=== PATIENT | male | born 1950 | race Caucasian/White ===

== ENCOUNTER 2024-06-19 08:36 | Outpatient (OUT) | payer OTHER, SELFPAY ==
[2024-06-19] MEDS: ALBUTEROL SULFATE 2.5 MG/3 ML VIAL NEB IH (09:30)
--- NOTE | 2024-06-19 09:31 | RT_ITS ---
The 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 Findings were considered accurate and reproducible. Both pre- and post-bronchodilator values utilized for spirometry. Spirometry (based on pre-bronchodilator values): -FEV1/FVC: Reduced @ 32% -FEV1: Severely reduced @ 38% -FVC: Normal @ 87% -DKC63-67%: Reduced @ 13% -There is a positive bronchodilator response in FEV1. Flow-volume loop: -Severe obstructive pattern Impressions: -Spirometry is consistent with severe obstruction with a positive bronchodilator response which can be seen in asthma or COPD with a bronchodilator response. Consider full PFT with lung volumes and diffusion capacity depending on the clinical suspicion. Clinical correlation required. Electronically Signed On 06-19-2024 16:54:27 EDT by Gregory Jackson
--- NOTE | 2024-06-19 09:56 | XR_ITS ---
The [address] [address] Patient Name: ALEXIS SABILLON MRN: [id number] date: 1950 Sex: M Assigned Patient Location: CARD Current Patient Location: CARD Accession/Order Number: [id number] Exam Date: 06/19/2024 10:05 Report Date: 06/19/2024 19:24 At the request of: FRANCE SINGLETARY Procedure: XR chest 2V EXAM: XR chest 2V HISTORY: Shortness Of Breath COMPARISON: None. TECHNIQUE: Upright PA and lateral chest x-ray FINDINGS: The heart is not enlarged and the vasculature is not distended. Multiple sternal wire sutures are present with coronary artery stents. No acute infiltrate, effusion or pneumothorax is identified. Flattening of the hemidiaphragms indicates COPD. The osseous structures are grossly intact. Hardware projects over the cervical spine. XR/XR chest 2V IMPRESSION: No acute infiltrate or evidence of cardiac decompensation. Some chronic changes are present. Direct comparison with a previous study may be helpful in determining the chronicity of these findings. Electronically authenticated by: DANELLE BOO Date: 06/19/2024 19:24
== END 2024-06-19 08:37 | disposition home or self-care (01) ==
PROVIDERS: PCP Internal Medicine; Visit Provider Chiropractor
DX: R06.02 Shortness of breath (principal)
CPT/HCPCS: 71046; 94060

== ENCOUNTER 2024-07-05 12:34 | Inpatient (IN) | payer OTHER, SELFPAY ==
[2024-07-05] VITALS (9 sets, daily range): BP systolic 102–169; BP diastolic 51–71; PULSE 67–83; TEMP 36.3–36.9; O2SAT 91–97; BMI 23.7; BMI 24.8
--- NOTE | 2024-07-05 13:09 | ED.RECABL1 ---
HPI - Recheck/Abnormal Lab/Rx General Chief Complaint: Recheck/Abnormal Lab/Rx Stated Complaint: ABNORMAL LABS Time Seen by Provider: 07/05/24 12:57 Source: patient Mode of arrival: walk-in Limitations: no limitations History of Present Illness HPI narrative: This patient is here with his for evaluation of abnormal laboratory test. He just had some outpatient labs done at a different institution and his doctor's office called him with abnormal results on his blood glucose. He has been taking metformin for quite a few years because he was told that he was Predyne bad ache but his blood sugars have never been elevated. He currently is under treatment of an oncology doctor for lung cancer. He is getting carboplatin and Keytruda. He is scheduled to have 2 more Keytruda and lesions on July 12 and August 02. He is under the care of the [facility] and then a local oncology doctor Dr. vee. He has noticed that he has been voiding and thirsty for the last several weeks. He has not been on any steroids that he is aware of. Related Data Allergies Allergy/AdvReac Type Severity Reaction Status Date / Time azithromycin AdvReac Intermediate Nausea Verified 07/05/24 13:01 [facility] Social History Little interest or pleasure in doing things: not at all Feeling down, depressed, or hopeless: not at all Exam Narrative Exam Narrative: Awake alert pleasant no distress. Does not want anything for nausea at this time. Always had the today with some fresh pineapple. Does not have any abdominal pain chest pain or difficulty breathing. Vital signs are noted. Skin is warm and dry. He has no scleral icterus or jaundice. He has no respiratory distress. Pulse oximetry is 97% on room air. Cognition mentation and mental status are normal. Constitutional Vital Signs, click to edit/add: Last Vital Signs Temp 97.3 F L 07/05/24 12:41 Pulse 83 07/05/24 12:41 Resp 18 07/05/24 12:41 BP 169/71 H 07/05/24 12:41 Pulse Ox 97 07/05/24 12:41 O2 Del Method Room Air 07/05/24 12:41 Course Vital Signs Vital signs: Vital Signs Temperature 97.3 F L 07/05/24 12:41 Pulse Rate 83 07/05/24 12:41 Respiratory Rate 18 07/05/24 12:41 Blood Pressure 169/71 H 07/05/24 12:41 Pulse Oximetry 97 07/05/24 12:41 Oxygen Delivery Method Room Air 07/05/24 12:41 Temperature 97.3 F L 07/05/24 12:41 Pulse Rate 83 07/05/24 12:41 Respiratory Rate 18 07/05/24 12:41 Blood Pressure 169/71 H 07/05/24 12:41 Pulse Oximetry 97 07/05/24 12:41 Oxygen Delivery Method Room Air 07/05/24 12:41 MDM - Recheck/Abnormal Lab/Rx MDM Narrative Medical decision making narrative: Laboratory testing and a additionally include serum acetone venous blood gases.. Overall this patient's pH is just under 7.3 and that is not consistent with DKA. There is a very mild anion gap and trace acetone again this is more consistent with hyperosmolar than it is DKA. Case was discussed with the attending and we will put the patient on the floor and continue therapy. Lab Data Labs: Lab Results 07/05/24 07/05/24 07/05/24 Range/Units 13:00 14:07 14:33 VBG pH 7.297 L (7.330-7.430) VBG pCO2 35.4 L (40.0-52.0) mmHg Sodium 125 L (136-145) mmol/L Potassium 4.9 (3.5-5.1) mmol/L Chloride 85 L (98-107) mmol/L Carbon Dioxide 20.2 L (21.0-32.0) mmol/L Anion Gap 24.7 BUN 26.0 H (7.0-18.0) mg/dL Creatinine 1.54 H (0.70-1.30) mg/dL Est GFR ( Amer) 54 L (>=60) Est GFR (Non-Af Amer) 44 L (>=60) BUN/Creatinine Ratio 16.9 Glucose 647 H* (74-106) mg/dL Calcium 8.5 (8.5-10.1) mg/dL Acetone, Qual Small A (NEGATIVE) POC Glucose 553 H* (74-106) mg/dL Discharge Plan Discharge Chief Complaint: Recheck/Abnormal Lab/Rx Clinical Impression: Hyperosmolar hyperglycemic state (HHS) Patient Disposition: Admitted as Observation Time of Disposition Decision: 14:46 Print Language: Latvian Referrals: FRANCE PACHECO [Primary Care Provider] - 1 week
[2024-07-05] MEDS: INSULIN REGULAR, HUMAN (100 UNIT/ML) 10 ML MDV 6 UNIT IV (13:20)
[2024-07-05] MEDS: 0.9 % SODIUM CHLORIDE 1,000 ML 1000 ML IV ×2 (13:21→17:53)
[2024-07-05 13:37] LABS: Acetone SMALL (NEGATIVE)
[2024-07-05 13:45] LABS: Anion Gap 24.7; BUN Creatinine Ratio 16.9; Calcium 8.5 mg/dL (8.5-10.1); Carbon Dioxide 20.2 mmol/L (21.0-32.0); Chloride 85 mmol/L (98-107); Estimated GFR (African America 54 (>=60); Estimated GFR (Non-African Ame 44 (>=60); Potassium 4.9 mmol/L (3.5-5.1); Sodium 125 mmol/L (136-145)
[2024-07-05 13:50] LABS: Glucose 647 mg/dL (74-106)
[2024-07-05 14:10] LABS: Glucometer 553 mg/dL (74-106)
[2024-07-05 14:41] LABS: PCO2 VBG 35.4 mmHg (40.0-52.0); pH VBG 7.297 (7.330-7.430)
[2024-07-05 17:03] LABS: Glucometer 461 mg/dL (74-106)
--- NOTE | 2024-07-05 17:26 | P.HP_ITS ---
HPI H&P: HPI History of Present Illness Chief complaint: ABNORMAL LABS/HYPEROSMOLAR/HYPERGLYCEMIC STATE Narrative: Patient was was having routine outpatient labs with increasing thirst lately through his oncology office, found to have a significantly elevated sugar over 600, he was recommended to come to emergency room for evaluation. In the emergency room he does have some mild acidosis, mild ketosis, but not to the level he would expect with diabetic ketoacidosis he is also not an insulin- dependent diabetic. 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 When I saw patient up on the medical surgical floor, resting comfortably, denies any specific complaints other than just being very thirsty and somewhat fatigued. But no chest pain or shortness of breath no UTI symptoms no gastroenteritis symptoms Opioid HPI Opioid Management Most Recent Pain and Opioid Data: Last Pain Assessment 07/05/24 17:11 Last ORT Total Score 0 07/05/24 15:46 Last ORT Risk Category Low Risk 07/05/24 15:46 Review of Systems ROS Status of ROS 10 or more systems reviewed and unremark able except as noted in history and below PFSH PFSH Medical History (Updated 07/05/24 @ 16:31 by Jane Suarez RN) Hypertension ?I10 - Essential (primary) hypertension (ICD-10) Diabetes ?E11.9 - Type 2 diabetes mellitus without complications (ICD-10) COPD (chronic obstructive pulmonary disease) ?J44.9 - Chronic obstructive pulmonary disease, unspecified (ICD-10) Lung cancer ?C34.90 - Malignant neoplasm of unspecified part of unspecified bronchus or lung (ICD-10) History of bladder cancer ?Z85.51 - Personal history of malignant neoplasm of bladder (ICD-10) History of thyroid cancer ?Z85.850 - Personal history of malignant neoplasm of thyroid (ICD-10) Surgical History (Updated 07/05/24 @ 16:31 by Jane Suarez RN) History of vasectomy ?Z98.52 - Vasectomy status (ICD-10) Hx of tonsillectomy ?Z90.89 - Acquired absence of other organs (ICD-10) Hx of cervical spinal arthrodesis ?Z98.1 - Arthrodesis status (ICD-10) Hx of CABG ?Z95.1 - Presence of aortocoronary bypass graft (ICD-10) History of heart artery stent ?Z95.5 - Presence of coronary angioplasty implant and graft (ICD-10) Family History (Updated 07/05/24 @ 15:34 by Jane Suarez RN) Sister Family history of diabetes mellitus Father Family history of diabetes mellitus Family history of stroke Brother Family history of hypertension Mother Family history of stroke Social History (Updated 07/05/24 @ 15:36 by Jane Suarez RN) Within the past year, how often did you have a drink containing alcohol: 4 or more times a week Smoking status: Current every day smoker Non-prescribed substance use: denies use Highest level of school completed/degree received: some college, no degree Little interest or pleasure in doing things: not at all Feeling down, depressed, or hopeless: not at all Meds Home Medications and Allergies Home Medications ?Medication ?Instructions ?Recorded ?Confirmed ?Type albuterol sulfate 2.5 mg/3 mL 2.5 mg inhalation Q4H PRN 07/05/24 07/05/24 Hist ory (0.083 %) solution for nebulization shortness of breath or wheezing ascorbic acid (vitamin C) 500 mg 500 mg PO DAILY 07/05/24 07/05/24 History capsule aspirin 81 mg capsule 81 mg PO DAILY 07/05/24 07/05/24 History atorvastatin 80 mg tablet 80 mg PO .at bedtime 07/05/24 07/05/24 History fluticasone fur. 100 mcg-umeclid 1 inh inhalation DAILY 07/05/24 07/05/24 History 62.5 mcg-vilant 25 mcg inhalat.powder (Trelegy Ellipta) folic acid 1 mg tablet 1 mg PO DAILY 07/05/24 07/05/24 History levothyroxine 150 mcg tablet 137 mcg PO DAILY 07/05/24 07/05/24 History metformin 500 mg tablet 500 mg PO DAILY 07/05/24 07/05/24 History metoprolol tartrate 25 mg tablet 12.5 mg PO Q12H 07/05/24 07/05/24 History omeprazole 20 mg capsule,delayed 20 mg PO DAILY 07/05/24 07/05/24 History release ondansetron 8 mg disintegrating 8 mg PO .as needed 07/05/24 07/05/24 History tablet tamsulosin 0.4 mg capsule 0.4 mg PO .at bedtime 07/05/24 07/05/24 History Allergies Allergy/AdvReac Type Severity Reaction Status Date / Time erythromycin base Allergy Nausea Verified 07/05/24 15:46 Permetrexed Allergy Rash Uncoded 07/05/24 15:46 Exam Constitutional Vital Signs, click to edit/add: Last Vital Signs Temp 98.3 F 07/05/24 15:46 Pulse 80 07/05/24 15:46 Resp 18 07/05/24 15:46 BP 118/63 07/05/24 15:46 Pulse Ox 92 L 07/05/24 15:46 O2 Del Method Room Air 07/05/24 15:46 Documenting provider has reviewed patient's vital signs: yes Common normals: no apparent distress Chest Common normals: inspection of chest normal Respiratory Common normals: normal respiratory effort, no retractions and clear to auscultation bilaterally Cardio Common normals: regular rate and regular rhythm GI Common normals: Normal to inspection, nondistended, normoactive bowel sounds present, soft to palpation and non-tender Extremity Common normals: normal to inspection, full ROM and no clubbing, cyanosis or edema Results Labs Labs: [facility] 07/05/24 13:00 Sodium 125 L Potassium 4.9 Chloride 85 L Carbon Dioxide 20.2 L BUN 26.0 H Creatinine 1.54 H Glucose 647 H* Calcium 8.5 ABG ABG results: 07/05/24 14:33 VBG pH 7.297 L VBG pCO2 35.4 L Assessment and Plan Assessment and Plan (1) Hyperosmolar hyperglycemic state (HHS): (2) Hypertension: (3) Diabetes: (4) COPD (chronic obstructive pulmonary disease): (5) Lung cancer: (6) Hx of CABG: (7) History of heart artery stent: Plan Admission findings: Hyponatremia, metabolic acidosis, severe hyperglycemia, positive ketone secondary to nonketotic hyperosmolar syndrome initial diagnosis Nonketotic hyperosmolar syndrome-at this point we will continue with IV fluid resuscitation, subcu insulin, continue with home medications. Suspecting this started from a dose of Solu-Medrol 2 weeks ago. This need to improve his overall hydration status non insulin-dependent diabetes mellitus-continue with metformin, he may need alternate treatment pending on outcome over the next 24 to 48 hours Acute kidney injury with creatinine 130% above baseline-IV fluids. Serial labs. Hyponatremia-likely secondary to the above-repeat labs in a.m., check urine sodium Metabolic acidosis likely secondary just to the dehydration. In the hyperglycemia. Will see if resolves overnight with fluids and subcu insulin. Check other labs including CBC and liver profile, not checked in ER urinalysis also. Lung cancer active, currently undergoing chemotherapy-Case discussed with oncology, check urine sodium as a possible source for the hyponatremia Coronary artery disease due to hypercholesterolemia, status post two-vessel bypass +12 stents-no chest pain. Denies history of heart failure. Thyroid cancer-treated in the past. Currently on levothyroxine. Will maintain that. COPD-continue with home inhalers Cervical disc disease-currently not active. Admission status: Initial episode of nonketotic hyperosmolar syndrome, medically necessary treatment will span 2 midnights. Inpatient status.
[2024-07-05 17:36] LABS: Basophils Percent Auto 0.7 % (0.2-2.0); Eosinophils Percent Auto 0.2 % (0.9-7.0); Hematocrit 33.7 % (42.0-54.0); Hemoglobin 12.2 g/dL (14.0-18.0); Immature Granulocytes Abs Auto 0.02 10^3/uL (0.00-0.03); Immature Granulocytes Pct Auto 0.4 % (0.0-0.5); Lymphocytes Absolute Auto 0.9 10^3/uL (1.2-3.8); Lymphocytes Percent Auto 19.3 % (20.5-60.0); Mean Corpuscular HGB Conc 36.2 g/dL (29.9-35.2); Mean Corpuscular Hemoglobin 34.3 pg (25.9-34.0); Mean Corpuscular Volume 94.7 fL (80.0-94.0); Mean Platelet Volume 10.1 fL (9.5-13.5); Monocytes Absolute Auto 0.4 10^3/uL (0.3-0.8); Monocytes Percent Auto 9.1 % (1.7-12.0); Neutrophils Absolute Auto 3.2 10^3/uL (1.4-6.5); Neutrophils Percent Auto 70.3 % (43.0-75.0); Platelet Count 235 10^3/uL (150-450); Red Blood Count 3.56 10^6/uL (4.70-6.10); Red Cell Distribution Width 12.4 % (11.0-15.0); White Blood Count 4.5 10^3/uL (4.0-11.0)
[2024-07-05 17:47] LABS: Alanine Aminotransferase 28 U/L (16-63); Albumin Globulin Ratio 1.2; Albumin Level 3.8 g/dL (3.4-5.0); Alkaline Phosphatase 169 U/L (46-116); Aspartate Amino Transferase 15 U/L (15-37); Bilirubin Direct 0.2 mg/dL (0.0-0.2); Bilirubin Total 0.7 mg/dL (0.2-1.0); Globulin 3.1 g/dL; Magnesium 1.2 mg/dL (1.8-2.4); Total Protein 6.9 g/dL (6.4-8.2)
[2024-07-05] MEDS: INSULIN ASPART 300 UNIT/3 ML PEN SUBQ ×2 (17:48→21:30)
[2024-07-05] MEDS: 0.9 % SODIUM CHLORIDE 1,000 ML 125 ML IV (18:59)
[2024-07-05 20:30] LABS: Glucometer 340 mg/dL (74-106)
--- NOTE | 2024-07-05 20:33 | RESP.RT ---
Pt refused HHN. Pt stated he took his Trelegy inhlaler already this morning before he came in and does not want the scheduled breathing treatments. Pt has home Trelegy inhaler here.
[2024-07-05] MEDS: METOPROLOL TARTRATE 25 MG TABLET 12.5 MG PO (21:30)
[2024-07-05] MEDS: ATORVASTATIN CALCIUM 40 MG TABLET 80 MG PO (21:30)
[2024-07-05] MEDS: TAMSULOSIN HCL 0.4 MG CAPSULE PO (21:30)
[2024-07-06] VITALS (9 sets, daily range): BP systolic 114–118; BP diastolic 57–65; PULSE 50–76; TEMP 36.6–36.7; O2SAT 90–95
[2024-07-06] MEDS: 0.9 % SODIUM CHLORIDE 1,000 ML 125 ML IV (02:08)
[2024-07-06 04:20] LABS: Glucometer 60 mg/dL (74-106)
--- NOTE | 2024-07-06 04:23 | PC.NURSE ---
0418 RN to bedside. TIRE MOUNTER informed RN that pt was diaphoretic. Pt remains A&O X4, no acute distress at present time. Assessed FSBS, noted to be 60. Pt given [place] Juice, and peanut butter and juice crackers. Pt tolerating well. Denies any complaints or feelings of hypoglycemia at this time.
[2024-07-06 04:43] LABS: Glucometer 72 mg/dL (74-106)
--- NOTE | 2024-07-06 04:44 | PC.NURSE ---
0444 - RN to bedside. Follow up FSBS -72. Pt given second [place] juice with 1 packet of sugar. Pt remains alert and oriented without s/s of hypoglycemia at present time.
[2024-07-06] MEDS: LEVOTHYROXINE SODIUM 112 MCG TABLET PO (05:37)
[2024-07-06] MEDS: LEVOTHYROXINE SODIUM 25 MCG TABLET PO (05:37)
[2024-07-06] MEDS: OMEPRAZOLE 20 MG CAPSULE.DR PO (05:37)
[2024-07-06 06:28] LABS: Basophils Percent Auto 0.3 % (0.2-2.0); Eosinophils Absolute Auto 0.2 10^3/uL (0.0-0.7); Eosinophils Percent Auto 3.1 % (0.9-7.0); Hematocrit 30.2 % (42.0-54.0); Hemoglobin 10.9 g/dL (14.0-18.0); Immature Granulocytes Abs Auto 0.06 10^3/uL (0.00-0.03); Lymphocytes Absolute Auto 0.6 10^3/uL (1.2-3.8); Lymphocytes Percent Auto 10.8 % (20.5-60.0); Mean Corpuscular HGB Conc 36.1 g/dL (29.9-35.2); Mean Corpuscular Volume 94.1 fL (80.0-94.0); Mean Platelet Volume 9.6 fL (9.5-13.5); Monocytes Absolute Auto 0.4 10^3/uL (0.3-0.8); Monocytes Percent Auto 7.2 % (1.7-12.0); Neutrophils Absolute Auto 4.5 10^3/uL (1.4-6.5); Neutrophils Percent Auto 77.6 % (43.0-75.0); Platelet Count 197 10^3/uL (150-450); Red Blood Count 3.21 10^6/uL (4.70-6.10); Red Cell Distribution Width 12.4 % (11.0-15.0); White Blood Count 5.8 10^3/uL (4.0-11.0)
[2024-07-06 06:51] LABS: Alanine Aminotransferase 21 U/L (16-63); Alkaline Phosphatase 119 U/L (46-116); Anion Gap 16.1; Aspartate Amino Transferase 18 U/L (15-37); Bilirubin Total 0.5 mg/dL (0.2-1.0); Calcium 8.2 mg/dL (8.5-10.1); Carbon Dioxide 22.2 mmol/L (21.0-32.0); Chloride 103 mmol/L (98-107); Estimated GFR (African America >60 (>=60); Estimated GFR (Non-African Ame >60 (>=60); Globulin 2.4 g/dL; Glucose 201 mg/dL (74-106); Potassium 4.3 mmol/L (3.5-5.1); Sodium 137 mmol/L (136-145); Total Protein 5.4 g/dL (6.4-8.2)
[2024-07-06 06:59] LABS: Albumin Globulin Ratio 1.3
[2024-07-06] MEDS: INSULIN ASPART 300 UNIT/3 ML PEN SUBQ (08:24)
[2024-07-06 08:40] LABS: Estimated Average Glucose 217 mg/dL; Glycohemoglobin A1C 9.2 % (4.5-6.2)
[2024-07-06] MEDS: ASCORBIC ACID 500 MG TABLET PO (08:50)
[2024-07-06] MEDS: METOPROLOL TARTRATE 25 MG TABLET 12.5 MG PO (08:50)
[2024-07-06] MEDS: FOLIC ACID 1 MG TABLET PO (08:51)
[2024-07-06] MEDS: FLUTICASONE UMECLIDIN VILANTER IH (08:51)
[2024-07-06] MEDS: METFORMIN HCL 500 MG TABLET PO (08:51)
[2024-07-06] MEDS: ASPIRIN 81 MG TAB.CHEW PO (08:51)
--- NOTE | 2024-07-06 11:47 | PM.DS1 ---
DS: Providers Provider Date of admission: 07/05/24 15:20 Primary care physician: FRANCE PACHECO Admitting clinician: Gael Chavez Attending physician on admission: Gael Chavez Consults: 07/05/24 Consult to Dietitian Routine Reason for consultation: Weight loss from chemo Attending physician on discharge: Shaikh Simón Discharging clinician: Shaikh Simón Anticipated date of discharge: 07/06/24 DS: Diagnosis Discharge Diagnosis (1) Hyperglycemia due to type 2 diabetes mellitus: Assessment and plan: Continue with poorly controlled blood glucose with random blood glucose as high as 600 but no significant acidosis and normal serum osmolarity. Does not meet criteria for DKA or hyperosmolar hyperglycemia. Patient was treated with aggressive IV hydration overnight with subcutaneous insulin as needed for elevated blood glucose. He did not require IV insulin or long-acting insulin. He did in fact become hypoglycemic overnight but his blood glucose improved with oral intake. Qualifiers: Diabetes mellitus senior care insulin use: without senior care use Qualified Code(s): E11.65 - Type 2 diabetes mellitus with hyperglycemia (2) Hypertension: Assessment and plan: Blood pressure is at goal. Continue with home medications. Qualifiers: Hypertension type: primary hypertension Qualified Code(s): I10 - Essential (primary) hypertension (3) Pseudohyponatremia: Assessment and plan: Presented with pseudohyponatremia with serum sodium 125 likely because of hyperglycemia. Serum sodium earlier this morning is more or less normal after hyperglycemia was treated (4) Diabetes: Assessment and plan: Previous diagnosis of type 2 diabetes but was just using metformin as his blood glucose has been stable and well-controlled. He is now receiving IV Solu-Medrol with immunotherapy and that may have resulted in poorly controlled type 2 diabetes. His A1c is 9.3. I will increase his metformin to twice a day and glipizide 5 mg once daily. Patient was instructed to check his blood glucose at least twice a day and maintain blood glucose log and bring his home blood glucose readings to his PCP so that his diabetic regimen can be adjusted Qualifiers: Diabetes mellitus type: type 2 Diabetes mellitus senior care insulin use: without ferry terminal agent use Diabetes mellitus complication status: without complication Qualified Code(s): E11.9 - Type 2 diabetes mellitus without complications (5) TOYA (acute kidney injury): Assessment and plan: Presented with elevated serum creatinine up to 1.5. His baseline creatinine is normal. His creatinine is now back to his normal level. Likely because of dehydration secondary to poorly controlled hyperglycemia (6) COPD (chronic obstructive pulmonary disease): Assessment and plan: Stable. No evidence of bronchospasm. No active wheezing. Continue with home medications Qualifiers: COPD type: unspecified COPD Qualified Code(s): J44.9 - Chronic obstructive pulmonary disease, unspecified (7) Lung cancer: Assessment and plan: Metastatic lung cancer and is currently on chemotherapy and immunotherapy. Continue to follow-up with oncology Qualifiers: Laterality: right Lung location: overlapping sites Qualified Code(s): C34.81 - Malignant neoplasm of overlapping sites of right bronchus and lung (8) Hx of CABG: Assessment and plan: No evidence of active cardiac ischemia. Continue with aspirin, statin. (9) Hypothyroid: Assessment and plan: Continue with levothyroxine. Qualifiers: Hypothyroidism type: postoperative Qualified Code(s): E89.0 - Postprocedural hypothyroidism DS: Summary Hospital Course Hospital Course: 73-year-old male was sent by his physician after his outpatient labs revealed his blood glucose were over 600. He himself has been complaining of polydipsia, polyuria and weight loss. He was previously a type II diabetic and is currently on metformin once daily because previously his blood glucose were adequately controlled. He is now receiving IV Solu-Medrol twice a month along with chemotherapy and that may have resulted in poorly controlled type 2 diabetes with an A1c of 9.3. Upon admission, his blood glucose was above 600 but he had no significant acidosis and his serum osmolarity was less than 300. He does not meet criteria for DKA or hyperosmolar hyperglycemia but was symptomatic with poorly controlled blood glucose and was admitted overnight for close monitoring, IV hydration and treatment of his hyperglycemia with insulin. He did not require IV insulin infusion and overnight developed hypoglycemia. His blood glucose is now adequately controlled and more or less at goal. His renal function indicated above acute kidney injury is now returned to normal. Patient is stable for discharge medically on oral metformin twice a day. I will add glipizide 5 mg once daily for him. He was instructed to check his blood glucose twice a day before meals and maintain a blood glucose log so that his primary care physician can adjust his diabetic regimen according to his home blood glucose readings. Patient was also instructed to return to ED if he has persistent hyperglycemia, nausea or abdominal pain and or confusion. Patient was initially admitted as inpatient as it was anticipated that he will require close inpatient monitoring and treatment of his hyperglycemia and possibly IV insulin but recovered sooner than anticipated and is stable for discharge medically. He will need close follow-up with oncology and PCP as outpatient. Status at Discharge Functional status at discharge: independent ambulation Overall status at discharge: patient is back to baseline Time Spent with Patient Time attestation: Total time spent providing and/or coordinating discharge services: Time spent: greater than 30 minutes Exam Constitutional Vital Signs, click to edit/add: Last Vital Signs Temp 98.1 F 07/06/24 11:14 Pulse 76 07/06/24 11:14 Resp 16 07/06/24 11:14 BP 118/65 07/06/24 11:14 Pulse Ox 94 L 07/06/24 11:14 O2 Del Method Room Air 07/06/24 11:14 Documenting provider has reviewed patient's vital signs: yes Common normals: no apparent distress and oriented x3 General appearance: cooperative Respiratory Common normals: normal respiratory effort and clear to auscultation bilaterally Effort & inspection: able to speak in complete sentences Auscultation: clear to auscultation bilaterally Cardio Common normals: regular rate, S1 normal heart sound and S2 normal heart sound Rate: regular rate Heart sounds: S1 normal and S2 normal GI Common normals: Normal to inspection, nondistended, normoactive bowel sounds present, soft to palpation, non-tender and no hepatosplenomegaly Palpation: soft and no hepatosplenomegaly Extremity Common normals: no clubbing, cyanosis or edema Neuro Common normals: oriented x3, moves all extremities and no focal motor deficits Psych Common normals: mental status grossly normal, denies hallucinations, denies homicidal ideation and denies suicidal ideation DS: Data Data Completed and Pending Labs on day of discharge: Labs from last 24 hours 07/06/24 07/06/24 07/06/24 05:39 04:41 04:19 WBC 5.8 RBC 3.21 L Hgb 10.9 L Hct 30.2 L MCV 94.1 H MCH 34.0 MCHC 36.1 H RDW 12.4 Plt Count 197 MPV 9.6 Neut % (Auto) 77.6 H Lymph % (Auto) 10.8 L [place] % (Auto) 7.2 Eos % (Auto) 3.1 Baso % (Auto) 0.3 Neut # (Auto) 4.5 Lymph # (Auto) 0.6 L [place] # (Auto) 0.4 Eos # (Auto) 0.2 Baso # (Auto) 0.0 Abs Immat Gran (auto) 0.06 H Imm/Tot Granulo (auto) 1.0 H VBG pH VBG pCO2 Sodium 137 Potassium 4.3 Chloride 103 Carbon Dioxide 22.2 Anion Gap 16.1 BUN 16.0 Creatinine 0.89 Est GFR ( Amer) >60 Est GFR (Non-Af Amer) >60 BUN/Creatinine Ratio 18.0 Glucose 201 H Estimat Average Glucose 217 Hemoglobin A1c 9.2 H Lactate Calcium 8.2 L Magnesium Total Bilirubin 0.5 Direct Bilirubin AST 18 ALT 21 Alkaline Phosphatase 119 H Total Protein 5.4 L Albumin 3.0 L Globulin 2.4 Albumin/Globulin Ratio 1.3 Acetone, Qual POC Glucose 72 L 60 L 07/05/24 07/05/24 07/05/24 20:30 17:01 14:33 WBC RBC Hgb Hct MCV MCH MCHC RDW Plt Count MPV Neut % (Auto) Lymph % (Auto) [place] % (Auto) Eos % (Auto) Baso % (Auto) Neut # (Auto) Lymph # (Auto) [place] # (Auto) Eos # (Auto) Baso # (Auto) Abs Immat Gran (auto) Imm/Tot Granulo (auto) VBG pH 7.297 L VBG pCO2 35.4 L Sodium Potassium Chloride Carbon Dioxide Anion Gap BUN Creatinine Est GFR ( Amer) Est GFR (Non-Af Amer) BUN/Creatinine Ratio Glucose Estimat Average Glucose Hemoglobin A1c Lactate Calcium Magnesium Total Bilirubin Direct Bilirubin AST ALT Alkaline Phosphatase Total Protein Albumin Globulin Albumin/Globulin Ratio Acetone, Qual POC Glucose 340 H 461 H 07/05/24 07/05/24 14:07 13:00 WBC 4.5 RBC 3.56 L Hgb 12.2 L Hct 33.7 L MCV 94.7 H MCH 34.3 H MCHC 36.2 H RDW 12.4 Plt Count 235 MPV 10.1 Neut % (Auto) 70.3 Lymph % (Auto) 19.3 L [place] % (Auto) 9.1 Eos % (Auto) 0.2 L Baso % (Auto) 0.7 Neut # (Auto) 3.2 Lymph # (Auto) 0.9 L [place] # (Auto) 0.4 Eos # (Auto) 0.0 Baso # (Auto) 0.0 Abs Immat Gran (auto) 0.02 Imm/Tot Granulo (auto) 0.4 VBG pH VBG pCO2 Sodium 125 L Potassium 4.9 Chloride 85 L Carbon Dioxide 20.2 L Anion Gap 24.7 BUN 26.0 H Creatinine 1.54 H Est GFR ( Amer) 54 L Est GFR (Non-Af Amer) 44 L BUN/Creatinine Ratio 16.9 Glucose 647 H* Estimat Average Glucose Hemoglobin A1c Lactate 2.0 Calcium 8.5 Magnesium 1.2 L Total Bilirubin 0.7 Direct Bilirubin 0.2 AST 15 ALT 28 Alkaline Phosphatase 169 H Total Protein 6.9 Albumin 3.8 Globulin 3.1 Albumin/Globulin Ratio 1.2 Acetone, Qual Small A POC Glucose 553 H* Discharge Plan Discharge Disposition: Home, Self-Care Discharge Medications: New glipizide 5 mg tablet 5 mg PO DAILY Qty: 30 0RF Rx Instructions: use within 30 minutes of meal metformin 500 mg tablet 500 mg PO BID Qty: 60 0RF (DME) Advanced Gluc Meter Test Strip Strip See Rx Instructions .Route Qty: 100 0RF Rx Instructions: check blood glucose twice day (DME) lancets [Lancets, Super Thin] Misc See Rx Instructions .Route Qty: 100 0RF Rx Instructions: check blood glucose twice daily Continued ascorbic acid (vitamin C) 500 mg capsule 500 mg PO DAILY atorvastatin 80 mg tablet 80 mg PO .at bedtime aspirin 81 mg capsule 81 mg PO DAILY folic acid 1 mg tablet 1 mg PO DAILY levothyroxine 150 mcg tablet 137 mcg PO DAILY metoprolol tartrate 25 mg tablet 12.5 mg PO Q12H omeprazole 20 mg capsule,delayed release(DR/EC) 20 mg PO DAILY tamsulosin 0.4 mg capsule 0.4 mg PO .at bedtime Trelegy Ellipta 100-62.5-25 mcg blister with device 1 inh INHALATION DAILY ondansetron 8 mg tablet,disintegrating 8 mg PO .as needed albuterol sulfate 2.5 mg /3 mL (0.083 %) solution for nebulization 2.5 mg inhalation Q4H PRN (Reason: shortness of breath or wheezing) Discontinued metformin 500 mg tablet 500 mg PO DAILY Patient Comments: evening Activity: increase activity as tolerated Diet: advance to your usual diet Print Language: Sudanese Forms: Portal Instructions Follow Up Appointments: F/u with PCP in one week
--- OUTSIDE RECORDS SUMMARY | 2024-07-08 06:18 | XMS_ITS | CCD ---
Author Organization [facility] Care Team Providers Care Pizza Chef Name Role Phone Molina Pacheco Unavailable Unavailable Unavailable Cordelia Agarwal Unavailable Molina Palmer Unavailable Mihaela Palomo Unavailable Clif Dorado Unavailable [phone] DO Molina Pacheco Primary Care Provider MD Cordelia Agarwal Attending Provider DO Rob Villanueva Attending Provider [phone] DO Helder Barrett Attending Provider DO Molina Pacheco Primary Care Provider [phone] Vito NEVES Referring Unavailable Vito NEVES Attending Unavailable Vito NEVES Admitting Unavailable Vito NEVES Attending Unavailable Vito NEVES Attending Unavailable Unavailable Unavailable DR HENOK JIN Attending Unavailable LAZARO Vazquez, DR WHITING Consulting Unavailable DR HENOK IJN Admitting Unavailable DR MOLINA PACHECO Primary Care Unavailable DO Molina Pacheco Primary Care Provider MARY Palomo Attending Provider MD Cordelia Agarwal Attending Provider DO Molina Pacheco Primary Care Provider [phone] DO Rob Villanueva Attending Provider [phone] Cordelia Agarwal MD Unavailable LARISA GAXIOLA Referring Unavailable LARISA GAXIOLA Referring Unavailable LARISA GAXIOLA Attending Unavailable CORDELIA AGARWAL Referring Unavailable Molina Pacheco DO Primary Care Provider Arnold, Dr. Doc Gonzalez Attending Sandra Barrett, Dr. Doc Gonzalez Referring Unava ilalan Pacheco, Dr. Molina Valiente Primary Care Calin Barrett, Dr. Doc Gonzalez Attending Sandra Barrett, Dr. Doc Gonzalez Referring Unava ilalan Pacheco, Dr. Molina Valiente Primary Care Calin Barrett, Dr. Doc Gonzalez Attending Mayrava ilalan Barrett, Dr. Doc Gonzalez Referring Unava ilable Sara, Dr. Molina Valiente Primary Care Calin Sparks, MsGeorge Joanieantonio Anderson Attending Calin Sparks, MsGeorge Anderson Referring Unavai labhaether Pacheco, Dr. Molina Valiente Primary Care MOLINA Galvan Attending Unavailable MOLINA PACHECO Referring Unavailable DO Amrita Louis Primary Care Provider DO Rob Villanueva Attending Provider DO Amrita Louis Primary Care Provider DO Rob Villanueva Attending Provider DO Amrita Louis Attending Provider MD Clif Dorado Attending Provider DO Amrita Louis Referring Provider Lou MILLER, DO Leon Hancock Attending Provider [phone] DO Amrita Louis Referring Provider Lou MILLER, DO Leon Hancock Attending Provider [phone] AMRITA LOUIS Primary Care [facility] SHANEKA Garza Referring Unavailable DO Amrita Louis Primary Care Provider DO Amrita Louis Referring Provider Lou MILLER, DO Leon Hancock Attending Provider [phone] DO Amrita Louis Primary Care Provider DO Amrita Louis Attending Provider Con, DO Amrita Mendez Referring Provider Johnowicz II, DO Leon Hancock Attending Provider Degrocordell, DO Amrita Mendez Primary Care Provider MARY Palomo Attending Provider Douglasrocordell, DO Amrita Mendez Primary Care Provider [phone] Douglasrocordell, DO Amrita Mendez Referring Provider Adamowicz II, DO Leon Hancock Attending Provider [phone] DOC BARRETT Attending Unavailable MOLINA PACHECO Primary Care Unavailable DOC BARRETT Attending Unavailable DOC BARRETT Referring Unavailable DEGROAMRITA Ewing Primary Care Unavailable Degrocordell, DO Amrita Mendez Referring Provider Lou II, DO Leon Hancock Attending Provider DOC BARRETT Referring Unavailable DEGAMRITA RENE Primary Care Unavailable Rob Villanueva Admitting Unavailable CarolinakRob Attending Unavailable DegroAmrita ewing Primary Care Unavailable Molina Pacheco Primary Care Unavailable MurRob summers Admitting Unavailable MurceRob tillman Attending Unavailable EstradaClif allan Admitting Unavaila ble EstradaClif cano Attending Unavaila ble DegroAmrita ewing Primary Care Unavailable DegroAmrita ewing Primary Care Unavailable EstradaClif cano Admitting Unavaila ble EstradaClif cano Attending Unavaila ble DouglasroAmrita ewing Primary Care Unavailable Amrita Louis Referring Unavailable Adamowicz IILeon Admitting Unavaila ble Adamowicz IILeon Attending Unavaila ble Amrita Louis Primary Care Unavailable Mihaela Palomo Admitting Unavailable Mihaela Palomo Attending Unavailable Amrita Louis Admitting Unavailable DegroAmrita ewing Primary Care Unavailable DegroAmrita ewing Attending Unavailable DegroAmrita ewing Admitting Unavailable DegroAmrita ewing Primary Care Unavailable DegroAmrita ewing Attending Unavailable Allergies Allergy Classification Reported Allergen(s) Allergy Type Date of Onset Reaction(s) Facility (20 sources) Codeine; Translations: [Codeine Derivatives] Drug Allergy 01-05-20 12 Other: See Comments, GI Upset, Unknown, Nausea Only [facility] (20 sources) Erythromycin; Translations: [erythromycin] Drug Allergy 07-14-20 22 Unknown, Nausea Only [facility] (19 sources) Codeine Drug Allergy stomach upset [facility] Other (19 sources) Pneumococcal Vac Polyvalent Drug allergy SOB [facility] Other (20 sources) Codeine; Translations: [codeine] Drug Allergy 01-05-20 12 Nausea, Nausea, stomach upset [facility] (20 sources) erythromycin base; Translations: [ERYTHROMYCIN BASE] Allergy to substance 12-10-19 22 Nausea [facility] (20 sources) Pneumococcal vaccine; Translations: [PNEUMOCOCCAL VACCINE] Drug Allergy 05-29-20 23 Shortness of Breath [facility] (3 sources) PEMEtrexed Drug Allergy 05-17-20 24 rash, Anaphylaxis [facility] (2 sources) BUDESONIDE-GLYCO PYR-FORMOTEROL; Translations: [BUDESONIDE-GLYC OPYR-FORMOTEROL] Propensity to adverse reactions to drug (disorder) 05-07-20 24 [facility] 3 Repository Medications Current Medications Medication Drug Class(es) Dates Sig (Normalized) Sig (Original) ascorbic acid 1000 mg extended release oral tablet (20 sources) Vitamin C Start: 05-10-2019 Ascorbic Acid (Vitamin C) (Vitamin C) 1,000 mg Tablet Extended Release Active 500 MG PO Daily May 10, 2019 12:00am Start: 05-10-2019 take 1 tablet by mouth once da ana Ascorbic Acid (Vitamin C) (Vitamin C) 1,000 mg Tablet Extended Release Active 1000 MG PO Daily May 10, 2019 12:00am take 1 tablet by rene every twenty-four hours Vitamin C 500 MG 1 tablet Orally Once a day Active Comment on above: Take 500 mg by mouth . aspirin 81 mg delayed release oral tablet (20 sources) Platelet Aggregation Inhibitor, Nonsteroidal Anti-inflammatory Drug Start: 07-13-2022 Aspirin (Teressa Low Dose Aspirin) 81 mg tablet,delayed release (DR/EC) Active 162 MG PO Every morning July 13, 2022 10:01am Start: 05-14-2019 End: 07-13-2022 Aspirin (Teressa Low Dose Aspi rin) 81 mg tablet,delayed release (DR/EC) Active 81 MG PO Every morning July 13, 2022 10:01am Start: 05-10-2019 End: 05-14-2019 take 4 tablets by mouth once daily Aspirin (Aspirin Low Dose) 81 mg Tablet,Delayed Release (Dr/Ec) Discontinued 4 TAB PO Daily May 10, 2019 12:00am May 14, 2019 10:25am Comment on above: Take 81 mg by mouth. atorvastatin 80 mg oral tablet (20 sources) HMG-CoA Reductase Inhibitor Start: take 1 tablet by mouth once daily at bedtime Atorvastatin Active 1 TAB PO Daily at bedtime January 30, 2024 12:00am FreeTextSi tablet orally Once a day; Note: Source Status: Taking; Provider: Mary Storey ( ) Start: 09-30-2021 take 1 tablet by rene th once daily at bedtime atorvastatin (Lipitor) 80 mg tablet Take 1 tablet (80 mg) by mouth once daily at bedtime. 0 11/09/2021 Active Start: 05-10-2019 End: 01-30-2024 take 80 mg by mouth once daily in the morning Atorvastatin Discontinued 80 MG PO Every morning May 10, 2019 12:00am January 30, 2024 3:06pm Start: 05-10-2019 take 60 mg by mouth once daily in the morning Atorvastatin Active 60 MG PO Every morning May 10, 2019 12:00am Atorvastatin Brian cium 40 MG 1 1/2 tabs orally at nite Active Comment on above: Take 1 tablet by rene th daily at bedtime. 120 actuat budesonide 0.16 mg/actuat / formoterol fumarate 0.0048 mg/actuat / glycopyrrolate 0.009 mg/actuat metered dose inhaler (11 sources) Corticosteroid, beta2-Adrenergic Agonist Start: 01-30-2024 Mwozknfeth-Qigqdgpc-Cx rmoterol (Breztri Aerosphere) 160-9-4.8 mcg/actuation HFA aerosol inhaler Active 2 INH INHALATION Twice daily January 30, 2024 12:00am Vufohujzsfg-Iaqmsmbsh-Fcxyh ter (20 sources) Anticholinergic, Corticosteroid, beta2-Adrenergic Agonist Start: 05-06-2024 Fluticasone-Umeclidin- Vilanter (Trelegy Ellipta) 100-62.5-25 mcg blister with device Active 1 INH INHALATION Daily 3 May 06, 2024 12:00am Start: 07-10-2023 take 1 puff(s) by in halation once daily TRELEGY ELLIPTA 100-62.5-25 mcg inhalation powder Inhale 1 Puff as instructed once daily. 0 07/10/2023 Active Start: 12-08-2021 End: 01-30-2024 Asweaokqowu-Dwfsrexmt-Zpxpnd er (Trelegy Ellipta) 100-62.5-25 mcg Blister With Device Discontinued 1 INH INHALATION Every morning December 08, 2021 1:00am January 30, 2024 3:08pm Start: 12-08-2021 Fluticasone-Um eclidin-Vilanter (Trelegy Ellipta) 100-62.5-25 mcg Blister With Device Active 1 INH INHALATION Every morning December 08, 2021 12:00am Start: 12-08-2021 Fluticasone-Um eclidin-Vilanter (Trelegy Ellipta) 100-62.5-25 mcg Blister With Device Active 1 INH INHALATION Every morning December 08, 2021 1:00am Start: 12-08-2021 Fluticasone-Um eclidin-Vilanter (Trelegy Ellipta) 100-62.5-25 mcg Blister With Device Active 1 INH INHALATION Daily December 08, 2021 1:00am Start: 07-29-2021 take 1 puff(s) by in halation once daily Trelegy Ellipta 100-62.5-25 MCG/ACT 1 puff Inhalation Once a day for 90 days Jun, Active fluticasone-umec lidin-vilanter (TRELEGY-ELLIPTA) 100-62.5-25 mcg blister with device Inhale 1 puff if needed. As needed directed 0 Active Trelegy Ellipta 100-62.5-25 MCG/INH AEPB as directed Quantity: 0 Refills: 0 Ordered: 12-Jul-2022 DO Active Comment on above: Inhale 1 Puff as ins tructed once daily. folic acid 1 mg oral tablet (5 sources) Start: 06-17-20 24 take 1 mg by mouth once daily Folic Acid Active 1 MG PO Daily 60 April 15, 2024 12:00am levothyroxine sodium 0.137 mg oral capsule (20 sources) l-Thyroxine Start: 01-30-20 take 137 ug by mouth once daily in the morning Levothyroxine Active 137 MCG PO Every morning January 30, 2024 12:00am Start: 07-19-2023 take 1 tablet by rene once daily before mealtime levothyroxine (Synthroid, Levoxyl) 150 mcg tablet Take 1 tablet (150 mcg) by mouth once daily in the morning. Take before meals. 0 07/19/2023 Active Start: 07-13-2022 End: 01-30-2024 take 175 ug by mouth once daily in the morning Levothyroxine Discontinued 175 MCG PO Every morning July 13, 2022 12:00am January 30, 2024 3:07pm Start: 01-10-2022 End: 07-13-2022 take 137 ug by mouth once daily Levothyroxine Disconti nued 137 MCG PO Daily January 10, 2022 12:00am July 13, 2022 9:55am Start: 12-08-2021 End: 01-10-2022 take 112 ug by mouth once daily Levothyroxine Disconti nued 112 MCG PO Daily December 08, 2021 1:00am January 10, 2022 8:52am Start: 05-10-2019 End: 12-08-2021 take 125 ug by mouth once daily in the morning Levothyroxine Discontinued 125 MCG PO Every morning May 10, 2019 12:00am December 08, 2021 3:58pm take 1 tablet by rene th once daily Synthroid 150 MCG TAKE 1 TABLET orally Once a day Active take 1 tablet by rene th once daily Synthroid 175 MCG TAKE 1 TABLET orally Once a day Active take 1 tablet by rene once daily Synthroid 112 MCG TAKE 1 TABLET orally Once a day Active Comment on above: Take 1 tablet (150 m cg) by mouth in the morning. Take before meals. metFORMIN hydrochloride 500 mg oral tablet (20 sources) Biguanide Start: 9 take 500 mg by mouth once daily at bedtime Metformin Active 500 MG PO Daily at bedtime May 10, 2019 12:00am Comment on above: TAKE 1 TABLET BY RENE TH EVERY DAY WITH MEAL Multiple Vitamin (19 sources) Multiple Vitamin Orally daily Active Multiple Vitamin Orally daily *please review for potential _update for e-prescription and drug interaction check* Active multivitamin (Daily Multi-Vitamin) tablet (1 source) take 1 tablet by mouth once daily multivitamin (Daily Multi-Vitamin) tablet Take 1 tablet by mouth once daily. 0 Active Multivitamin (Multiple Vitamins) tablet (8 sources) Start: 02-19-20 take 1 tablet by mouth once daily Multivitamin (Multiple Vitamins) tablet Active 1 TAB PO Daily February 19, 2024 12:00am nitroglycerin 0.4 mg sublingual tablet (20 sources) Nitrate Vasodilator Start: 02-02-20 Nitroglycerin Active 0.4 MG SUBLINGUAL every 5 to 15 minutes February 02, 2024 12:00am do not exceed 3 doses per episode Start: 03-07-2023 apply 1 dose transde rmal route once daily, then apply 1 dose transdermal route every twenty-four hours Nitroglycerin 0.2 MG/HR Transdermal Patch 24 Hour APPLY PATCH FOR 12 TO 14 HOURS DAILY , THEN REMOVE Quantity: 90 Refills: 3 Ordered: 19-Apr-2023 Joanie Stapleton Start : 07-Mar-2023 Active new start Start: 08-19-2022 End: 01-30-2024 Nitroglycerin Discontinued 0 .2 MG TRANSDERML As Directed August 19, 2022 12:00am January 30, 2024 3:09pm Start: 08-10-2022 End: 09-06-2023 apply 0.2 mg transdermal route every hour in the morning nitroglycerin (Nitrodur) 0.2 mg/hr patch Place 1 patch on the skin once daily. On am off pm 0 08/10/2022 09/06/2023 Discontinued (Other) Start: 08-10-2022 apply 1 dose transde rmal route once daily, then apply 1 dose transdermal route every twenty-four hours Nitroglycerin 0.2 MG/HR Transdermal Patch 24 Hour APPLY PATCH FOR 12 TO 14 HOURS DAILY, THEN REMOVE Quantity: 30 Refills: 6 Ordered: 10-Aug-2022 Joanie Stapleton Start : 10-Aug-2022 Active Start: 05-10-2019 End: 01-30-2024 Nitroglycerin Discontinued 0 .4 MG SUBLINGUAL every 5 to 15 minutes May 10, 2019 12:00am January 30, 2024 3:09pm Start: 05-20-2010 Nitroglycerin 0.4 MG/HR 1 patch to skin remove after 12 hours Transdermal Once a day patches Apr, Active Start: 05-20-[address] 1 tablet (0.4MG) by Sublingual route at the 1st sign of attack; may repeat every 5 min until relief; if pain persists after 3 tablets in 15 min, prompt medical attention is recommended Sublingual Apr, Active Start: 05-20-2010 nitroglycerin sublingual (NITROQUICK) 0.4 mg SL tablet 0.4 mg. 0 05/20/2010 Active nitroglycerin (N itrostat) 0.[address] 1 tablet (0.4 mg) under the tongue if needed. As needed/directed 0 Active Nitroglycerin 0. 4 MG Sublingual Tablet Sublingual DISSOLVE 1 T UNDER THE TOUNGE Q 5 MIUNUTES FOR CHEST P Quantity: 1 Refills: 3 Ordered: 12-Jul-2022 DO Active Comment on above: 0.4 mg. ondansetron 8 mg disintegrating oral tablet (5 sources) Serotonin-3 Receptor Antagonist Start: 4 take 8 mg by mouth every eight hours Ondansetron Active 8 MG PO Every 8 hours April 15, 2024 12:00am pot bicarb/potassium cit/ca (POTASSIUM BICARBONATE ORAL) (1 source) take 1 tablet by mouth twice daily pot bicarb/potassium cit/ca (POTASSIUM BICARBONATE ORAL) Take 1 tablet by mouth 2 times a day. 99 mg otc 0 Active tamsulosin hydrochloride 0.4 mg oral capsule (20 sources) alpha-Adrenergic Gene Start: 2 take 0.4 mg by mouth once daily at bedtime Tamsulosin Active 0.4 MG PO Daily at bedtime December 08, 2021 1:00am Tamsulosin HCl A ctive Comment on above: Take 1 capsule (0.4 mg) by mouth in the morning. Trelegy Ellipta 100-62.5-25 MCG/INH (8 sources) Start: 1 take 1 puff(s) by inhalation once daily Trelegy Ellipta 100-62.5-25 MCG/INH 1 puff Inhalation Once a day for 90 days Jun, Active valsartan 160 mg oral tablet (2 sources) Angiotensin 2 Receptor Gene Start: take 160 mg by mouth once daily Valsartan Active 160 MG PO Daily May 17, 2024 12:00am Completed/Discontinued Medications Medication Drug Class(es) Dates Sig (Normalized) Sig (Original) [id number] 200 actuat albuterol 0.09 mg/actuat metered dose inhaler (20 sources) beta2-Adrenergic Agonist Start: 09-30-2021 albuterol HFA (PROVENTIL HFA, VENTOLIN HFA) 90 mcg/actuation inhaler INHALE 1 OR 2 PUFFS BY MOUTH QID PRN 0 09/30/2021 Active Start: 05-10-2019 take 1 puff(s) by in halation four times daily Albuterol Sulfate Active 2 PUFF INHALATION Four times daily May 10, 2019 12:00am take 2 puff(s) by in halation every four hours as needed Albuterol Sulfate HFA 108 (90 Base) MCG/ACT 2 puffs as needed Inhalation every 4 hrs for 90 days Active albuterol 90 mcg /actuation inhaler Inhale 2 puffs every 4 hours if needed. Every 4-6 hours 0 Active take 2 puff(s) by in halation every four hours as needed Albuterol Sulfate HFA 108 (90 Base) MCG/ACT 2 puffs as needed Inhalation every 4 hrs for 90 days Active take 1-2 puff(s) by inhalation every four to six hours as needed Albuterol Sulfate HFA 108 (90 Base) MCG/ACT Inhalation Aerosol Solution INHALE 1 TO 2 PUFFS EVERY 4 TO 6 HOURS NEEDED. Quantity: 0 Refills: 0 Ordered: 12-Jul-2022 DO Active Comment on above: INHALE 1 OR 2 PUFFS BY MOUTH QID PRN 120 actuat albuterol 0.1 mg/actuat / ipratropium bromide 0.02 mg/actuat inhalation spray (20 sources) Anticholinergic, beta2-Adrenergic Agonist Start: 9 End: 9 take 20-100 ug by inhalation twice daily Ipratropium-Albuterol (Combivent Respimat) 20-100 mcg/actuation Mist Discontinued 2 PUFF INHALATION Twice daily May 10, 2019 12:00am May 10, 2019 8:17am take 20-100 ug by inhalation twi ce daily Fluticasone Propion-Salmeterol (20 sources) Corticosteroid, beta2-Adrenergic Agonist Start: 05-10-2019 End: 12-08-2021 Fluticasone Propion-Salmeterol (Advair Diskus) 250-50 mcg/dose Blister With Device Discontinued 1 INH INHALATION Q12H May 09, 2019 11:00pm December 08, 2021 2:56pm Start: 05-10-2019 End: 12-08-2021 Fluticasone Propion-Salmeter ol (Advair Diskus) 250-50 mcg/dose Blister With Device Discontinued 1 INH INHALATION Q12H May 10, 2019 12:00am December 08, 2021 3:56pm take 1 puff(s) by in halation twice daily lisinopril 20 mg oral tablet (20 sources) Angiotensin Converting Enzyme Inhibitor Start: 05-10-2019 End: 05-17-2024 take 20 mg by mouth once daily in the morning Lisinopril Discontinued 20 MG PO Every morning May 10, 2019 12:00am May 17, 2024 1:34pm Start: 05-10-2019 take 20 mg by mouth twice ana y Lisinopril Active 20 MG PO Twice daily May 10, 2019 12:00am Comment on above: 20 mg. methylPREDNISolone (14 sources) Corticosteroid Start: 01-14-2015 Depo-Medrol 80 mg Dec, metoprolol tartrate 25 mg oral tablet (20 sources) beta-Adrenergic Gene Start: 05-14-2023 metoprolol tartrate, short acting, (LOPRESSOR) 25 mg tablet Take 12.5 mg by mouth two times a day. 0 05/14/2023 Active Start: 05-10-2019 take 12.5 mg by mout h twice daily Metoprolol Tartrate Active 12.5 MG PO Twice daily May 10, 2019 12:00am Metoprolol Tartr ate 25 MG 1/2 tab Orally 2 x a day for 90 Active Comment on above: Take 12.5 mg by mout h two times a day. Multi Vitamin Daily Oral Tablet (5 sources) take 1 tablet by mouth once daily Multi Vitamin Daily Oral Tablet TAKE 1 TABLET DAILY. Quantity: 0 Refills: 0 Ordered: 10-Aug-2022 DO Active Multi Vitamin Daily TABS (5 sources) Multi Vitamin Da ana TABS TAKE 1 TABLET DAILY. Quantity: 0 Refills: 0 Ordered: 10-Aug-2022 DO Active Multivitamin preparation (20 sources) Start: 05-10-2019 End: 01-30-2024 take 1 tablet by mouth once daily Multivitamin Discontinued 1 TAB PO Daily May 10, 2019 12:00am January 30, 2024 3:09pm Start: 05-10-2019 take 1 tablet by rene th once daily Multivitamin Active 1 TAB PO Daily May 09, 2019 11:00pm Start: 05-10-2019 take 1 tablet by rene th once daily Multivitamin Active 1 TAB PO Daily May 10, 2019 12:00am multivitamin (MU LTIPLE VITAMIN ORAL) Take 1 tablet by mouth. 0 Active Comment on above: Take 1 tablet by rene th. omeprazole 20 mg delayed release oral capsule (20 sources) Proton Pump Inhibitor Start: 09-30-2021 omeprazole (PRILOSEC) 20 mg capsule Take 20 mg by mouth. 0 09/30/2021 Active Start: 05-10-2019 take 20 mg by mouth once daily in the morning Omeprazole Active 20 MG PO Every morning May 10, 2019 12:00am Comment on above: Take 20 mg by mouth. Potassium (20 sources) Start: 05-10-2019 End: 12-10-2021 take 1 tablet by mouth twice daily Potassium Discontinued 1 TAB PO Twice daily May 09, 2019 11:00pm December 10, 2021 2:52pm Start: 05-10-2019 End: 12-10-2021 take 1 tablet by mouth twice daily Potassium Discontinued 1 TAB PO Twice daily May 10, 2019 12:00am December 10, 2021 3:52pm Start: 05-20-2010 take 1 tablet by rene th once daily Potassium 99 MG 1 tablet Orally 2 x a day Active potassium bicarbonate 99 mg oral capsule (14 sources) Potassium Bicarbonate 99 MG CAPS TAKE one 2 times daily Quantity: 0 Refills: 0 Ordered: 12-Jul-2022 DO Active potassium citrate 99 mg oral tablet (19 sources) Start: 07-13-20 End: 01-30-20 take 99 mg by mouth twice daily Potassium Citrate Discontinued 99 MG PO Twice daily July 13, 2022 12:00am January 30, 2024 3:09pm POTASSIUM-99 ORAL (5 sources) POTASSIUM-99 ORA L Take 1 tablet by mouth. 0 Active Comment on above: Take 1 tablet by rene th. sildenafil 100 mg oral tablet (20 sources) Phosphodiesterase 5 Inhibitor Start: 05-10-20 End: 05-10-20 take 1 tablet by mouth once daily Sildenafil (Viagra) 100 mg Tablet Discontinued 100 MG PO Daily May 10, 2019 12:00am May 10, 2019 8:18am ticagrelor 90 mg oral tablet (20 sources) Start: 05-14-20 End: 01-30-20 take 1 tablet by mouth twice daily Ticagrelor (Brilinta) 90 mg tablet Discontinued 90 MG PO Twice daily 180 July 14, 2022 12:00am January 30, 2024 3:09pm Brilinta 90mg Ta kke as directed Active Comment on above: Take 90 mg by mouth two times a day. Problems Active Problems Problem Classification Problem Date Documented Da te Episodic/Chronic Asthma (14 sources) Mild intermittent asthma; Translations: [Mild intermittent asthma with (acute) exacerbation] Chronic Cancer of bladder (15 sources) Malignant tumor of urinary bladder; Translations: [Malignant neoplasm of bladder, part unspecified] Onset: 08-11-2023 08-11-2023 Chronic Cancer of bladder (6 sources) History of malignant neoplasm of bladder; Translations: [Personal history of malignant neoplasm of bladder] Onset: 08-04-2023 08-04-2023 Episodic Cancer of bronchus; lung (6 sources) Adenocarcinoma of lung; Translations: [Malignant neoplasm of unspecified part of unspecified bronchus or lung] Onset: 05-17-2024 04-26-2024 Chronic Cancer of thyroid (20 sources) Malignant tumor of thyroid gland; Translations: [Malignant neoplasm of thyroid gland] Onset: 08-11-2023 12-31-2021 Chronic Cancer of thyroid (6 sources) History of malignant neoplasm of thyroid; Translations: [Personal history of malignant neoplasm of thyroid] Onset: 08-03-2023 08-04-2023 Episodic Chronic obstructive pulmonary disease and bronchiectasis (20 sources) Acute exacerbation of chronic obstructive airways disease; Translations: [Chronic obstructive pulmonary disease with (acute) exacerbation] Onset: 01-12-2012 Resolved: 07-15-2022 Chronic Complications of surgical procedures or medical care (6 sources) History of total thyroidectomy; Translations: [Postprocedural hypothyroidism] Onset: 03-20-2023 08-04-2023 Chronic Coronary atherosclerosis and other heart disease (20 sources) Coronary atherosclerosis; Translations: [Atherosclerotic heart disease of [place] coronary artery without angina pectoris] Onset: 08-26-2022 07-14-2022 Chronic Coronary atherosclerosis and other heart disease (20 sources) Stented coronary artery; Translations: [Presence of coronary angioplasty implant and graft] Onset: 08-11-2023 08-26-2022 Episodic Diabetes mellitus with complications (13 sources) Type 2 diabetes mellitus; Translations: [Type 2 diabetes mellitus with other specified complication] Onset: 03-20-2023 08-04-2023 Chronic Diabetes mellitus without complication (20 sources) Diabetes mellitus; Translations: [Diabetes mellitus without mention of complication, type II or unspecified type, not stated as uncontrolled] Onset: 08-11-2023 09-06-2023 Chronic Disorders of lipid metabolism (20 sources) Mixed hyperlipidemia; Translations: [Mixed hyperlipidemia] Onset: 03-20-2023 07-14-2022 Chronic Essential hypertension (20 sources) Hypertensive disorder; Translations: [Unspecified essential hypertension] Onset: 08-11-2023 07-14-2022 Chronic Genitourinary symptoms and ill-defined conditions (7 sources) Post-micturition incontinence ; Translations: [Post-void dribbling] Chronic Genitourinary symptoms and ill-defined conditions (15 sources) Blood in urine; Translations: [Hematuria, unspecified] Onset: 08-11-2023 08-11-2023 Episodic Hyperplasia of prostate (7 sources) Benign prostatic hyperplasia; Translations: [Benign prostatic hyperplasia with lower urinary tract symptoms] Chronic Occlusion or stenosis of precerebral arteries (20 sources) Bilateral stenosis of carotid arteries; Translations: [Occlusion and stenosis of bilateral carotid arteries] Onset: 09-28-2021 Resolved: 10-25-2021 Chronic Other aftercare (1 source) director long term care (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) use of anticoagulants; Translations: [Anticoagulant long-term use] Onset: 08-04-2023 Episodic Other bone disease and musculoskeletal deformities (1 source) Disorder of bone, unspecified; Translations: [Disorder of bone, unspecified] Onset: 03-27-2024 Episodic Other circulatory disease (18 sources) Disorder of carotid artery; Translations: [Disorder of arteries and arterioles, unspecified] 07-14-2022 Chronic Other lower respiratory disease (19 sources) Granulomatous disorder; Translations: [Pulmonary fibrosis, unspecified] Chronic Other lower respiratory disease (4 sources) Pulmonary fibrosis, unspecified; Translations: [Granulomatous lung disease J84.10] Onset: 07-29-2021 Resolved: 05-19-2022 Chronic Other lower respiratory disease (6 sources) Pulmonary granuloma; Translations: [Pulmonary fibrosis, unspecified] Onset: 03-20-2023 08-04-2023 Chronic Other lower respiratory disease (20 sources) Nodule of lung; Translations: [Solitary pulmonary nodule] 08-15-2023 Episodic Other lower respiratory disease (1 source) Abnormal findings on diagnostic imaging of lung; Translations: [Other nonspecific abnormal finding of lung field] 08-15-2023 Episodic Other lower respiratory disease (1 source) Multiple nodules of lung; Translations: [Other nonspecific abnormal finding of lung field] Onset: 09-06-2023 09-06-2023 Episodic Other nutritional; endocrine; and metabolic disorders (15 sources) Overweight in adulthood with body mass index of 25 or more but less than 30; Translations: [Overweight] Episodic Other nutritional; endocrine; and metabolic disorders (2 sources) Body mass index 25-29 - overweight; Translations: [Overweight] Onset: 09-06-2023 09-06-2023 Episodic Residual codes; unclassified (16 sources) History of cardiac catheterization; Translations: [Other specified postprocedural states] 08-26-2022 Episodic Residual codes; unclassified (1 source) Tobacco user; Translations: [Tobacco use] 08-15-2023 Episodic Secondary malignancies (2 sources) Secondary malignant neoplasm of unspecified site; Translations: [Secondary malignant neoplasm of unspecified site (Multi)] Onset: 05-07-2024 Chronic Spondylosis; intervertebral disc disorders; other back problems (20 sources) Cervical disc disorder; Translations: [Cervical disc disorder, unspecified, unspecified cervical region] Chronic Substance-related disorders (18 sources) Occasional tobacco smoker; Translations: [Tobacco use disorder] Onset: 08-11-2023 09-06-2023 Chronic Thyroid disorders (20 sources) Hypothyroidism; Translations: [Hypothyroidism, unspecified] Onset: 08-11-2023 09-06-2023 Chronic Past or Other Problems Problem Classification Problem Date Documented Da te Episodic/Chronic Conditions associated with dizziness or vertigo (4 sources) Lightheadedness; Translations: [Dizziness and giddiness] Onset: 09-06-2023 09-06-2023 Episodic Other circulatory disease (8 sources) H/O: angina pectoris; Translations: [Personal history of other diseases of circulatory system] Resolved: 05-09-2023 Episodic Other lower respiratory disease (20 sources) Solitary pulmonary nodule; Translations: [Solitary pulmonary nodule] Onset: 07-29-2021 Resolved: 05-19-2022 Episodic Other lower respiratory disease (1 source) Other nonspecific abnormal finding of lung field; Translations: [Other nonspecific abnormal finding of lung field] Onset: 02-05-2024 Episodic Other nutritional; endocrine; and metabolic disorders (2 sources) Overweight; Translations: [Overweight] Onset: 09-06-2023 Episodic Unclassified (1 source) Onset: 09-06-2023 09-06-2023 Results Test Name Value Interpretation Reference Range Facility Adrenocorticotropic Hormone PLon 07-05-[address] 14.4 pg/mL Normal 7.2-63.3 [facility] Comment on above: Result Comment: ACTH reference interval for samples collected between 7 and 10 AM. Performed at: [facility] [id number] [employer] Supervisor: Alexi Holder PhD, Phone: [phone] PERFORMED BY: [place] [id number] PATHOLOGIST MEAT PROCESS WORKER GEOR[place]IA WHITFIELD M.D. Performed By: #### C BC, CMP #### [address] Complete Blood Count Auto Di ffon 07-05-2024 Basophils (Bld) [#/Vol] 0.0 10*3/uL Normal 0.0-0.2 [facility] Comment on above: Result Comment: PERF ORMED BY: [place] [address] PATHOLOGIST MEAT PROCESS WORKER GEOR[place]IA WHITFIELD M.D. Performed By: #### C BC #### [place] [address] [place] Basophils/100 WBC (Bld) 0.4 % Normal . [facility] Comment on above: Performed By: #### C BC #### [address] Eosinophils (Bld) [#/Vol] 0.0 10*3/uL Normal 0.0-0.45 [facility] Comment on above: Performed By: #### C BC #### [address] Eosinophils/100 WBC (Bld) 0.5 % Normal . [facility] Comment on above: Performed By: #### C BC #### [address] Erythrocyte distribution width (RBC) [Ratio] 13.6 % Normal 12.0-14.8 [facility] Comment on above: Performed By: #### C BC #### [address] Hematocrit (Bld) [Volume fraction] 36.7 % Low 38.8-50.0 [facility] Comment on above: Performed By: #### C BC #### [address] Hemoglobin (Bld) [Mass/Vol] 12.8 g/dL Low 13.0-17.0 [facility] Comment on above: Performed By: #### C BC #### [place] [address] [place] Lymphocytes (Bld) [#/Vol] 0.8 10*3/uL Low 1.00-4.8 [facility] Comment on above: Performed By: #### C BC #### [place] [address] [place] Lymphocytes/100 WBC (Bld) 18.5 % Normal . [facility] Comment on above: Performed By: #### C BC #### [address] [address] [place] MCH (RBC) [Entitic mass] 34.6 pg Normal 27.5-35.2 [facility] Comment on above: Performed By: #### C BC #### [address] MCV (RBC) [Entitic vol] 99.1 fL Normal 83.5-101 [facility] Comment on above: Performed By: #### C BC #### [address] Mean Corpuscular HGB Conc 34.9 g/dL Normal 32.5-35.6 [facility] Comment on above: Performed By: #### C BC #### [address] Monocytes (Bld) [#/Vol] 0.4 10*3/uL Normal 0.0-0.8 [facility] Comment on above: Performed By: #### C BC #### [address] Monocytes/100 WBC (Bld) 8.1 % Normal . [facility] Comment on above: Performed By: #### C BC #### [address] Neutrophils (Bld) [#/Vol] 3.2 10*3/uL Normal 1.8-7.7 [facility] Comment on above: Performed By: #### C BC #### [address] Neutrophils/100 WBC (Bld) 72.5 % Normal . [facility] Comment on above: Performed By: #### C BC #### [address] NRBC% 0.1 /100{WBC} Normal 0-0.5 [facility] Comment on above: Performed By: #### C BC #### [address] Platelet mean volume (Bld) [Entitic vol] 7.7 fL Normal 6.6-10.1 [facility] Comment on above: Performed By: #### C BC #### [facility] [address] Platelets (Bld) [#/Vol] 236 10*3/uL Normal 150-450 [facility] Comment on above: Performed By: #### C BC #### [facility] [address] RBC (Bld) [#/Vol] 3.70 10*6/uL Low 3.90-5.60 [facility] Comment on above: Performed By: #### C BC #### [facility] [address] WBC (Bld) [#/Vol] 4.4 10*3/uL Normal 4.1-10.5 [facility] Comment on above: Performed By: #### C BC #### [address] Comprehensive Metabolic Pane ar 07-05-2024 Albumin [Mass/Vol] 4.4 g/dL Normal 3.5-5.7 [facility] Comment on above: Performed By: #### G DEBI #### Point of Care testing , Albumin/Globulin [Mass ratio] 2.0 {ratio} Normal [facility] Comment on above: Performed By: #### G CINDYLS #### Point of Care testing , ALP [Catalytic activity/Vol] 156 U/L High 34-104 [facility] Comment on above: Performed By: #### G CINDYLS #### Point of Care testing , ALT [Catalytic activity/Vol] 16 U/L Normal 7-52 [facility] Comment on above: Performed By: #### G CINDYLS #### Point of Care testing , Anion gap [Moles/Vol] 26.1 mmol/L High 6.0-15.0 [facility] e [facility] Comment on above: Performed By: #### G CINDYLS #### Point of Care testing , AST [Catalytic activity/Vol] 12 U/L Low 13-39 [facility] Comment on above: Performed By: #### G LULS #### Point of Care testing , Bilirubin [Mass/Vol] 0.6 mg/dL Normal 0.3-1.0 [facility] Comment on above: Performed By: #### G LULS #### Point of Care testing , Calcium [Mass/Vol] 8.7 mg/dL Normal 8.6-10.3 [facility] Comment on above: Performed By: #### G LULS #### Point of Care testing , Chloride [Moles/Vol] 88 mmol/L Low 98-107 [facility] Comment on above: Performed By: #### G LULS #### Point of Care testing , CO2 [Moles/Vol] 18.5 mmol/L Low 21.0-31.0 [facility] Comment on above: Performed By: #### G LULS #### Point of Care testing , Creatinine [Mass/Vol] 1.35 mg/dL High 0.70-1.30 [facility] Comment on above: Performed By: #### G LULS #### Point of Care testing , Creatinine Clr Calc Pharmacy 42.66 Normal [facility] Comment on above: Performed By: #### G LULS #### Point of Care testing , GFR/1.73 sq M.predicted MDRD (S/P/Bld) [Vol rate/Area] 54.753 mL/min/{1.73_m2} Normal [facility] Comment on above: Performed By: #### G LULS #### Point of Care testing , Globulin (S) [Mass/Vol] 2.2 g/dL Normal [facility] Comment on above: Performed By: #### G LULS #### Point of Care testing , Glucose [Mass/Vol] 667 mg/dL Off scale high 70-100 Th e [facility] Comment on above: Result Comment: [place] Glucose Reference Range is dependent on time and content of last meal. Glucose of more than 200 mg/dL in a nonstressed, ambulatory subject supports the diagnosis of Diabetes Mellitus. ADA recommended reference range Performed By: #### G LULS #### Point of Care testing , Potassium [Moles/Vol] 5.6 mmol/L High 3.5-5.1 [facility] Comment on above: Performed By: #### G LULS #### Point of Care testing , Protein [Mass/Vol] 6.6 g/dL Normal 6.4-8.9 [facility] Comment on above: Performed By: #### G LULS #### Point of Care testing , Sodium [Moles/Vol] 127 mmol/L Low 136-145 [facility] Comment on above: Performed By: #### G LULS #### Point of Care testing , Urea nitrogen [Mass/Vol] 25 mg/dL Normal 7-25 [facility] Comment on above: Performed By: #### G LULS #### Point of Care testing , Cortisolon 07-05-2024 Cortisol 22.6 ug/dL Normal [facility] Comment on above: Result Comment: Refe rence range: AM 6 - 24 ug/dl PM <10 ug/dl [facility] betting agency counter clerk and method: [employer] DXI, POLYCLONAL ANTIBODY CORTISOL ASSAY. PERFORMED BY: [place] [address] PATHOLOGIST MEAT PROCESS WORKER GEOR[place]IA WHITFIELD M.D. Performed By: #### C BC, [facility] #### [address] Free T4 (Free Thyroxine)on 0 07-05-2024 Free T4 [Mass/Vol] 1.39 ng/dL High 0.61-1.12 [facility] Comment on above: Performed By: #### G LULS #### Point of Care testing , Thyroid Stimulating Hormoneo n 07-05-2024 TSH Qn 0.76 m[IU]/L Normal 0.45-5.33 [facility] Comment on above: Performed By: #### G LULS #### Point of Care testing , Adrenocorticotropic Hormone PLon 06-20-[address] 14.3 pg/mL Normal 7.2-63.3 [facility] Comment on above: Result Comment: ACTH reference interval for samples collected between 7 and 10 AM. Performed at: [address] [id number] [employer] Supervisor: Alexi Holder PhD, Phone: [phone] PERFORMED BY: [place] [address] PATHOLOGIST MEAT PROCESS WORKER GEOR[place]IA WHITFIELD M.D. Performed By: #### G LULS #### Point of Care testing , Alanine aminotransferase [En zymatic activity/volume] in Serum or PlasmaOrdered By: Koko Klein on 06-20-2024 ALT [Catalytic activity/Vol] 16 U/L Normal 7-52 [facility] Comment on above: Performed By: #### C MP, ADEN, TSH3, T4F #### [facility] [address] [place] [address] #### ACTH #### [facility] , Albumin [Mass/volume] in Ser um or Plasma by Bromocresol green (BCG) dye binding methoOrdered By: Koko Klein on 06-20-2024 Albumin BCG dye [Mass/Vol] 4.1 g/dL 3.5-5.7 [facility] Alkaline phosphatase [Enzyma tic activity/volume] in Serum or PlasmaOrdered By: Koko Klein on 06-20-2024 ALP [Catalytic activity/Vol] 105 U/L High 34-104 [facility] Comment on above: Performed By: #### C MP, ADEN, TSH3, T4F #### [facility] [address] [place] [address] [place] #### ACTH #### [facility] , Aspartate aminotransferase [ Enzymatic activity/volume] in Serum or PlasmaOrdered By: Koko Klein on 06-20-2024 AST [Catalytic activity/Vol] 17 U/L Normal 13-39 [facility] Comment on above: Performed By: #### C MP, ADEN, TSH3, T4F #### [facility] [address] [place] [address] [place] #### ACTH #### [facility] , Automated basophil %Ordered By: Koko Klein on 06-20-2024 Basophils/100 WBC (Bld) 0.9 % Normal . [facility] Comment on above: Performed By: #### G LULS #### Point of Care testing , Automated basophil countOrde red By: adan ZullyDecanthony on 06-20-2024 Basophils (Bld) [#/Vol] 0.1 10*3/uL Normal 0.0-0.2 [facility] Comment on above: Result Comment: PERF ORMED BY: [facility] [place] [address] PATHOLOGIST MEAT PROCESS WORKER GEOR[place]IA WHITFIELD M.D. Performed By: #### G LULS #### Point of Care testing , Automated blood monocyte cou ntOrdered By: [facility] -[facility] on 06-20-2024 Monocytes (Bld) [#/Vol] 0.5 10*3/uL Normal 0.0-0.8 [facility] Comment on above: Performed By: #### G LULS #### Point of Care testing , Automated eosinophil %Ordere d By: [facility] on 06-20-2024 Eosinophils/100 WBC (Bld) 2.2 % Normal . [facility] Comment on above: Performed By: #### G LULS #### Point of Care testing , Automated eosinophil countOr dered By: [facility] on 06-20-2024 Eosinophils (Bld) [#/Vol] 0.1 10*3/uL Normal 0.0-0.45 [facility] Comment on above: Performed By: #### G LULS #### Point of Care testing , Automated monocyte %Ordered By: [facility] - on 06-20-2024 Monocytes/100 WBC (Bld) 9.1 % Normal . [facility] Comment on above: Performed By: #### G LULS #### Point of Care testing , Automated neutrophil %Ordere d By: [facility] - on 06-20-2024 Neutrophils/100 WBC (Bld) 65.8 % Normal . [facility] Comment on above: Performed By: #### G LULS #### Point of Care testing , Bilirubin.total [Mass/volume ] in Serum or PlasmaOrdered By: adan Klein on 06-20-2024 Bilirubin [Mass/Vol] 0.3 mg/dL Normal 0.3-1.0 [facility] Comment on above: Performed By: #### C MP, ADEN, TSH3, T4F #### [facility] [address] [place] [address] [place] #### ACTH #### [facility] , Calcium [Mass/volume] in Ser um or PlasmaOrdered By: adan Klein on 06-20-2024 Calcium [Mass/Vol] 8.7 mg/dL Normal 8.6-10.3 [facility] Comment on above: Performed By: #### C MP, ADEN, TSH3, T4F #### [place] [address] [place] #### ACTH #### [facility] , Carbon dioxide, total [Moles /volume] in Serum or PlasmaOrdered By: adan Zheng on 06-20-2024 CO2 [Moles/Vol] 29.9 mmol/L Normal 21.0-31.0 [facility] Comment on above: Performed By: #### C MP, ADEN, TSH3, T4F #### [place] [address] [place] #### ACTH #### [facility] , Chloride [Moles/volume] in S maddie or PlasmaOrdered By: adan Klein on 06-20-2024 Chloride [Moles/Vol] 102 mmol/L Normal 98-107 [facility] Comment on above: Performed By: #### C MP, ADEN, TSH3, T4F #### [facility] [address] [place] [address] [place] #### ACTH #### [facility] , Complete Blood Count Auto Di ffon 06-20-2024 Mean Corpuscular HGB Conc 34.8 g/dL Normal 32.5-35.6 [facility] Comment on above: Performed By: #### G DEBI #### Point of Care testing , NRBC% 0.0 /100{WBC} Normal 0-0.5 [facility] Comment on above: Performed By: #### G LULS #### Point of Care testing , Comprehensive Metabolic Pane ar 06-20-2024 Albumin [Mass/Vol] 4.1 g/dL Normal 3.5-5.7 [facility] Comment on above: Performed By: #### C MP, ADEN, TSH3, T4F #### [place] [address] [place] #### ACTH #### [facility] , Creatinine Clr Calc Pharmacy 61.93 Normal [facility] Comment on above: Performed By: #### C MP, ADEN, TSH3, T4F #### [place] [address] [place] #### ACTH #### [facility] , GFR/1.73 sq M.predicted MDRD (S/P/Bld) [Vol rate/Area] mL/min/{1.73_m2} Normal [facility] Comment on above: Performed By: #### C MP, ADEN, TSH3, T4F #### [place] [address] [place] #### ACTH #### [facility] , Cortisolon 06-20-2024 Cortisol 10.6 ug/dL Normal [facility] Comment on above: Result Comment: Refe rence range: AM 6 - 24 ug/dl PM <10 ug/dl [facility] betting agency counter clerk and method: [employer], POLYCLONAL ANTIBODY CORTISOL ASSAY. PERFORMED BY: [place] [address] PATHOLOGIST MEAT PROCESS WORKER GEORGIA WHITFIELD M.D. Performed By: #### C MP, ADEN, TSH3, T4F #### [place] [address] [place] #### ACTH #### [facility] , Creatinine [Mass/volume] in Serum or PlasmaOrdered By: Koko Klein on 06-20-2024 Creatinine [Mass/Vol] 0.93 mg/dL Normal 0.70-1.30 [facility] Comment on above: Performed By: #### C MP, ADEN, TSH3, T4F #### [facility] [address] [place] [address] [place] #### ACTH #### [facility] , Erythrocyte distribution wid th [Ratio] by Automated countOrdered By: Koko Zheng on 06-20-2024 Erythrocyte distribution width (RBC) [Ratio] 14.0 % Normal 12.0-14.8 [facility] Comment on above: Performed By: #### G DEBI #### Point of Care testing , Erythrocytes [#/volume] in B lood by Automated countOrdered By: Koko Klein on 06-20-2024 RBC (Bld) [#/Vol] 3.85 10*6/uL Low 3.90-5.60 [facility] Comment on above: Performed By: #### G DEBI #### Point of Care testing , Glucose [Mass/volume] in Ser um or PlasmaOrdered By: Koko Klein on 06-20-2024 Glucose [Mass/Vol] 228 mg/dL High 70-100 [facility] Comment on above: ADA recommended refe rence rangeRandom Glucose Reference Range is dependent on time and content of last meal. Glucose of more than 200 mg/dL in a nonstressed, ambulatory subject supports the diagnosis of Diabetes Mellitus. Result Comment: [place] om Glucose Reference Range is dependent on time and content of last meal. Glucose of more than 200 mg/dL in a nonstressed, ambulatory subject supports the diagnosis of Diabetes Mellitus. ADA recommended reference range Performed By: #### C MP, ADEN, TSH3, T4F #### [facility] [address] [place] [address] [place] #### ACTH #### [facility] , Hematocrit [Volume Fraction] of Blood by Automated countOrdered By: adan Zheng on 06-20-2024 Hematocrit (Bld) [Volume fraction] 37.5 % Low 38.8-50.0 [facility] Comment on above: Performed By: #### G LULS #### Point of Care testing , Hemoglobin [Mass/volume] in BloodOrdered By: adan Klein on 06-20-2024 Hemoglobin (Bld) [Mass/Vol] 13.0 g/dL Normal 13.0-17.0 [facility] Comment on above: Performed By: #### G LULS #### Point of Care testing , Leukocytes [#/volume] correc imelda for nucleated erythrocytes in Blood by Automated counOrdered By: adan Klein on 06-20-2024 WBC corrected for nucl RBC Auto (Bld) [#/Vol] 5.8 10*3/uL 4.1-10.5 [facility] Leukocytes [#/volume] in Blo od by Automated countOrdered By: adan Klein on 06-20-2024 WBC (Bld) [#/Vol] 5.8 10*3/uL Normal 4.1-10.5 [facility] Comment on above: Performed By: #### G LULS #### Point of Care testing , Lymphocytes [#/volume] in Bl ood by Automated countOrdered By: adan Klein on 06-20-2024 Lymphocytes (Bld) [#/Vol] 1.3 10*3/uL Normal 1.00-4.8 [facility] Comment on above: Performed By: #### G LULS #### Point of Care testing , Lymphocytes/100 leukocytes i n Blood by Automated countOrdered By: adan Klein on 06-20-2024 Lymphocytes/100 WBC (Bld) 22.0 % Normal . [facility] Comment on above: Performed By: #### G LULS #### Point of Care testing , MCH [Entitic mass] by Automa imelda countOrdered By: adan Klein on 06-20-2024 MCH (RBC) [Entitic mass] 33.9 pg Normal 27.5-35.2 [facility] Comment on above: Performed By: #### G LULS #### Point of Care testing , MCHC Auto (RBC) [Mass/Vol]Or dered By: Koko Klein on 06-20-2024 MCHC (RBC) [Mass/Vol] 34.8 g/dL 32.5-35.6 [facility] MCV [Entitic volume] by Auto mated countOrdered By: Koko Klein on 06-20-2024 MCV (RBC) [Entitic vol] 97.3 fL Normal 83.5-101 [facility] Comment on above: Performed By: #### G LULS #### Point of Care testing , Neutrophils [#/volume] in Bl ood by Automated countOrdered By: Koko Klein on 06-20-2024 Neutrophils (Bld) [#/Vol] 3.8 10*3/uL Normal 1.8-7.7 [facility] Comment on above: Performed By: #### G LULS #### Point of Care testing , No Panel InformationOrdered By: Koko Klein on 06-20-2024 Estimated GFR (CKD-EPI) > 60.0 mL/Min [facility] Creatinine Clearance (Chem 61.93 [facility] Nucleated erythrocytes [Pres ence] in Blood by Automated countOrdered By: Koko Klein on 06-20-2024 Nucleated RBC Auto Ql (Bld) 0.0 /100{WBC} 0-0.5 [facility] Platelet mean volume [Entiti c volume] in Blood by Automated countOrdered By: Koko Klein on 06-20-2024 Platelet mean volume (Bld) [Entitic vol] 6.5 fL Low 6.6-10.1 [facility] Comment on above: Performed By: #### G LULS #### Point of Care testing , Platelets [#/volume] in Bloo d by Automated countOrdered By: Koko Klein on 06-20-2024 Platelets (Bld) [#/Vol] 215 10*3/uL Normal 150-450 [facility] Comment on above: Performed By: #### G LULS #### Point of Care testing , Potassium [Moles/volume] in Serum or PlasmaOrdered By: Koko Klein on 06-20-2024 Potassium [Moles/Vol] 4.1 mmol/L Normal 3.5-5.1 [facility] Comment on above: Performed By: #### C MP, ADEN, TSH3, T4F #### [facility] [address] [place] [address] [place] #### ACTH #### [facility] , Protein [Mass/volume] in Ser um or PlasmaOrdered By: Koko Klein on 06-20-2024 Protein [Mass/Vol] 6.2 g/dL Low 6.4-8.9 [facility] Comment on above: Performed By: #### C MP, ADEN, TSH3, T4F #### [facility] [address] [place] [address] [place] #### ACTH #### [facility] , Random cortisol measurementO rdered By: Koko Klein on 06-20-2024 Cortisol [Mass/Vol] 10.6 ug/dL [facility] Comment on above: [facility] betting agency counter clerk and method:CHUY UNICEL DXI, POLYCLONAL ANTIBODY CORTISOL ASSAY.Reference range: AM 6 - 24 ug/dl PM <10 ug/dl Serum globulin measurement b y calculation (mass/volume)Ordered By: Koko Zheng on 06-20-2024 Globulin (S) [Mass/Vol] 2.1 g/dL Normal [facility] Comment on above: Performed By: #### C MP, ADEN, TSH3, T4F #### [facility] [address] [place] [address] [place] #### ACTH #### [facility] , Serum or plasma albumin/glob ulin mass ratioOrdered By: Koko Klein on 06-20-2024 Albumin/Globulin [Mass ratio] 2.0 {ratio} Normal [facility] Comment on above: Performed By: #### C MP, ADEN, TSH3, T4F #### [facility] [address] [place] [address] [place] #### ACTH #### [facility] , Serum or plasma anion gap de terminationOrdered By: Koko Klein on 06-20-2024 Anion gap [Moles/Vol] 12.2 mmol/L Normal 6.0-15.0 [facility] Comment on above: Performed By: #### C MP, ADEN, TSH3, T4F #### [facility] [address] [place] [address] [place] #### ACTH #### [facility] , Sodium [Moles/volume] in Ser um or PlasmaOrdered By: adan Klein on 06-20-2024 Sodium [Moles/Vol] 140 mmol/L Normal 136-145 [facility] Comment on above: Performed By: #### C MP, ADEN, TSH3, T4F #### [facility] [address] [place] [address] [place] #### ACTH #### [facility] , Thyrotropin [Units/volume] i n Serum or PlasmaOrdered By: adan Klein on 06-20-2024 TSH Qn 0.42 m[IU]/L Low 0.45-5.33 [facility] Comment on above: Performed By: #### C MP, ADEN, TSH3, T4F #### [facility] [address] [place] [address] [place] #### ACTH #### [facility] , Thyroxine (T4) free [Mass/vo lume] in Serum or PlasmaOrdered By: Koko Klein on 06-20-2024 Free T4 [Mass/Vol] 1.08 ng/dL Normal 0.61-1.12 [facility] Comment on above: Performed By: #### C MP, ADEN, TSH3, T4F #### [address] #### ACTH #### [facility] , Urea nitrogen [Mass/volume] in Serum or PlasmaOrdered By: Koko Klein on 06-20-2024 Urea nitrogen [Mass/Vol] 13 mg/dL Normal 7-25 [facility] Comment on above: Performed By: #### C MP, ADEN, TSH3, T4F #### [address] #### ACTH #### [facility] , Cortisolon 05-31-2024 Cortisol 10.5 ug/dL Normal [facility] Comment on above: Result Comment: Refe rence range: AM 6 - 24 ug/dl PM <10 ug/dl [facility] betting agency counter clerk and method: [employer] UNICEL DXI, POLYCLONAL ANTIBODY CORTISOL ASSAY. PERFORMED BY: [place] [id number] PATHOLOGIST MEAT PROCESS WORKER GEORGIA WHITFIELD M.D. Performed By: #### C BC, CMP #### [address] Free T4 (Free Thyroxine)on 0 05-31-2024 Free T4 [Mass/Vol] 1.17 ng/dL High 0.61-1.12 [facility] Comment on above: Performed By: #### C BC, CMP #### [address] Thyroid Stimulating Hormoneo n 05-31-2024 TSH Qn 0.55 m[IU]/L Normal 0.45-5.33 [facility] Comment on above: Performed By: #### C BC, CMP #### [address] Complete Blood Count Auto Di ffon 05-30-2024 Basophils (Bld) [#/Vol] 0.0 10*3/uL Normal 0.0-0.2 [facility] Comment on above: Result Comment: PERF ORMED BY: [place] [id number] PATHOLOGIST MEAT PROCESS WORKER GEORGIA WHITFIELD M.D. Performed By: #### G LULS #### Point of Care testing , Basophils/100 WBC (Bld) 0.5 % Normal . [facility] Comment on above: Performed By: #### G LULS #### Point of Care testing , Eosinophils (Bld) [#/Vol] 0.1 10*3/uL Normal 0.0-0.45 [facility] Comment on above: Performed By: #### G LULS #### Point of Care testing , Eosinophils/100 WBC (Bld) 1.4 % Normal . [facility] Comment on above: Performed By: #### G LULS #### Point of Care testing , Erythrocyte distribution width (RBC) [Ratio] 13.1 % Normal 12.0-14.8 [facility] Comment on above: Performed By: #### G LULS #### Point of Care testing , Hematocrit (Bld) [Volume fraction] 39.6 % Normal 38.8-50.0 [facility] Comment on above: Performed By: #### G LULS #### Point of Care testing , Hemoglobin (Bld) [Mass/Vol] 13.7 g/dL Normal 13.0-17.0 [facility] Comment on above: Performed By: #### G LULS #### Point of Care testing , Lymphocytes (Bld) [#/Vol] 1.6 10*3/uL Normal 1.00-4.8 [facility] Comment on above: Performed By: #### G LULS #### Point of Care testing , Lymphocytes/100 WBC (Bld) 28.5 % Normal . [facility] Comment on above: Performed By: #### G LULS #### Point of Care testing , MCH (RBC) [Entitic mass] 33.7 pg Normal 27.5-35.2 [facility] Comment on above: Performed By: #### G LULS #### Point of Care testing , MCV (RBC) [Entitic vol] 97.2 fL Normal 83.5-101 [facility] Comment on above: Performed By: #### G LULS #### Point of Care testing , Mean Corpuscular HGB Conc 34.7 g/dL Normal 32.5-35.6 [facility] Comment on above: Performed By: #### G LULS #### Point of Care testing , Monocytes (Bld) [#/Vol] 0.5 10*3/uL Normal 0.0-0.8 [facility] Comment on above: Performed By: #### G LULS #### Point of Care testing , Monocytes/100 WBC (Bld) 8.8 % Normal . [facility] Comment on above: Performed By: #### G LULS #### Point of Care testing , Neutrophils (Bld) [#/Vol] 3.5 10*3/uL Normal 1.8-7.7 [facility] Comment on above: Performed By: #### G LULS #### Point of Care testing , Neutrophils/100 WBC (Bld) 60.8 % Normal . [facility] Comment on above: Performed By: #### G LULS #### Point of Care testing , NRBC% 0.1 /100{WBC} Normal 0-0.5 [facility] Comment on above: Performed By: #### G LULS #### Point of Care testing , Platelet mean volume (Bld) [Entitic vol] 6.6 fL Normal 6.6-10.1 [facility] Comment on above: Performed By: #### G LULS #### Point of Care testing , Platelets (Bld) [#/Vol] 394 10*3/uL Normal 150-450 [facility] Comment on above: Performed By: #### G LULS #### Point of Care testing , RBC (Bld) [#/Vol] 4.08 10*6/uL Normal 3.90-5.60 [facility] Comment on above: Performed By: #### G LULS #### Point of Care testing , WBC (Bld) [#/Vol] 5.7 10*3/uL Normal 4.1-10.5 [facility] Comment on above: Performed By: #### G CINDYLS #### Point of Care testing , Comprehensive Metabolic Pane ar 05-30-2024 Albumin [Mass/Vol] 4.1 g/dL Normal 3.5-5.7 [facility] Comment on above: Performed By: #### G CINDYLS #### Point of Care testing , Albumin/Globulin [Mass ratio] 2.2 {ratio} Normal [facility] Comment on above: Performed By: #### G CINDYLS #### Point of Care testing , ALP [Catalytic activity/Vol] 98 U/L Normal 34-104 [facility] Comment on above: Performed By: #### G CINDYLS #### Point of Care testing , ALT [Catalytic activity/Vol] 16 U/L Normal 7-52 [facility] Comment on above: Performed By: #### G CINDYLS #### Point of Care testing , Anion gap [Moles/Vol] 9.8 mmol/L Normal 6.0-15.0 [facility] Comment on above: Performed By: #### G CINDYLS #### Point of Care testing , AST [Catalytic activity/Vol] 17 U/L Normal 13-39 [facility] Comment on above: Performed By: #### G CINDYLS #### Point of Care testing , Bilirubin [Mass/Vol] 0.3 mg/dL Normal 0.3-1.0 [facility] Comment on above: Performed By: #### G CINDYLS #### Point of Care testing , Calcium [Mass/Vol] 9.4 mg/dL Normal 8.6-10.3 [facility] Comment on above: Performed By: #### G CINDYLS #### Point of Care testing , Chloride [Moles/Vol] 103 mmol/L Normal 98-107 [facility] Comment on above: Performed By: #### G CINDYLS #### Point of Care testing , CO2 [Moles/Vol] 29.9 mmol/L Normal 21.0-31.0 [facility] Comment on above: Performed By: #### G CINDYLS #### Point of Care testing , Creatinine [Mass/Vol] 0.86 mg/dL Normal 0.70-1.30 [facility] Comment on above: Performed By: #### G LULS #### Point of Care testing , Creatinine Clr Calc Pharmacy 66.97 Normal [facility] Comment on above: Result Comment: PERF ORMED BY: [facility] [place] [id number] PATHOLOGIST MEAT PROCESS WORKER GEORGIA WHITFIELD M.D. Performed By: #### G LULS #### Point of Care testing , GFR/1.73 sq M.predicted MDRD (S/P/Bld) [Vol rate/Area] mL/min/{1.73_m2} Normal [facility] Comment on above: Performed By: #### G LULS #### Point of Care testing , Globulin (S) [Mass/Vol] 1.9 g/dL Normal [facility] Comment on above: Performed By: #### G LULS #### Point of Care testing , Glucose [Mass/Vol] 138 mg/dL High 70-100 [facility] Comment on above: Result Comment: [facility] Glucose Reference Range is dependent on time and content of last meal. Glucose of more than 200 mg/dL in a nonstressed, ambulatory subject supports the diagnosis of Diabetes Mellitus. ADA recommended reference range Performed By: #### G LULS #### Point of Care testing , Potassium [Moles/Vol] 4.7 mmol/L Normal 3.5-5.1 [facility] Comment on above: Performed By: #### G LULS #### Point of Care testing , Protein [Mass/Vol] 6.0 g/dL Low 6.4-8.9 [facility] Comment on above: Performed By: #### G LULS #### Point of Care testing , Sodium [Moles/Vol] 138 mmol/L Normal 136-145 [facility] Comment on above: Performed By: #### G LULS #### Point of Care testing , Urea nitrogen [Mass/Vol] 15 mg/dL Normal 7-25 [facility] Comment on above: Performed By: #### G LULS #### Point of Care testing , Adrenocorticotropic Hormone PLon 05-16-[address] 10.4 pg/mL Normal 7.2-63.3 [facility] Comment on above: Result Comment: ACTH reference interval for samples collected between 7 and 10 AM. Performed at: [address] [id number] [employer] Supervisor: Alexi Holder PhD, Phone: [phone] PERFORMED BY: [place] [address] PATHOLOGIST MEAT PROCESS WORKER GEORGIA WHITFIELD M.D. Performed By: #### G LULS #### Point of Care testing , No Panel InformationOrdered By: [place] Blake on 05-16-2024 Adrenocorticotropic Hormone 10.4 pg/mL 7.2-63.3 [facility] Comment on above: ACTH reference inter alon for samples collected between 7 and10 AM.Performed at: [address] [id number] Director: Alexi Holder PhD, Phone: [phone] Thyrotropin [Units/volume] i n Serum or PlasmaOrdered By: [place] Blake on 05-10-2024 TSH Qn 1.44 m[IU]/L Normal 0.45-5.33 [facility] Comment on above: Result Comment: PERF ORMED BY: [place] [address] PATHOLOGIST MEAT PROCESS WORKER GEORGIA WHITFIELD M.D. Performed By: #### G LULS #### Point of Care testing , Thyroxine (T4) free [Mass/vo lume] in Serum or PlasmaOrdered By: [place] Blake on 05-10-2024 Free T4 [Mass/Vol] 0.93 ng/dL Normal 0.61-1.12 [facility] Comment on above: Performed By: #### G LULS #### Point of Care testing , TRANSTHORACIC ECHO (TTE) COM PLETEon 05-08-2024 TRANSTHORACIC ECHO (TTE) COMPLETE [address], [address], [place] [address] TRANSTHORACIC ECHOCARDIOGRAM REPORT Patient Name: BARAK SABILLON Reading Physician: [id number] Robb Sanchez MD Study Date: 05/08/2024 Ordering Provider: [id number] DOC BARRETT MRN/PID: [id number] Fellow: Nurse: Date of /Age: 12 1950 / 73 years Hog Scraper: Jess Murray RDCS, RVT Gender: M Additional Staff: Height: 167.64 cm Admit Date: Weight: 77.57 kg Admission Status: BSA / BMI: 1.87 m2 / 27.60 kg/m2 Department Location: [facility] Study Type: TRANSTHORACIC ECHO (TTE) COMPLETE Diagnosis/ICD: Atherosclerotic heart disease of [place] coronary artery without angina pectoris-I25.10; Angina pectoris, unspecified-I20.9; Presence of aortocoronary bypass graft-Z95.1; Essential (primary) hypertension-I10 Indication: COPD, Diabetes, Hyperlipidemia, PTCA-2021, Cigar Smoker, Metastatic Lung Cancer-Stage IV, POC-Chemotherapy Begins 05/10/2024, Overweight, History of Thyroid And Bladder Cancer CPT Codes: Echo Complete w Full [id number] Study Detail: The following Echo studies were performed: 2D, M-Mode, Doppler and color flow. PHYSICIAN INTERPRETATION: Left Ventricle: The left ventricular systolic function is mildly decreased, with a visually estimated ejection fraction of 45%. There are no regional wall motion abnormalities. The left ventricular cavity size is normal. Spectral Doppler shows a normal pattern of left ventricular diastolic filling. Left Atrium: The left atrium is normal in size. Right Ventricle: The right ventricle is normal in size. There is normal right ventricular global systolic function. Right Atrium: The right atrium is normal in size. Aortic Valve: The aortic valve appears structurally normal. The aortic valve dimensionless index is 0.80. There is no evidence of aortic valve regurgitation. The peak instantaneous gradient of the aortic valve is 4.0 mmHg. The mean gradient of the aortic valve is 2.0 mmHg. Mitral Valve: The mitral valve is normal in structure. There is mild to moderate mitral valve regurgitation. Tricuspid Valve: The tricuspid valve is structurally normal. There is mild tricuspid regurgitation. The Doppler estimated RVSP is slightly elevated at 30.7 mmHg. Pulmonic Valve: The pulmonic valve is structurally normal. There is no indication of pulmonic valve regurgitation. Pericardium: There is no pericardial effusion noted. Aorta: The aortic root is normal. CONCLUSIONS: 1. The left ventricular systolic function is mildly decreased, with a visually estimated ejection fraction of 45%. 2. There is normal right ventricular global systolic function. 3. Mild to moderate mitral valve regurgitation. 4. Mild tricuspid regurgitation is visualized. 5. Slightly elevated RVSP. 6. No previous study available for comparison. QUANTITATIVE DATA SUMMARY: 2D MEASUREMENTS: Normal Ranges: Ao Root d: 3.70 cm (2.0-3.7cm) LAs: 3.80 cm (2.7-4.0cm) RVIDd: 3.34 cm (0.9-3.6cm) IVSd: 0.71 cm (0.6-1.1cm) LVPWd: 0.80 cm (0.6-1.1cm) LVIDd: 5.38 cm (3.9-5.9cm) LVIDs: 4.04 cm LV Mass Index: 76.1 g/m2 LV % FS 24.9 % LV SYSTOLIC FUNCTION BY 2D PLANIMETRY (MOD): Normal Ranges: EF-A4C View: 50 % (>=55%) EF-A2C View: 40 % EF-Biplane: 47 % EF-Visual: 45 % LV EF Reported: 45 % LV DIASTOLIC FUNCTION: Normal Ranges: MV Peak E: 0.69 m/s (0.7-1.2 m/s) MV Peak A: 0.55 m/s (0.42-0.7 m/s) E/A Ratio: 1.25 (1.0-2.2) MV e' 0.096 m/s (>8.0) MV lateral e' 0.11 m/s MV medial e' 0.08 m/s E/e' Ratio: 7.11 (<8.0) MITRAL VALVE: Normal Ranges: MV Vmax: 0.80 m/s (<=1.3m/s) MV peak P.6 mmHg (<5mmHg) MV mean P.0 mmHg (<48mmHg) MITRAL INSUFFICIENCY: Normal Ranges: MR Vmax: 319.00 cm/s AORTIC VALVE: Normal Ranges: AoV Vmax: 1.00 m/s (<=1.7m/s) AoV Peak P.0 mmHg (<20mmHg) AoV Mean P.0 mmHg (1.7-11.5mmHg) LVOT Max Antoine: 0.76 m/s (<=1.1m/s) AoV VTI: 21.60 cm (18-25cm) LVOT VTI: 17.30 cm LVOT Diameter: 2.30 cm (1.8-2.4cm) AoV Area, VTI: 3.33 cm2 (2.5-5.5cm2) AoV Area,Vmax: 3.16 cm2 (2.5-4.5cm2) AoV Dimensionless Index: 0.80 TRICUSPID VALVE/RVSP: Normal Ranges: Peak TR Velocity: 2.63 m/s RV Syst Pressure: 30.7 mmHg (< 30mmHg) PULMONIC VALVE: Normal Ranges: PV Max Antoine: 0.5 m/s (0.6-0.9m/s) PV Max P.0 mmHg [id number] Robb Sanchez MD Electronically signed on 05/08/2024 at 4:54:07 PM Final Normal [facility] Alanine aminotransferase [En zymatic activity/volume] in Serum or PlasmaOrdered By: [place] Blake on 05-07-2024 ALT [Catalytic activity/Vol] 11 U/L Normal 7-52 [facility] Comment on above: Performed By: #### C BC, CMP #### [facility] [address] [place] [address] [facility] Albumin [Mass/volume] in Ser um or Plasma by Bromocresol green (BCG) dye binding methoOrdered By: [place] Blake on 05-07-2024 Albumin BCG dye [Mass/Vol] 4.1 g/dL 3.5-5.7 [facility] Alkaline phosphatase [Enzyma tic activity/volume] in Serum or PlasmaOrdered By: [place] Blake on 05-07-2024 ALP [Catalytic activity/Vol] 84 U/L Normal 34-104 [facility] Comment on above: Performed By: #### C BC, CMP #### [facility] [address] Aspartate aminotransferase [ Enzymatic activity/volume] in Serum or PlasmaOrdered By: [place] Blake on 05-07-2024 AST [Catalytic activity/Vol] 14 U/L Normal 13-39 [facility] Comment on above: Performed By: #### C BC, CMP #### [address] Automated basophil %Ordered By: [place] on 05-07-2024 Basophils/100 WBC (Bld) 0.9 % Normal . [facility] Comment on above: Performed By: #### C BC, CMP #### [address] Automated basophil countOrde red By: [place] Blake on 05-07-2024 Basophils (Bld) [#/Vol] 0.1 10*3/uL Normal 0.0-0.2 [facility] Comment on above: Result Comment: PERF ORMED BY: [place] [address] PATHOLOGIST MEAT PROCESS WORKER GEORGIA WHITFIELD M.D. Performed By: #### C BC, CMP #### [address] Automated blood monocyte cou ntOrdered By: [place] Blake on 05-07-2024 Monocytes (Bld) [#/Vol] 0.5 10*3/uL Normal 0.0-0.8 [facility] Comment on above: Performed By: #### C BC, CMP #### [address] Automated eosinophil %Ordere d By: [place] on 05-07-2024 Eosinophils/100 WBC (Bld) 1.5 % Normal . [facility] Comment on above: Performed By: #### C BC, CMP #### [address] Automated eosinophil countOr dered By: [place] on 05-07-2024 Eosinophils (Bld) [#/Vol] 0.1 10*3/uL Normal 0.0-0.45 [facility] Comment on above: Performed By: #### C BC, CMP #### [address] Automated monocyte %Ordered By: [place] on 05-07-2024 Monocytes/100 WBC (Bld) 8.5 % Normal . [facility] Comment on above: Performed By: #### C BC, CMP #### [address] Automated neutrophil %Ordere d By: [place] on 05-07-2024 Neutrophils/100 WBC (Bld) 65.0 % Normal . [facility] Comment on above: Performed By: #### C BC, CMP #### [address] Bilirubin.total [Mass/volume ] in Serum or PlasmaOrdered By: [place] Blake on 05-07-2024 Bilirubin [Mass/Vol] 0.4 mg/dL Normal 0.3-1.0 [facility] Comment on above: Performed By: #### C BC, CMP #### [address] Calcium [Mass/volume] in Ser um or PlasmaOrdered By: [place] on 05-07-2024 Calcium [Mass/Vol] 9.0 mg/dL Normal 8.6-10.3 [facility] Comment on above: Performed By: #### C BC, CMP #### [address] Carbon dioxide, total [Moles /volume] in Serum or PlasmaOrdered By: [place] Blake on 05-07-2024 CO2 [Moles/Vol] 28.2 mmol/L Normal 21.0-31.0 [facility] Comment on above: Performed By: #### C BC, CMP #### [place] [address] [place] Chloride [Moles/volume] in S maddie or PlasmaOrdered By: [place] Blake on 07-09-2024 Chloride [Moles/Vol] 103 mmol/L Normal 98-107 [facility] Comment on above: Performed By: #### C BC, CMP #### [address] Complete Blood Count Auto Di ffon 05-07-2024 Mean Corpuscular HGB Conc 34.3 g/dL Normal 32.5-35.6 [facility] Comment on above: Performed By: #### C BC, CMP #### [address] NRBC% 0.1 /100{WBC} Normal 0-0.5 [facility] Comment on above: Performed By: #### C BC, CMP #### [address] Comprehensive Metabolic Pane ar 05-07-2024 Albumin [Mass/Vol] 4.1 g/dL Normal 3.5-5.7 [facility] Comment on above: Performed By: #### C BC, CMP #### [address] Creatinine Clr Calc Pharmacy 64.72 Normal [facility] Comment on above: Result Comment: PERF ORMED BY: [place] [id number] PATHOLOGIST MEAT PROCESS WORKER GEORGIA WHITFIELD M.D. Performed By: #### C BC, CMP #### [address] GFR/1.73 sq M.predicted MDRD (S/P/Bld) [Vol rate/Area] mL/min/{1.73_m2} Normal [facility] Comment on above: Performed By: #### C BC, CMP #### [address] Creatinine [Mass/volume] in Serum or PlasmaOrdered By: [place] Blake on 05-07-2024 Creatinine [Mass/Vol] 0.89 mg/dL Normal 0.70-1.30 [facility] Comment on above: Performed By: #### C BC, CMP #### [facility] [address] Erythrocyte distribution wid th [Ratio] by Automated countOrdered By: [place] Blake on 05-07-2024 Erythrocyte distribution width (RBC) [Ratio] 13.4 % Normal 12.0-14.8 [facility] Comment on above: Performed By: #### C BC, CMP #### [facility] [address] Erythrocytes [#/volume] in B lood by Automated countOrdered By: [place] Blake on 05-07-2024 RBC (Bld) [#/Vol] 4.31 10*6/uL Normal 3.90-5.60 [facility] Comment on above: Performed By: #### C BC, CMP #### [address] Glucose [Mass/volume] in Ser um or PlasmaOrdered By: [place] Blake on 05-07-2024 Glucose [Mass/Vol] 121 mg/dL High 70-100 [facility] Comment on above: ADA recommended refe rence rangeRandom Glucose Reference Range is dependent on time and content of last meal. Glucose of more than 200 mg/dL in a nonstressed, ambulatory subject supports the diagnosis of Diabetes Mellitus. Result Comment: [place] [facility] Glucose Reference Range is dependent on time and content of last meal. Glucose of more than 200 mg/dL in a nonstressed, ambulatory subject supports the diagnosis of Diabetes Mellitus. ADA recommended reference range Performed By: #### C BC, CMP #### [address] Hematocrit [Volume Fraction] of Blood by Automated countOrdered By: [place] Blake on 05-07-2024 Hematocrit (Bld) [Volume fraction] 41.9 % Normal 38.8-50.0 [facility] Comment on above: Performed By: #### C BC, CMP #### [address] Hemoglobin [Mass/volume] in BloodOrdered By: [place] Blake on 05-07-2024 Hemoglobin (Bld) [Mass/Vol] 14.3 g/dL Normal 13.0-17.0 [facility] Comment on above: Performed By: #### C BC, CMP #### [address] Leukocytes [#/volume] correc imelda for nucleated erythrocytes in Blood by Automated counOrdered By: [place] Blake on 05-07-2024 WBC corrected for nucl RBC Auto (Bld) [#/Vol] 6.1 10*3/uL 4.1-10.5 [facility] Leukocytes [#/volume] in Blo od by Automated countOrdered By: [place] Blake on 05-07-2024 WBC (Bld) [#/Vol] 6.1 10*3/uL Normal 4.1-10.5 [facility] Comment on above: Performed By: #### C BC, CMP #### [address] Lymphocytes [#/volume] in Bl ood by Automated countOrdered By: Leon Blake on 05-07-2024 Lymphocytes (Bld) [#/Vol] 1.5 10*3/uL Normal 1.00-4.8 [facility] Comment on above: Performed By: #### C BC, CMP #### [address] Lymphocytes/100 leukocytes i n Blood by Automated countOrdered By: Leon Blake on 05-07-2024 Lymphocytes/100 WBC (Bld) 24.1 % Normal . [facility] Comment on above: Performed By: #### C BC, CMP #### [place] [address] [place] MCH [Entitic mass] by Automa imelda countOrdered By: Leon Blake on 05-07-2024 MCH (RBC) [Entitic mass] 33.3 pg Normal 27.5-35.2 [facility] Comment on above: Performed By: #### C BC, CMP #### [address] MCHC Auto (RBC) [Mass/Vol]Or dered By: Leon Blake on 05-07-2024 MCHC (RBC) [Mass/Vol] 34.3 g/dL 32.5-35.6 [facility] MCV [Entitic volume] by Auto mated countOrdered By: Leon Blake on 05-07-2024 MCV (RBC) [Entitic vol] 97.1 fL Normal 83.5-101 [facility] Comment on above: Performed By: #### C BC, CMP #### [facility] [address] Neutrophils [#/volume] in Bl ood by Automated countOrdered By: Leon Blake on 05-07-2024 Neutrophils (Bld) [#/Vol] 4.0 10*3/uL Normal 1.8-7.7 [facility] Comment on above: Performed By: #### C BC, CMP #### [address] No Panel InformationOrdered By: Leon Blake on 05-07-2024 Estimated GFR (CKD-EPI) > 60.0 mL/Min [facility] Creatinine Clearance (Chem 64.72 [facility] Nucleated erythrocytes [Pres ence] in Blood by Automated countOrdered By: Leon Blake on 05-07-2024 Nucleated RBC Auto Ql (Bld) 0.1 /100{WBC} 0-0.5 [facility] Platelet mean volume [Entiti c volume] in Blood by Automated countOrdered By: Leon Blake on 05-07-2024 Platelet mean volume (Bld) [Entitic vol] 7.6 fL Normal 6.6-10.1 [facility] Comment on above: Performed By: #### C BC, CMP #### [facility] [address] [place] [address] Platelets [#/volume] in Bloo d by Automated countOrdered By: Leon Blake on 05-07-2024 Platelets (Bld) [#/Vol] 244 10*3/uL Normal 150-450 [facility] Comment on above: Performed By: #### C BC, CMP #### [address] Potassium [Moles/volume] in Serum or PlasmaOrdered By: Leon Blake on 05-07-2024 Potassium [Moles/Vol] 4.9 mmol/L Normal 3.5-5.1 [facility] Comment on above: Performed By: #### C BC, CMP #### [address] Protein [Mass/volume] in Ser um or PlasmaOrdered By: Leon Blake on 05-07-2024 Protein [Mass/Vol] 6.1 g/dL Low 6.4-8.9 [facility] Comment on above: Performed By: #### C BC, CMP #### [address] Serum globulin measurement b y calculation (mass/volume)Ordered By: Leon Blake on 05-07-2024 Globulin (S) [Mass/Vol] 2.0 g/dL [facility] Comment on above: Performed By: #### C BC, CMP #### [address] Serum or plasma albumin/glob ulin mass ratioOrdered By: Leon Blake on 05-07-2024 Albumin/Globulin [Mass ratio] 2.1 {ratio} [facility] Comment on above: Performed By: #### C BC, CMP #### [address] Serum or plasma anion gap de terminationOrdered By: Leon Blake on 05-07-2024 Anion gap [Moles/Vol] 12.7 mmol/L Normal 6.0-15.0 [facility] Comment on above: Performed By: #### C BC, CMP #### [address] Sodium [Moles/volume] in Ser um or PlasmaOrdered By: Leon Blake on 05-07-2024 Sodium [Moles/Vol] 139 mmol/L Normal 136-145 [facility] Comment on above: Performed By: #### C BC, CMP #### [facility] [address] Urea nitrogen [Mass/volume] in Serum or PlasmaOrdered By: Leon Blake on 05-07-2024 Urea nitrogen [Mass/Vol] 19 mg/dL Normal 7-25 [facility] Comment on above: Performed By: #### C BC, CMP #### [facility] [address] [place] [id number] [place] US carotid doppler BIon 07-0 US carotid doppler BI [facility] [address] [place] [address] Ultrasound Report Signed Patient: Barak Sabillon MR#: [id number] 112 : 1950 Acct:[id number] Age/Sex: 73 / M ADM Date: 04/30/24 Loc: [facility] Room: Type: [facility] Attending Dr: Mihaela Palomo DIAMOND SAW OPERATOR-C Ordering Provider: Mihaela Palomo APRN Date of Service: 04/30/24 US/US carotid doppler BI: I65.23 Copies to: Mihaela Palomo APRN CAROTID DUPLEX INDICATION: Follow-up known carotid occlusive disease PROCEDURE: Color-flow duplex scanning is used to interrogate the extracranial carotid arterial system, as well as both vertebral arteries. Both carotid bifurcations show mild to moderate heterogeneous plaque formation. The proximal right internal carotid artery shows a highest peak systolic velocity of 152 cm/s with an end-diastolic velocity of 21.7 cm/s . The mid internal carotid artery measures 123 cm/s peak systolic and 23.1 cm/s end diastolic. The distal segment measures 85.5 cm/s peak systolic with an end diastolic velocity of 30 cm/s . The velocities of the right common carotid artery are 106 cm/s peak systolic and 21.1 cm/s end-diastolic proximally and 89.4 cm/s peak systolic and 17.2 cm/s end diastolic distally. The peak systolic velocity ratio of the internal to the common carotid artery is 1.43. The right external carotid artery measures 182 cm/s peak systolic. The right vertebral artery is patent at 47.4 cm/s with antegrade flow. The proximal left internal carotid artery shows a highest peak systolic velocity of 134 cm/s with an end-diastolic velocity of 19.6 cm/s . The mid internal carotid artery measures 155 cm/s peak systolic and 30.3 cm/s end diastolic. The distal segment measures 114 cm/s peak systolic with an end diastolic velocity of 29.5 cm/s . The velocities of the left common carotid artery are 106 cm/s peak systolic and 27.3 cm/s end-diastolic proximally and 107 cm/s peak systolic and 28.7 cm/s end diastolic distally. The peak systolic velocity ratio of the internal to the common carotid artery is 1.45 . The left external carotid artery measures 151 cm/s peak systolic. The left vertebral artery is patent at 50.5 cm/s with antegrade flow. US/US carotid doppler BI IMPRESSION: MILD TO MODERATE PLAQUE FORMATION IS NOTED BILATERAL EXTRACRANIAL CAROTID ARTERIES. 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 No change from prior study Impression dictated by: Molina Palmer M.D.04/30/2024 10:49 AM Dictation Location: [place] [address] Tech: Jenny Leoce Transcribed By: JEANNIE 04/30/24 1049 Dictated By: Molina Palmer MD 04/30/24 104 Signed By: 04/30/24 1049 Normal [facility] CT BIOPSY SUPERFICIAL BONE P ERCUTANEOUSon 03-27-2024 CT BIOPSY SUPERFICIAL BONE PERCUTANEOUS IMPRESSION: 1.Successful core biopsy of anterior sacral lytic mass. HISTORY: BARAK SABILLON is a Male of 73 years age. DIAGNOSIS: M89.9 Bone lesion ICD10 COMPARISON: None available. CT Dose-Length Product (estimate related to radiation exposure from this exam): 325.38 mGy*cm. PROCEDURE: Following the discussion of the procedure, alternatives, risks versus benefits, informed consent was obtained from the patient. Specifically, risks of after-biopsy pain at the site, rare possibility of excessive hemorrhage, infection, injury to the adjacent organs were discussed and the patient verbalized understanding. Pre-procedure evaluation confirmed that the patient was an appropriate candidate for conscious sedation. Adequate sedation was maintained during the entire procedure. Vital signs, pulse oximetry, and response to verbal commands were monitored and recorded by the nurse throughout the procedure and the recovery period. Medical information was entered in the medical record including the medications and dosages used. The patient returned to baseline neurologic and physiologic status prior to leaving the department. No immediate sedation related complications were noted. Medication for conscious sedation was administered via IV route. 45 minutes of conscious sedation was provided. Following universal protocol, patient and site verification was performed with a timeout prior to the procedure. The patient was placed on the CT table in prone position and the posterior lower back area was prepped and draped in usual sterile fashion. Using the usual sterile conditions, lidocaine and CT guidance, the anterior portion of S1 lytic lesion was accessed using an 11-guage coaxial biopsy needle system. After confirmation of appropriate localization of the needle, a single core of bone obtained and sent for pathological analysis. The coaxial needle system was removed and hemostasis was achieved by direct digital compression. The patient tolerated the procedure well. No immediate complications identified. The patient left the CT suite in supine position to the recovery room in stable condition. Total local anesthetic used: lidocaine, approximately 10 mL. Estimated blood loss: Negligible. The patient was observed in the recovery room for two hours after the procedure and discharged in stable condition. Interpreted by: Jhony Snyder MD Signed by: Jhony Snyder MD 03/27/24 Final result Normal [facility] CT CHEST WO CONTRASTon 03-27 CT CHEST WO CONTRAST IMPRESSION: 1.Again seen is a soft tissue mass in the right hilum with surrounding calcification, this was PET positive on prior outside PET scan dating January 29, 2024. This appears to be grossly unchanged in size. 2.A second mass in the right hilum as well inferior aspect is again seen which was also PET positive, measuring 1.8 cm in transverse dimension, this grossly unchanged from prior PET scan as well. 3.A calcified nodule is again seen in the posterior right lung base, unchanged from prior PET scan. 4.An enlarged lymph node is seen in the infracarinal space, this was seen on prior PET scan and PET avid, consistent with metastatic disease. COMPARISON: Outside PET scan dating January 29, 2024 DIAGNOSIS: PET avid lung masses and mediastinal lymph nodes with sacral-positive mass COMMENTS: None TECHNIQUE: Spiral scanning of the chest was performed without contrast as per the referring physician. CT Dose-Length Product (estimate related to radiation exposure from this exam): 9 9.46 mGy*cm. FINDINGS: There is diffuse emphysema changes in the bilateral lungs. Again seen is a right calcified hilar mass which was previously PET positive, grossly unchanged in size, and consistent with carcinoma. A right hilar lower mass is also again seen, this was also PET positive and measures 1.8 cm in transverse dimension, and unchanged from prior. A posterior right lung base small calcified nodule measuring 7 mm, unchanged from prior. There is no signs of pleural or pericardial fluid. The aorta is normal in caliber without signs of aneurysmal dilatation. Enlarged lymph node is seen in the infracarinal space, this was previously PET positive, and concerning for metastatic disease. A 7 mm right inferior pericardial fat pad lymph node is seen The visualized portions of the upper abdomen are unremarkable. 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 THE TUMOR CELLS ARE NEGATIVE FOR PAX8. THE PATIENT'S CLINICAL HISTORY OF THYROID CARCINOMA AND PULMONARY NODULE IS NOTED. THE STAINING PATTERN IS MORE SUGGESTIVE OF A LUNG PRIMARY HOWEVER CLINICAL CORRELATION IS NECESSARY. ALL STAINS ARE PERFORMED IN ASSOCIATION WITH APPROPRIATE CONTROLS. PAX8 TECHNICAL COMPONENT PERFORMED AT [employer] ([employer]) AND INTERPRETATION PERFORMED AT [employer], [place]. A MESSAGE WAS LEFT WITH VALENCIA FOR DR. BLAKE 04/04/2024. JACMO/JACMO CLINICAL INFORMATION: Pulmonary nodule right, bone lesion. SPECIMEN: Left Sacral Bone Lesion GROSS DESCRIPTION: Received in one container labeled with the patient's name and designated sacral bone lesion . The specimen is received in formalin fixative. The specimen consists of one bone core, 0.4 cm in length and 0.1 cm in diameter. The specimen is submitted in toto following decalcification in Immunocal in one cassette. JEFFREYMO/BEHSU CPT: 78925 X1 25630 X1 57885 X2 68825 X1 J MADISON GALVAN M.D. 04/04/2024 Electronically signed out by Page 1 of 1 Abnormal [facility] Comment on above: Performed By: #### S UR #### [facility] [address] [place] [address] Capillary blood glucose vignesh urement by glucometer (mass/volume)Ordered By: Clif Dorado on 02-05-2024 Glucose [Mass/Vol] 157 mg/dL Normal [facility] Comment on above: Random Glucose Refer ence Range is dependent on time and content of last meal. Glucose of more than 200 mg/dL in a nonstressed, ambulatory subject supports the diagnosis of Diabetes Mellitus. Result Comment: [place] om Glucose Reference Range is dependent on time and content of last meal. Glucose of more than 200 mg/dL in a nonstressed, ambulatory subject supports the diagnosis of Diabetes Mellitus. Performed By: #### G LULS #### Point of Care testing , Glucose Poct Glucometerson 0 02-05-2024 Commemt1 Normal [facility] Comment on above: Result Comment: Glu2 : WILL NOTIFY DR/RN Performed By: #### G LULS #### Point of Care testing , Commemt2 Cleaned Meter Normal [facility] Comment on above: Result Comment: PERF ORMED BY: [facility] [address] [place] [address] PATHOLOGIST MEAT PROCESS WORKER GEORGIA WHITFIELD M.D. Performed By: #### G LULS #### Point of Care testing , Ar 02-05-2024 L Specimen: [id number] Re ceived: 02/05/241245 Status: JAMES Req Num: [id number] Spec Type: Cytology Subm Dr: Clif Dorado MD Tissues: A FNA SLIDES PATH (STATION 7) B FNA SLIDES PATH (11RI) Procedures: HE/4, -/2, DIFF QWIK/15, PAPSTN/2 Age/ Patient Sex Location Account Attending Physician JanebubbaBarak Andrea 73/M [place] [id number] Clif Dorado MD SPEC NUM: [id number] RECD: 02/05/24 STATUS: JAMES BARRETT NUM: [id number] OLE: 02/05/[address] [facility] [address]: Clif Dorado MD ENTERED: 02/05/[address] [facility] [address]: SPEC TYPE: Cytology DEPT: CNG ENTERED BY: [id number] RECV BY: [id number] ORDERED: HE/4, -/2, DIFF QWIK/15, PAPSTN/2 ORDERED: HE/4, -/2, DIFF QWIK/15, PAPSTN/2 Pathological Diagnosis A, Station #7 mediastinal lymph node, FNA by EBUS: -Positive for malignant cells, compatible with metastatic carcinoma B, 11 RI mediastinal lymph node, FNA by EBUS: -Positive for malignant cells, compatible with metastatic carcinoma Clinical Information Lung Nodule Gross Description A, Received in Cytolyt labeled with the patient's name, date of and station # 7 per requisition is 32 ml colorless clear fixed fluid. 1 Thin Prep slides are prepared. 1 cell blocks are prepared. 11 smears stained diff are additionally made. (FL/ca) B, Received in Cytolyt labeled with the patient's name, date of and 11 R I per requisition is 23 ml red hazy fixed fluid. 1 Thin Prep slides are prepared. 1 cell blocks are prepared. 4 smears stained diff are additionally made. ([place]/nh) -------- Specimen: [id number] Received: 02/05/24 Status: JAMES Barrett Num: [id number] Spec Type: Cytology Subm Dr: Clif Dorado MD Tissues: A FNA SLIDES PATH (STATION 7) B FNA SLIDES PATH (11RI) Procedures: , /2, DIFF QWIK/15, PAPSTN/2 -------- Patient: Barak Sabillon [id number] (Continued) -------- Specimen: [id number] Received: 02/05/24 (Continued) Signed (signature on file) Ronak Lee MD 02/06/24 1501 -------- Specimen: [id number] Received: 02/05/24 Status: JAMES Barrett Num: [id number] Spec Type: Cytology Subm Dr: Clif Dorado MD Tissues: A FNA SLIDES PATH (STATION 7) B FNA SLIDES PATH (11RI) Procedures: , /2, DIFF QWIK/15, PAPSTN/2 -------- Patient: aBrak Sabillon [id number] (Continued) -------- Specimen: [id number] Received: 02/05/24-1246 (Continued) Immediate Evaluation A, Positive for atypical cells, reported by Dr. Lee on 02/04 Microscopic Description A, hypercellular smears with multiple small groups of crowded epithelioid cells are noted in at least 4 smears, showing occasional prominent nucleoli, and scattered large, pleomorphic, and occasionally multinucleated tumor cells, suggesting occasionally embedded tumor giant cell. The ThinPrep smear showing only fibrin debris and not contributory. The cell block section also showing minimal scant material with only rare respiratory epithelial cells and therefore also noncontributory B, hypercellular smears showing changes similar to Part A specimen in at least 2 smears. The ThinPrep smear and cell block section also showing only some fibrin debris and are noncontributory CPT Codes 10779 x 2 58692 x 2 -------- -------- Specimen: [id number] Received: 02/05/24-1245 Status: JAMES Barrett Num: [id number] Spec Type: Cytology Subm Dr: Clif Dorado MD Tissues: A FNA SLIDES PATH (STATION 7) B FNA SLIDES PATH (11RI) Procedures: HE/4, -/2, DIFF QWIK/15, PAPSTN/2 -------- Patient: RidgeBarak Andrea [id number] (Continued) -------- Signed (signature on file) Ronak Lee MD 02/06/24 1501 Normal [facility] No Panel InformationOrdered By: Clif Dorado on 02-05-2024 Bedside Glucose #2 Comment Cleaned meter [facility] Bedside Glucose Comment See comment [facility] Comment on above: Glu2: WILL NOTIFY /RN Automated basophil %Ordered By: Clif Dorado on 02-02-2024 Basophils/100 WBC (Bld) 0.9 % Normal . [facility] Comment on above: Performed By: #### G LULS #### Point of Care testing , Automated basophil countOrde red By: Clif Dorado on 02-02-2024 Basophils (Bld) [#/Vol] 0.0 10*3/uL Normal 0.0-0.2 [facility] Comment on above: Result Comment: PERF ORMED BY: [facility] [address] PATHOLOGIST MEAT PROCESS WORKER GEORGIA WHITFIELD M.D. Performed By: #### G LULS #### Point of Care testing , Automated blood monocyte cou ntOrdered By: Clif Dorado on 02-02-2024 Monocytes (Bld) [#/Vol] 0.4 10*3/uL Normal 0.0-0.8 [facility] Comment on above: Performed By: #### G LULS #### Point of Care testing , Automated eosinophil %Ordere d By: Clif Dorado on 02-02-2024 Eosinophils/100 WBC (Bld) 1.3 % Normal . [facility] Comment on above: Performed By: #### G LULS #### Point of Care testing , Automated eosinophil countOr dered By: Clif Dorado on 02-02-2024 Eosinophils (Bld) [#/Vol] 0.1 10*3/uL Normal 0.0-0.45 [facility] Comment on above: Performed By: #### G LULS #### Point of Care testing , Automated monocyte %Ordered By: Clif Dorado on 02-02-2024 Monocytes/100 WBC (Bld) 7.6 % Normal . [facility] Comment on above: Performed By: #### G LULS #### Point of Care testing , Automated neutrophil %Ordere d By: Clif Dorado on 02-02-2024 Neutrophils/100 WBC (Bld) 65.5 % Normal . [facility] Comment on above: Performed By: #### G LULS #### Point of Care testing , Basic Metabolic Panelon GFR/1.73 sq M.predicted MDRD (S/P/Bld) [Vol rate/Area] mL/min/{1.73_m2} Normal [facility] Comment on above: Performed By: #### G LULS #### Point of Care testing , Calcium [Mass/volume] in Ser um or PlasmaOrdered By: Clif Dorado on 02-02-2024 Calcium [Mass/Vol] 9.2 mg/dL Normal 8.6-10.3 [facility] Comment on above: Result Comment: PERF ORMED BY: [place] [address] PATHOLOGIST MEAT PROCESS WORKER GEORGIA WHITFIELD M.D. Performed By: #### G LULS #### Point of Care testing , Carbon dioxide, total [Moles /volume] in Serum or PlasmaOrdered By: Clif Dorado on 02-02-2024 CO2 [Moles/Vol] 29.5 mmol/L Normal 21.0-31.0 [facility] Comment on above: Performed By: #### G LULS #### Point of Care testing , Chloride [Moles/volume] in S maddie or PlasmaOrdered By: Clif Dorado on 02-02-2024 Chloride [Moles/Vol] 106 mmol/L Normal 98-107 [facility] Comment on above: Performed By: #### G LULS #### Point of Care testing , Complete Blood Count Auto Di ffon 02-02-2024 Mean Corpuscular HGB Conc 33.8 g/dL Normal 32.5-35.6 [facility] Comment on above: Performed By: #### G LULS #### Point of Care testing , NRBC% 0.1 /100{WBC} Normal 0-0.5 [facility] Comment on above: Performed By: #### G LULS #### Point of Care testing , Creatinine [Mass/volume] in Serum or PlasmaOrdered By: Clif Dorado on 02-02-2024 Creatinine [Mass/Vol] 0.90 mg/dL Normal 0.70-1.30 [facility] Comment on above: Performed By: #### G LULS #### Point of Care testing , ECG 12 lead ECGon 02-02-2024 ECG 12 lead ECG [facility] Main [place] [address] [place] [id number] Electrocardiograph Report Signed Patient: Barak Sabillon MR#: [id number] 112 : 1950 Acct:[id number] Age/Sex: 73 / M ADM Date: 02/02/24 Loc: Room: Type: [facility] Attending Dr: Clif Dorado MD Ordering Provider: Clif Dorado MD Date of Service: 02/02/2403/22/907 ECG/ECG 12 lead ECG: pst Copies to: Test Reason : Blood Pressure : / mmHG Vent. Rate : 064 BPM Atrial Rate : 064 BPM P-R Int : 154 ms QRS Dur : 130 ms QT Int : 412 ms P-R-T Axes : -06 035 056 degrees QTc Int : 425 ms Normal sinus rhythm Right bundle branch block Abnormal ECG When compared with ECG of 26-AUG-2022 15:21, Right bundle branch block is now present Confirmed by [facility] [place] ([id number]) on 02/02/2024 11:39:15 AM Referred By: ESTRADA Electronically Signed By:FORD ANDERSON MD FAC Transcribed By: [facility] Signed By Ford Anderson MD, FACC 02/02/24 1139 Normal [facility] Erythrocyte distribution wid th [Ratio] by Automated countOrdered By: Clif Dorado on 02-02-2024 Erythrocyte distribution width (RBC) [Ratio] 13.5 % Normal 12.0-14.8 [facility] Comment on above: Performed By: #### G DEBI #### Point of Care testing , Erythrocytes [#/volume] in B lood by Automated countOrdered By: Clif Dorado on 02-02-2024 RBC (Bld) [#/Vol] 4.45 10*6/uL Normal 3.90-5.60 [facility] Comment on above: Performed By: #### G DEBI #### Point of Care testing , Glucose [Mass/volume] in Ser um or PlasmaOrdered By: Clif Dorado on 02-02-2024 Glucose [Mass/Vol] 110 mg/dL High 70-100 [facility] Comment on above: ADA recommended refe rence rangeRandom Glucose Reference Range is dependent on time and content of last meal. Glucose of more than 200 mg/dL in a nonstressed, ambulatory subject supports the diagnosis of Diabetes Mellitus. Result Comment: [place] om Glucose Reference Range is dependent on time and content of last meal. Glucose of more than 200 mg/dL in a nonstressed, ambulatory subject supports the diagnosis of Diabetes Mellitus. ADA recommended reference range Performed By: #### G LULS #### Point of Care testing , Hematocrit [Volume Fraction] of Blood by Automated countOrdered By: Clif Dorado on 02-02-2024 Hematocrit (Bld) [Volume fraction] 42.4 % Normal 38.8-50.0 [facility] Comment on above: Performed By: #### G LULS #### Point of Care testing , Hemoglobin [Mass/volume] in BloodOrdered By: Clif Dorado on 02-02-2024 Hemoglobin (Bld) [Mass/Vol] 14.4 g/dL Normal 13.0-17.0 [facility] Comment on above: Performed By: #### G LULS #### Point of Care testing , Leukocytes [#/volume] correc imelda for nucleated erythrocytes in Blood by Automated counOrdered By: Clif Dorado on 02-02-2024 WBC corrected for nucl RBC Auto (Bld) [#/Vol] 5.5 10*3/uL 4.1-10.5 [facility] Leukocytes [#/volume] in Blo od by Automated countOrdered By: Clif Dorado on 02-02-2024 WBC (Bld) [#/Vol] 5.5 10*3/uL Normal 4.1-10.5 [facility] Comment on above: Performed By: #### G CINDYLS #### Point of Care testing , Lymphocytes [#/volume] in Bl ood by Automated countOrdered By: Clif Dorado on 02-02-2024 Lymphocytes (Bld) [#/Vol] 1.4 10*3/uL Normal 1.00-4.8 [facility] Comment on above: Performed By: #### G LULS #### Point of Care testing , Lymphocytes/100 leukocytes i n Blood by Automated countOrdered By: Clif Dorado on 02-02-2024 Lymphocytes/100 WBC (Bld) 24.7 % Normal . [facility] Comment on above: Performed By: #### G LULS #### Point of Care testing , MCH [Entitic mass] by Automa imelda countOrdered By: Clif Dorado on 02-02-2024 MCH (RBC) [Entitic mass] 32.3 pg Normal 27.5-35.2 [facility] Comment on above: Performed By: #### G LULS #### Point of Care testing , MCHC Auto (RBC) [Mass/Vol]Or dered By: Clif Dorado on 02-02-2024 MCHC (RBC) [Mass/Vol] 33.8 g/dL 32.5-35.6 [facility] MCV [Entitic volume] by Auto mated countOrdered By: Clif Doardo on 02-02-2024 MCV (RBC) [Entitic vol] 95.4 fL Normal 83.5-101 [facility] Comment on above: Performed By: #### G LULS #### Point of Care testing , Neutrophils [#/volume] in Bl ood by Automated countOrdered By: Clif Dorado on 02-02-2024 Neutrophils (Bld) [#/Vol] 3.6 10*3/uL Normal 1.8-7.7 [facility] Comment on above: Performed By: #### G LULS #### Point of Care testing , No Panel InformationOrdered By: Clif Dorado on 02-02-2024 Estimated GFR (CKD-EPI) > 60.0 mL/Min [facility] Creatinine Clearance (Chem N/A [facility] Nucleated erythrocytes [Pres ence] in Blood by Automated countOrdered By: Clif Dorado on 02-02-2024 Nucleated RBC Auto Ql (Bld) 0.1 /100{WBC} 0-0.5 [facility] Platelet mean volume [Entiti c volume] in Blood by Automated countOrdered By: Clif Dorado on 02-02-2024 Platelet mean volume (Bld) [Entitic vol] 6.9 fL Normal 6.6-10.1 [facility] Comment on above: Performed By: #### G LULS #### Point of Care testing , Platelets [#/volume] in Bloo d by Automated countOrdered By: Clif Dorado on 02-02-2024 Platelets (Bld) [#/Vol] 251 10*3/uL Normal 150-450 [facility] Comment on above: Performed By: #### G LULS #### Point of Care testing , Potassium [Moles/volume] in Serum or PlasmaOrdered By: Clif Dorado on 02-02-2024 Potassium [Moles/Vol] 4.6 mmol/L Normal 3.5-5.1 [facility] Comment on above: Performed By: #### G LULS #### Point of Care testing , Serum or plasma anion gap de terminationOrdered By: Clif Dorado on 02-02-2024 Anion gap [Moles/Vol] 10.1 mmol/L Normal 6.0-15.0 [facility] Comment on above: Performed By: #### G LULS #### Point of Care testing , Sodium [Moles/volume] in Ser um or PlasmaOrdered By: Clif Dorado on 02-02-2024 Sodium [Moles/Vol] 141 mmol/L Normal 136-145 [facility] Comment on above: Performed By: #### G LULS #### Point of Care testing , Urea nitrogen [Mass/volume] in Serum or PlasmaOrdered By: Clif Dorado on 02-02-2024 Urea nitrogen [Mass/Vol] 13 mg/dL Normal 7-25 [facility] Comment on above: Performed By: #### G LULS #### Point of Care testing , Capillary blood glucose vignesh urement by glucometer (mass/volume)Ordered By: Amrita Louis on 01-29-2024 Glucose [Mass/Vol] 143 mg/dL Normal [facility] Comment on above: Random Glucose Refer ence Range is dependent on time and content of last meal. Glucose of more than 200 mg/dL in a nonstressed, ambulatory subject supports the diagnosis of Diabetes Mellitus. Result Comment: [facility] Glucose Reference Range is dependent on time and content of last meal. Glucose of more than 200 mg/dL in a nonstressed, ambulatory subject supports the diagnosis of Diabetes Mellitus. PERFORMED BY: [place] [id number] PATHOLOGIST MEAT PROCESS WORKER GEORGIA WHITFIELD M.D. Performed By: #### G LULS #### Point of Care testing , PET tumor init tx strat sb-m ton 01-29-2024 PET tumor init tx strat sb-mt [facility] Main [place] [address] [place], [place] [id number] Nuclear Medicine Report Signed Patient: Barak Sabillon MR#: [id number] 112 : 1950 Acct:[id number] Age/Sex: 73 / M ADM Date: 01/29/24 Loc: Room: Type: [facility] Attending Dr: Amrita Louis DO Copies to: DO Jf Gupta Jr, DO Ordering Provider: Amrita Louis DO Date of Service: 01/29/24 PET/PET tumor init tx strat sb-mt: LUNG NODULE INCREASNG IN SIZE PET/CT FUSION IMAGING CLINICAL INFORMATION: Right lung nodule. History of thyroid cancer and bladder cancer. COMPARISON : Prior PET/CT 04/02/2021. CT chest 01/16/2024. TECHNIQUE: Noncontrasted CT scan from the base of the skull to the upper thigh followed by PET imaging. Multiplanar PET/CT fusion images. Blood Glucose : 143 mg/dL The F-18 FDG 12.45mCi. FINDINGS: Neck: No abnormal activity. Chest:Subcarinal right hilar FDG avid lymph nodes, SUV max 13.4. The patient's known 15 mm right lower lobe lung nodule is FDG avid, SUV max of 6.2. Abdomen/pelvis: No abnormal activity. Soft tissue/bones: Abnormal activity is seen involving the lumbar spine and sacrum corresponding to bony lesion suspicious for bony metastatic disease. SUV max of 11.1. CT findings: No pneumothorax. No pericardial or pleural effusions. Evidence old granulomatous disease. No free air or free fluid. Colonic diverticulosis. Cholelithiasis. PET/PET tumor init tx strat sb-mt IMPRESSION: The patient's known 15 mm right lower lobe lung nodule is FDG avid suspicious for malignancy. Tissue sampling is suggested. FDG avid subcarinal and right hilar lymph nodes suspicious for local metastatic disease. Bony metastatic disease involving the lumbar spine and sacrum. Findings have progressed since the prior PET/CT study from 2020. Impression dictated by: Jf Fowler Jr., D.OGeorge01/29/2024 12:42 PM Dictation Location: [place] [address] Transcribed By: [facility] 01/29/24 1242 Dictated By: Jf Fowler Jr, DO 01/29/24 1227 Signed By: 01/29/24 1242 Normal [facility] CT chest wo conon 01-16-2024 CT chest wo con [facility] Main [place] [address] [place] [address] CT Scan Report Signed Patient: Barak Sabillon MR#: [id number] 112 : 1950 Acct:[id number] Age/Sex: 73 / M ADM Date: 01/16/24 Loc: [facility] Room: Type: [facility] Attending Dr: Amrita Louis DO Copies to: Amrita Louis DO Ordering Provider: Amrita Louis DO Date of Service: 01/16/24 CT/CT chest wo con: HX OF LUNG NODULES CT Chest without contrast TECHNIQUE: Axial imaging with 2-D reconstruction. The CT exam was performed using one or more the following dose reduction techniques: Automated exposure control, adjustment of the MA and/or Kv according to patient size, or use of the iterative reconstruction technique. History: Recheck lung nodules. Current smoker. COMPARISON: 06/27/2023 THYROID: Unremarkable TRACHEA AND BRONCHI: Patent ESOPHAGUS: Unremarkable. HEART: Within normal limits PERICARDIAL EFFUSION: None CORONARY ARTERY CALCIFICATION: Present MEDIASTINUM: No adenopathy. No pneumoperitoneum. No mediastinal hematoma. PULMONARY HUSSAIN: No hilar mass or adenopathy is seen. THORACIC AORTA Unremarkable LUNG NODULE There is a redemonstration of the right lower lobe lung nodule in the perihilar region. This measures up to 15 mm. Prior measurement 11 mm. LUNGS: Emphysematous changes. No new consolidation. Stable remote granulomatous changes. PLEURAL EFFUSION: None PNEUMOTHORAX: No pneumothorax seen. CHEST WALL: No abnormality AXILLA:Unremarkable BONY STRUCTURES degenerative change UPPER ABDOMEN: Images of the upper abdomen are noncontributory. CT/CT chest wo con IMPRESSION: Interval enlargement of right lower lobe lung nodule now measuring 15 mm. Prior measurement 11 mm. Tissue sampling and/or PET/CT imaging recommended. Impression dictated by: Molina García M.D.01/16/2024 1:45 PM Dictation Location: [place] [address] Transcribed By: [facility] 01/16/24 1345 Dictated By: Molina García DO 01/16/24 1248 Signed By: 01/16/24 1345 Normal [facility] [place] Thyroxine (T4)on T4 [Mass/Vol] 9.5 ug/dL Normal 4.5-12.0 [facility] Comment on above: Result Comment: Perf ormed at: [facility] - [facility] [address] [id number] Shirt Ironer Supervisor: Alexi Holder PhD, Phone: [phone] PERFORMED BY: [place] [address] PATHOLOGIST MEAT PROCESS WORKER GEORGIA WHITFIELD M.D. Performed By: #### G LULS #### Point of Care testing , No Panel InformationOrdered By: Rob Villanueva on 12-21-2023 Free Thyroxine (T4) Direct 9.5 ug/dL 4.5-12.0 [facility] Comment on above: Performed at: [facility] [address] [id number] Director: Alexi Holder PhD, Phone: [phone] Serum or plasma thyroglobuli n antibody assay (units/volume)Ordered By: Rob Villanueva on 12-21-2023 Thyroglobulin Ab Qn [IU]/mL 0.0-0.9 [facility] Comment on above: Thyroglobulin Antibo dy measured by [employer] HoldingsMethodologyIt should be noted that the presence of thyroglobulinantibodies may not be pathogenic nor diagnostic, especiallyat very low levels. The assay betting agency counter clerk has found thatfour percent of individuals without evidence of thyroiddisease or autoimmunity will have positive TgAb levels upto 4 IU/mL. Thyroglobulin [Mass/volume] in Serum or PlasmaOrdered By: Rob Villanueva on 12-21-2023 Thyroglobulin [Mass/Vol] 0.1 ng/mL 1.4-29.2 [facility] Comment on above: According to the [facility] Academy of Clinical Biochemistry,the reference interval for Thyroglobulin (TG) should berelated to euthyroid patients and not for patients whounderwent thyroidectomy. TG reference intervals for thesepatients depend on the residual mass of the thyroid tissueleft after surgery. Establishing a post-operative baselineis recommended. The assay limit of quantitation is 0.1ng/mLThyroglobulin measured by [employer] ImmunometricAssayPerformed at: [facility] [address] [id number] Director: Alexi Holder PhD, Phone: [phone] Thyroglobulin, Quant + Tg Ab on 12-21-2023 Antithyroglobulin Ab <1.0 Normal 0.0-0.9 [facility] Comment on above: Result Comment: Thyr oglobulin Antibody measured by [employer] Methodology It should be noted that the presence of thyroglobulin antibodies may not be pathogenic nor diagnostic, especially at very low levels. The assay betting agency counter clerk has found that four percent of individuals without evidence of thyroid disease or autoimmunity will have positive TgAb levels up to 4 IU/mL. Performed By: #### G LULS #### Point of Care testing , Thyroglobulin by MATTEO 0.1 ng/mL Low 1.4-29.2 [facility] Comment on above: Result Comment: Acco rding to the National Academy of Clinical Biochemistry, the reference interval for Thyroglobulin (TG) should be related to euthyroid patients and not for patients who underwent thyroidectomy. TG reference intervals for these patients depend on the residual mass of the thyroid tissue left after surgery. Establishing a post-operative baseline is recommended. The assay limit of quantitation is 0.1 ng/mL Thyroglobulin measured by [employer] Immunometric Assay Performed at: [facility] - [facility] [id number] Shirt Ironer Supervisor: Alexi Holder PhD, Phone: [phone] PERFORMED BY: [place] [address] PATHOLOGIST MEAT PROCESS WORKER GEORGIA WHITFIELD M.D. Performed By: #### G DEBI #### Point of Care testing , Thyrotropin [Units/volume] i n Serum or PlasmaOrdered By: Rob Villanueva on 12-21-2023 TSH Qn 0.06 m[IU]/L Low 0.45-5.33 [facility] Comment on above: Order Comment: NON F ASTING Result Comment: PERF ORMED BY: [place] [address] PATHOLOGIST MEAT PROCESS WORKER GEORGIA WHITFIELD M.D. Performed By: #### C JUAN, CMP #### [address] Triiodothyronine (T3) Totalo n 12-21-2023 Triiodothyronine (T3) Total 0.77 ng/mL Low 0.87-1.78 [facility] Comment on above: Order Comment: NON F ASTING Performed By: #### C JUAN, CMP #### [address] Triiodothyronine (T3) [Mass/ volume] in Serum or PlasmaOrdered By: Rob Villanueva on 12-21-2023 T3 [Mass/Vol] 0.77 ng/mL 0.87-1.78 [facility] CNPLiliya 08-25-2023 CNPN Telephone (PMNA11) BARAK SABILLON ([id number]) 1950 M Date Time Provider Department 08/25/23 LARSIA GAXIOLA PMNA11 During your visit today, we recorded the following information about you: Larisa Gaxiola APRN.CNP 08/25/2023 2:48 PM Signed I called patient to follow up and see why he cancelled the bronchoscopy. He stated that he wants to receive his care elsewhere. He states he was waiting to receive PFT orders in the mail but has not yet. He states this caused him to question what type of care he was going to receive. I advised him that I can fax the PFT order to any local facility. I advised him we can schedule out for a few weeks in the future it would not be an issue. He has had this nodule for years at this point and it has been slowly growing. If we need to wait a few more weeks for PFTs to be completed that would be fine. Patient states he just would like to follow up else where. I advised him that if he changes his mind, we are here to help and can reschedule the procedure/testing for him. We want to make sure he has the follow up he needs on this nodule. The patient was appreciative. I am going to fax a letter to the referring children librarian with this information. I will also fax records and results from testing I ordered. For now we will discharge patient from lung nodule program. Larisa Gaxiola APRN.CNP Allergies As of Date: 08/25/2023 Noted Allergy Reaction CODEINE 01/05/2012 14 - Other: See Comments 8 - GI Upset 16 - Unknown Comments: Other Reaction(s): Rash PNEUMOCOCCAL VACCINE 05/29/2023 12 - Shortness of Breath ERYTHROMYCIN BASE 07/14/2022 16 - Unknown Date Reviewed: 08/04/2023 Reviewed by: Larisa Gaxiola APRN.CNP - Fully Assessed Reason for Visit: Patient Update [1234] Cmt: Cancelled bronchoscopy Primary Visit Diagnosis:Lung nodule [R91.1] Prescriptions as of 08/25/2023 - albuterol HFA (PROVENTIL HFA, VENTOLIN HFA) 90 mcg/actuation inhaler INHALE 1 OR 2 PUFFS BY MOUTH QID PRN - atorvastatin (LIPITOR) 80 mg tablet Take 1 tablet by mouth daily at bedtime. - lisinopril (ZESTRIL) 20 mg tablet 20 mg. - TRELEGY ELLIPTA 100-62.5-25 mcg inhalation powder Inhale 1 Puff as instructed once daily. - levothyroxine (SYNTHROID) 150 mcg tablet Take 1 tablet (150 mcg) by mouth in the morning. Take before meals. - metoprolol tartrate, short acting, (LOPRESSOR) 25 mg tablet Take 12.5 mg by mouth two times a day. - metFORMIN (GLUCOPHAGE) 500 mg tablet TAKE 1 TABLET BY MOUTH EVERY DAY WITH MEAL - aspirin, enteric coated (ASPIRIN, ENTERIC COATED) 81 mg EC tablet Take 81 mg by mouth. - omeprazole (PRILOSEC) 20 mg capsule Take 20 mg by mouth. - tamsulosin (FLOMAX) 0.4 mg Take 1 capsule (0.4 mg) by mouth in the morning. - nitroglycerin sublingual (NITROQUICK) 0.4 mg SL tablet 0.4 mg. - BRILINTA 90 mg tablet Take 90 mg by mouth two times a day. - POTASSIUM-99 ORAL Take 1 tablet by mouth. - ascorbic acid, vitamin C, (VITAMIN C) 500 mg tablet Take 500 mg by mouth. - multivitamin (MULTIPLE VITAMIN ORAL) Take 1 tablet by mouth. 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] 03/20/2023 Letter Text Encounter Status:Closed by LARISA GAXIOLA on 08/25/23 [facility] Deandre 08-15-2023 JARRET Telephone (ORPULMLAB H23) BARAK SABILLON ([id number]) 1950 M Date Time Provider Department 08/15/23 FRANC IGLESIAS [id number] During your visit today, we recorded the following information about you: Allergies As of Date: 08/15/2023 Noted Allergy Reaction CODEINE 01/05/2012 14 - Other: See Comments 8 - GI Upset 16 - Unknown Comments: Other Reaction(s): Rash PNEUMOCOCCAL VACCINE 05/29/2023 12 - Shortness of Breath ERYTHROMYCIN BASE 07/14/2022 16 - Unknown Date Reviewed: 08/04/2023 Reviewed by: Larisa Gaxiola APRN.TOOL REPAIR TECHNICIAN - Fully Assessed Reason for Visit: Appointment [186] Credit And Collections Analyst - Other [3602] Prescriptions as of 08/15/2023 - albuterol HFA (PROVENTIL HFA, VENTOLIN HFA) 90 mcg/actuation inhaler INHALE 1 OR 2 PUFFS BY MOUTH QID PRN - atorvastatin (LIPITOR) 80 mg tablet Take 1 tablet by mouth daily at bedtime. - lisinopril (ZESTRIL) 20 mg tablet 20 mg. - TRELEGY ELLIPTA 100-62.5-25 mcg inhalation powder Inhale 1 Puff as instructed once daily. - levothyroxine (SYNTHROID) 150 mcg tablet Take 1 tablet (150 mcg) by mouth in the morning. Take before meals. - metoprolol tartrate, short acting, (LOPRESSOR) 25 mg tablet Take 12.5 mg by mouth two times a day. - metFORMIN (GLUCOPHAGE) 500 mg tablet TAKE 1 TABLET BY MOUTH EVERY DAY WITH MEAL - aspirin, enteric coated (ASPIRIN, ENTERIC COATED) 81 mg EC tablet Take 81 mg by mouth. - omeprazole (PRILOSEC) 20 mg capsule Take 20 mg by mouth. - tamsulosin (FLOMAX) 0.4 mg Take 1 capsule (0.4 mg) by mouth in the morning. - nitroglycerin sublingual (NITROQUICK) 0.4 mg SL tablet 0.4 mg. - BRILINTA 90 mg tablet Take 90 mg by mouth two times a day. - POTASSIUM-99 ORAL Take 1 tablet by mouth. - ascorbic acid, vitamin C, (VITAMIN C) 500 mg tablet Take 500 mg by mouth. - multivitamin (MULTIPLE VITAMIN ORAL) Take 1 tablet by mouth. 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 Barrett's office asking for cardiac clearance for navigational bronchoscopy; patient taking Brillinta 90mg bid. LVM. 08/14/23: Nurse from Dr. Barrett's office cb; returned her call this morning. LVM. 08/14/23: Paola calhoun from Dr. Barrett's office; he has cleared Mr. Sabillon for surgery and he can discontinue Brillinta from here on out, as he has completed 1-year anti-coagulation therapy. She will fax a confirmation. Info shared with Larisa Riddle RN Respiratory [facility] Doc Barrett DO (Attending) [address] [facility], [address] [place] [address] Interventional Cardiology Allergies As of Date: 08/11/2023 Noted Allergy Reaction CODEINE 01/05/2012 14 - Other: See Comments 8 - GI Upset 16 - Unknown Comments: Other Reaction(s): Rash PNEUMOCOCCAL VACCINE 05/29/2023 12 - Shortness of Breath ERYTHROMYCIN BASE 07/14/2022 16 - Unknown Date Reviewed: 08/04/2023 Reviewed by: Larisa Gaxiola APRN.TOOL REPAIR TECHNICIAN - Fully Assessed Reason for Visit: CARDIAC CLEARANCE INFO [Other] Prescriptions as of 08/14/2023 - albuterol HFA (PROVENTIL HFA, VENTOLIN HFA) 90 mcg/actuation inhaler INHALE 1 OR 2 PUFFS BY MOUTH QID PRN - ascorbic acid, vitamin C, (VITAMIN C) 500 mg tablet Take 500 mg by mouth. - aspirin, enteric coated (ASPIRIN, ENTERIC COATED) 81 mg EC tablet Take 81 mg by mouth. - atorvastatin (LIPITOR) 80 mg tablet Take 1 tablet by mouth daily at bedtime. - BRILINTA 90 mg tablet Take 90 mg by mouth two times a day. - levothyroxine (SYNTHROID) 150 mcg tablet Take 1 tablet (150 mcg) by mouth in the morning. Take before meals. - lisinopril (ZESTRIL) 20 mg tablet 20 mg. - metFORMIN (GLUCOPHAGE) 500 mg tablet TAKE 1 TABLET BY MOUTH EVERY DAY WITH MEAL - metoprolol tartrate, short acting, (LOPRESSOR) 25 mg tablet Take 12.5 mg by mouth two times a day. - multivitamin (MULTIPLE VITAMIN ORAL) Take 1 tablet by mouth. - nitroglycerin sublingual (NITROQUICK) 0.4 mg SL tablet 0.4 mg. - omeprazole (PRILOSEC) 20 mg capsule Take 20 mg by mouth. - POTASSIUM-99 ORAL Take 1 tablet by mouth. - tamsulosin (FLOMAX) 0.4 mg Take 1 capsule (0.4 mg) by mouth in the morning. - TRELEGY ELLIPTA 100-62.5-25 mcg inhalation powder Inhale 1 Puff as instructed once daily. 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 CLIA [id number] [address] [place] [address] [place] Basophils/100 WBC (Bld) 0.5 % Normal [facility] Comment on above: Order Comment: Albertoi joaquín Type: BLOOD SPECIMEN Ordering Facility: [facility] Address: [address] [place] [address] Performed By: #### 5 7021-8 #### [facility] CLIA [id number] [address] [place] [address] [place] Differential cell count method Nom (Bld) Auto Normal [facility] Comment on above: Order Comment: Speci men Type: BLOOD SPECIMEN Ordering Facility: [facility] Address: [address] [place] [address] Performed By: #### 5 7021-8 #### [facility] CLIA [id number] [address] [place] [address] [place] Eosinophils (Bld) [#/Vol] 0.08 10*3/uL Normal <0.46 [facility] Comment on above: Order Comment: Speci men Type: BLOOD SPECIMEN Ordering Facility: [facility] Address: [address] [place] [address] Performed By: #### 5 7021-8 #### [facility] CLIA [id number] [address] [place] [address] [place] Eosinophils/100 WBC (Bld) 1.0 % Normal [facility] Comment on above: Order Comment: Speci men Type: BLOOD SPECIMEN Ordering Facility: [facility] Address: [address] [place] [address] Performed By: #### 5 7021-8 #### [facility] CLIA [id number] [address] [place] [address] [place] Erythrocyte distribution width (RBC) [Ratio] 12.3 % Normal 11.5-15.0 [facility] Comment on above: Order Comment: Speci men Type: BLOOD SPECIMEN Ordering Facility: [facility] Address: [address] [place] [address] Performed By: #### 5 7021-8 #### [facility] CLIA [id number] [address] [place] [address] [place] Hematocrit (Bld) [Volume fraction] 42.5 % Normal 39.0-51.0 [facility] Comment on above: Order Comment: Speci men Type: BLOOD SPECIMEN Ordering Facility: [facility] Address: [address] [place] [address] Performed By: #### 5 7021-8 #### [facility] CLIA [id number] [address] [place] [address] [place] Hemoglobin (Bld) [Mass/Vol] 14.7 g/dL Normal 13.0-17.0 [facility] Comment on above: Order Comment: Speci men Type: BLOOD SPECIMEN Ordering Facility: [facility] Address: [address] [place] [address] Performed By: #### 5 7021-8 #### [facility] CLIA [id number] [address] [place] [address] [place] Immature granulocytes (Bld) [#/Vol] 0.03 10*3/uL Normal <0.10 [facility] Comment on above: Order Comment: Speci men Type: BLOOD SPECIMEN Ordering Facility: [facility] Address: [address] [place] [address] Performed By: #### 5 7021-8 #### [facility] CLIA [id number] [address] [place] [address] [place] Immature granulocytes/100 WBC (Bld) 0.4 % Normal [facility] Comment on above: Order Comment: Speci men Type: BLOOD SPECIMEN Ordering Facility: [facility] Address: [address] [place] [address] Performed By: #### 5 7021-8 #### [facility] CLIA [id number] [address] [place] [address] [place] Lymphocytes (Bld) [#/Vol] 1.32 10*3/uL Normal 1.00-4.00 [facility] Comment on above: Order Comment: Speci men Type: BLOOD SPECIMEN Ordering Facility: [facility] Address: [address] [place] [address] Performed By: #### 5 7021-8 #### [facility] CLIA [id number] [address] [place] [address] [place] Lymphocytes/100 WBC (Bld) 16.3 % Normal [facility] Comment on above: Order Comment: Speci men Type: BLOOD SPECIMEN Ordering Facility: [facility] Address: [address] [place] [address] Performed By: #### 5 7021-8 #### [facility] CLIA [id number] [address] [place] [address] [place] MCH (RBC) [Entitic mass] 33.2 pg Normal 26.0-34.0 [facility] Comment on above: Order Comment: Speci men Type: BLOOD SPECIMEN Ordering Facility: [facility] Address: [address] [place] [address] Performed By: #### 5 7021-8 #### [facility] CLIA [id number] [address] [place] [address] [place] MCHC (RBC) [Mass/Vol] 34.6 g/dL Normal 30.5-36.0 [facility] Comment on above: Order Comment: Speci men Type: BLOOD SPECIMEN Ordering Facility: [facility] Address: [address] [place] [address] Performed By: #### 5 7021-8 #### [facility] CLIA [id number] [address] [place] [address] [place] MCV (RBC) [Entitic vol] 95.9 fL Normal 80.0-100.0 [facility] Comment on above: Order Comment: Speci men Type: BLOOD SPECIMEN Ordering Facility: [facility] Address: [address] [place] [address] Performed By: #### 5 7021-8 #### [facility] CLIA [id number] [address] [place] [address] [place] Monocytes (Bld) [#/Vol] 0.52 10*3/uL Normal <0.87 [facility] Comment on above: Order Comment: Speci men Type: BLOOD SPECIMEN Ordering Facility: [facility] Address: [address] [place] [address] Performed By: #### 5 7021-8 #### [facility] CLIA [id number] [address] [place] [address] [place] Monocytes/100 WBC (Bld) 6.4 % Normal [facility] Comment on above: Order Comment: Speci men Type: BLOOD SPECIMEN Ordering Facility: [facility] Address: [address] [place] [address] Performed By: #### 5 7021-8 #### [facility] CLIA [id number] [address] [place] [address] [place] Neutrophils (Bld) [#/Vol] 6.09 10*3/uL Normal 1.45-7.50 [facility] Comment on above: Order Comment: Speci men Type: BLOOD SPECIMEN Ordering Facility: [facility] Address: [address] [place] [address] Performed By: #### 5 7021-8 #### [facility] CLIA [id number] [address] [place] [address] [place] Neutrophils/100 WBC (Bld) 75.4 % Normal [facility] Comment on above: Order Comment: Speci men Type: BLOOD SPECIMEN Ordering Facility: [facility] Address: [address] [place] [address] Performed By: #### 5 7021-8 #### [facility] CLIA [id number] [address] [place] [address] [place] Nucleated RBC (Bld) [#/Vol] 10*3/uL Normal <0.01 [facility] Comment on above: Order Comment: Speci men Type: BLOOD SPECIMEN Ordering Facility: [facility] Address: [address] [place] [address] Performed By: #### 5 7021-8 #### [facility] CLIA [id number] [address] [place] [address] [place] Nucleated RBC/100 WBC (Bld) [Ratio] 0.0 /100 WBC Normal [facility] Comment on above: Order Comment: Speci men Type: BLOOD SPECIMEN Ordering Facility: [facility] Address: [address] [place] [address] Performed By: #### 5 7021-8 #### [facility] CLIA [id number] [address] [place] [address] [place] Platelet mean volume (Bld) [Entitic vol] 9.2 fL Normal 9.0-12.7 [facility] Comment on above: Order Comment: Speci men Type: BLOOD SPECIMEN Ordering Facility: [facility] Address: [address] [place] [address] Performed By: #### 5 7021-8 #### [facility] CLIA [id number] [address] [place] [address] [place] Platelets (Bld) [#/Vol] 270 10*3/uL Normal 150-400 [facility] Comment on above: Order Comment: Speci men Type: BLOOD SPECIMEN Ordering Facility: [facility] Address: [address] [place] [address] Performed By: #### 5 7021-8 #### [facility] CLIA [id number] [address] [place] [address] [place] RBC (Bld) [#/Vol] 4.43 10*6/uL Normal 4.20-6.00 [facility] Comment on above: Order Comment: Speci men Type: BLOOD SPECIMEN Ordering Facility: [facility] Address: [address] [place] [address] Performed By: #### 5 7021-8 #### [facility] CLIA [id number] [address] [place] [address] [place] WBC (Bld) [#/Vol] 8.08 10*3/uL Normal 3.70-11.00 [facility] Comment on above: Order Comment: Speci men Type: BLOOD SPECIMEN Ordering Facility: [facility] Address: [address] [place] [address] Performed By: #### 5 7021-8 #### [facility] CLIA [id number] [address] [place] [address] [place] CNOVon 08-04-2023 CNOV Office Visit (PMNA11 ) BARAK SABILLON ([id number]) 1950 M Date Time Provider Department 08/04/23 10:00 AM LARISA GAXIOLA PMNA11 During your visit today, we recorded the following information about you: Temperature Pulse Respiration Blood pressure 99.7 degrees 73/minute 16/minute 139/67 Weight 75.6 kg Larisa Gaxiola, PATIENT PORTAL REPRESENTATIVE.TOOL REPAIR TECHNICIAN 08/14/2023 10:[address] [facility] INCIDENTAL LUNG NODULE PROGRAM Impression / Recommendations 1. Lung nodule - ICD9: 793.11, ICD10: R91.1 (primary diagnosis) - Patient has right lower lobe 12 mm spiculated solid nodule that has grown in size. We discussed although it has been stable in size and had low FDG avidity, the nodule appearance is concerning for malignancy. - I will plan to review his case at our upcoming Tumor Board Meeting to see if navigational bronchoscopy will be feasible. It looks like there is an airway leading to the nodule. - He will likely need cardiac clearance for bronchoscopy. I will reach out to Dr. Doc Barrett's office. - Patient should also update PFTs to determine if he would be surgical candidate if nodule is malignant lung primary. - CBC + DIFF - COMP METABOLIC PANEL - ECG COMPLETE - SPIROMETRY - BASELINE AND POST DILATOR - LUNG DIFFUSION CAPACITY (DLCO) - SIX MINUTE WALK - LCS/LN TUMOR BOARD 2. Anticoagulant long-term use - ICD9: V58.61, ICD10: Z79.01 - Lab work to be completed today given likely will undergo bronchoscopy - ACTIVATED PTT - PROTHROMBIN TIME/PT 3. Primary cancer of thyroid with metastasis to other site (HCC) - ICD9: 193, ICD10: C73 4. Malignant neoplasm of urinary bladder, unspecified site (HCC) - ICD9: 188.9, ICD10: C67.9 5. Tobacco use current - ICD9: 305.1, ICD10: Z72.0 - Cessation encouraged. - Physiologic and physical aspects of tobacco addiction as well as strategies for quitting were discussed. - Counseling was given focusing on the harmful effects of this addiction especially given the patient's medical condition(s) which will be worsened because of the chemicals in tobacco. Barak Jacobo expresses understanding and is in agreement with plan. Larisa Gaxiola APRN.MANUEL Incidental Lung Nodule Follow Up Concern for New Cancer Diagnosis: Yes Recommendation: Bronchoscopy Follow up Date: 08/25/2023 Lung Nodule Follow-Up Scheduled: No Enrolled in Lung Nodule program: Yes Lung Nodule Program Location: [place] Thank you for allowing me to participate in the care of Barak Jacobo. Please feel free to contact me with any questions or concerns. -------- Consulting Physician Cordelia Agarwal MD [address] [place] [address] Reason for the Consult Barak Jacobo presents today for consultation / opinion regarding lung nodule(s). My impression and final recommendations will be communicated back to the requesting physician by way of shared medical record or letter via US mail. History of Present Illness Barak Jacobo is a 72 year old male current cigar smoker (former cigarette smoker, 64 pyh, quit 1997) with a past medical history significant for metastatic papillary thyroid cancer, bladder cancer, COPD, HTN, HLD, CAD s/p PCI who is being seen as a new consultation for evaluation of a lung nodule(s). The patient was incidentally found to have a right lower lobe 8 mm spiculated nodule in February 2021. He had a follow up PET/CT scan which showed the nodule to have low FDG avidity. A six month follow up scan was completed 11/03/21 which showed increase in size of the nodule to 12 mm. At that time, patient's thyroid cancer had metastasized and he was undergoing surgery. CT chest was repeated on 05/11/22 which showed the nodule to be stable in size. A 1 year follow up scan was recommended. Most recent CT chest on 06/27/23 shows the nodule has remained stable in size. However, patient has been experiencing weight loss of about 30 lbs over the last year. He has a poor appetite. His local children librarian referred him for opinion on navigational bronchoscopy. Hx of bladder cancer 2018 s/p radiation - states urologist retired; in need of new urologist Hx of metastatic papillary thyroid cancer. Thyroid cancer first diagnosed around 2004 s/p thyroidectomy and radiation Took three lymph nodes out of the neck in November 2021-- 11/01 nodes was positive for metastatic thyroid cancer Follows locally with [facility] - Dr. Rob Sparks. He is s/p right neck dissection and thyroidectomy CT soft tissue neck w IV contrast 11/29/21 Nonspecific rounded cystic mass with septations located anterior to the right common carotid artery and right jugular vein, immediately proximal to the carotid bifurcation, and corresponding with the mass on the carotid ultrasound from 03/18/2021. Differential (more content not included)... Normal [facility] Comprehensive metabolic 2000 panelon 08-04-2023 Albumin [Mass/Vol] 4.4 g/dL Normal 3.9-4.9 [facility] Comment on above: Order Comment: Speci men Type: BLOOD SPECIMEN Ordering Facility: [facility] Address: [address] [place] [address] Performed By: #### 2 4323-8 #### [facility] CLIA [id number] [address] [place] [address] [place] ALP [Catalytic activity/Vol] 94 U/L Normal 38-113 [facility] Comment on above: Order Comment: Speci men Type: BLOOD SPECIMEN Ordering Facility: [facility] Address: [address] [place] [address] Performed By: #### 2 4323-8 #### [facility] CLIA [id number] [address] [place] [address] [place] ALT [Catalytic activity/Vol] 12 U/L Normal 10-54 [facility] Comment on above: Order Comment: Speci men Type: BLOOD SPECIMEN Ordering Facility: [facility] Address: [address] [place] [address] Performed By: #### 2 4323-8 #### [facility] CLIA [id number] [address] [place] [address] [place] Anion gap [Moles/Vol] 11 mmol/L Normal 9-18 [facility] Comment on above: Order Comment: Speci men Type: BLOOD SPECIMEN Ordering Facility: [facility] Address: [address] [place] [address] Performed By: #### 2 4323-8 #### [facility] CLIA [id number] [address] [place] [address] [place] AST [Catalytic activity/Vol] 17 U/L Normal 14-40 [facility] Comment on above: Order Comment: Speci men Type: BLOOD SPECIMEN Ordering Facility: [facility] Address: [address] [place] [address] Performed By: #### 2 4323-8 #### [facility] CLIA [id number] [address] [place] [address] [place] Bilirubin [Mass/Vol] 0.3 mg/dL Normal 0.2-1.3 [facility] Comment on above: Order Comment: Speci men Type: BLOOD SPECIMEN Ordering Facility: [facility] Address: [address] [place] [address] Performed By: #### 2 4323-8 #### [facility] CLIA [id number] [address] [place] [address] [place] Calcium [Mass/Vol] 9.4 mg/dL Normal 8.5-10.2 [facility] Comment on above: Order Comment: Speci men Type: BLOOD SPECIMEN Ordering Facility: [facility] Address: [address] [place] [address] Performed By: #### 2 4323-8 #### [facility] CLIA [id number] [address] [place] [id number] [place] Chloride [Moles/Vol] 104 mmol/L Normal 97-105 [facility] Comment on above: Order Comment: Speci men Type: BLOOD SPECIMEN Ordering Facility: [facility] Address: [address] [place] [address] Performed By: #### 2 4323-8 #### [facility] CLIA [id number] [address] [place] [address] [place] CO2 [Moles/Vol] 25 mmol/L Normal 22-30 [facility] Comment on above: Order Comment: Speci men Type: BLOOD SPECIMEN Ordering Facility: [facility] Address: [address] [place] [address] Performed By: #### 2 4323-8 #### [facility] CLIA [id number] [address] [place] [address] [place] Creatinine [Mass/Vol] 0.97 mg/dL Normal 0.73-1.22 [facility] Comment on above: Order Comment: Speci men Type: BLOOD SPECIMEN Ordering Facility: [facility] Address: [address] [place] [address] Performed By: #### 2 4323-8 #### [facility] CLIA [id number] [address] [place] [address] [place] Creatinine and Glomerular filtration rate.predicted panel (S/P/Bld) 82 mL/min/1.73m??? Normal >=60 [facility] Comment on above: Order Comment: Speci men Type: BLOOD SPECIMEN Ordering Facility: [facility] Address: [address] [place] [address] Result Comment: Prachi mated Glomerular Filtration Rate (eGFR) is calculated using the 2020 CKD-EPI creatinine equation. This equation utilizes serum creatinine, sex, and age as parameters. The creatinine assay has traceable calibration to isotope dilution-mass spectrometry. Refer to KDIGO guidelines for clinical interpretation. In patients with unstable renal function, e.g. those with acute kidney injury, the eGFR may not accurately reflect actual GFR. Performed By: #### 2 4323-8 #### [facility] CLIA [id number] [address] [place] [address] [place] Glucose [Mass/Vol] 134 mg/dL High 74-99 [facility] Comment on above: Order Comment: Tamara yanes Type: BLOOD SPECIMEN Ordering Facility: [facility] Address: [address] [place] [address] Result Comment: The [place] Diabetes Association (ADA) provides guidance for cutoff values for fasting glucose and random glucose. The ADA defines fasting as no caloric intake for at least 8 hours. Fasting plasma glucose results between 100 to 125 mg/dL indicate increased risk for diabetes (prediabetes). Fasting plasma glucose results greater than or equal to 126 mg/dL meet the criteria for diagnosis of diabetes. In the absence of unequivocal hyperglycemia, results should be confirmed by repeat testing. In a patient with classic symptoms of hyperglycemia or hyperglycemic crisis, random plasma glucose results greater than or equal to 200 mg/dL meet the criteria for diagnosis of diabetes. Reference: Standards of Medical Care in Diabetes 2016, [place] [employer] Association. Diabetes Care. 2016.39(Suppl 1). Performed By: #### 2 4323-8 #### [facility] CLIA [id number] [address] [place] [address] [place] Potassium [Moles/Vol] 4.6 mmol/L Normal 3.7-5.1 [facility] Comment on above: Order Comment: Tamara yanes Type: BLOOD SPECIMEN Ordering Facility: [facility] Address: [address] [place], [place] [address] Performed By: #### 2 4323-8 #### [facility] CLIA [id number] [facility] [place] [address] [place] Protein [Mass/Vol] 6.5 g/dL Normal 6.3-8.0 [facility] Comment on above: Order Comment: Tamara yanes Type: BLOOD SPECIMEN Ordering Facility: [facility] Address: [address] [place] [address] Performed By: #### 2 4323-8 #### [facility] CLIA [id number] [address] [place] [address] [place] Sodium [Moles/Vol] 140 mmol/L Normal 136-144 [facility] Comment on above: Order Comment: Speci men Type: BLOOD SPECIMEN Ordering Facility: [facility] Address: [address] [place] [address] Performed By: #### 2 4323-8 #### [facility] CLIA [id number] [address] [place] [address] [place] Urea nitrogen [Mass/Vol] 17 mg/dL Normal 9-24 [facility] Comment on above: Order Comment: Speci men Type: BLOOD SPECIMEN Ordering Facility: [facility] Address: [address] [place] [address] Performed By: #### 2 4323-8 #### [facility] CLIA [id number] [address] [place] ECG COMPLETEon 08-04-2023 ECG COMPLETE Ventricular Rate : 7 0 BPM Atrial Rate : 70 BPM P-R Interval : 150 ms QRS Duration : 130 ms Q-T Interval : 404 ms QTC Calculation(Bazett) : 436 ms Calculated P Laneview : 16 degrees Calculated R Laneview : -9 degrees Calculated T Laneview : 42 degrees NORMAL SINUS RHYTHM COMPLETE RIGHT BUNDLE BRANCH BLOCK ABNORMAL ECG Confirmed by YARED ALEJANDRO MD ([id number]) on 08/09/2023 9:45:32 AM NAME : BARAK SABILLON PID : [id number] : 1950 Gender : Male Race : ORD : [id number] Procedure Date : Aug 04 2023 12:11:16 Edit Date : Aug 09 2023 09:45:33 Diagnosis: NORMAL SINUS RHYTHM COMPLETE RIGHT BUNDLE BRANCH BLOCK ABNORMAL ECG Confirmed by YARED ALEJANDRO MD ([id number]) on 08/09/2023 9:45:32 AM Test Reason : Location : 119 : A17 A17 Overread By : YARED ALEJANDRO MD Edited By : YARED ALEJANDRO MD Referred By : LARISA GAXIOLA Acquired by : JUNE BETANCOURT [facility] PT panel Coag (PPP)on 2022 INR Coag (PPP) [Relative time] 1.0 {INR} Normal 0.9-1.3 [facility] Comment on above: Order Comment: Tamara yanes Type: BLOOD SPECIMEN Ordering Facility: [facility] Address: [address] [place] [address] Result Comment: Tierra min K Antagonist (VKA) Therapeutic Range: INR 2 to 3 (Target INR of 2.5) Note: For patients treated with VKA drugs, such as warfarin, the [place] [employer] 2012 Guideline recommends a therapeutic INR range of 2 to 3 (target INR of 2.5). This recommendation includes high-risk patients with antiphospholipid syndrome with previous arterial or venous thromboembolism, current-generation mechanical or bioprosthetic aortic heart valve replacement. Note: Patients with mechanical aortic valve replacement and additional risk factors for thromboembolic events (atrial fibrillation, previous thromboembolism, LV dysfunction, hypercoagulable conditions) or an older generation mechanical AVR (i.e., ball in-Cage) or any mechanical MVR should have a INR therapeutic range of 2.5 to 3.5 (target INR of 3). Ale CARTER, et al. Chest 2012, 141:7S-47S Manav RA, et al. JAC 2017, 70: 252-289 Performed By: #### 1 4979-9, 65596-3 #### [facility] IA [id number] [address] [place] [address] [place] PT Coag (PPP) [Time] 10.1 s Normal 9.7-13.0 [facility] Comment on above: Order Comment: Tamara yanes Type: BLOOD SPECIMEN Ordering Facility: [facility] Address: [address] [place], [place] [address] Performed By: #### 1 4979-9, 22398-9 #### [facility] CLIA [id number] [address] [place] [address] [place] aPTT PPPon 08-04-2023 aPTT Coag (PPP) [Time] 26.7 s Normal 23.0-32.4 [facility] Comment on above: Order Comment: Speci men Type: BLOOD SPECIMEN Ordering Facility: [facility] Address: [address] [place] [address] Performed By: #### 1 4979-9, 42846-3 #### [facility] CLIA [id number] [address] [facility] [id number] [place] [address] [facility] CNPLiliya 08-03-2023 CNPN Telephone (PULMMN) BARAK SABILLON ([id number]) 1950 M Date Time Provider Department 08/03/23 LARISA GAXIOLA During your visit today, we recorded the following information about you: Deborah, 08/03/2023 4:08 PM Signed Received fax from [facility] with referral information and records, uploaded to chart Allergies As of Date: 08/03/2023 (Not on File) Date Reviewed: Never Reviewed Reason for Visit: Outside Lab Results [003] Prescriptions as of 08/23/2023 - albuterol HFA (PROVENTIL HFA, VENTOLIN HFA) 90 mcg/actuation inhaler INHALE 1 OR 2 PUFFS BY MOUTH QID PRN - atorvastatin (LIPITOR) 80 mg tablet Take 1 tablet by mouth daily at bedtime. - lisinopril (ZESTRIL) 20 mg tablet 20 mg. - TRELEGY ELLIPTA 100-62.5-25 mcg inhalation powder Inhale 1 Puff as instructed once daily. - levothyroxine (SYNTHROID) 150 mcg tablet Take 1 tablet (150 mcg) by mouth in the morning. Take before meals. - metoprolol tartrate, short acting, (LOPRESSOR) 25 mg tablet Take 12.5 mg by mouth two times a day. - metFORMIN (GLUCOPHAGE) 500 mg tablet TAKE 1 TABLET BY MOUTH EVERY DAY WITH MEAL - aspirin, enteric coated (ASPIRIN, ENTERIC COATED) 81 mg EC tablet Take 81 mg by mouth. - omeprazole (PRILOSEC) 20 mg capsule Take 20 mg by mouth. - tamsulosin (FLOMAX) 0.4 mg Take 1 capsule (0.4 mg) by mouth in the morning. - nitroglycerin sublingual (NITROQUICK) 0.4 mg SL tablet 0.4 mg. - BRILINTA 90 mg tablet Take 90 mg by mouth two times a day. - POTASSIUM-99 ORAL Take 1 tablet by mouth. - ascorbic acid, vitamin C, (VITAMIN C) 500 mg tablet Take 500 mg by mouth. - multivitamin (MULTIPLE VITAMIN ORAL) Take 1 tablet by mouth. Problem List As Of Date: 08/03/2023 (None) Encounter Status:Closed by DEBORAH MARCH on 08/23/23 Normal [facility] Thyrotropin [Units/volume] i n Serum or PlasmaOrdered By: Rob Villanueva on 08-03-2023 TSH Qn 0.01 m[IU]/L Low 0.45-5.33 [facility] Comment on above: Result Comment: PERF ORMED BY: [place] [address] PATHOLOGIST MEAT PROCESS WORKER GEORGIA WHITFIELD M.D. 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 Though it is not easy, more than half of all adult smokers have quit. We encourage you to write down all the reasons you should quit smoking and set a quit date for yourself. Ask us how we can help. You may also call [phone]; Status:Complete - Retrospective Authorization; Done: [id number] Tobacco Use Screening; Status:Complete; Done: [id number] Patient Instructions Please bring all medicines, vitamins, and herbal supplements with you when you come to the office. Prescriptions will not be filled unless you are compliant with your follow up appointments or have a follow up appointment scheduled as per instruction of your physician. Refills should be requested at the time of your visit. Follow up in [ 4] months Chief Complaint BARAK SABILLON is being seen for a 2 week follow-up of. 72-year-old gentleman returns for early follow-up and is doing much better, tolerating low-dose Nitropatch to and reduce lisinopril with no further episodes of hypotension, near syncope and greatly reduced anginal complaints. He is back to normal activities he has rare angina. He has known ASHD with remote CABG, recent interventions in June and July 2022 are reviewed including PCI of the PLV branch for in-stent restenosis and subsequent PCI of the ramus branch in July for in-stent restenosis with preserved left ventricular function. He has a known patent RODRIGUEZ to the LAD and occluded vein graft to the circumflex He remains hemodynamically stable on lisinopril 20 mg daily as opposed to twice daily. Notably, he is lost over 50 pounds in the past 7 years since his halfway. 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 Aspirin 81 81 MG Oral Tablet Delayed ReleaseTAKE 1 TABLET BY MOUTH DAILY Atorvastatin Calcium 80 MG Oral Tablettake 1 tablet by mouth at bedtime Brilinta 90 MG Oral TabletTAKE 1 TABLET TWICE DAILY. Levothyroxine Sodium 175 MCG Oral TabletTAKE 1 TABLET DAILY DIRECTED. Lisinopril 20 MG Oral TabletTAKE 1 TABLET DAILY. metFORMIN HCl - 500 MG Oral TabletTAKE 1 TABLET DAILY WITH FOOD. Metoprolol Tartrate 25 MG Oral Tablettake 1/2 tablet by mouth twice daily Multi Vitamin Daily TABSTAKE 1 TABLET DAILY. Nitroglycerin 0.2 MG/HR Transdermal Patch 24 HourAPPLY PATCH FOR 12 TO 14 HOURS DAILY , THEN REMOVE Omeprazole 20 MG Oral Capsule Delayed ReleaseTAKE 1 CAPSULE BY MOUTH EVERY DAY Potassium Bicarbonate 99 MG CAPSTAKE one 2 times daily Tamsulosin HCl - 0.4 MG Oral CapsuleTake 1 capsule by mouth daily Trelegy Ellipta 100-62.5-25 MCG/INH AEPBas directed Vitamin C 500 MG Oral TabletTAKE 1 TABLET DAILY. Patient did not bring medication list or bottles. Updated verbally with patient Allergies Medication Codeine Derivatives Nausea; Updated By: Lori Blank; 05/20/2022 12:20:24 PM erythromycin Nausea; Updated By: Lori Blank; 05/20/2022 12:20:24 PM Social History Problems Alcohol use (V49.89) (Z78.9) 1/2 bottle wine daily Caffeine use (V49.89) (Z78.9) 2 - 3 cups coffee daily Current some day smoker (305.1) (F17.200) No illicit drug use Review of Systems Constitutional: not feeling tired. Cardiovascular: no intermittent leg claudication and as noted in HPI. Respiratory: no cough and no shortness of breath. Gastrointestinal: no change in bowel habits and no blood in stools. Integumentary: no skin rashes. Neurological: no seizures and no frequent falls. All other systems have been reviewed and are negative for complaint. Vitals Vital Signs Recorded: (more content not included)... Normal vpod.tv Tobacco Screening.on 023 Tobacco use status [facility] a) Yes [facility]ida 250 DO Work Phone: Tobacco Screening. Yes [facility] 250 DO Work Phone: Office Visit (Cardiology)on 04-19-2023 Follow-up visit Diagnoses/Problems Assessed Angina, class III (413.9) (I20.9) 3-vessel CAD (414.00) (I25.10) Hypertension (401.9) (I10) Hyperlipidemia (272.4) (E78.5) Diabetes mellitus (250.00) (E11.9) Overweight with body mass index (BMI) of 26 to 26.9 in adult (278.02,V85.22) (E66.3,Z68.26) Current some day smoker (305.1) (F17.200) Cigars Orders 3-vessel CAD, Angina, class III Renew: Nitroglycerin 0.2 MG/HR Transdermal Patch 24 Hour; APPLY PATCH FOR 12 TO 14 HOURS DAILY , THEN REMOVE Hypertension Changed: From Lisinopril 20 MG Oral Tablet TAKE 1 TABLET BY MOUTH TWICE DAILY To Lisinopril 20 MG Oral Tablet TAKE 1 TABLET DAILY Overweight with body mass index (BMI) of 26 to 26.9 in adult Healthy Weight Tips; Status:Complete; Done: [id number] SocHx: Current some day smoker You need to stop smoking. Though it is not easy, more than half of all adult smokers have quit. We encourage you to write down all the reasons you should quit smoking and set a quit date for yourself. Ask us how we can help. You may also call 0-383-IAXHNOW for free resources and assistance.; Status:Complete; Done: [id number] Tobacco Use Screening; Status:Complete; Done: [id number] Patient Instructions Please bring all medicines, vitamins, and herbal supplements with you when you come to the office. Prescriptions will not be filled unless you are compliant with your follow up appointments or have a follow up appointment scheduled as per instruction of your physician. Refills should be requested at the time of your visit. PLAN: Through informed decision making process incorporating patients unique circumstances, the following treatment plan will be initiated: 1. Prescription drug management of cardiovascular medication for efficacy, adherence to treatment, side effect assessment and polypharmacy. Current treatment clinically warranted and to continue with following modifications: - Reduce lisinopril 20mg at bedtime - Resume nitropatch 0.2mg daily 2. Return for follow-up; in the interim, contact the office if new symptoms arise. Dr. Barrett 2 weeks Chief Complaint Routine f/u: 'I could not tolerate the nitropatch' BARAK SABILLON is being seen for a 6 week follow-up of chest pain. Patient presents to the office ambulatory with steady gait, is accompanied by his . Last evaluated in clinic by Dr. Barrett February 2023. At that time due to stable angina system Nitropatch was added to medical regimen. Patient was initially compliant with addition of treatment and verbalizes resolution of angina symptoms, unfortunately had symptomatic hypotension and has stopped Nitropatch. Off of Nitropatch he continues to report his usual angina symptoms that occur with lifting or carrying items, occasionally going up and down the stairs. He states his symptoms are no worse and are the same . Denies any rest symptoms. He is not utilizing nitroglycerin. At this time, we will reduce lisinopril to 20 mg at bedtime rather than twice daily to allow blood pressure to reinitiate treatment with Nitropatch. He will follow back up in 2 weeks for reassessment. Aug 26, 2022 Ramus PCI/Jeronimo d/t ISR Jun 2022 RCA AND PLV PCI/Jeronimo Remains with stable functional class IIb angina symptoms off long acting nitrates. History of Present Illness The patient states he has been generally stable since the last visit. Comorbid Illnesses: diabetes mellitus, hypertension and hyperlipidemia. Symptoms: denies chest pain at rest, stable exertional chest pain, denies dyspnea, stable fatigue, denies exercise intolerance, denies palpitations, denies edema, denies orthopnea, denies dizziness and denies orthostatic dizziness. Associated symptoms: no syncope. Disease Monitoring: recent nitroglycerin use has been unchanged. Medications: the patient complains of medication side effects. Surgical History Problems History of Arterial stent placement History of Bladder surgery History of Cardiac catheterization with stent placement x2 History of Colonoscopy History of Coronary artery bypass graft History of Finger amputation of middle finger with neurectomy History of Lumpectomy History of Neck surgery History of Percutaneous transluminal coronary angioplasty History of Spine fracture repair History of Thyroidectomy total Current Meds Medication NameInstruction Albuterol Sulfate HFA 108 (90 Base) MCG/ACT Inhalation Aerosol SolutionINHALE 1 TO 2 PUFFS EVERY 4 TO 6 HOURS NEEDED. Aspirin 81 81 MG Oral Tablet Delayed ReleaseTAKE 1 TABLET BY MOUTH DAILY Atorvastatin Calcium 80 MG Oral Tablettake 1 tablet by mouth at bedtime Brilinta 90 MG Oral TabletTAKE 1 TABLET TWICE DAILY. Levothyroxine Sodium 175 MCG Oral TabletTAKE 1 TABLET DAILY DIRECTED. Lisinopril 20 MG Oral TabletTAKE 1 TABLET BY MOUTH TWICE DAILY metFORMIN HCl - 500 MG Oral TabletTAKE 1 TABLET DAILY WITH FOOD. Metoprolol Tartrate 25 MG Oral Tablettake 1/2 tablet by mouth twice daily Multi Vitamin Daily TAB (more content not included)... Normal vpod.tv Tobacco Screening.on 023 Fall risk assessment a) No falls within the last year [facility] 250 DO Work Phone: Tobacco use status [facility] a) Yes [facility] 250 DO Work Phone: Tobacco Screening. Yes [facility] 250 DO Work Phone: Office Visit (Cardiology)on 03-07-2023 Follow-up visit Diagnoses/Problems Assessed COPD (chronic obstructive pulmonary disease) (496) (J44.9) Angina, class III (413.9) (I20.9) Bladder cancer (188.9) (C67.9) Thyroid cancer (193) (C73) Diabetes mellitus (250.00) (E11.9) History of PTCA (V45.82) (Z98.61) Hyperlipidemia (272.4) (E78.5) Hypertension (401.9) (I10) 3-vessel CAD (414.00) (I25.10) Overweight with body mass index (BMI) of 26 to 26.9 in adult (278.02,V85.22) (E66.3,Z68.26) Current some day smoker (305.1) (F17.200) Orders 3-vessel CAD Changed: From Aspirin EC 81 MG TBEC TAKE 1 TABLET DAILY DIRECTED To Aspirin 81 81 MG Oral Tablet Delayed Release TAKE 1 TABLET BY MOUTH DAILY 3-vessel CAD, Angina, class III Start: Nitroglycerin 0.2 MG/HR Transdermal Patch 24 Hour; APPLY PATCH FOR 12 TO 14 HOURS DAILY , THEN REMOVE Hyperlipidemia Renew: Atorvastatin Calcium 80 MG Oral Tablet; take 1 tablet by mouth at bedtime Overweight with body mass index (BMI) of 26 to 26.9 in adult Healthy Weight Tips; Status:Complete - Retrospective Authorization; Done: 07Mar2023 Some eating tips that can help you lose weight.; Status:Complete - Retrospective Authorization; Done: 07Mar2023 SocHx: Current some day smoker You need to quit smoking.; Status:Complete - Retrospective Authorization; Done: 07Mar2023 Tobacco Use Screening; Status:Complete; Done: 07Mar2023 You need to stop smoking. Though it is not easy, more than half of all adult smokers have quit. We encourage you to write down all the reasons you should quit smoking and set a quit date for yourself. Ask us how we can help. You may also call [phone]-ZSDFNOW for free resources and assistance.; Status:Complete - Retrospective Authorization; Done: 07Mar2023 Patient Instructions Please bring all medicines, vitamins, and herbal supplements with you when you come to the office. Prescriptions will not be filled unless you are compliant with your follow up appointments or have a follow up appointment scheduled as per instruction of your physician. Refills should be requested at the time of your visit. Fall Prevention education given Follow up in 6 weeks with Joanie Gonzalez NP Follow up in 4 months Chief Complaint BARAK SABILLON is being seen for a 6 month follow-up of. 72-year-old gentleman returns for follow-up with daily angina, class III. He has not taken any nitroglycerin. At one point he was changing out his propane tank under the grill and had severe discomfort that lasted for 20 minutes that resolved with rest. He has a history of CABG, multivessel PCI's most recent of which were in July and August involving the PLV branch of the RCA and the ramus branch both for in-stent restenosis. Details of which are reviewed. He has underlying hypertension, hyperlipidemia, continued cigar use. We have counseled him for 3 minutes today on smoking cessation. He was on a nitroglycerin patch but this has been discontinued given the fact he is been completely revascularized. He remains compliant with DAPT and high-dose statin as with his other medications. We have counseled him on appropriate nitroglycerin use, we did discuss the potential to go back to the [employer] for relook at his anatomy. We will initiate Nitropatch 0.2 mg daily see if this makes any impact, follow-up with nurse practitioner next 4 to 6 weeks and myself in 4 months if in fact he has persistent daily angina he will require heart repeat catheterization, and possible PCI Current Meds Medication NameInstruction Albuterol Sulfate HFA 108 (90 Base) MCG/ACT Inhalation Aerosol SolutionINHALE 1 TO 2 PUFFS EVERY 4 TO 6 HOURS NEEDED. Aspirin EC 81 MG TBECTAKE 1 TABLET DAILY DIRECTED. Atorvastatin Calcium 80 MG Oral Tablettake 1 tablet by mouth at bedtime Brilinta 90 MG Oral TabletTAKE 1 TABLET TWICE DAILY. Levothyroxine Sodium 175 MCG Oral TabletTAKE 1 TABLET DAILY DIRECTED. Lisinopril 20 MG Oral TabletTAKE 1 TABLET BY MOUTH TWICE DAILY metFORMIN HCl - 500 MG Oral TabletTAKE 1 TABLET DAILY WITH FOOD. Metoprolol Tartrate 25 MG Oral Tablettake 1/2 tablet by mouth twice daily Multi Vitamin Daily TABSTAKE 1 TABLET DAILY. Nitroglycerin 0.4 MG Sublingual Tablet SublingualDISSOLVE 1 T UNDER THE TOUNGE Q 5 MIUNUTES FOR CHEST P Omeprazole 20 MG Oral Capsule Delayed ReleaseTAKE 1 CAPSULE BY MOUTH EVERY DAY Potassium Bicarbonate 99 MG CAPSTAKE one 2 times daily Tamsulosin HCl - 0.4 MG Oral CapsuleTake 1 capsule by mouth daily Trelegy Ellipta 100-62.5-25 MCG/INH AEPBas directed Vitamin C 500 MG Oral TabletTAKE 1 TABLET DAILY. Allergies Medication Codeine Derivatives Nausea; Updated By: Lori Blank; 05/20/2022 12:20:24 PM erythromycin Nausea; Updated By: Lori Blank; 05/20/2022 12:20:24 PM Social History Problems Alcohol use (V49.89) (Z78.9) 1/2 bottle wine daily Caffeine use (V49.89) (Z78.9) 2 - 3 cups coffee daily Current some day smoker (305.1) (F17.200) No illicit drug use Review of Systems Constitutional: not feeling (more content not included)... Normal vpod.tv Tobacco Screening.on 023 [facility] Work Phone: Fall risk assessment b) One or more fall s in the last year [facility] 250 DO Work Phone: Tobacco use status [facility] a) Yes [facility] zaida 250 DO Work Phone: Tobacco Screening. Yes [facility] zaida 250 DO Work Phone: Provider Letteron 10-27-2022 Provider Letter (Inserted Image. Mayra ble to display) October 27, 2022 BARAK SABILLON [address] [place] [phone] BARAK SABILLON 1950 Regular and Certified Mail Dear Mr. Sabillon, This letter is to inform you the Dr. Vito Neves (the providers of [facility], [facility]) will no longer be responsible for your routine medical care due to repeated non compliance. Emergency care only will be provided for the thirty (30) days following this letter. During this time period we suggest that you find another physician for your medical needs. A listing of area physicians can be found on [facility]'s website at [email or web address] or you may contact your health plan. We will be glad to forward your records to your new physician as long as we receive a signed release of records form. Sincerely, Vito Neves M.D. [facility] [address] [place] [address] Normal [facility] Reminderson 10-27-2022 Reminders - From: Leila Barber MA To: EU - Dk Neves; Sent: 12/21/2021 10:07:49 EST Show up: 07/25/2022 07:00:00 EDT Subject: Recall Due Date/Time: 08/24/2022 07:00:00 EDT Reminder Message Pt needs scheduled for 9m Cysto/FISH around Oct for Bladder Cancer LM on ans mach asking Pt to call the office to get scheduled. cornelius LM on ans mach @ home # and also LM on VM of cell # asking Pt to call to get scheduled. Letter mailed to Pt asking him to contact the office. No response from Pt to the letter I mailed. Sending RWR a message regarding next steps. Per RWR, discharge from practice. Discharge letter mailed regular and certified mail. Normal [facility] Provider Letteron 10-05-2022 Provider Letter (Inserted Image. Mayra ble to display) October 05, 2022 BARAK SABILLON [address] [place] [phone] RIDGEGURMEETBARAK L 1950 Dear Mr. Sabillon, We have been trying to reach you with no success. It is important that you return our call regarding your history of bladder cancer (and the need for a cysto) upon receiving this letter. Also, at the time of your call, please provide us with your current information. Thank you for your prompt attention to this matter. Sincerely, Vito Neves M.D. [facility] [phone] [facility] Office Visit (Cardiology)on 09-27-2022 Follow-up visit Diagnoses/Problems Assessed 3-vessel CAD (414.00) (I25.10) Diabetes mellitus (250.00) (E11.9) Hyperlipidemia (272.4) (E78.5) Hypertension (401.9) (I10) Stenosis of right carotid artery (433.10) (I65.21) Current some day smoker (305.1) (F17.200) Overweight with body mass index (BMI) of 26 to 26.9 in adult (278.02,V85.22) (E66.3,Z68.26) Orders 3-vessel CAD Renew: Aspirin EC 81 MG Oral Tablet Delayed Release; TAKE 1 TABLET DAILY DIRECTED Overweight with body mass index (BMI) of 26 to 26.9 in adult Healthy Weight Tips; Status:Complete - Retrospective Authorization; Done: 27Sep2022 Some eating tips that can help you lose weight.; Status:Complete - Retrospective Authorization; Done: 27Sep2022 SocHx: Current some day smoker You need to stop smoking. Though it is not easy, more than half of all adult smokers have quit. We encourage you to write down all the reasons you should quit smoking and set a quit date for yourself. Ask us how we can help. You may also call [phone]; Status:Complete - Retrospective Authorization; Done: 27Sep2022 Tobacco Use Screening; Status:Complete; Done: 27Sep2022 Patient Instructions Please bring all medicines, vitamins, and herbal supplements with you when you come to the office. Prescriptions will not be filled unless you are compliant with your follow up appointments or have a follow up appointment scheduled as per instruction of your physician. Refills should be requested at the time of your visit. Follow up in [6 ] months Chief Complaint cath results. Patient is a 71-year-old gentleman returns following recent revascularizations involving the PLV branch and the ramus branch. 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 He has a history of remote CABG, the above-mentioned PCI's, thyroid cancer, COPD, hyperlipidemia, essential hypertension. Recent lipid panel is reviewed LDL is 77, potassium 4.6, creatinine 0.85. He is stable without any angina, recurrent hospitalizations, heart failure, right radial access site is intact with no hematoma and excellent pulse. 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 Aspirin EC 81 MG Oral Tablet Delayed ReleaseTAKE 1 TABLET DAILY DIRECTED. Atorvastatin Calcium 80 MG Oral Tablettake 1 tablet by mouth at bedtime Brilinta 90 MG Oral TabletTAKE 1 TABLET TWICE DAILY. Levothyroxine Sodium 175 MCG Oral TabletTAKE 1 TABLET DAILY DIRECTED. Lisinopril 20 MG Oral TabletTAKE 1 TABLET BY MOUTH TWICE DAILY metFORMIN HCl - 500 MG Oral TabletTAKE 1 TABLET DAILY WITH FOOD. Metoprolol Tartrate 25 MG Oral Tablettake 1/2 tablet by mouth twice daily Multi Vitamin Daily Oral TabletTAKE 1 TABLET DAILY. Nitroglycerin 0.4 MG Sublingual Tablet SublingualDISSOLVE 1 T UNDER THE TOUNGE Q 5 MIUNUTES FOR CHEST P Omeprazole 20 MG Oral Capsule Delayed ReleaseTAKE 1 CAPSULE BY MOUTH EVERY DAY Potassium Bicarbonate 99 MG CAPSTAKE one 2 times daily Tamsulosin HCl - 0.4 MG Oral CapsuleTake 1 capsule by mouth daily Trelegy Ellipta 100-62.5-25 MCG/INH AEPBas directed Vitamin C 500 MG Oral TabletTAKE 1 TABLET DAILY. Allergies Medication Codeine Derivatives Nausea; Updated By: Lori Blank; 05/20/2022 12:20:24 PM erythromycin Nausea; Updated By: Lori Blank; 05/20/2022 12:20:24 PM Social History Problems Alcohol use (V49.89) (Z78.9) 1/2 bottle wine daily Caffeine use (V49.89) (Z78.9) 2 - 3 cups coffee daily Current some day smoker (305.1) (F17.200) No illicit drug use Review of Systems Constitutional: not feeling tired. Cardiovascular: no intermittent leg claudication and as noted in HPI. Respiratory: no cough and no shortness of breath. Gastrointestinal: no change in bowel habits and no blood in stools. Integumentary: no skin rashes. Neurological: no seizures and no frequent falls. All other systems have been reviewed and are negative for complaint. Vitals Vital Signs Recorded: 27Sep2022 11:41AM Heart Rate72 [id number], RUE, Sitting [id number], RUE, Sitting Height5 ft 8 in W (more content not included)... Normal vpod.tv Tobacco Screening.on 022 Fall risk assessment a) No falls within the last year [facility] 250 DO Work Phone: Tobacco use status [facility] a) Yes [facility] [employer] 250 DO Work Phone: Tobacco Screening. Yes [facility] [employer] 250 DO Work Phone: COVID-19 SOFIAOrdered By: Helder Barrett on 08-24-2022 SARS-CoV+SARS-CoV-2 (COVID-19) Ag IA.rapid Ql (Resp) Negative Negative [facility] Comment on above: This is a duplicate Anjelica SARS Antigen (JUSTIN) result to be used for statistical tracking purpose only. Laboratory - Microbiology an d Antimicrobial susceptibilityon 08-24-2022 SARS-CoV-2 (COVID-19) RNA SHAHANA+probe Ql (Unsp spec) [facility] 250 DO Work Phone: No Panel Informationon 08-24 Negative Normal Negative [facility] 250 DO Work Phone: Comment on above: This is a duplicate Anjelica SARS Antigen (JUSTIN) result to be used for statistical tracking purpose only.PERFORMED BY:[place] [id number] [address], [place] [id number] MEDICAL DIRECTORGEORGIA WHITFIELD M.D. No Panel InformationOrdered By: Helder Barrett on 08-24-2022 SARS Antigen (LFIA) [facility] Activated partial thrombopla stin time (aPTT) in platelet poor plasma by coagulation aOrdered By: Helder Barrett on 08-19-2022 aPTT Coag (PPP) [Time] 31.6 s 25.1-36.5 [facility] Basophils Auto (Bld) [#/Vol] Ordered By: Helder Barrett on 08-19-2022 Basophils (Bld) [#/Vol] 0.0 10*3/uL 0.0-0.2 [facility] Basophils/100 WBC Auto (Bld) Ordered By: Helder Barrett on 08-19-2022 Basophils/100 WBC (Bld) 0.6 % . [facility] COVID-19 SOFIAOrdered By: Helder Barrett on 08-19-2022 SARS-CoV+SARS-CoV-2 (COVID-19) Ag IA.rapid Ql (Resp) Negative Negative [facility] Comment on above: This is a duplicate Anjelica SARS Antigen (JUSTIN) result to be used for statistical tracking purpose only. Cholesterol [Mass/volume] in Serum or PlasmaOrdered By: Helder Barrett on 08-19-2022 Cholesterol [Mass/Vol] 144 mg/dL 140-200 [facility] Comment on above: Chol less than 200 m g/dl low riskChol 201-239 mg/dl borderline riskChol 240 mg/dl and greater high risk Cholesterol in LDL Calc [Mas s/Vol]Ordered By: Helder Barrett on 08-19-2022 Cholesterol in LDL [Mass/Vol] 77 mg/dL 0-100 [facility] Comment on above: LDL ATP III CLASSIFI CATIONLDL less than 100 mg/dL OptimalLDL 100-129 mg/dL Near or above optimalLDL 130-159 mg/dL Borderline highLDL 160-189 mg/dL HighLDL greater than 189 mg/dL Very high Cholesterol in VLDL Calc [Ma ss/Vol]Ordered By: Helder Barrett on 08-19-2022 Cholesterol in VLDL [Mass/Vol] 16 mg/dL [facility] Creatinine and Glomerular fi ltration rate.predicted panel (S/P/Bld)Ordered By: Helder Barrett on 08-19-2022 Creatinine [Mass/Vol] 0.85 mg/dL 0.64-1.27 [facility] Eosinophils Auto (Bld) [#/Vo l]Ordered By: Helder Barrett on 08-19-2022 Eosinophils (Bld) [#/Vol] 0.1 10*3/uL 0.0-0.45 [facility] Eosinophils/100 WBC Auto (Bl d)Ordered By: Helder Barrett on 08-19-2022 Eosinophils/100 WBC (Bld) 1.1 % . [facility] Erythrocyte distribution wid th Auto (RBC) [Ratio]Ordered By: Helder Barrett on 08-19-2022 Erythrocyte distribution width (RBC) [Ratio] 13.1 % 12.0-14.8 [facility] Estimated glomerular filtrat ion rate (GFR) non- AmericanOrdered By: Helder Barrett on 08-19-2022 GFR/1.73 sq M.predicted among non-blacks MDRD (S/P/Bld) [Vol rate/Area] > 60 mL/Min [facility] Hematocrit Auto (Bld) [Volum e fraction]Ordered By: Helder Barrett on 08-19-2022 Hematocrit (Bld) [Volume fraction] 41.8 % 38.8-50.0 [facility] Hemoglobin [Mass/volume] in BloodOrdered By: Helder Barrett on 08-19-2022 Hemoglobin (Bld) [Mass/Vol] 14.3 g/dL 13.0-17.0 [facility] Laboratory - Chemistry and C hemistry - challengeon 08-19-2022 Cholesterol [Mass/Vol] 144\S\144 Normal 140-200 [facility] 250 DO Work Phone: Comment on above: Chol less than 200 m g/dl low risk Chol 201-239 mg/dl borderline risk Chol 240 mg/dl and greater high risk Cholesterol in LDL [Mass/Vol] 77\S\77 Normal 0-100 [facility] 250 DO Work Phone: Comment on above: LDL ATP III CLASSIFI CATION LDL less than 100 mg/dL Optimal LDL 100-129 mg/dL Near or above optimal LDL 130-159 mg/dL Borderline high LDL 160-189 mg/dL High LDL greater than 189 mg/dL Very high Laboratory - CoagulationOrde red By: Helder Barrett on 08-19-2022 PT Coag (PPP) [Time] 10.8 s 9.0-12.9 [facility] - Hematology and Cell countsOrdered By: Helder Barrett on 08-19-2022 Nucleated RBC/100 WBC (Bld) [Ratio] 0.0 % 0-0.5 [facility] - Microbiology an d Antimicrobial susceptibilityon 08-19-2022 SARS-CoV-2 (COVID-19) RNA SHAHANA+probe Ql (Unsp spec) [place] [id number] DO Work Phone: Leukocytes [#/volume] in Blo od by Automated countOrdered By: Helder Barrett on 08-19-2022 WBC (Bld) [#/Vol] 6.5 10*3/uL 4.5-11.0 [facility] Lymphocytes Auto (Bld) [#/Vo l]Ordered By: Helder Barrett on 08-19-2022 Lymphocytes (Bld) [#/Vol] 1.2 10*3/uL 1.00-4.8 [facility] Lymphocytes/100 WBC Auto (Bl d)Ordered By: Helder Barrett on 08-19-2022 Lymphocytes/100 WBC (Bld) 18.8 % . [facility] MCH Auto (RBC) [Entitic mass ]Ordered By: Helder Barrett on 10-21-2022 MCH (RBC) [Entitic mass] 32.6 pg 27.5-35.2 [facility] MCHC Auto (RBC) [Mass/Vol]Or dered By: Helder Barrett on 08-19-2022 MCHC (RBC) [Mass/Vol] 34.3 g/dL 32.5-35.6 [facility] MCV Auto (RBC) [Entitic vol] Ordered By: Helder Barrett on 08-19-2022 MCV (RBC) [Entitic vol] 94.9 fL 83.5-101 [facility] Monocytes Auto (Bld) [#/Vol] Ordered By: Helder Barrett on 08-19-2022 Monocytes (Bld) [#/Vol] 0.5 10*3/uL 0.0-0.8 [facility] Monocytes/100 WBC Auto (Bld) Ordered By: Helder Barrett on 08-19-2022 Monocytes/100 WBC (Bld) 7.7 % . [facility] Neutrophils Auto (Bld) [#/Vo l]Ordered By: Helder Barrett on 08-19-2022 Neutrophils (Bld) [#/Vol] 4.7 10*3/uL 1.8-7.7 [facility] Neutrophils/100 WBC Auto (Bl d)Ordered By: Helder Barrett on 08-19-2022 Neutrophils/100 WBC (Bld) 71.8 % . [facility] No Panel InformationOrdered By: Helder Barrett on 08-19-2022 Estimated GFR () > 60 mL/Min [facility] Comment on above: GFR estimated refere nce range: According to KDOQI guidelines, <60 ml/min/1.73m2 is sufficient to diagnose a patient with chronic kidney disease. Pharmacy Creatinine Clearance (Chem N/A [facility] SARS Antigen (LFIA) [facility] No Panel Informationon 08-19 31.6\S\31.6 Normal 25.1-36.5 -[facility]u [place] 250 DO Work Phone: Comment on above: PERFORMED BY:[facility] [place], [place] [id number] MEDICAL DIRECTORGEORGIA WHITFIELD M.D. 1.0\S\1.0 Normal -[facility]Sandu [facility] 250 DO Work Phone: Comment on above: INR Therapeutic Rang e A) Pre- and Peroperative OAT started two weeks before surgery. NOT HIP SURGERY: 1.5 - 2.5 HIP SURGERY: 2 - 3 B) Primary and secondary prevention of venous THROMBOSIS: 2 - 3 C) Active venous thrombosis, pulmonary embolism and prevention of recurrent venous thrombosis: 2 - 3 D) Prevention of arterial thromboembolism including patients with mechanical heart valves: 3 - 4.5 10.8\S\10.8 Normal 9.0-12.9 [facility]Sandu [place] 250 DO Work Phone: [phone] 71.8\S\71.8 Normal . [facility] 250 DO Work Phone: [phone] 7.3\S\7.3 Normal 6.6-10.1 [facility] 250 DO Work Phone: [phone] 246\S\246 Normal 150-450 [facility] 250 DO Work Phone: [phone] 13.1\S\13.1 Normal 12.0-14.8 [facility] DO Work Phone: [phone] 34.3\S\34.3 Normal 32.5-35.6 [facility] DO Work Phone: [phone] 32.6\S\32.6 Normal 27.5-35.2 [facility] 250 DO Work Phone: [phone] 4.7\S\4.7 Normal 1.8-7.7 [facility] 250 DO Work Phone: [phone] 0.0\S\0.0 Normal 0.0-0.2 [facility] 250 DO Work Phone: [phone] Comment on above: PERFORMED BY:[place] [address] [place] [place] [id number] MEDICAL DIRECTORGEORGIA WHITFIELD M.D. 0.6\S\0.6 Normal . [facility] 250 DO Work Phone: [phone] 1.1\S\1.1 Normal . [facility] 250 DO Work Phone: [phone] 7.7\S\7.7 Normal . [facility] 250 DO Work Phone: [phone] 18.8\S\18.8 Normal . [facility] 250 DO Work Phone: [phone] 0.1\S\0.1 Normal 0.0-0.45 [facility] 250 DO Work Phone: [phone] 0.5\S\0.5 Normal 0.0-0.8 [facility] 250 DO Work Phone: [phone] 1.2\S\1.2 Normal 1.00-4.8 [facility] 250 DO Work Phone: [phone] 94.9\S\94.9 Normal 83.5-101 [facility] 250 DO Work Phone: [phone] 41.8\S\41.8 Normal 38.8-50.0 [facility] 250 DO Work Phone: [phone] 14.3\S\14.3 Normal 13.0-17.0 [facility] 250 DO Work Phone: [phone] 4.40\S\4.40 Normal 3.90-5.60 [facility] 250 DO Work Phone: [phone] 6.5\S\6.5 Normal 4.1-10.5 [facility] 250 DO Work Phone: [phone] 13.8\S\13.8 Normal 6.0-15.0 [facility] 250 DO Work Phone: 24.8\S\24.8 Normal 22.0-30.0 [facility] HeartNatalie cerda 250 DO Work Phone: 103\S\103 Normal 95-114 [facility] Heart[facility]atalie cerda 250 DO Work Phone: 4.6\S\4.6 Normal 3.5-5.1 [facility] HeartNatalie cerda 250 DO Work Phone: 137\S\137 Normal 136-146 [facility] HeartNatalie cerda 250 DO Work Phone: 12\S\12 Normal 9-23 [facility] Pastor cerda 250 DO Work Phone: > 60 Normal [facility] Pastor cerda 250 DO Work Phone: Comment on above: GFR estimated refere nce range: According to KDOQI guidelines, <60 ml/min/1.73m2 is sufficient to diagnose a patient with chronic kidney disease. 0.85\S\0.85 Normal 0.64-1.27 [facility] Pastor cerda 250 DO Work Phone: 16\S\16 Normal [facility] Pastor cerda 250 DO Work Phone: 2.8\S\2.8 Normal <5.0 [facility] Pastor cerda 250 DO Work Phone: Comment on above: PERFORMED BY:[place] [address] [address] [place], [place] [phone] MEDICAL DIRECTORGEORGIA WHITFIELD M.D. 81\S\81 Normal 35-149 [facility] Pastor cerda 250 DO Work Phone: Comment on above: TRIG ATP III CLASSIF ICATION TRIG less than 150 mg/dL Normal TRIG 150-199 mg/dL Borderline high TRIG 200-500 mg/dL High TRIG greater than 500 mg/dL Very high Standard traceable to the Center for Disease Conrtrol and Prevention (CDC) test method. 51\S\51 Normal 29-71 -[facility]u [facility] 250 DO Work Phone: Comment on above: HDL CHOL ATP-III CLA SSIFICATION Cardiovascular Risk HDL > or equal to 60 mg/dL LOW HDL < 40 mg/dL HIGH Negative Normal Negative [facility]-Sandu zaida 250 DO Work Phone: Comment on above: This is a duplicate Anjelica SARS Antigen (JUSTIN) result to be used for statistical tracking purpose only.PERFORMED BY:[facility] [place], [place] [id number] MEDICAL DIRECTORGEORGIA WHITFIELD M.D. Platelet mean volume Auto (B ld) [Entitic vol]Ordered By: Helder Barrett on 08-19-2022 Platelet mean volume (Bld) [Entitic vol] 7.3 fL 6.6-10.1 [facility] Platelet poor plasma interna tional normalized ratio (INR) by coagulation assay (relatOrdered By: Helder Barrett on 08-19-2022 INR Coag (PPP) [Relative time] 1.0 {INR} [facility] Comment on above: INR Therapeutic Rang e A) Pre- and Peroperative OAT started two weeks before surgery. NOT HIP SURGERY: 1.5 - 2.5 HIP SURGERY: 2 - 3B) Primary and secondary prevention of venous THROMBOSIS: 2 - 3C) Active venous thrombosis, pulmonary embolismand prevention of recurrent venous thrombosis: 2 - 3D) Prevention of arterial thromboembolismincluding patients with mechanical heart valves: 3 - 4.5 Platelets Auto (Bld) [#/Vol] Ordered By: Helder Barrett on 08-19-2022 Platelets (Bld) [#/Vol] 246 10*3/uL 150-450 [facility] RBC Auto (Bld) [#/Vol]Ordere d By: Helder Barrett on 08-19-2022 RBC (Bld) [#/Vol] 4.40 10*6/uL 3.90-5.60 [facility] Serum or plasma anion gap de terminationOrdered By: Helder Barrett on 08-19-2022 Anion gap [Moles/Vol] 13.8 mmol/L 6.0-15.0 [facility] Serum or plasma chloride john surement (moles/volume)Ordered By: Helder Barrett on 08-19-2022 Chloride [Moles/Vol] 103 mmol/L 95-114 [facility] Serum or plasma high density lipoprotein (HDL) cholesterol measurementOrdered By: Helder Barrett on 08-19-2022 Cholesterol in HDL [Mass/Vol] 51 mg/dL 29-71 [facility] Comment on above: HDL CHOL ATP-III CLA SSIFICATION Cardiovascular RiskHDL > or equal to 60 mg/dL LOWHDL < 40 mg/dL HIGH Serum or plasma potassium me asurement (moles/volume)Ordered By: Helder Barrett on 08-19-2022 Potassium [Moles/Vol] 4.6 mmol/L 3.5-5.1 [facility] Serum or plasma sodium measu rement (moles/volume)Ordered By: Helder Barrett on 08-19-2022 Sodium [Moles/Vol] 137 mmol/L 136-146 [facility] Serum or plasma total carbon dioxide measurement (moles/volume)Ordered By: Helder Barrett on 08-19-2022 CO2 [Moles/Vol] 24.8 mmol/L 22.0-30.0 [facility] Serum or plasma total choles terol/high density lipoprotein (HDL) cholesterol mass ratOrdered By: Helder Barrett on 08-19-2022 Cholesterol.total/Cho lesterol in HDL [Mass ratio] 2.8 {ratio} <5.0 [facility] Serum or plasma urea nitroge n measurement (mass/volume)Ordered By: Helder Barrett on 08-19-2022 Urea nitrogen [Mass/Vol] 12 mg/dL 9-23 [facility] Triglyceride [Mass/volume] i n Serum or PlasmaOrdered By: Helder Barrett on 08-19-2022 Triglyceride [Mass/Vol] 81 mg/dL 35-149 [facility] Comment on above: TRIG ATP III CLASSIF ICATIONTRIG less than 150 mg/dL NormalTRIG 150-199 mg/dL Borderline highTRIG 200-500 mg/dL High TRIG greater than 500 mg/dL Very highStandard traceable to the Center for Disease Conrtrol and Prevention (CDC) test method. Office Visit (Cardiology)on 08-18-2022 Follow-up visit Diagnoses/Problems Assessed 3-vessel CAD (414.00) (I25.10) History of coronary artery bypass graft (V45.81) (Z95.1) History of PTCA (V45.82) (Z98.61) Angina, class III (413.9) (I20.9) Hypertension (401.9) (I10) Overweight with body mass index (BMI) of 26 to 26.9 in adult (278.02,V85.22) (E66.3,Z68.26) Orders 3-vessel CAD, Angina, class III, History of coronary artery bypass graft, History of PTCA Cardiac Catheterization Lab Procedures; Status:Active - Retrospective Authorization; Requested for:18Aug2022; Overweight with body mass index (BMI) of 26 to 26.9 in adult Healthy Weight Tips; Status:Complete - Retrospective Authorization; Done: 18Aug2022 Patient Instructions Please bring all medicines, vitamins, and herbal supplements with you when you come to the office. Prescriptions will not be filled unless you are compliant with your follow up appointments or have a follow up appointment scheduled as per instruction of your physician. Refills should be requested at the time of your visit. Heart cath procedure discussed in detail. Medications/ allergies reviewed. Order faxed to [facility] [place] [place]. Pt instructed to hold metformin prior to cath Follow up after testing completed Chief Complaint BARAK SABILLON is being seen for a 1 week follow-up of. 71-year-old gentleman who returns at a early time point following recent repeat revascularization of the PLV branch with a 3 mm drug-eluting stent and overall excellent angiographic result and clinical improvement in his symptoms initially. He traveled to [place] thereafterwards and was ambulating without difficulties back to his normal lifestyle and activity level however after coming home, and he had recurrence of dyspnea and angina. He still has class 3+ angina and dyspnea at this juncture which is concerning. He has a history of CABG, prior PCI's most recent intervention as described above now with concerns of either stent related problem or progressive disease elsewhere. I will review his most recent cath film. He still has angina above and beyond the Nitropatch that was recently started by nurse practitioner Risk benefits alternatives and informed decision-making process performed with the patient this morning in regards to continued observational and medical therapies versus reassessment with invasive angiography. He would like to proceed with invasive management at this time. 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 Aspirin EC 81 MG Oral Tablet Delayed ReleaseTAKE 1 TABLET DAILY DIRECTED. Atorvastatin Calcium 80 MG Oral Tablettake 1 tablet by mouth at bedtime Brilinta 90 MG Oral TabletTAKE 1 TABLET TWICE DAILY. Levothyroxine Sodium 175 MCG Oral TabletTAKE 1 TABLET DAILY DIRECTED. Lisinopril 20 MG Oral TabletTAKE 1 TABLET BY MOUTH TWICE DAILY metFORMIN HCl - 500 MG Oral TabletTAKE 1 TABLET DAILY WITH FOOD. Metoprolol Tartrate 25 MG Oral Tablettake 1/2 tablet by mouth twice daily Multi Vitamin Daily Oral TabletTAKE 1 TABLET DAILY. Nitroglycerin 0.2 MG/HR Transdermal Patch 24 HourAPPLY PATCH FOR 12 TO 14 HOURS DAILY, THEN REMOVE Nitroglycerin 0.4 MG Sublingual Tablet SublingualDISSOLVE 1 T UNDER THE TOUNGE Q 5 MIUNUTES FOR CHEST P Omeprazole 20 MG Oral Capsule Delayed ReleaseTAKE 1 CAPSULE BY MOUTH EVERY DAY Potassium Bicarbonate 99 MG CAPSTAKE one 2 times daily Tamsulosin HCl - 0.4 MG Oral CapsuleTake 1 capsule by mouth daily Trelegy Ellipta 100-62.5-25 MCG/INH AEPBas directed Vitamin C 500 MG Oral TabletTAKE 1 TABLET DAILY. Patient did not bring medication list or bottles. Updated verbally with patient Allergies Medication Codeine Derivatives Nausea; Updated By: Lori Blank; 05/20/2022 12:20:24 PM erythromycin Nausea; Updated By: Lori Blank; 05/20/2022 12:20:24 PM Social History Problems Alcohol use (V49.89) (Z78.9) Caffeine use (V49.89) (Z78.9) Current some day smoker (305.1) (F17.200) No illicit drug use Review of Systems Cardiovascular: chest pain and palpitations. Respiratory: shortness of breath. Neurological: dizziness. Vitals Vital Signs Recorded: [id number] 09:02AMRecorded: 18Aug2022 08:47AM [id number], LUE, Dhjnroj414, LUE, Sitting Xycvozorj77, LUE, Barzzqo79, LUE, Sitting Heart Rate70, L Radial Height5 ft 8 in Ktzmxn267 lb BMI Dykongdjtl02.91 kg/m2 BSA Calculated1.94 Tobacco Usea) Yes Patient encouraged to stop using tobacco productsYes Signatures Electronically signed by : Doc Barrett, (more content not included)... Normal [email or web address] Tobacco Screening.on 022 Tobacco use status [facility] a) Yes [facility] [address] 250 DO Work Phone: Tobacco Screening. Yes -[facility] 250 DO Work Phone: Office Visit (Cardiology)on 08-10-2022 Follow-up visit Diagnoses/Problems Assessed Angina pectoris (413.9) (I20.9) 3-vessel CAD (414.00) (I25.10) Hypertension (401.9) (I10) Hyperlipidemia (272.4) (E78.5) Diabetes mellitus (250.00) (E11.9) Current some day smoker (305.1) (F17.200) Cigar 5 per day 'real small' Orders 3-vessel CAD, Angina pectoris Start: Nitroglycerin 0.2 MG/HR Transdermal Patch 24 Hour; APPLY PATCH FOR 12 TO 14 HOURS DAILY, THEN REMOVE SocHx: Current some day smoker Tobacco Use Screening; Status:Complete; Done: 10Aug2022 Patient Instructions Please bring all medicines, vitamins, and herbal supplements with you when you come to the office. Prescriptions will not be filled unless you are compliant with your follow up appointments or have a follow up appointment scheduled as per instruction of your physician. Refills should be requested at the time of your visit. PLAN: Through informed decision making process incorporating patients unique circumstances, the following treatment plan will be initiated: 1. Prescription drug management of cardiovascular medication for efficacy, adherence to treatment, side effect assessment and polypharmacy. Current treatment clinically warranted and to continue with following modifications: - Begin nitropatch on in the morning remove in the afternoon 2. Try to use inhaler to see if any benefit with shortness of breath 3. Return to office in one week to see Dr. Barrett 4. Please use NTG sl as needed and seek emergent medical attention for concerning signs or symptoms Chief Complaint Started having chest pain again BARAK SABILLON is being seen for cardiovascular procedure. Patient is ambulatory with steady gait. Last evaluated in clinic Dr. Barrett June 2022. At that time he presented with class III anginal symptoms. July 14, 2022 uneventful elective cardiac cath with subsequent PCI due to ISR mid PLV. He was initiated on Brilinta at that time (as tolerated in the past without dyspnea). Right groin cath site is healed without adverse sequela. He reports that immediately following intervention he traveled to [place]. He was able to walk up and down stairs, [place] and walked 5 miles without concerns. The prior complaints of chest heaviness and dyspnea on exertion for the most part abated. He reports after being home for 1 week he has noted a reoccurrence of dyspnea on exertion, palpitations and chest pain. He resorts the symptoms are my angina but not as bad . Symptoms include: 1. Progressive worsening dyspnea on exertion, is comfortable at rest. He was able to tolerate Brilinta in the past. He does have COPD and have encouraged him to try his rescue inhaler. 2. Chest heaviness across the anterior chest wall that is worsened with exertion, resolves with rest. He reports a little angina walking in from the parking lot rating at a 2.5. He is not using nitroglycerin due to headache. He then reports that this discomfort never goes away -is maintained on PPI, no worsening with palpation or movement. It is not pleuritic in nature. EKG in office today without acute ischemic changes. Recent cath report reviewed and does not reveal any additional areas of concern. July 14, 2022 cardiac cath: mPLV PCI/[place] 3x18mm d/t ISR RODRIGUEZ-LAD patent SVG-OM occluded mRamus patent stent RCA patent stent It is difficult to discern if this is recurrence of anginal symptoms versus possible element of COPD. I will initiate long-acting nitrates, encouraged him to utilize rescue inhaler. Unlikely PE as symptoms nonpleuritic, lungs diminished with perhaps faint wheeze. Schedule follow-up with Dr. Barrett in 1 week to evaluate. He has been instructed to utilize nitroglycerin, limit physical activity and seek emergent medical attention for concerning signs and symptoms. History of Present Illness The patient states he has been generally stable since the last visit. Comorbid Illnesses: diabetes mellitus, hypertension and hyperlipidemia. Symptoms: improved chest pain at rest, improved exertional chest pain, stable dyspnea, stable fatigue, stable exercise intolerance, denies palpitations, denies edema, denies orthopnea, denies dizziness and stable orthostatic dizziness. Associated symptoms: no syncope. His symptoms limit his activities. Disease Monitoring: The patient has had a stable weight. Medications: the patient is adherent with his medication regimen. He denies medication side effects. 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 Normal [email or web address] Tobacco Screening.on 022 Fall risk assessment a) No falls within the last year [facility] 250 DO Work Phone: Tobacco use status CP a) Yes [facility] 250 DO Work Phone: Tobacco Screening. Yes [facility] 89 DO Work Phone: Activated partial thrombopla stin time (aPTT) in platelet poor plasma by coagulation aOrdered By: Helder Barrett on 07-13-2022 aPTT Coag (PPP) [Time] 31.6 s 25.1-36.5 [facility] Basophils Auto (Bld) [#/Vol] Ordered By: Helder Barrett on 07-13-2022 Basophils (Bld) [#/Vol] 0.0 10*3/uL 0.0-0.2 [facility] Basophils/100 WBC Auto (Bld) Ordered By: Helder Barrett on 07-13-2022 Basophils/100 WBC (Bld) 0.6 % . [facility] Blood hemoglobin measurement (mass/volume)Ordered By: Helder Barrett on 07-13-2022 Hemoglobin (Bld) [Mass/Vol] 14.7 g/dL 13.0-17.0 [facility] Blood leukocytes automated c ount (number/volume)Ordered By: Helder Barrett on 07-13-2022 WBC (Bld) [#/Vol] 6.2 10*3/uL 4.5-11.0 [facility] COVID-19 SOFIAOrdered By: Helder Barrett on 07-13-2022 SARS-CoV+SARS-CoV-2 (COVID-19) Ag IA.rapid Ql (Resp) Negative Negative [facility] Comment on above: This is a duplicate Anjelica SARS Antigen (JUSTIN) result to be used for statistical tracking purpose only. Cholesterol [Mass/volume] in Serum or PlasmaOrdered By: Helder Barrett on 07-13-2022 Cholesterol [Mass/Vol] 137 mg/dL 140-200 [facility] Comment on above: Chol less than 200 m g/dl low risk Chol 201-239 mg/dl borderline risk Chol 240 mg/dl and greater high risk Chol less than 200 m g/dl low riskChol 201-239 mg/dl borderline riskChol 240 mg/dl and greater high risk Cholesterol in LDL Calc [Mas s/Vol]Ordered By: Helder Barrett on 07-13-2022 Cholesterol in LDL [Mass/Vol] 75 mg/dL 0-100 [facility] Comment on above: LDL ATP III CLASSIFI CATION LDL less than 100 mg/dL Optimal LDL 100-129 mg/dL Near or above optimal LDL 130-159 mg/dL Borderline high LDL 160-189 mg/dL High LDL greater than 189 mg/dL Very high LDL ATP III CLASSIFI CATIONLDL less than 100 mg/dL OptimalLDL 100-129 mg/dL Near or above optimalLDL 130-159 mg/dL Borderline highLDL 160-189 mg/dL HighLDL greater than 189 mg/dL Very high Cholesterol in VLDL Calc [Ma ss/Vol]Ordered By: Helder Barrett on 07-13-2022 Cholesterol in VLDL [Mass/Vol] 16 mg/dL [facility] Creatinine and Glomerular fi ltration rate.predicted panel (S/P/Bld)Ordered By: Helder Barrett on 07-13-2022 Creatinine [Mass/Vol] 0.85 mg/dL 0.64-1.27 [facility] Eosinophils Auto (Bld) [#/Vo l]Ordered By: Helder Barrett on 07-13-2022 Eosinophils (Bld) [#/Vol] 0.1 10*3/uL 0.0-0.45 [facility] Eosinophils/100 WBC Auto (Bl d)Ordered By: Helder Barrett on 07-13-2022 Eosinophils/100 WBC (Bld) 1.2 % . [facility] Erythrocyte distribution wid th Auto (RBC) [Ratio]Ordered By: Helder Barrett on 07-13-2022 Erythrocyte distribution width (RBC) [Ratio] 13.0 % 12.0-14.8 [facility] Estimated glomerular filtrat ion rate (GFR) non- AmericanOrdered By: Helder Barrett on 07-13-2022 GFR/1.73 sq M.predicted among non-blacks MDRD (S/P/Bld) [Vol rate/Area] > 60 mL/Min [facility] Hematocrit Auto (Bld) [Volum e fraction]Ordered By: Helder Barrett on 07-13-2022 Hematocrit (Bld) [Volume fraction] 43.2 % 38.8-50.0 [facility] Laboratory - Chemistry and C hemistry - challengeon 07-13-2022 Cholesterol [Mass/Vol] 137\S\137 below low threshold 140-200 [facility] zaida 250 DO Work Phone: Comment on above: Chol less than 200 m g/dl low risk Chol 201-239 mg/dl borderline risk Chol 240 mg/dl and greater high risk Cholesterol in LDL [Mass/Vol] 75\S\75 Normal 0-100 [facility] zaida 250 DO Work Phone: Comment on above: LDL ATP III CLASSIFI CATION LDL less than 100 mg/dL Optimal LDL 100-129 mg/dL Near or above optimal LDL 130-159 mg/dL Borderline high LDL 160-189 mg/dL High LDL greater than 189 mg/dL Very high Laboratory - CoagulationOrde red By: Helder Barrett on 07-13-2022 PT Coag (PPP) [Time] 11.4 s 9.0-12.9 [facility] - Hematology and Cell countsOrdered By: Helder Barrett on 07-13-2022 Nucleated RBC/100 WBC (Bld) [Ratio] 0.0 % 0-0.5 [facility] - Microbiology an d Antimicrobial susceptibilityon 07-13-2022 SARS-CoV-2 (COVID-19) RNA SHAHANA+probe Ql (Unsp spec) -[facility] zaida 250 DO Work Phone: Lymphocytes Auto (Bld) [#/Vo l]Ordered By: Helder Barrett on 07-13-2022 Lymphocytes (Bld) [#/Vol] 1.5 10*3/uL 1.00-4.8 [facility] Lymphocytes/100 WBC Auto (Bl d)Ordered By: Helder Barrett on 07-13-2022 Lymphocytes/100 WBC (Bld) 24.6 % . [facility] MCH Auto (RBC) [Entitic mass ]Ordered By: Helder Barrett on 07-13-2022 MCH (RBC) [Entitic mass] 32.6 pg 27.5-35.2 [facility] MCHC Auto (RBC) [Mass/Vol]Or dered By: Helder Barrett on 07-13-2022 MCHC (RBC) [Mass/Vol] 34.1 g/dL 32.5-35.6 [facility] MCV Auto (RBC) [Entitic vol] Ordered By: Helder Barrett on 07-13-2022 MCV (RBC) [Entitic vol] 95.8 fL 83.5-101 [facility] Monocytes Auto (Bld) [#/Vol] Ordered By: Helder Barrett on 07-13-2022 Monocytes (Bld) [#/Vol] 0.6 10*3/uL 0.0-0.8 [facility] Monocytes/100 WBC Auto (Bld) Ordered By: Helder Barrett on 07-13-2022 Monocytes/100 WBC (Bld) 9.3 % . [facility] Neutrophils Auto (Bld) [#/Vo l]Ordered By: Helder Barrett on 07-13-2022 Neutrophils (Bld) [#/Vol] 4.0 10*3/uL 1.8-7.7 [facility] Neutrophils/100 WBC Auto (Bl d)Ordered By: Helder Barrett on 07-13-2022 Neutrophils/100 WBC (Bld) 64.3 % . [facility] No Panel Informationon 07-13 Negative Normal Negative -[facility] 250 DO Work Phone: Comment on above: This is a duplicate Anjelica SARS Antigen (JUSTIN) result to be used for statistical tracking purpose only.PERFORMED BY:[facility] [place], [place] [id number] MEDICAL DIRECTORATRIUM HEALTH [facility] M.Jaylon 0.0\S\0.0 Normal 0-0.5 -[facility] zaida 250 DO Work Phone: Comment on above: PERFORMED BY:[facility] [place], [place] [id number] MEDICAL DIRECTORATRIUM [facility] Ivanna.Jaylon 0.1\S\0.1 Normal 0.0-0.45 -[facility] 250 DO Work Phone: [phone] 0.6\S\0.6 Normal . -[facility] 250 DO Work Phone: [phone] 1.5\S\1.5 Normal 1.00-4.8 -[facility] 250 DO Work Phone: [phone] 4.0\S\4.0 Normal 1.8-7.7 -[facility] 250 DO Work Phone: [phone] 1.2\S\1.2 Normal . [facility] zaida 250 DO Work Phone: [phone] 9.3\S\9.3 Normal . [facility] 250 DO Work Phone: [phone] 24.6\S\24.6 Normal . [facility] 250 DO Work Phone: [phone] 64.3\S\64.3 Normal . [facility] 250 DO Work Phone: [phone] 7.6\S\7.6 Normal 6.6-10.1 [facility] 250 DO Work Phone: 231\S\231 Normal 150-450 [facility] zaida 250 DO Work Phone: 13.0\S\13.0 Normal 12.0-14.8 [facility] 250 DO Work Phone: [phone] 34.1\S\34.1 Normal 32.5-35.6 [facility] 250 DO Work Phone: [phone] 32.6\S\32.6 Normal 27.5-35.2 [facility] 250 DO Work Phone: [phone] 95.8\S\95.8 Normal 83.5-101 [facility] 250 DO Work Phone: [phone] 43.2\S\43.2 Normal 38.8-50.0 [facility] 250 DO Work Phone: [phone] 14.7\S\14.7 Normal 13.0-17.0 [facility] 250 DO Work Phone: 4.51\S\4.51 Normal 3.90-5.60 [facility] 250 DO Work Phone: [phone] 6.2\S\6.2 Normal 4.1-10.5 [facility] 250 DO Work Phone: [phone] 31.6\S\31.6 Normal 25.1-36.5 [facility] 250 DO Work Phone: [phone] Comment on above: PERFORMED BY:[place] [address] [place], [place] [id number] MEDICAL DIRECTORGEORGIA WHITFIELD M.D. 1.0\S\1.0 Normal [facility] 250 DO Work Phone: Comment on above: INR Therapeutic Rang e A) Pre- and Peroperative OAT started two weeks before surgery. NOT HIP SURGERY: 1.5 - 2.5 HIP SURGERY: 2 - 3 B) Primary and secondary prevention of venous THROMBOSIS: 2 - 3 C) Active venous thrombosis, pulmonary embolism and prevention of recurrent venous thrombosis: 2 - 3 D) Prevention of arterial thromboembolism including patients with mechanical heart valves: 3 - 4.5 11.4\S\11.4 Normal 9.0-12.9 -[facility] 250 DO Work Phone: 14.4\S\14.4 Normal 6.0-15.0 -[facility] 250 DO Work Phone: 27.8\S\27.8 Normal 22.0-30.0 [facility] za[facility] 250 DO Work Phone: [phone] 102\S\102 Normal 95-114 -[facility] 250 DO Work Phone: 5.2\S\5.2 above high threshold 3.5-5.1 -[facility] 250 DO Work Phone: 139\S\139 Normal 136-146 -[facility] 250 DO Work Phone: 10\S\10 Normal 9-23 -[facility] za[facility] 250 DO Work Phone: > 60 Normal [facility] zaida 250 DO Work Phone: Comment on above: GFR estimated refere nce range: According to KDOQI guidelines, <60 ml/min/1.73m2 is sufficient to diagnose a patient with chronic kidney disease. 0.85\S\0.85 Normal 0.64-1.27 -[facility] za[facility] 250 DO Work Phone: 3.0\S\3.0 Normal <5.0 -[facility] 250 DO Work Phone: Comment on above: PERFORMED BY:[facility] [place], [place] [id number] MEDICAL DIRECTORGEORGIA WHITFIELD M.D. 16\S\16 Normal [facility] [employer] 250 DO Work Phone: 80\S\80 Normal 35-149 [facility] zaida 250 DO Work Phone: Comment on above: TRIG ATP III CLASSIF ICATION TRIG less than 150 mg/dL Normal TRIG 150-199 mg/dL Borderline high TRIG 200-500 mg/dL High TRIG greater than 500 mg/dL Very high Standard traceable to the Center for Disease Conrtrol and Prevention (CDC) test method. 46\S\46 Normal 29-71 [facility] [employer] 250 DO Work Phone: Comment on above: HDL CHOL ATP-III CLA SSIFICATION Cardiovascular Risk HDL > or equal to 60 mg/dL LOW HDL < 40 mg/dL HIGH No Panel InformationOrdered By: Helder Barrett on 07-13-2022 Estimated GFR () > 60 mL/Min [facility] Comment on above: GFR estimated refere nce range: According to KDOQI guidelines, <60 ml/min/1.73m2 is sufficient to diagnose a patient with chronic kidney disease. Pharmacy Creatinine Clearance (Chem N/A [facility] SARS Antigen (LFIA) [facility] Platelet mean volume Auto (B ld) [Entitic vol]Ordered By: Helder Barrett on 07-13-2022 Platelet mean volume (Bld) [Entitic vol] 7.6 fL 6.6-10.1 [facility] Platelet poor plasma interna tional normalized ratio (INR) by coagulation assay (relatOrdered By: Helder Barrett on 07-13-2022 INR Coag (PPP) [Relative time] 1.0 {INR} [facility] Comment on above: INR Therapeutic Rang e A) Pre- and Peroperative OAT started two weeks before surgery. NOT HIP SURGERY: 1.5 - 2.5 HIP SURGERY: 2 - 3 B) Primary and secondary prevention of venous THROMBOSIS: 2 - 3 C) Active venous thrombosis, pulmonary embolism and prevention of recurrent venous thrombosis: 2 - 3 D) Prevention of arterial thromboembolism including patients with mechanical heart valves: 3 - 4.5 INR Therapeutic Rang e A) Pre- and Peroperative OAT started two weeks before surgery. NOT HIP SURGERY: 1.5 - 2.5 HIP SURGERY: 2 - 3B) Primary and secondary prevention of venous THROMBOSIS: 2 - 3C) Active venous thrombosis, pulmonary embolismand prevention of recurrent venous thrombosis: 2 - 3D) Prevention of arterial thromboembolismincluding patients with mechanical heart valves: 3 - 4.5 Platelets Auto (Bld) [#/Vol] Ordered By: Helder Barrett on 07-13-2022 Platelets (Bld) [#/Vol] 231 10*3/uL 150-450 [facility] RBC Auto (Bld) [#/Vol]Ordere d By: Helder Barrett on 07-13-2022 RBC (Bld) [#/Vol] 4.51 10*6/uL 3.90-5.60 [facility] Serum or plasma anion gap de terminationOrdered By: Helder Barrett on 07-13-2022 Anion gap [Moles/Vol] 14.4 mmol/L 6.0-15.0 [facility] Serum or plasma chloride john surement (moles/volume)Ordered By: Helder Barrett on 07-13-2022 Chloride [Moles/Vol] 102 mmol/L 95-114 [facility] Serum or plasma high density lipoprotein (HDL) cholesterol measurementOrdered By: Helder Barrett on 07-13-2022 Cholesterol in HDL [Mass/Vol] 46 mg/dL 29-71 [facility] Comment on above: HDL CHOL ATP-III CLA SSIFICATION Cardiovascular Risk HDL > or equal to 60 mg/dL LOW HDL < 40 mg/dL HIGH HDL CHOL ATP-III CLA SSIFICATION Cardiovascular RiskHDL > or equal to 60 mg/dL LOWHDL < 40 mg/dL HIGH Serum or plasma potassium me asurement (moles/volume)Ordered By: Helder Barrett on 07-13-2022 Potassium [Moles/Vol] 5.2 mmol/L 3.5-5.1 [facility] Serum or plasma sodium measu rement (moles/volume)Ordered By: Helder Barrett on 07-13-2022 Sodium [Moles/Vol] 139 mmol/L 136-146 [facility] Serum or plasma total carbon dioxide measurement (moles/volume)Ordered By: Helder Barrett on 07-13-2022 CO2 [Moles/Vol] 27.8 mmol/L 22.0-30.0 [facility] Serum or plasma total choles terol/high density lipoprotein (HDL) cholesterol mass ratOrdered By: Helder Barrett on 07-13-2022 Cholesterol.total/Cho lesterol in HDL [Mass ratio] 3.0 {ratio} <5.0 [facility] Serum or plasma urea nitroge n measurement (mass/volume)Ordered By: Helder Barrett on 07-13-2022 Urea nitrogen [Mass/Vol] 10 mg/dL 9-23 [facility] Triglyceride [Mass/volume] i n Serum or PlasmaOrdered By: Helder Barrett on 07-13-2022 Triglyceride [Mass/Vol] 80 mg/dL 35-149 [facility] Comment on above: TRIG ATP III CLASSIF ICATION TRIG less than 150 mg/dL Normal TRIG 150-199 mg/dL Borderline high TRIG 200-500 mg/dL High TRIG greater than 500 mg/dL Very high Standard traceable to the Center for Disease Conrtrol and Prevention (CDC) test method. TRIG ATP III CLASSIF ICATIONTRIG less than 150 mg/dL NormalTRIG 150-199 mg/dL Borderline highTRIG 200-500 mg/dL High TRIG greater than 500 mg/dL Very highStandard traceable to the Center for Disease Conrtrol and Prevention (CDC) test method. Falls Screening (Age 18+)on 07-12-2022 Adult depression screening assessment [facility] [employer] zaida 250 DO Work Phone: Fall risk assessment a) No falls within the last year [facility] [employer] 250 DO Work Phone: Tobacco use status CPHS a) Yes [facility] [employer] zaida 250 DO Work Phone: Falls Screening (Age 18+) Yes [facility] [employer] zaida 250 DO Work Phone: Office Visit (Cardiology)on 07-12-2022 Follow-up visit Diagnoses/Problems Assessed 3-vessel CAD (414.00) (I25.10) History of PTCA (V45.82) (Z98.61) History of coronary artery bypass graft (V45.81) (Z95.1) Diabetes mellitus (250.00) (E11.9) Thyroid cancer (193) (C73) Bladder cancer (188.9) (C67.9) Angina pectoris (413.9) (I20.9) Hyperlipidemia (272.4) (E78.5) Hypertension (401.9) (I10) Overweight with body mass index (BMI) of 27 to 27.9 in adult (278.02,V85.23) (E66.3,Z68.27) Current some day smoker (305.1) (F17.200) Orders 3-vessel CAD, Angina pectoris Cardiac Catheterization Lab Procedures; Status:Active - Retrospective Authorization; Requested for:[id number]; Overweight with body mass index (BMI) of 27 to 27.9 in adult Healthy Weight Tips; Status:Complete - Retrospective Authorization; Done: [id number] SocHx: Current some day smoker You need to stop smoking. Though it is not easy, more than half of all adult smokers have quit. We encourage you to write down all the reasons you should quit smoking and set a quit date for yourself. Ask us how we can help. You may also call 3-651-INYFNOW for free resources and assistance.; Status:Complete - Retrospective Authorization; Done: [id number] Tobacco Use Screening; Status:Complete; Done: [id number] Patient Instructions Please bring all medicines, vitamins, and herbal supplements with you when you come to the office. Prescriptions will not be filled unless you are compliant with your follow up appointments or have a follow up appointment scheduled as per instruction of your physician. Refills should be requested at the time of your visit. Heart cath procedure discussed in detail. Medications/ allergies reviewed. Pt instructed to hold metformin am of cath. Order faxed to [facility] [place] [place]. Follow up after testing completed Chief Complaint BARAK SABILLON is being seen for an annual follow-up of. 71-year-old gentleman returns for follow-up with exertional angina. He describes new onset chest discomfort with dizziness, diaphoresis and shortness of breath, grading his angina score of approximately 3-4 with any type of exertion and is relieved with rest after approximately 15 minutes. He does not take nitroglycerin for this as he does not believe it severe enough to warrant nitroglycerin. He has underlying ASHD, remote CABG, remote acute coronary syndrome with PCI of the mid/distal RCA and PLV branch with 3 drug-eluting stents in April 2019. He also has a new diagnosis of recurrent thyroid cancer with a right anterior carotid thyroid nodule that was resected. And his levothyroxine has been increased, this may portend increased angina as a possibility He also has underlying diabetes, hyperlipidemia, hypertension. Patient also has a history of bladder cancer that is stable with no recurrence We have reviewed his anatomy, his class 3+ symptomatology clinically. Risk benefits alternatives and informed decision-making process performed with the patient today and have offered him either stress perfusion imaging or proceed to left heart catheterization with possible revascularization given the above. Patient chooses to proceed with heart cath this Monday. Current Meds Medication NameInstruction Albuterol Sulfate HFA 108 (90 Base) MCG/ACT Inhalation Aerosol SolutionINHALE 1 TO 2 PUFFS EVERY 4 TO 6 HOURS NEEDED. Aspirin EC 81 MG Oral Tablet Delayed ReleaseTAKE 1 TABLET DAILY DIRECTED. Atorvastatin Calcium 80 MG Oral Tablettake 1 tablet by mouth at bedtime Levothyroxine Sodium 175 MCG Oral TabletTAKE 1 TABLET DAILY DIRECTED. Lisinopril 20 MG Oral TabletTAKE 1 TABLET BY MOUTH TWICE DAILY metFORMIN HCl - 500 MG Oral TabletTAKE 1 TABLET DAILY WITH FOOD. Metoprolol Tartrate 25 MG Oral Tablettake 1/2 tablet by mouth twice daily Nitroglycerin 0.4 MG Sublingual Tablet SublingualDISSOLVE 1 T UNDER THE TOUNGE Q 5 MIUNUTES FOR CHEST P Omeprazole 20 MG Oral Capsule Delayed ReleaseTAKE 1 CAPSULE BY MOUTH EVERY DAY Potassium Bicarbonate 99 MG CAPSTAKE one 2 times daily Tamsulosin HCl - 0.4 MG Oral CapsuleTake 1 capsule by mouth daily Trelegy Ellipta 100-62.5-25 MCG/INH Inhalation Aerosol Powder Breath Activatedas directed Allergies Medication Codeine Derivatives Nausea; Updated By: Lori Blank; 05/20/2022 12:20:24 PM erythromycin Nausea; Updated By: Lori Blank; 05/20/2022 12:20:24 PM Social History Problems Alcohol use (V49.89) (Z72.89) Caffeine use (V49.89) (Z78.9) Current some day smoker (305.1) (F17.200) No illicit drug use Review of Systems Constitutional: not feeling tired. Cardiovascular: chest pain, but no intermittent leg claudication and as noted in HPI. Respiratory: shortness of breath, but no cough. Gastrointestinal: no change in bowel habits and no blood in stools. Integumentary: no skin rashes. Neurological: no seizures and no frequent falls. All other systems have been reviewed and are negative for complaint. Vitals Vital Signs Recorded: [id number] 10:01AM Heart Rate70, L Radial Systoli (more content not included)... Normal [facility] Serum or plasma thyroglobuli n antibody assay (units/volume)Ordered By: Rob Villanueva on 06-29-2022 Thyroglobulin Ab Qn [IU]/mL 0.0-0.9 [facility] Comment on above: Thyroglobulin Antibo dy measured by [employer] Methodology Thyroglobulin Antibo dy measured by [employer] Thyroglobulin [Mass/volume] in Serum or PlasmaOrdered By: Rob Villanueva on 06-29-2022 Thyroglobulin [Mass/Vol] 0.1 ng/mL 1.4-29.2 [facility] Comment on above: According to the [facility] Academy of Clinical Biochemistry, the reference interval for Thyroglobulin (TG) should be related to euthyroid patients and not for patients who underwent thyroidectomy. TG reference intervals for these patients depend on the residual mass of the thyroid tissue left after surgery. Establishing a post-operative baseline is recommended. The assay limit of quantitation is 0.1 ng/mL Thyroglobulin measured by [employer] Assay Performed at: [facility] [id number] [employer] Supervisor: Alexi Holder PhD, Phone: [phone] According to the [facility] Academy of Clinical Biochemistry,the reference interval for Thyroglobulin (TG) should berelated to euthyroid patients and not for patients whounderwent thyroidectomy. TG reference intervals for thesepatients depend on the residual mass of the thyroid tissueleft after surgery. Establishing a post-operative baselineis recommended. The assay limit of quantitation is 0.1ng/mLThyroglobulin measured by [employer] ImmunometricAssayPerformed at: [facility] RahwayFqaoaw[address] [place], [place] [id number] Director: Alexi Holder PhD, Phone: [phone] Serum or plasma thyroglobuli n antibody assay (units/volume)Ordered By: Rob Villanueva on 06-23-2022 Thyroglobulin Ab Qn [IU]/mL 0.0-0.9 [facility] Comment on above: Thyroglobulin Antibo dy measured by [employer] Methodology Performed at: [facility] [address] [place], [place] [id number] [employer] Supervisor: Alexi Holder PhD, Phone: [phone] Thyroglobulin Antibo dy measured by Ch[employer] GigwalkMethodologyPerformed at: [facility] [employer] [id number] Director: Alexi Holder PhD, Phone: [phone] Serum or plasma thyroperoxid ase antibody assay (units/volume)Ordered By: Rob Villanueva on 06-23-2022 TPO Ab Qn 9 [IU]/mL 0-34 [facility] US Carotid, Bilateralon 06-0 US Carotid, Bilateral CLINICAL HISTORY: Stenosis. COMPARISON: 03/18/21. TECHNIQUE: Longitudinal, transverse and color flow doppler ultrasound imaging of the carotid and vertebral arteries of the neck were obtained. FINDINGS: The ultrasound scans of the carotid and vertebral arteries demonstrate the following: RIGHT CAROTID: There is mild echoic plaques involving the right carotid arteries and at the right carotid bifurcation. On doppler images, the peak systolic velocity measurements in centimeters per second are as follows: CCA 89 cm/sec; carotid bulb 95 cm/sec; proximal ICA 125 cm/sec; mid ICA 160 cm/sec; distal ICA 120 cm/sec; right ECA 131 cm/sec; The peak systolic ICA/CCA ratio is 1.4. This correlates to a predicted stenosis of less than 50%. LEFT CAROTID: There is moderate echoic plaques involving the left carotid arteries and at the left carotid bifurcation. On doppler images, the peak systolic velocity measurements in centimeters per second are as follows: CCA 111 cm/sec; carotid bulb 92 cm/sec; proximal ICA 115 cm/sec; mid ICA 115 cm/sec; distal ICA origin 31 cm/sec; left ECA 167 cm/sec; The peak systolic ICA/CCA ratio is 1.2. This correlates to a predicted stenosis of less than 50%. VERTEBRAL ARTERIES: There is antegrade blood flow in the vertebral arteries bilaterally. Peak systolic velocity of right vertebral artery measures 50 cm/sec. Peak systolic velocity of left vertebral artery measures 48 cm/sec. IMPRESSION: RIGHT CAROTID: STENOSIS OF LESS THAN 50% IS PREDICTED IN THE RIGHT ICA. LEFT CAROTID: STENOSIS OF LESS THAN 50% IS PREDICTED IN THE LEFT ICA. THERE IS [employer] BLOOD FLOW IN BOTH VERTEBRAL ARTERIES. Validated velocity measurements with angiographic measurements, and velocity criteria are extrapolated from diameter data as defined by the Society of Radiologist in Ultrasound Consensus Conference Radiology 2003; 229; 330-346. The degree of stenosis recorded on this exam uses the same method of stratification used in NASCET trials. This complies ACR practice guidelines and the Society of Radiology in Ultrasound Consensus statement and provides adequate information for clinical decision making. Society of Radiologists in Ultrasound (SRU) Consensus statement was used to estimate internal carotid artery stenosis. Report reported and signed by MARI ALCANTARA on 03/30/2022 1208 Normal [facility] Basic Metabolic Panelon 05-3 Anion gap [Moles/Vol] 18 mmol/L Normal 12-20 [facility] Comment on above: Result Comment: Effe ctive 11/04/2019 reference range changed. Performed By: #### T 4, TSH #### [facility] [address], [place] [id number] Calcium [Mass/Vol] 9.6 mg/dL Normal 8.6-10.2 [facility] Comment on above: Performed By: #### T 4, TSH #### [facility] [address], [place] [id number] Chloride [Moles/Vol] 104 mmol/L Normal 98-107 [facility] Comment on above: Performed By: #### T 4, TSH #### [facility] [address], [place] [id number] CO2 [Moles/Vol] 24 mmol/L Normal 20-31 [facility] Comment on above: Performed By: #### T 4, TSH #### [facility] [address], [place] [id number] Creatinine [Mass/Vol] 0.9 mg/dL Normal 0.7-1.4 [facility] Specialist Comment on above: Performed By: #### T 4, TSH #### [facility] [address], [place] [id number] eGFRAA 97 mL/min/1.73m2 Normal >60 [facility] Comment on above: Performed By: #### T 4, TSH #### [facility] [address], [place] [id number] eGFRNAA 80 mL/min/1.73m2 Normal >60 [facility] Comment on above: Performed By: #### T 4, TSH #### [facility] [address], [place] [id number] Glucose [Mass/Vol] 135 mg/dL High 65-99 [facility] Comment on above: Result Comment: For FASTING Glucose --- ADA reference ranges: Normal 65-99 mg/dl Prediabetes 100-125 Diabetes >/= 126 Performed By: #### T 4, TSH #### [facility] [address], [place] [id number] Potassium [Moles/Vol] 4.9 mmol/L Normal 3.5-5.5 [facility] Specialist Comment on above: Performed By: #### T 4, TSH #### [facility] [address], [place] [id number] Sodium [Moles/Vol] 140 mmol/L Normal 135-146 [facility] Comment on above: Performed By: #### T 4, TSH #### [facility] [address], [place] [id number] Urea nitrogen [Mass/Vol] 18 mg/dL Normal 7-25 [facility] Comment on above: Performed By: #### T 4, TSH #### [facility] [address], [place] [id number] Hemoglobin A1Con 03-29-2022 EAG 145.59 Normal [facility] Special[facility] Comment on above: Performed By: #### T 4, TSH #### [facility] [address], [place] [id number] HbA1c (Bld) [Mass fraction] 6.7 % High 4.0-6.0 [facility] Comment on above: Performed By: #### T 4, TSH #### [facility] [address], [place] [id number] Lipid Panelon 03-29-2022 Cholesterol [Mass/Vol] 149 mg/dL Normal 125-200 [facility] Comment on above: Result Comment: Low risk < 200mg/dL Borderline risk 201-239 mg/dl High risk > or equal to 240 Performed By: #### T 4, TSH #### [facility] [address], [place] [id number] Cholesterol in HDL [Mass/Vol] 44 mg/dL Normal >40 [facility] Comment on above: Result Comment: High Cardiovascular Risk HDL <40 mg/dL Low Cardiovascular Risk HDL > or equal to 60 mg/dl Performed By: #### T 4, TSH #### [facility] [address], [place] [id number] Cholesterol in LDL [Mass/Vol] 81 mg/dL Normal [facility] Comment on above: Result Comment: LDL ATP III CLASSIFICATION LDL less than 100 mg/dl Optimal LDL 100-129 mg/dl Near or above optimal LDL 130-159 Borderline high LDL 160-189 High LDL greater than 189 mg/dl Very High Performed By: #### T 4, TSH #### [facility] [address], [place] [id number] Cholesterol in VLDL [Mass/Vol] 24 mg/dL Normal [facility] Comment on above: Performed By: #### T 4, TSH #### [facility] [address], [place] [id number] Cholesterol.total/Cho lesterol in HDL [Mass ratio] 3 {ratio} Normal [facility] Comment on above: Performed By: #### T 4, TSH #### [facility] [address], [place] [id number] Triglyceride [Mass/Vol] 122 mg/dL Normal 30-150 [facility] Comment on above: Result Comment: TRIG ATPIII CLASSIFICATIONS TRIG less than 150 mg/dl Normal TRIG 150-199 mg/dl Borderline High TRIG 200-500 mg/dl High TRIG greather than 500 mg/dl Very High Performed By: #### T 4, TSH #### [facility] [address], [place] [id number] Microalbumin (with Creat)on 03-29-2022 mALB 1.9 mg/dL Normal [facility] Comment on above: Result Comment: mALB reference range not established. Performed By: #### m ALBC #### [facility] [address], [place] [id number] mALB/Creat Ratio 8.0 MCG/MG Normal [facility] Comment on above: Result Comment: The ADA (Diabetes Care 26:S94-S98, 2003) defines abnormalities in Albumin excretion as follows: Category Result (MCG/MG Creatinine) Normal <30 Microalbuminuria 30-299 Clinical Albuminuria > or = 300 Performed By: #### m ALBC #### [facility] [address], [place] [id number] UCREA 237 mg/dL Normal 39-259 [facility] Comment on above: Performed By: #### m ALBC #### [facility] [address], [place] [id number] TSHon 03-29-2022 TSH 0.032 uIU/mL Low 0.400-4.50 0 [facility] Comment on above: Performed By: #### T 4, TSH #### [facility] [address], [place] [id number] Q - T3 TOTALon 02-21-2022 T3, TOTAL 93 ng/dL Normal 76-181 [facility] Comment on above: Order Comment: [facility] performed at: [employer], [employer] [facility], [address] [place] [address], [address] [place] [address], [phone], [employer] Dist[employer]: Mor Newell MD [facility] Collection Date/Time: [id number] [facility] Results Received Date/Time: [id number] [facility] Reported Date/Time: [id number] Performed By: #### 3 80A, 859X #### [facility] [address] [place] [address] Q - THYROGLOBULIN PANELon THYROGLOBULIN 0.1 ng/mL Low [facility] Comment on above: Order Comment: [facility] performed at: [employer] [facility], [address] [facility], [address] [place] [address], [phone], [employer] Dist[employer]: Mor Newell MD [facility] Collection Date/Time: [facility] Results Received Date/Time: [facility] Reported Date/Time: Result Comment: Refe rence Range: Intact Thyroid 2.8-40.9 Athyrotic <0.1 Note: Abnormal flagging is based on the reference interval for patients with intact thyroid. This test was performed using the Chuy [place] chemiluminescent method. Values obtained from different assay methods cannot be used interchangeably. Thyroglobulin levels, regardless of value, should not be interpreted as absolute evidence of the presence or absence of disease. For additional information, please refer to http://education.MideoMe/faq/KCF744 (This link is being provided for informational/ educational purposes only.) Performed By: #### 3 80A, 859X #### [facility] [address] [place] [address] THYROGLOBULIN ANTIBODIES <1 Normal < or = 1 [facility] Comment on above: Order Comment: [facility] performed at: [employer] [facility], [address] [facility], [address] [place] [address], [phone], [employer]: Mor Newell MD [facility] Date/Time: [facility] Results Received Date/Time: [facility] Reported Date/Time: Performed By: #### 3 80A, 859X #### [facility] [address] [place] [address] TSHon 02-21-2022 TSH 0.547 uIU/mL Normal 0.400-4.50 0 [facility] Comment on above: Performed By: #### T 4, TSH #### [facility] [address] [place] [id number] Total T4on 02-21-2022 T4 [Mass/Vol] 8.2 ug/dL Normal 4.5-11.7 [facility] Comment on above: Performed By: #### T 4, TSH #### [facility] [address] [facility] [place] [id number] Main OR Preoperative Recordo n 01-21-2022 Main OR Preoperative Record Holding Area Document Type FTURO Summary Primary Physician: Vito NEVES MD Finalized Date/Time: 01/21/22 11:47:40 Pt. Name: BARAK SABILLON /Sex: 1950 Male Med Rec #: [id number] Physician: Vito NEVES MD Financial #: [id number] Pt. Type: O Room/Bed: / Admit/Disch: 11/17/21 09:07:40 - 11/17/21 23:59:59 Institution: [facility] Holding FTURO Pre-Care Text: Verifies consent for planned procedure, identifies individual values and wishes concerning care, includes family members in perioperative teaching Secures patient's records' belongings, and valuables, maintains patient's dignity and privacy, and maintains patient confidentiality Entry 1 In Holding 11/17/21 09:16:00 Outcomes Met? Yes Last Modified By: Clayton Villagran LPN 11/17/21 09:16:24 Post-Care Text: The patient participates in decisions affecting his or her perioperative plan of care The patient's right to privacy is maintained Surgery Checklist FTURO Entry 1 Patient Birthday, ID Band Procedure History and Physical, Identification: Check, Patient Verification: Surgical Consent, With Participation Patient NPO after Midnight: n/a Personal Items: Glasses Complaints of Pain: No Skin Integrity Unable to Visualize Vitals - EU Blood Pressure 169/81 Pulse 76 bpm Respirations 16 br/min SPO2 Additional GARLAND RN Reviewed Yes Specimens Collected Last Modified By: Sunitha VILLARREAL, Josey DRAKE 11/17/21 09:56:15 General Comments: Temp 36.1 [facility]21 Finalized By: Hannah VILLARREAL, Marely DRAKE Document Signatures Signed By: Clayton Villagran LPN 11/17/21 09:19 Clayton Villagran LPN 11/17/21 09:18 NOELLE Young RN, Ruthann 01/21/22 11:47 Normal [facility] Q - T3 TOTALon 01-03-2022 T3, TOTAL 92 ng/dL Normal 76-181 [facility] Comment on above: Order Comment: [facility] performed at: [employer], [employer] [facility], [address] [facility], [address] [place] [address], [address] [place] [address], [employer] Dist[employer]: Mor Newell MD [facility] Collection Date/Time: [facility] Results Received Date/Time: [facility] Reported Date/Time: Performed By: #### 8 59X #### [facility] [address] [place] [address] Q - THYROGLOBULIN PANELon THYROGLOBULIN 0.3 ng/mL Low [facility] Comment on above: Order Comment: [facility] performed at: [employer], [employer] [facility], [address] [facility], [address] [place] [address], [address] [place] [address], [employer] Dist[employer]: Mor Newell MDQuest Collection Date/Time: [id number] Results Received Date/Time: [id number] Reported Date/Time: Result Comment: Refe rence Range: Intact Thyroid 2.8-40.9 Athyrotic <0.1 Note: Abnormal flagging is based on the reference interval for patients with intact thyroid. This test was performed using the Chuy Epifanio chemiluminescent method. Values obtained from different assay methods cannot be used interchangeably. Thyroglobulin levels, regardless of value, should not be interpreted as absolute evidence of the presence or absence of disease. For additional information, please refer to http://education.[employer]/faq/TZF050 (This link is being provided for informational/ educational purposes only.) Performed By: #### T 4, TSH #### [facility] [address] [place], [place] [id number] THYROGLOBULIN ANTIBODIES <1 Normal < or = 1 [facility] Comment on above: Order Comment: [facility] performed at: [employer], [employer] [facility], [address] , [address] [place], [phone], [employer]: Mor Merati MDQuest Collection Date/Time: [id number] Results Received Date/Time: [id number] Reported Date/Time: Performed By: #### T 4, TSH #### [facility] [address], [place] [id number] TSHon 01-03-2022 TSH 1.260 uIU/mL Normal 0.400-4.50 0 [facility] Comment on above: Performed By: #### T 4, TSH #### [facility] [address], [place] [id number] Total T4on 01-03-2022 T4 [Mass/Vol] 7.0 ug/dL Normal 4.5-11.7 [facility] Comment on above: Performed By: #### T 4, TSH #### [facility] [address], [place] [id number] Ambulatory Visit Summaryon 0 12-21-2021 Ambulatory Visit Summary BARAK SABILLON :1950 Visit Date:12/21/2021 Ambulatory Visit Instructions Your Diagnosis Bladder cancer BPH with urinary obstruction Anticoagulated Other obstructive and reflux uropathy Smoker Tests Performed Urnls Dip Stick Auto w/o Microscopy POC 52414 Your Care Team Attending Physician - PURA ARCHIBALD, Vito Estrella Primary Care Physician - MOLINA PACHECO DO This Is Your Medications List tamsulosin (Flomax 0.4 mg Cap) Contact prescribing physician if questions or concerns albuterol ascorbic acid (Vitamin C 500 mg oral tablet, chewable) aspirin (aspirin 81 mg oral tablet) atorvastatin (atorvastatin 40 mg Tab) fluticasone-salmeterol (Advair 250 mcg-50 mcg Powder) levothyroxine (Synthroid 137 mcg (0.137 mg) Tab) lisinopril (lisinopril 20 mg Tab) metformin (metformin 500 mg Tab) metoprolol (Metoprolol tartrate 25 mg Tab) nitroglycerin (Nitro 0.4 mg Tab) omeprazole (omeprazole 20 mg Cap-DR) potassium chloride (potassium chloride 99 mg oral tablet) [Image Removed: STOP]Stop taking these medications ciprofloxacin (Cipro 500 mg Tab) Procedures Performed Cystoscopy (11/17/2021), Cystoscopy (08/19/2020), TURBT - Transurethral resection of bladder tumor (08/19/2020), Colonoscopy, History of thyroidectomy, Open heart surgery, Placement of stent in cardiac conduit, Tonsillectomy. Discharge Vitals Heart Rate (Peripheral) 69 Respiratory Rate 16 Blood Pressure 150/84 Height 173.0 cm Height 173.0 cm Weight 85.9 kg Weight 85.9 kg BMI 28.7 What to do next You Need to Schedule the Following Appointments Follow Up with PURA ARCHIBALD, ZACKERY Davison When: Why: will call around July to schedule Cysto/FISH Where: [facility] [place] [address]- Medications What How Much When Instructions Unchanged tamsulosin (Flomax 0.4 mg Cap) 1 Capsules By Mouth At bedtime Unchanged albuterol 2 Puffs Inhalation Every 8 hours as needed for Shortness of breath or wheezing Contact prescribing physician if questions or concerns Unchanged ascorbic acid (Vitamin C 500 mg oral tablet, chewable) 2 Tablets Chewed 2 times a day Contact prescribing physician if questions or concerns Unchanged aspirin (aspirin 81 mg oral tablet) 1 Tablets By Mouth Every day Contact prescribing physician if questions or concerns Unchanged atorvastatin (atorvastatin 40 mg Tab) 1.5 Tablets By Mouth Every day Contact prescribing physician if questions or concerns Unchanged fluticasone-salmeterol (Advair 250 mcg-50 mcg Powder) 1 Inhalation Inhalation 2 times a day as needed for Shortness of breath or wheezing Contact prescribing physician if questions or concerns Unchanged levothyroxine (Synthroid 137 mcg (0.137 mg) Tab) 1 Tablets By Mouth Every day Contact prescribing physician if questions or concerns Unchanged lisinopril (lisinopril 20 mg Tab) 1 Tablets By Mouth 2 times a day Contact prescribing physician if questions or concerns Unchanged metformin (metformin 500 mg Tab) 1 Tablets By Mouth Every day Contact prescribing physician if questions or concerns Unchanged metoprolol (Metoprolol tartrate 25 mg Tab) 0.5 Tablets By Mouth 2 times a day Contact prescribing physician if questions or concerns Unchanged nitroglycerin (Nitro 0.4 mg Tab) 1 Tablets Sublingual Every 5 minutes as needed for Chest pain Contact prescribing physician if questions or concerns Unchanged omeprazole (omeprazole 20 mg Cap-DR) 1 Capsules By Mouth Every day Contact prescribing physician if questions or concerns Unchanged potassium chloride (potassium chloride 99 mg oral tablet) 1 Tablets By Mouth Every day Contact prescribing physician if questions or concerns What How Much When Comments Stop Taking ciprofloxacin (Cipro 500 mg Tab) 1 Tablets By Mouth As Directed Take 1 pill the day before procedure, then 1 pill after the procedure. Test Results Urnls Dip Stick Auto w/o Microscopy POC 39631 (12/21/2021) Bilirubin Urine Dipstick - Negative Blood Urine Dipstick - Negative Glucose Urine Dipstick - Negative Ketones Urine Dipstick - Negative Leukocytes Urine Dipstick - Negative Nitrite Urine Dipstick - Negative Protein Urine Dipstick - Negative Specific Tully Urine Dipstick - 1.020 Urine Appearance Urine Dipstick - Clear Urine Color Urine Dipstick - Yellow Urobilinogen Urine Dipstick - Normal 0.2-1 EU/dl pH Urine Dipstick - 6 Allergies codeine (Nausea) Problems Ongoing - Any problem that you are currently receiving treatment for. 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 Gross hematuria Kidney disease Thyroid cancer Education Materials Bladder Cancer Bladder cancer is an abnormal growth of (more content not included)... Normal [facility] Patient Educationon 12-21-19 Patient Education Oncology Bladder Cancer Bladder cancer is an abnormal growth of tissue in the bladder. The bladder is the balloon-like sac in the pelvis. It collects and stores urine that comes from the kidneys through the ureters. The bladder wall is made of layers. If cancer spreads into these layers and through the wall of the bladder, it becomes more difficult to treat. What are the causes? The cause of this condition is not known. What increases the risk? The following factors may make you more likely to develop this condition: ? Smoking. ? Workplace risks (occupational exposures), such as rubber, leather, textile, dyes, chemicals, and paint. ? Being white. ? Your age. Most people with bladder cancer are over the age of 55. ? Being male. ? Having chronic bladder inflammation. ? Having a personal history of bladder cancer. ? Having a family history of bladder cancer (heredity). ? Having had chemotherapy or radiation therapy to the pelvis. ? Having been exposed to arsenic. What are the signs or symptoms? Initial symptoms of this condition include: ? Blood in the urine. ? Painful urination. ? Frequent bladder or urine infections. ? Increase in urgency and frequency of urination. Advanced symptoms of this condition include: ? Not being able to urinate. ? Low back pain on one side. ? Loss of appetite. ? Weight loss. ? Fatigue. ? Swelling in the feet. ? Bone pain. How is this diagnosed? This condition is diagnosed based on your medical history, a physical exam, urine tests, lab tests, imaging tests, and your symptoms. You may also have other tests or procedures done, such as: ? A narrow tube being inserted into your bladder through your urethra (cystoscopy) in order to view the lining of your bladder for tumors. ? A biopsy to sample the tumor to see if cancer is present. If cancer is present, it will then be staged to determine its severity and extent. Staging is an assessment of: ? The size of the tumor. ? Whether the cancer has spread. ? Where the cancer has spread. It is important to know how deeply into the bladder wall cancer has grown and whether cancer has spread to any other parts of your body. Staging may require blood tests or imaging tests, such as a CT scan, MRI, bone scan, or chest X-ray. How is this treated? Based on the stage of cancer, one treatment or a combination of treatments may be recommended. The most common forms of treatment are: ? Surgery to remove the cancer. Procedures that may be done include transurethral resection and cystectomy. ? Radiation therapy. This is high-energy X-rays or other particles. This is often used in combination with chemotherapy. ? Chemotherapy. During this treatment, medicines are used to kill cancer cells. ? Immunotherapy. This uses medicines to help your own immune system destroy cancer cells. Follow these instructions at home: ? Take [id number] and prescription medicines only as told by your health care provider. ? Maintain a healthy diet. Some of your treatments might affect your appetite. ? Consider joining a support group. This may help you learn to cope with the stress of having bladder cancer. ? Tell your cancer care team if you develop side effects. They may be able to recommend ways to relieve them. ? Keep all follow-up visits as told by your health care provider. This is important. Where to find more information ? [place] Cancer Society: www.cancer.org ? National Cancer [place] (NCI): www.cancer.gov Contact a health care provider if: ? You have symptoms of a urinary tract infection. These include: ? Fever. ? Chills. ? Weakness. ? Muscle aches. ? Abdominal pain. ? Frequent and intense urge to urinate. ? Burning feeling in the bladder or urethra during urination. Get help right away if: ? There is blood in your urine. ? You cannot urinate. ? You have severe pain or other symptoms that do not go away. Summary ? Bladder cancer is an abnormal growth of tissue in the bladder. ? This condition is diagnosed based on your medical history, a physical exam, urine tests, lab tests, imaging tests, and your symptoms. ? Based on the stage of cancer, surgery, chemotherapy, or a combination of treatments may be recommended. ? Consider joining a support group. This may help you learn to cope with the stress of having bladder cancer. This information is not intended to replace advice given to you by your health care provider. Make sure you discuss any questions you have with your health care provider. Document Released: 10/18/2004 Document Revised: 09/28/2018 Document Reviewed: 09/19/2017 [employer] Patient Education ? 2019 [employer] [facility] Urology Office/Clinic Noteon 12-21-2021 Urology Office/Clinic Note Chief Complaint 1 month follow up HPI Staff 1 month follow up to starting flomax Previous Dx: bph with luts S/P cysto 11/17/21 bladder cancer S/P TURBT 08/19/2020 patient has noticed a big improvement with Flomax states he is very happy Dysuria: no Incomplete bladder emptying: no Hematuria: no Frequency: no Urgency: no Nocturia:2x Stream: good stream has improved since Flomax Leaking: no Post void dripping: no Wearing pads/ Depends: no Urge incontinence: no Stress incontinence: no Incontinence without Sensory Awareness: no Abdominal pain: no Flank pain: no Sexual complaints: no History of Present Illness Tests Reviewed: Reviewed UA. I have reviewed the previous health record information and history for this patient from Dr. Neves I have reviewed and verified the staff HPI to be accurate for this encounter. There have been no associated fever, chills, flank pain, or blood in the urine. Denies any urinary infections since last encounter. Review of Systems ROS - Provider Constitutional: denies weight loss, denies hot flashes. Eyes: denies eye problems. Gastrointestinal: denies nausea, denies vomiting. Cardiovascular: denies chest pain or angina. Integumentary: no dryness Musculoskeletal: denies musculoskeletal symptoms. ENMT: denies otolaryngeal symptoms. Respiratory: no shortness of breath. Heme/Lymph: denies easy bleeding tendency, denies easy bruising tendency. Psychiatric: no confusion, no anxiety. Genitourinary: SEE HPI Physical Exam Vitals & Measurements HR: 69(Peripheral) RR: 16 BP: 150/84 HT: 173.0 cm HT: 173.0 cm WT: 85.9 kg WT: 85.9 kg BMI: 28.7 General Appearance: alert, no distress, well nourished, well developed male. Genitourinary: normal scrotum, normal testes, normal urethra, normal epididymis, normal vas deferens/spermatic cord. Assessment/Plan 1. Bladder cancer (C67.9: Malignant neoplasm of bladder, unspecified) S/P TURBT 08/19/20. 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 S/p Cysto 11/17/21. Will repeat Cysto/FISH for bladder tumor check in mid Jul. 2. BPH with urinary obstruction (N40.1: Benign prostatic hyperplasia with lower urinary tract symptoms) Continue Tamsulosin 0.4mg QD therapy. Has improved urinary symptoms. Anticoagulated (Z79.01: director long term care (current) use of anticoagulants) ASA therapy Other obstructive and reflux uropathy (N13.8: Other obstructive and reflux uropathy) Smoker (F17.200: Nicotine dependence, unspecified, uncomplicated) Daily cigar smoker. This patient had a bladder tumor couple years ago low-grade we have been surveilling every 3 months now organ to go 6 months urine is clear he had no problems. When I last scoped him he had the BPH and significant IPSS score so I decided start him on Flomax well the Flomax is doing very well he is voiding well he has no issues. Going to keep on the Flomax and is nothing to be done next July that we do the surveillance cystoscopy fish. He status post thyroid cancer getting radiation treatment it is actually recurrence from 20 years ago we will follow that with interest Follow-up With When Contact Information PURA ARCHIBALD, Vito Estrella, [address] [place] [address]- Additional Instructions: will call around July to schedule Cysto/FISH Patient Education Bladder Cancer I, Leila Barber, personally scribed for Dr. Neves on 12/21/2021 10:09:50. Documentation recorded by the scribe, Leila Barber, accurately reflects the services(s) I performed and decisions made by me. Authenticated by Dr. Neves on 12/21/2021 10:15:09.10:09:50. Problem List/Past Medical History Ongoing Anticoagulated Bladder cancer BMI 28.0-28.9,adult BPH with urinary obstruction COPD type A Deafness Heart disease High blood pressure High cholesterol Smoker Type 2 diabetes mellitus Historical Gross hematuria Kidney disease Thyroid cancer Procedure/Surgical History Cystoscopy (11/17/2021), Cystoscopy (08/19/2020), TURBT - Transurethral resection of bladder tumor (08/19/2020), Colonoscopy, History of thyroidectomy, Open heart surgery, Placement of stent in cardiac conduit, Tonsillectomy. Medications Advair 250 mcg-50 mcg Powder, 1 inh, Inhalation, BID, PRN albuterol, 2 puff(s), Inhalation, q8hr, PRN aspirin 81 mg oral tablet, 81 mg= 1 tab(s), Oral, Daily atorvastatin 40 mg Tab, 60 mg= 1.5 tab(s), Oral, Daily Cipro 500 mg Tab, 500 mg= 1 tab(s), Oral, As Directed, Not taking Flomax 0.4 mg Cap, 0.4 mg= 1 cap(s), Oral, Bedtime, 2 refills lisinopril 20 mg Tab, 20 mg= 1 tab(s), Oral, BID metformin 500 mg Tab, 500 mg= 1 tab(s), Oral, Daily Metoprolol tartrate 25 mg Tab, 12.5 mg= 0.5 tab(s), Oral, BID Nitro 0.4 mg Tab, 1 tab(s), SubLingual, q5min, PRN omeprazole 20 mg Cap-DR, 20 mg= 1 cap(s), Oral, Daily potassium chloride 99 mg oral tablet, 99 mg= 1 tab(s), (more content not included)... Normal [facility] Comment on above: Result Comment: Elec tronically Signed By: Vito NEVES MD\.br\Date and Time Signed: 12/21/21 10:15 EST\.br\Electronically Co-Signed By: Leila Barber MA\.br\Date and Time Co-Signed: 12/21/21 10:10 EST [facility] Fish and Urine Cyt o ([facility])on 12-08-2021 UVFISH & UC Diagnosis Info Invalid Interpretation Code [facility] Comment on above: Result Comment: A:Ur ine,Urine:Voided Diagnosis Summary - Diagnosis Summary - The [facility] FISH study detected normal copy numbers for chromosomes 3, 7, 17, and 9p21. No evidence of aneuploidy for chromosomes 3, 7, or 17 or deletion of the 9p21 locus was found in cells present in this specimen. These findings should be correlated with cytology and cystoscopy results.* Microscopic Notes - Microscopic Notes - Abnormal cells 9p21 deletions: Abnormal cells aneploid events: Total cells analyzed: Hematuria: Gross Description Site ID:A color Jim fixative Alcohol Received 70 mls of clear jim fluid with the patient's name and, Urine on the vial. Electronically signed by : on: 11/24/2021 17:26:46 Performed By: #### 1 [id number] ####[facility] [id number] [place] [address] CT Soft Tissue Neck w/ Contr ast*on 12-01-2021 CT Soft Tissue Neck w/ Contrast* HISTORY: Right-sided neck mass. Concern for metastatic cyst. History of thyroidectomy in 2006 for papillary thyroid cancer. History of bladder cancer. History of agent orange exposure. History of cervical spine fusion. COMPARISON: No prior CT of the neck. Carotid ultrasound 03/18/2021. TECHNIQUE: Series of contiguous helical scans from the skull base to the aortic arch following bolus injection of contrast. CONTRAST: iopamidol (ISOVUE-300) intravenous of [address] scans at this facility use dose modulation, iterative reconstruction, and/or weight based dosing when appropriate to reduce radiation dose to as low as reasonably achievable. RESULT: Neck: Nasal cavity and oral cavity are unremarkable within limitations of artifact from dental amalgam. Pharyngeal mucosal space is normal in appearance. Vallecula and epiglottis are within normal limits and the pre-epiglottic fat is maintained. Parotid and submandibular glands are normal in appearance. Total thyroidectomy. Carotid arteries appear grossly patent with moderate calcifications at the bifurcations. Referred to the carotid ultrasound from . Jugular veins appear patent. Corresponding to the lesion on the prior carotid ultrasound from 03/18/2021, there is a rounded cystic appearing mass with septations, measuring approximately 1.9 x 1.4 x 2.9 cm, with the mass located anterior to the right common carotid artery and right jugular vein, immediately proximal to the carotid bifurcation. There are some adjacent surgical clips medial to the mass and superficial to the mass. Cervical Lymph Nodes: See above regarding the mass adjacent to the carotid bifurcation. Changes from prior lymph node dissection. Otherwise lymph nodes appear normal caliber. Brain: Visualized intracranial contents are normal in appearance. Orbits are grossly normal. Mild nasal sinus disease, especially with mucosal thickening involving the left maxillary sinus. Mastoid air cells grossly clear. Lung Apices: Imaged lung apices with emphysematous changes, otherwise unremarkable. Infraglottic airway is patent. Bones: No acute osseous findings. Postsurgical and degenerative changes within the cervical spine. IMPRESSION: Nonspecific rounded cystic mass with septations located anterior to the right common carotid artery and right jugular vein, immediately proximal to the carotid bifurcation, and corresponding with the mass on the carotid ultrasound from 03/18/2021. Differential includes metastatic lymphadenopathy (especially given history of thyroid cancer), neurogenic tumors, chronic seroma (secondary to prior lymph node dissection), etc. Report reported and signed by Salvador Jacobs on 12/02/2021 1253 Normal [facility] Q - T3 TOTALon 11-30-2021 T3, TOTAL 87 ng/dL Normal 76-181 [facility] Comment on above: Order Comment: [facility] Testing performed at: QPT, [facility], [address] [place] [address], [address] [facility], [place], [address], [employer] Distributor: Mor Newell MD [facility] Collection Date/Time: [facility] Results Received Date/Time: [facility] Reported Date/Time: Performed By: #### 8 59X, 380A #### [facility] [address] [place] [address] Q - THYROGLOBULIN PANELon THYROGLOBULIN 17.3 ng/mL Normal [facility] Comment on above: Order Comment: [facility] Testing performed at: [employer] [facility], [employer] [facility], [address] [facility], [address] [place] [address], [address] [place] [address], [employer] Distributor: Mor Newell MD [facility] Collection Date/Time: [facility] Results Received Date/Time: [facility] Reported Date/Time: Result Comment: Refe rence Range: Intact Thyroid 2.8-40.9 Athyrotic <0.1 Note: Abnormal flagging is based on the reference interval for patients with intact thyroid. This test was performed using the Chuy Gigwalk chemiluminescent method. Values obtained from different assay methods cannot be used interchangeably. Thyroglobulin levels, regardless of value, should not be interpreted as absolute evidence of the presence or absence of disease. For additional information, please refer to http://education.MideoMe/faq/SUE589 (This link is being provided for informational/ educational purposes only.) Performed By: #### 8 59X, 380A #### [facility] [address] [place] [address] THYROGLOBULIN ANTIBODIES <1 Normal < or = 1 [facility] Comment on above: Order Comment: [facility] Testing performed at: [facility], [facility], [address] [facility], [address] [place] [address], [address] [place] [address], [employer] Distributor: Mor Newell MD [facility] Collection Date/Time: [facility] Results Received Date/Time: [facility] Reported Date/Time: Performed By: #### 8 59X, 380A #### [facility] [address] [place] [address] TSHon 11-30-2021 TSH 3.630 uIU/mL Normal 0.400-4.50 0 [facility] Comment on above: Performed By: #### T 4, TSH #### [facility] [address] [place], [place] [id number] Total T4on 11-30-2021 T4 [Mass/Vol] 6.8 ug/dL Normal 4.5-11.7 [facility] Comment on above: Performed By: #### T 4, TSH #### [facility] [address] [place], [place] [id number] Ambulatory Visit Summaryon 0 11-23-2021 Ambulatory Visit Summary BARAK SABILLON :1950 Visit Date:11/23/2021 Ambulatory Visit Instructions Your Diagnosis BPH with urinary obstruction Bladder cancer Your Care Team Attending Physician - Vito NEVES MD Primary Care Physician - MOLINA PACHECO DO This Is Your Medications List tamsulosin (Flomax 0.4 mg Cap) Contact prescribing physician if questions or concerns albuterol ascorbic acid (Vitamin C 500 mg oral tablet, chewable) aspirin (aspirin 81 mg oral tablet) atorvastatin (atorvastatin 40 mg Tab) ciprofloxacin (Cipro 500 mg Tab) fluticasone-salmeterol (Advair 250 mcg-50 mcg Powder) levothyroxine (Synthroid 112 mcg Tab) lisinopril (lisinopril 20 mg Tab) metformin (metformin 500 mg Tab) metoprolol (Metoprolol tartrate 25 mg Tab) nitroglycerin (Nitro 0.4 mg Tab) omeprazole (omeprazole 20 mg Cap-DR) potassium chloride (potassium chloride 99 mg oral tablet) Procedures Performed Cystoscopy (11/17/2021), Cystoscopy (08/19/2020), TURBT - Transurethral resection of bladder tumor (08/19/2020), Colonoscopy, History of thyroidectomy, Open heart surgery, Placement of stent in cardiac conduit, Tonsillectomy. Discharge Vitals Heart Rate (Peripheral) 72 Respiratory Rate 16 Blood Pressure 165/92 Height 173.0 cm Height 173 cm Weight 85.9 kg Weight 85.9 kg BMI 28.7 What to do next Scheduled Follow-Up Appointments Monday 9:30 AM EST With: Vito NEVES MD Where: [facility] Coding Summary.on 11-23-2021 Coding Summary. [id number] Gh0bWw+P GhlYWQ+KF6ZTNZxJ62bdJMmmY5DX 7lBVV2WQJTYKCYCIE4KOL0mrWE2H NffX8PjlnLo ObdfqDKcMB97AKc5BPT0jVusKEdi tI4voQJoF8j8RyCyKZ27uC21UPfw USNyPyX7CuAiybffzTVu V3zdRxOavFPqBmf+PHRhYmxlIHdp SQKiGYrfVCVuGsMqcMsdWH8gYc7i ZGVyLWNvbGxhcHNlOiBj u7hkNHJsJCczJC4xdSuvO5BjvAB0 HODwk2g6Kq45zOG+LWSiFWG2xUsr TEjmn835IsSmj4upMJB8 bQBzLHruWMK8P36cw2G8RJVrVAGy KQX9jGZ4cA5npWyiafmvZ1ZruAIu GuW7JRO7yIJmmK4noKis icvpdH8dRbw+V73QRD2HPRBWKF4O Iel6S6HaDjdgwIW+DM95NBAdDC40 iRKmxNMpk9bbxVl2LrKe IUAjLIF6zGjmSChbi3UvNMNjE04z iXWcf8N4AOJzxYvisLWqYaNsjVZ2 zB7uDLexumpad3puqdux Haxis9etji55wL32L60qATokHBOw LFK1LHCxZEBgzOgwdl0ziS7yMs6+ LSnlq6maz5ofnQa1FsVt DOPppjIloNoiEZD8p7VgHu60O7Qt bGhny7CoNej6ki99mFPvm6N8sOC7 RYryKGZlgN9bKOooMvK1 OWRlHmOuaI48yGLsLHjgYv2waAzs tPjoMJ7vZCRkyjtvWGBuhX9pIPQe aKNckHiyKL0wGUKjgmab z741QiZlEYD9OCArgJPmY0HmgE0f AjHrEXUoZFVoT2QawLPfUXlmQ765 CFreCjP0QVKljqZsZ7Du AIZkkIpuVtT9b5V2Lb6Mh6Whunrp ZQG9IYdaMSYjYlC0EkStEzC7B0Up Fln1EQMddHleML5rM6Mv OJJdlkitzcuuaRY9FAJjENCrcN36 zQXuZEomMb2le3L7e429QRSrKBTw rH17Kg5luOioTHDggZYE tZ5rswjxv4vigjwfZyJhQGUmCTp3 ZPb2UGLmdEvqTsKwJSD6VeW1IBB6 aNStgS2gpWzkhzwxhA3a Oyc+R04khL9dWVI2RUK3koltULOo ikVdNT16IN23H7YlPfmfjSPcuFW+ UGJiuzGiyQvnPT9aIhKj v3ckh1EyRDmnK9EnCSDwNGyuWfo6 ZXFuKJX5hGN6qX5oDGPrLCvlb2I4 qCV6N4RevlBzfd3ml8qr KOYgRQeaC62kcNNmt8R3QCVxmNH5 TLCtgYyaUkZsyN11Ljx+PGNvbGdy s9FrQxhvk6kbu0ejrCa5 XmSmDJRbauOeaPgsTQE3b2GtSq65 N97eNIiuFWNjOFEqKEMqIUExuXsd bk7ybR5oLp0+PGNvbCB3 xKK8aU2rIXFnKsT8SCzaK959PjUv nGKcSxgqz5lsz5infTd0CoYcHEMu dmZxrBaeIJJ6w8JySa16 Y63yMBgpCNVmXBLzFDAyLPUiyUzt fx1rdM7yZl8+YP5zz5cheu57mT64 dHI+GXOzBQY3xFjwORpb YYKzkM5eZPpwAyJ7GPMvEnRfqE83 iTObNXjgCy1kkXzraGldFI7kXYQp ikbxp564KsBxg4rfWCDr uXOmBPmwTQR6M39kp6Q4PKGyBVId UFA9eVD4hP6ycEdxlftwoWBkuIta tlQjdVouIKtxRRyuP387 IHRvcDsnPlBhdGllbnQgTmFtZTo8 Z0CxEqe2JPEyuDqmBS6fxCFeOQiv Fd2qwTrohMduSW5fSDPv plbip168ZwYqs8zzVVIqtPZiKSie PMN9M84le7A0EMEgRNXmLJV4cWX9 wT9qkHnxyfmmjFKmiYrz ipTmaBmbHIahGEcdL925JHHaqGtn PuFgllWqHUUwlJV4KR59HD39mMHx q6T1dYL2J9EmYVJyqukz bpgkjOI2RLRjBXFnuE08Gr0jyFzg Uh5jKPEyZEO4SDMzmYJrV4QffQ3h VmHjIMMtXQSfE5CozVXn YZhbY498OVqiYuA6GWMvwrByY4So PPWzaNnuIeK6z8L5Fk3EA1Q7ZT53 HX08iRGyk3L9jVM1X3Nu EYTdnbyqlrzqmYK5MHMdUSThtU94 Vb9cwHttQf9fHQHdFUO1CFXycREy M3KceU6bOmOgFWGiJDEx S0BxdEFdOZxjP183QCupQnU7SMBe pzKkO1XpFKQerHfaSnJ0w9R7Rg3E OSg0MU82CN01hONri3K6 zZW7R8NhMXQjlehzjhuqxNT7SPWp FKZabT45Ks6rpKpxYe0iRQTkEBR3 QMMgiEObW3QlaR1vCdLq MZCgVOQeA5VwoUDeBLukD392MKkx PkP7PRLritZfS6VmQBOhiMeaFaG9 h9N3Js1MCXCxUT92INX1 bLH6DD53FJ87M2GpFgxwvHTmkPV+ PHRhYmxlIHdpZHRoPScxMDAlJyBz rHraGR4wLg3nSQPgZVFf jIxxkTOyWaEyf0akWBJcNNufQE6f lCcsL1BjhHJ6ROKrc5y6Im92F60e E8XrgWR+LWRrzUN4jBA9 vM6wAeGfDhZ7KHhaE618RjMlsMWl Aqhzl7spn4wjpSn3XuJ5YWTstpBn uLfiDDA0g1DtWy69V73u TQwgZKQrWGRrATLkZNUmyXnbol1u yI2kBs4+KJIpcTO7eVH1xK7rPqVl HmI0ZQatD468JwRouMEq Igpbz5qrs9pdqVm1RmAnKJGnjjXy aYxeNKO6v7OfBq77W8TqyTade2Yo Lnu0uz49oZIvq2J5bUI8 G5ZhVIGoyprrnIAjmSqzEW5iTCYx fyprNMOxuR9pWANgY6f4ZiYvAjA8 GJvnV5CqryL0CIBvcYIh CGtrINZ0Q29kw5G8RMSyQVViCME5 oQN6aJ4toFlxpunmlLIvrKurvyVf cShlBOupYSgoR163PAUn eHpbTFThyS0dFAXkwVPuqUnaIW2j OYEukbjlLzEJGKLUTSdjQ4NZCAXX RIw1V3SrXej9RIVgxMaj CX5gdQWoNFxeBu0fqPwhdKqgLX7s ZKIbdtkjJMEerU8nEHDhoSQzsTep YV7jTTZogfqrp158TmNy FUN9SNTjoJAsH3NnpR7lFtZuJQLs GCBoE7SxcGJxAEiwW069TLyjObX3 HBIzvyUdM6GxKPWlfSud BhL7b6J3Ue2mEq4mUd0oUUM4JY43 YF53oYGqs0L0tGY8E3UuIWEbuiwl rjqefUX7VBUfIADexE50 iORfPRkqDs2xw8C1t443WIUgTPCv dS47Lx4jbBoqHONmoQRHgV9qmidp t2reueolAcUhOBExWNf5 ACq5UGDmvWxtZyDxKIR5CzC1MQB3 mTOjbM1exFeshyayaT6xGiq+NzMg QBPoztL7O5QvVpd2VPQc xUxuVY6ujTQpISmlBe7zgTlifRss DM8cZTWlzjcqHCHfrT9lLMVoaXVa kGlnCW8mKNTobiiqe133 ZpZePPD6RLGmgQQdA7TbdT9zXiKu YQLuCCVsP3HrbCDiZVymG083THtl VqE3YZAiloHoW0EhKHOb zIlnMiO7e7M1Km6QVNtlAY31JF83 sUKna7E4iMY3P2WwHMOvmmscymeb pEJ2QCNoCXGpyV71iKAa QEjeRy5vr0Z9d093PDNhDGFlrB26 Eg7xoGsdAAUweJUZrQ7qilowi9ke xmqaTpMtBJIpTDi9FLi9 TJGeaRuySoOkHYS6GfG7YRD6xWKy eD1jhFredlchzY4rHyk+Y2J3uHK9 aWVudDwvdGQ+RN22qs28 F9AiFssdOge4ODAvESY8gSF3lN7v DKAyZXagu4R2zMD6R4MfyxHtbu8p f8pmHOXjTYkdT74dcQYk x3A4HGMqyPY2ABRznFofMaLoyZ22 Oyc+DWEocCkkv2FnUszft7vgk6tc qMz0JxTwMPBchhSywNdg DRW9m3OjLl70J96fKDddAGOtQFIf GCLuOOWdwSnybc5akP9lAp2+PGNv lKS6zJA1vI4hQlWdVyX2 LRyrE156FaBsmVEzYkbql5cym5dt cCt2VlZhWDPzybHcjSfbKLD0g1Cr Ar96P6HudIekv1ZxLxu4 li26sMAjh4W2aZQ2K9OrLINemelj jAZyxBxnJV9fVWUxojecCEKkqN8z WBFnK9i4MjDvSnC4OXdp W0CtsqR9UHIgdANiFHLvmHBHkB8e yeghf4lpojvlPsSlYSXeQDb5EVu3 EBYngImiCaKtNNO2ToD9 NPP0nJZztH6ebOphnsipdH1kRxd+ VOy6d5qurUPfLP3cpQA7IS74ET63 vSAgn8Y0nUB7U6WhGBVt yeomjlaytKU4PFZhLOBpdI20De2d sEyqUb5xMHXaUHE5FJTyyKHnA6Yp wH9iSrOtBDFeXXBuJ0Us mHPrOWkdW778OJwgOiD5DGWeinKm X0JvCVJybYntRaI5f1V0Wf9XUC82 LV53OF04iTYjf4B9nHZ1 A7UhQWXrctwpeaneeKG9UJBgPNPp iV96Kh7sjAmhPh7oPFAxXNC8EGNj qZXwQ1IooM8dKlAhKIRw SSPiP1EntGPhLOdvS599RQrbRjL2 WITkulKgL7PzCDBblOlpNwN1a1E1 Zk6AMo67BO65WU91hTSb w0B7iVB9H4VoFCPuzitowinwnVP3 ALYxEYCrfH13Oi2syKrsZp1tKPTo ETM8TIDffHOoF8UhdG2k WvWkBIEoHXQvZ8AilCWlVBdcP076 LWxgTnS7OSOqtzKaF2UjZPFwaWin HkJ3w3R5Et4HQNipzcg9 T4VbTpqvnYN+OR75QXGlKH53zGLn qVQjq3alcCu8OmQgHFZnSHJ1jUbg UWkrh9CrRPCfM46nlWJf c2U6 (more content not included)... Normal [facility] Patient Educationon 11-23-19 Patient Education Urology Benign Prostatic Hyperplasia Benign prostatic hyperplasia (BPH) is an enlarged prostate gland that is caused by the normal aging process and not by cancer. The prostate is a walnut-sized gland that is involved in the production of semen. It is located in front of the rectum and below the bladder. The bladder stores urine and the urethra is the tube that carries the urine out of the body. The prostate may get bigger as a man gets older. An enlarged prostate can press on the urethra. This can make it harder to pass urine. The build-up of urine in the bladder can cause infection. Back pressure and infection may progress to bladder damage and kidney (renal) failure. What are the causes? This condition is part of a normal aging process. However, not all men develop problems from this condition. If the prostate enlarges away from the urethra, urine flow will not be blocked. If it enlarges toward the urethra and compresses it, there will be problems passing urine. What increases the risk? This condition is more likely to develop in men over the age of 50 years. What are the signs or symptoms? Symptoms of this condition include: ? Getting up often during the night to urinate. ? Needing to urinate frequently during the day. ? Difficulty starting urine flow. ? Decrease in size and strength of your urine stream. ? Leaking (dribbling) after urinating. ? Inability to pass urine. This needs immediate treatment. ? Inability to completely empty your bladder. ? Pain when you pass urine. This is more common if there is also an infection. ? Urinary tract infection (UTI). How is this diagnosed? This condition is diagnosed based on your medical history, a physical exam, and your symptoms. Tests will also be done, such as: ? A post-void bladder scan. This measures any amount of urine that may remain in your bladder after you finish urinating. ? A digital rectal exam. In a rectal exam, your health care provider checks your prostate by putting a lubricated, gloved finger into your rectum to feel the back of your prostate gland. This exam detects the size of your gland and any abnormal lumps or growths. ? An exam of your urine (urinalysis). ? A prostate specific antigen (PSA) screening. This is a blood test used to screen for prostate cancer. ? An ultrasound. This test uses sound waves to electronically produce a picture of your prostate gland. Your health care provider may refer you to a specialist in kidney and prostate diseases (urologist). How is this treated? Once symptoms begin, your health care provider will monitor your condition (active surveillance or watchful waiting). Treatment for this condition will depend on the severity of your condition. Treatment may include: ? Observation and yearly exams. This may be the only treatment needed if your condition and symptoms are mild. ? Medicines to relieve your symptoms, including: ? Medicines to shrink the prostate. ? Medicines to relax the muscle of the prostate. ? Surgery in severe cases. Surgery may include: ? Prostatectomy. In this procedure, the prostate tissue is removed completely through an open incision or with a laparoscope or robotics. ? Transurethral resection of the prostate (TURP). In this procedure, a tool is inserted through the opening at the tip of the penis (urethra). It is used to cut away tissue of the inner core of the prostate. The pieces are removed through the same opening of the penis. This removes the blockage. ? Transurethral incision (TUIP). In this procedure, small cuts are made in the prostate. This lessens the prostate's pressure on the urethra. ? Transurethral microwave thermotherapy (TUMT). This procedure uses microwaves to create heat. The heat destroys and removes a small amount of prostate tissue. ? Transurethral needle ablation (TUNA). This procedure uses radio frequencies to destroy and remove a small amount of prostate tissue. ? Interstitial laser coagulation (ILC). This procedure uses a laser to destroy and remove a small amount of prostate tissue. ? Transurethral electrovaporization (TUVP). This procedure uses electrodes to destroy and remove a small amount of prostate tissue. ? Prostatic urethral lift. This procedure inserts an implant to push the lobes of the prostate away from the urethra. Follow these instructions at home: ? Take xppf-eve-mvnaocx and prescription medicines only as told by your health care provider. ? Monitor your symptoms for any changes. Contact your health care provider with any changes. ? Avoid drinking large amounts of liquid before going to bed or out in public. ? Avoid or reduce how much caffeine or alcohol you drink. ? Give yourself time when you urinate. ? Keep all follow-up visits as told by your health care provider. This is important. Contact a health care provider if: ? You have unexplained back pain. ? Your symptoms do not get better with treatment. ? You d (more content not included)... Normal [facility] Urology Office/Clinic Noteon 11-23-2021 Urology Office/Clinic Note Chief Complaint follow up to cysto HPI Staff 1 week follow up to cysto 11/17/21 Dysuria: no Incomplete bladder emptying: no Hematuria: no Frequency: no Urgency: no Nocturia: 2x Stream: weak stream Leaking: no Post void dripping: mild dribbling Wearing pads/ Depends: no Urge incontinence: no Stress incontinence: no Incontinence without Sensory Awareness: no Abdominal pain:no Flank pain: no Sexual complaints: no History of Present Illness Reviewed op report. There have been no associated fever, chills, flank pain or blood in the urine. Pt. denies any pain/burning with urination at this time. Review of Systems ROS - Provider Constitutional: denies weight loss, denies hot flashes. Eyes: denies eye problems. Gastrointestinal: denies nausea, denies vomiting. Cardiovascular: denies chest pain or angina. Integumentary: no dryness Musculoskeletal: denies musculoskeletal symptoms. ENMT: denies otolaryngeal symptoms. Respiratory: no shortness of breath. Heme/Lymph: denies easy bleeding tendency, denies easy bruising tendency. Psychiatric: no confusion, no anxiety. Genitourinary: See HPI. Physical Exam Vitals & Measurements HR: 72(Peripheral) RR: 16 BP: 165/92 HT: 173.0 cm HT: 173 cm WT: 85.9 kg WT: 85.9 kg BMI: 28.7 General Appearance: alert, no distress, well nourished, well developed male. Genitourinary: normal scrotum, normal testes, normal urethra, normal epididymis, normal vas deferens/spermatic cord. Flank Pain: none. Bladder: nonpalpable. Assessment/Plan 1. BPH with urinary obstruction (N40.1: Benign prostatic hyperplasia with lower urinary tract symptoms) Sxs of frequency and weak stream. Cysto shows obstructed prostate, moderate trabeculation. Will start Flomax 0.4mg qhs. Discussed the medication side effects, and the patient will monitor closely for these, as well as for symptom improvement. If severe side effects occur, the medication should be stopped and the office notified. [facility]. 2. Bladder cancer (C67.9: Malignant neoplasm of bladder, unspecified) S/P TURBT 08/19/20. 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 S/p Cysto 11/17/21. I have reviewed the previous health record information and history for this pt. from Dr. Neves. Following up with this patient after his scope. Complained of incomplete bladder emptying and nocturia just feeling full most of the time. His PVR that I measured personally was 150. Then he came here today we discussed options he wishes to try the Flomax I told him the very minimal side effects of little lightheadedness potentially only but he is healthy and I said take an hour before bedtime and come back in a month and we will see if the feeling of incomplete bladder emptying is better stream is better than nocturia is less. The patient continues to make his wine apparently and I think he is quite healthy we will see how things go with the Flomax Follow-up With When Contact Information PURA ARCHIBALD, Vito Estrella, URL [address] [place] [address]- [phone] Additional Instructions: 1mos. f/u Patient Education Benign Prostatic Hyperplasia ISoila , personally scribed for Dr. Neves on 11/23/2021 14:14:58. . Documentation recorded by the scribe, Soila Qureshi, accurately reflects the services(s) I performed and decisions made by me. Authenticated by Dr. Neves on [Current Date and Time]. Problem List/Past Medical History Ongoing Anticoagulated Bladder cancer BMI 28.0-28.9,adult BPH with urinary obstruction COPD type A Current smoker on some days Deafness Gross hematuria Heart disease High blood pressure High cholesterol Smoker Type 2 diabetes mellitus Historical Kidney disease Thyroid cancer Procedure/Surgical History Cystoscopy (11/17/2021), Cystoscopy (08/19/2020), TURBT - Transurethral resection of bladder tumor (08/19/2020), Colonoscopy, History of thyroidectomy, Open heart surgery, Placement of stent in cardiac conduit, Tonsillectomy. Medications Advair 250 mcg-50 mcg Powder, 1 inh, Inhalation, BID, PRN albuterol, 2 puff(s), Inhalation, q8hr, PRN aspirin 81 mg oral tablet, 81 mg= 1 tab(s), Oral, Daily atorvastatin 40 mg Tab, 60 mg= 1.5 tab(s), Oral, Daily Cipro 500 mg Tab, 500 mg= 1 tab(s), Oral, As Directed lisinopril 20 mg Tab, 20 mg= 1 tab(s), Oral, BID metformin 500 mg Tab, 500 mg= 1 tab(s), Oral, Daily Metoprolol tartrate 25 mg Tab, 12.5 mg= 0.5 tab(s), Oral, BID Nitro 0.4 mg Tab, 1 tab(s), SubLingual, q5min, PRN omeprazole 20 mg Cap-DR, 20 mg= 1 cap(s), Oral, Daily potassium chloride 99 mg oral tablet, 99 mg= 1 tab(s), Oral, Daily Synthroid 112 mcg Tab, 112 mcg= 1 tab(s), Oral, Daily Vitamin C 500 mg oral tablet, chewable, 1000 mg= 2 tab(s), Chewed, BID Allergies codeine (Nausea) Social History Alcohol Current, Wine, Daily, 08/13/2020 Substance Abuse - Denies Baldwin (more content not included)... [facility] Comment on above: Result Comment: Elec tronically Signed By: Vito NEVES MD\.br\Date and Time Signed: 11/23/21 14:23 EST\.br\Electronically Co-Signed By: Soila Qureshi MA\.br\Date and Time Co-Signed: 11/23/21 14:15 EST Consent for Procedure/Surger yon 11-22-2021 Consent for Procedure/Surgery [id number]:127 [facility] IntraOperative Documentson 0 11-22-2021 IntraOperative Documents [id number]:127 Normal [facility] Consent for Treatmenton 10-30 Consent for Treatment [id number]#[id number]:127 Normal [facility] Inpatient Patient Summaryon 11-17-2021 Inpatient Patient Summary [place] [id number] Clinical Summary Person Information Name: BARAK SABILLON Age: 71 Years : 1950 Sex: Male PCP: MOLINA PACHECO DO Marital Status: Race: White Ethnicity: Non- or Language: South Sudanese Visit Id: Visit Reason: BLADDER CANCER Speciality: Acuity: Enc Type: Outpatient Med Service: Surgery Arrival: 11/17/2021 09:07:40 Discharge: Dispo Type: Address: [address] [place] [id number] Provider Notes: Diagnosis: Problems Active BMI 28.0-28.9,adult Gross hematuria Current smoker on some days BPH with urinary obstruction Bladder cancer Anticoagulated Smoker High cholesterol High blood pressure Heart disease Type 2 diabetes mellitus Deafness COPD type A Smoking Status: Functional Status: Sensory Deficits: History of Falls: Mobility Assistance Prior to Admission: ADLs: Current Level of Assistance for Self-Care/Mobility: Cognitive Status: Allergies codeine (Nausea) Laboratory or Other Results This Visit (last charted value for your 11/17/2021 visit) No Laboratory or Other Results This Visit Measurements: Height: 173 cm Weight: Blood Pressure: Not Valued / Not Valued BMI: Procedures No Procedures Documented Immunizations No Immunizations Documented This Visit Final Med List: albuterol 2 Puffs Inhalation every 8 hours as needed Shortness of breath or wheezing. ascorbic acid (Vitamin C 500 mg oral tablet, chewable) 2 Tablets Chewed 2 times a day. aspirin (aspirin 81 mg oral tablet) 1 Tablets By Mouth every day. atorvastatin (atorvastatin 40 mg Tab) 1.5 Tablets By Mouth every day. ciprofloxacin (Cipro 500 mg Tab) 1 Tablets By Mouth As Directed. Take 1 pill the day before procedure, then 1 pill after the procedure.. Refills: 0. fluticasone-salmeterol (Advair 250 mcg-50 mcg Powder) 1 Inhalation Inhalation 2 times a day as needed Shortness of breath or wheezing. levothyroxine (Synthroid 112 mcg Tab) 1 Tablets By Mouth every day. lisinopril (lisinopril 20 mg Tab) 1 Tablets By Mouth 2 times a day. metformin (metformin 500 mg Tab) 1 Tablets By Mouth every day. metoprolol (Metoprolol tartrate 25 mg Tab) 0.5 Tablets By Mouth 2 times a day. nitroglycerin (Nitro 0.4 mg Tab) 1 Tablets Sublingual every 5 minutes as needed Chest pain. omeprazole (omeprazole 20 mg Cap-DR) 1 Capsules By Mouth every day. potassium chloride (potassium chloride 99 mg oral tablet) 1 Tablets By Mouth every day. Care Team Members: Attending Physician: Vito NEVES MD Consulting Physician: Referring Physician: Vito NEVES MD Follow up: With: Address: When: Vito NEVES [address] [place] [address] [employer] () Within 5 to 7 days Type Location Start Finish State URO Office Visit [facility] 11/23/2021 2:00 PM 11/23/2021 2:15 PM Confirmed Patient Education Information: [facility] Main OR Intraoperative Recor don 11-17-2021 Main OR Intraoperative Record IntraOp Document Type FTURO Summary Primary Physician: Vito NEVES MD Finalized Date/Time: 11/17/21 10:06:58 Pt. Name: BARAK SABILLON/Sex: 1950 Male Med Rec #: [id number] Physician: Vito NEVES MD Financial #: [id number] Pt. Type: O Room/Bed: / Admit/Disch: 11/17/21 09:07:40 - Institution: Case Times FTURO Entry 1 Patient Times In Room 11/17/21 09:51:00 Out Room 11/17/21 10:07:00 Procedure Times Start 11/17/21 10:03:00 Stop 11/17/21 10:06:00 Anesthesia Times Last Modified By: Sunitha RN, CNOR, Josey Pedro 11/17/21 10:06:53 Case Attendance FTURO Entry 1 Entry 2 Entry 3 Case Attendee PURA ARCHIBALD, Vito Helton RN, CNOR, Josey Pedro [place] CST, Kelsi Venegas Role Performed Surgeon - Primary Industrial Education Instructor - Primary Scrub - Primary Time In 11/17/21 10:01:00 11/17/21 09:51:00 11/17/21 09:51:00 Time Out 11/17/21 10:07:00 11/17/21 10:07:00 11/17/21 10:07:00 Procedure CYSTOSCOPY LOCAL(.) CYSTOSCOPY LOCAL(.) CYSTOSCOPY LOCAL(.) Comments Last Modified By: Sunitha RN, BAHMANOR, Josey Helton RN, BAHMANOR, Josey Helton RN, BAHMANOR, Josey Pedro 11/17/21 10:06:54 11/17/21 10:06:54 11/17/21 10:06:54 Surgical Procedures FTURO Entry 1 Procedure Description Procedure CYSTOSCOPY LOCAL Modifiers . Surgeon Description CYSTO WITH FISH AND CYTOLOGY Primary Procedure Yes Primary Surgeon Vito NEVES MD Start 11/17/21 10:03:00 Stop 11/17/21 10:06:00 Anesthesia Type Local Surgical Service Urology Wound Class 2 - Clean-Contaminated Last Modified By: BAHMAN Helton RNOR, Josey Pedro 11/17/21 10:06:05 General Case Data FTURO Pre-Care Text: Classifies surgical wound, implements aseptic technique, initiates traffic control Entry 1 Case Information OR URO 1 FT Case Level None Wound Class 2 - Clean-Contaminated Specialty Urology Preop Diagnosis BLADDER CANCER Postop Same As Preop No Postop Diagnosis BLADDER CANCER- no Outcomes Met? Yes recurrance Last Modified By: NOELLE Helton RN, Lou Ann 11/17/21 10:05:57 Post-Care Text: The patient is free from signs and symptoms of infection EU IntraOp - FTURO Pre-Care Text: Implements protective measures prior to operative or invasive procedure, confirms identity before the operative or invasive procedure, verifies operative procedure, surgical site, and laterality Entry 1 EU Perioperative Protocols Procedure(s) CYSTOSCOPY LOCAL(.) Patient Identity ID Band Check, Patient Verified (select at Participation least 2): Consents / H and P HandP, Surgery/Procedure Operative Site N/A Verified Consent Marking Verified Surgical Site Yes Laterality Verified n/a Verified Procedure Verified Yes Correct Patient Yes Position Verified Availability Equipment, Medication Time Out Vito NEVES MD, Verified (If Participants NOELLE Helton RN, Lou Applicable) Benjy Pedro CST, Gwen E Time Out Complete 11/17/21 10:03:00 Allergies Reviewed? Yes Allergies Reviewed Self/Patient With Body Position Supine Prep Area penis Prep Agents Betadine Solution Skin. Condition Warm, Unable to Description cltohing on Visualize Additional None Specimens Collected Vitals - EU Blood Pressure 169/81 Pulse 76 bpm Respirations 16 br/min SPO2 EBL 0 IandO - EU Total Intake 0 Total Output 0 Outcomes Met? Yes Last Modified By: NOELLE Helton RN, Lou Ann 11/17/21 10:03:14 Post-Care Text: The patient is free from signs and symptoms of injury caused by extraneous objects Sign Out FTURO Entry 1 Before Patient Leaves OR Nurse verbally Yes Nurse verbally n/a confirms with the confirms with the team the name of team that the procedure(s) instrument, sponge, recorded and needle counts are correct (or N/A) Nurse verbally n/a Nurse verbally Yes confirms with the confirms with the team how the team whether there specimen is labeled are any equipment (including patient problems to be name), if applicable addressed Sign Out Complete 11/17/21 10:06:00 Last Modified By: NOELLE Helton RN, Lou Ann 11/17/21 10:06:20 Case Comments Finalized By: NOELLE Helton RN, Lou Ann Document Signatures Signed By: NOELLE Helton RN, Lou Ann 11/17/21 10:06 Normal [facility] Operative Reporton Operative Report Patient: GURMEET SABILLON Age: 71 years Sex: Male : 1950 Associated Diagnoses: None Author: Vito NEVES MD Procedure Operative Information Details: Date/ Time: 11/17/2021 10:14:00. Pre-Op Dx: BPH w/ LUTS - N40.1, Frequency - R35.0, Urgency - R39.15, Nocturia - R35.1. Post-Op Dx: Same. Anesthesia Type: Local. Procedure: Local Cystoscopy. Complications: None. Risks/Benefits/Informed Consent: Surgical risks, benefits, details of the procedure have been explained to the patient, Full informed consent has been obtained. Intraoperative Information Prepped: Patient is brought back to the endoscopy suite, Patient is placed in supine position, Patient prepped in the usual fashion with Betadine solution, 2% Xylocaine Jelly is placed per Urethra, After waiting several minutes the Cystoscope is introduced. The Urethra is: Normal. The Prostatic Urethra is: Obstructed, This patient had significant urinary outflow obstructive symptoms IPSS score of 24 patient placed in the supine position Betadine solution for prep lidocaine gel per urethra. Scope showed normal urethra and an obstructing prostate not a long prostatic fossa but right and left lobes and are intruding. In the bladder orifices x2 normal position clear flux of both and some trabeculations there is actually a small diverticuli of the posterior wall few cellules scattered no tumor no calculi mucosa normal. Patient would be a candidate potentially for Flomax or a UroLift actually I will see the patient in the office and discuss the options. The Bladder is: Trabeculated Moderate (2). The ureteral orifices: Show efflux of clear urine. Devices Implanted: None. Removal: Cystoscope is removed, The patient tolerated it well. Postoperative Information Discharge: Patient is discharged home with antibiotic coverage, Follow up arranged. Normal [facility] Comment on above: Result Comment: Elec tronically Signed By: Vito NEVES MD\.br\Date and Time Signed: 11/17/21 10:16 EST Outpatient Surgery Discharge Instructionon 11-17-2021 Outpatient Surgery Discharge Instruction [address] [address] Patient Discharge Instructions PERSON INFORMATION Name: BARAK SABILLON Date of : 1950 Current Date: 11/17/2021 10:13:40 PHYSICIANS Admitting Physician: Vito NEVES MD Comment: Discharge Diagnosis: BARAK SABILLON has been given the following list of follow-up instructions, prescriptions, and patient education materials: IF UNABLE TO CONTACT YOUR PHYSICIAN AND YOU FEEL IT IS AN EMERGENCY, GO TO THE NEAREST EMERGENCY ROOM OR CALL 911 Follow up: With: Address: When: Vito NEVES [address] [place] [address], [place] [address] Business (1) Within 5 to 7 days Type Location Start [facility] URO Office Visit [facility] 11/23/2021 2:00 PM 11/23/2021 2:15 PM Confirmed Comment: PATIENT EDUCATION INFORMATION Instructions: RIDGE Lambert WALTER L, have received the attached patient education materials/instructions and have verbalized understanding: May we do a follow up call? Yes No I was present when discharge instructions were given Patient Signature Date Clinican/Nurse Signature Date You may receive a survey from Joanne Ferguson asking you to rate your care experience. Your feedback is important and will help us understand what we do well and how we can improve the quality of care we provide to you, your loved ones and our community. It?s an honor to serve you. Thank you for choosing [facility] Normal [facility] Patient Educationon 11-17-19 Patient Education Normal [facility]ro[facility] Fish and Urine Cyt o ([facility])on 11-17-2021 [facility] Method of Extraction Voided Normal [facility] Comment on above: Performed By: #### 1 [id number] ####[facility] [address] [place] [address] [facility] Number of Jars 1 Invalid Interpretation Code [facility] Comment on above: Performed By: #### 1 [id number] ####[facility] [address] [place] [address] [facility] Specimen Urine Normal [facility] Comment on above: Performed By: #### 1 [id number] ####[facility] [address] [place] [address] [facility] Type of Service Global Normal Fish er [facility] Comment on above: Performed By: #### 1 [id number] ####[facility] [address] [place] [address] [facility] CARDIAC STRESS/REST INJE CTIONon 05-01-2019 [facility] CARDIAC STRESS/REST INJECTION Patient Name: BARAK SABILLON STUDY: MYOCARDIAL PERFUSION STRESS TEST WITH EXERCISE Performing facility: [facility], [address] [place] [address], [address], [place] [id number] [facility] Provider: José Barrett DO, [facility] PCP: Dr. BURCH INDICATION: 3 VESSEL CAD; ANGINA; HX/PTCA; EXERTIONAL SOB. HISTORY: Gender: M; Age: 68 y/o ; Height: 172.72 cm; Weight: 88.7751772 kg. HIGH CHOLESTEROL; CAD; DIABETES; S/P AK; FAMILY HX/CAD; HTN; CHEST PAIN; SOB; COPD. Quit smoking, 2 CIGARS PER DAY. PTCA on 2009-CX,DIAG,RCA;. CABG on 2008. COMPARISON: Previous nuclear testing completed [id number] AT [facility]. ACCESSION NUMBER(S): [id number]; [id number]; [id number] ORDERING CLINICIAN: DOC BARRETT TECHNIQUE: ONE DAY protocol. Stress injection: Date:05/01/19, 30.0 mCi of Myoview IV at peak exercise. Rest injection: Date: 05/01/19, 10.7 mCi of Myoview IV at rest. Imaging was performed by tomographic technique. STRESS TEST DATA: Resting heart rate was 57 BPM. Resting blood pressure was 132/80 mmHg. The patient exercised using a Rosalio exercise protocol. 4:47 minutes exercised. 85 % of MPHR achieved for age. 6.7 METS achieved. Maximum heart rate was 128 BPM. Maximum blood pressure was 180/62 mmHg. DTS -5. TEST TERMINATED DUE TO: ST changes, fatigue, chest pain, dyspne. FINDINGS: STRESS TEST RESULTS: Resting electrocardiogram revealed sinus bradycardia. There were significant ischemic ECG changes. Patient developed [address] depression inferolateral with maximal stress. There were PVCs in ventricular bigeminy. The patient did have chest pains/symptoms during the procedure. There was a normal recovery phase. IMAGING RESULTS: Image quality was good. Rest and stress tomographic images were reviewed and revealed abnormal perfusion. There was evidence of ischemia by perfusion images with small-medium area of mild-moderate inferior wall ischemia. There was small fixed perfusion defect of the basal inferior wall. There was not left ventricular dilatation with stress. Overall left ventricular systolic function appeared to be normal. There were no regional wall motion abnormalities. LVEF was 60%. TID is 0.89 and is normal. There was evidence of diaphragmatic attenuation artifact. IMPRESSION: Abnormal Lexiscan Myoview cardiac perfusion stress test. Mild-moderate inferior wall myocardial ischemia by perfusion imaging. Small basal inferior wall fixed perfusion defect. Normal left ventricular systolic function. Left ventricular ejection fraction 60 %. Patient developed inferolateral ST depression, symptoms of chest pain, and ventricular ectopy at peak exercise. Herrera treadmill score -5 Noninvasive risk stratification-intermediate risk. Electronically signed by: DO Don LOPEZ [facility] Vital Signs Date Time Vital Sign Value Performing Clinician Jaycee barger 06-21-2024 09:59-0400 Body weight 73.9 kg DO Amrita Louis Work Phone: [facility] 06-21-2024 08:56-0400 Body height 167.64 cm DO Amrita Louis Work Phone: [facility] 06-21-2024 08:56-0400 Body mass index (BMI) [Ratio] 26.3 kg/m2 DO Amrita Louis Work Phone: [facility] 06-21-2024 08:56-0400 Body temperature 97.9 [degF] DO Amrita Hancock Work Phone: [facility] 06-21-2024 08:56-0400 Diastolic blood pressure 79 mm[Hg] DO Amrita Degroh Work Phone: [facility] 06-21-2024 08:56-0400 Heart rate 70 /min DO Amrita Degroh Work Phone: [facility] 06-21-2024 08:56-0400 Respiratory rate 16 /min DO Amrita Degroh Work Phone: [facility] 06-21-2024 08:56-0400 SaO2% (BldA) [Mass fraction] 99 % DO Amrita Douglasroh Work Phone: [facility] 06-21-2024 08:56-0400 Systolic blood pressure 132 mm[Hg] DO Amrita Degroh Work Phone: [facility] 05-31-2024 11:31-0400 Body temperature 98.2 [degF] DO Amrita Douglasrocordell Work Phone: [facility] 05-31-2024 11:31-0400 Diastolic blood pressure 78 mm[Hg] DO Amrita Douglasrocordell Work Phone: [facility] 05-31-2024 11:31-0400 Heart rate 63 /min DO Amrita Douglasrocordell Work Phone: [facility] 05-31-2024 11:31-0400 Respiratory rate 18 /min DO Amrita Colerocordell Work Phone: [facility] 05-31-2024 11:31-0400 SaO2% (BldA) [Mass fraction] 96 % DO Amrita Degroh Work Phone: [facility] 05-31-2024 11:31-0400 Systolic blood pressure 139 mm[Hg] DO Amrita Degroh Work Phone: [facility] 05-17-2024 13:34-0400 Body temperature 98.5 [degF] DO Amrita Degroh Work Phone: [facility] 05-17-2024 13:34-0400 Body weight 76.2 kg DO Amrita Degroh Work Phone: [facility] 05-17-2024 13:34-0400 Diastolic blood pressure 73 mm[Hg] DO Amrita Degroh Work Phone: [facility] 05-17-2024 13:34-0400 Heart rate 74 /min DO Amrita Degroh Work Phone: [facility] 05-17-2024 13:34-0400 Respiratory rate 18 /min DO Amrita Degroh Work Phone: [facility] 05-17-2024 13:34-0400 SaO2% (BldA) [Mass fraction] 95 % DO Amrita Degroh Work Phone: [facility] 05-17-2024 13:34-0400 Systolic blood pressure 127 mm[Hg] DO Amrita Degroh Work Phone: [facility] 05-10-2024 14:25-0400 Diastolic blood pressure 72 mm[Hg] DO Amrita Degroh Work Phone: [facility] 05-10-2024 14:25-0400 Heart rate 67 /min DO Amrita Degroh Work Phone: [facility] 05-10-2024 14:25-0400 Respiratory rate 18 /min DO Amrita Degroh Work Phone: [facility] 05-10-2024 14:25-0400 SaO2% (BldA) [Mass fraction] 94 % DO Amrita Degroh Work Phone: [facility] 05-10-2024 14:25-0400 Systolic blood pressure 134 mm[Hg] DO Amrita Degroh Work Phone: [facility] 05-10-2024 11:35-0400 Body temperature 98.4 [degF] DO Amrita Degroh Work Phone: [facility] 04-30-2024 10:40-0400 Body height 167.64 cm DO Amrita Douglasrocordell Work Phone: [facility] 04-30-2024 10:40-0400 Body mass index (BMI) [Ratio] 27 kg/m2 DO Amrita Degroh Work Phone: [facility] 04-30-2024 10:40-0400 Body temperature 97.6 [degF] DO Amrita Degroh Work Phone: [facility] 04-30-2024 10:40-0400 Body weight 76 kg DO Amrita Degroh Work Phone: [facility] 04-30-2024 10:40-0400 Diastolic blood pressure 62 mm[Hg] DO Amrita Douglasroh Work Phone: [facility] 04-30-2024 10:40-0400 Heart rate 61 /min DO Amrita Douglasroh Work Phone: [facility] 04-30-2024 10:40-0400 Respiratory rate 16 /min DO Amrita Douglasrocordell Work Phone: [facility] 04-30-2024 10:40-0400 SaO2% (BldA) [Mass fraction] 98 % DO Amrita Douglasroh Work Phone: [facility] 04-30-2024 10:40-0400 Systolic blood pressure 110 mm[Hg] DO Amrita Degroh Work Phone: [facility] 04-15-2024 13:00-0400 Body height 167.64 cm DO Amrita Degroh Work Phone: [facility] 04-15-2024 13:00-0400 Body mass index (BMI) [Ratio] 27.1 kg/m2 DO Amrita Degroh Work Phone: [facility] 04-15-2024 13:00-0400 Body temperature 98.6 [degF] DO Amrita Degroh Work Phone: [facility] 04-15-2024 13:00-0400 Body weight 76.2 kg DO Amrita Degroh Work Phone: [facility] 04-15-2024 13:00-0400 Diastolic blood pressure 81 mm[Hg] DO Amrita Degroh Work Phone: [facility] 04-15-2024 13:00-0400 Heart rate 64 /min DO Amrita Degroh Work Phone: [facility] 04-15-2024 13:00-0400 Respiratory rate 16 /min DO Amrita Degroh Work Phone: [facility] 04-15-2024 13:00-0400 SaO2% (BldA) [Mass fraction] 98 % DO Amrita Degroh Work Phone: [facility] 04-15-2024 13:00-0400 Systolic blood pressure 165 mm[Hg] DO Amrita Degroh Work Phone: [facility] 03-04-2024 13:43-0400 Body temperature 97.9 [degF] DO Amrita Degroh Work Phone: [facility] 03-04-2024 13:43-0400 Body weight 77.11 kg DO Amrita Degroh Work Phone: [facility] 03-04-2024 13:43-0400 Diastolic blood pressure 79 mm[Hg] DO Amrita Degroh Work Phone: [facility] 03-04-2024 13:43-0400 Heart rate 72 /min DO Amrita Degroh Work Phone: [facility] 03-04-2024 13:43-0400 Respiratory rate 16 /min DO Amrita Degroh Work Phone: [facility] 03-04-2024 13:43-0400 SaO2% (BldA) [Mass fraction] 94 % DO Amrita Degroh Work Phone: [facility] 03-04-2024 13:43-0400 Systolic blood pressure 162 mm[Hg] DO Amrita Degroh Work Phone: [facility] 02-19-2024 14:36-0400 Body height 167.64 cm DO Amrita Degroh Work Phone: [facility] 02-19-2024 14:36-0400 Body mass index (BMI) [Ratio] 27.4 kg/m2 DO Amrita Colerocordell Work Phone: [facility] 02-19-2024 14:36-0400 Body temperature 98 [degF] DO Amrita Colerocordell Work Phone: [facility] 02-19-2024 14:36-0400 Body weight 77.11 kg DO Amrita Colerocordell Work Phone: [facility] 02-19-2024 14:36-0400 Diastolic blood pressure 67 mm[Hg] DO Amrita Colerocordell Work Phone: [facility] 02-19-2024 14:36-0400 Heart rate 64 /min DO Amrita Colerocordell Work Phone: [facility] 02-19-2024 14:36-0400 Respiratory rate 18 /min DO Amrita Colerocordell Work Phone: [facility] 02-19-2024 14:36-0400 SaO2% (BldA) [Mass fraction] 96 % DO Amrita Colerocordell Work Phone: [facility] 02-19-2024 14:36-0400 Systolic blood pressure 140 mm[Hg] DO Amrita Degroh Work Phone: [facility] 02-05-2024 13:00-0400 Diastolic blood pressure 67 mm[Hg] DO Amrita Degroh Work Phone: [facility] 02-05-2024 13:00-0400 Heart rate 70 /min DO Amrita Degroh Work Phone: [facility] 02-05-2024 13:00-0400 Respiratory rate 16 /min DO Amrita Louis Work Phone: [facility] 02-05-2024 13:00-0400 SaO2% (BldA) [Mass fraction] 93 % DO Amrita Louis Work Phone: [facility] 02-05-2024 13:00-0400 Systolic blood pressure 132 mm[Hg] DO Amrita Louis Work Phone: [facility] 02-05-2024 12:20-0400 Body temperature 98 [degF] DO Amrita Louis Work Phone: [facility] 02-05-2024 11:50-0400 Inhaled oxygen flow rate 6 L/min DO Amrita Louis Work Phone: [facility] 02-05-2024 09:44-0400 Body height 167.64 cm DO Amrita Louis Work Phone: [facility] 02-05-2024 09:44-0400 Body mass index (BMI) [Ratio] 27.2 kg/m2 DO Amrita Louis Work Phone: [facility] 02-05-2024 09:44-0400 Body weight 76.6 kg DO Amrita Louis Work Phone: [facility] 01-30-2024 15:16-0400 Body height 170.18 cm DO Amrita Louis Work Phone: [facility] 01-30-2024 15:16-0400 Body mass index (BMI) [Ratio] 26.2 kg/m2 DO Amrita Louis Work Phone: [facility] 01-30-2024 15:16-0400 Body temperature 98.4 [degF] DO Amrita Louis Work Phone: [facility] 01-30-2024 15:16-0400 Body weight 75.86 kg DO Amrita Louis Work Phone: [facility] 01-30-2024 15:16-0400 Diastolic blood pressure 81 mm[Hg] DO Amrita Louis Work Phone: [facility] 01-30-2024 15:16-0400 Heart rate 67 /min DO Amrita Louis Work Phone: [facility] 01-30-2024 15:16-0400 Respiratory rate 20 /min DO Amrita Louis Work Phone: [facility] 01-30-2024 15:16-0400 SaO2% (BldA) [Mass fraction] 95 % DO Amrita Louis Work Phone: [facility] 01-30-2024 15:16-0400 Systolic blood pressure 160 mm[Hg] DO Amrita Louis Work Phone: [facility] 10-04-2023 09:15-0500 Body height 170.18 cm Cordelia Lundleola Other [facility] 10-04-2023 09:15-0500 Body mass index (BMI) [Ratio] 26.31 kg/m2 Jorgeluis Agarwal Other [employer] [facility] [employer] Other 10-04-2023 09:15-0500 Body temperature 97.4 [degF] Cordelia Agarwal Other [employer] Other 10-04-2023 09:15-0500 Body weight 76.2 kg Cordelia Agarwal Other [facility] 10-04-2023 09:15-0500 Diastolic blood pressure 76 mm[Hg] Cordelia Lundban Other [facility] 10-04-2023 09:15-0500 Respiratory rate 20 /min Cordelia Agarwal Other [employer] Other 10-04-2023 09:15-0500 SaO2% (BldA) [Mass fraction] 94 % Cordelia Agarwal Other [employer] Other 10-04-2023 09:15-0500 Systolic blood pressure 154 mm[Hg] Cordelia Agarwal Other [facility] 09-06-2023 11:41-0500 Body height 167.6 cm Doc Barrett DO Work Phone: [facility] 09-06-2023 11:41-0500 Body mass index (BMI) [Ratio] 27.44 kg/m2 Doc Barrett DO Work Phone: [facility] 09-06-2023 11:41-0500 Body weight 77.11 kg Doc Barrett [employer] Work Phone: [facility] 09-06-2023 11:41-0500 Diastolic blood pressure 60 mm[Hg] Doc Barrett DO Work Phone: [facility] 09-06-2023 11:41-0500 Heart rate 60 /min Doc Barrett [employer] Work Phone: [facility] 09-06-2023 11:41-0500 Systolic blood pressure 140 mm[Hg] Doc Barrett DO Work Phone: [facility] 07-11-2023 09:15-0400 Body height 170.18 cm Cordelia Agarwal Other [employer] Other 07-11-2023 09:15-0400 Body mass index (BMI) [Ratio] 26.47 kg/m2 Cordelia Agarwal Other [employer] Other 07-11-2023 09:15-0400 Body temperature 98.4 [degF] Cordelia Agarwal Other [employer] Other 07-11-2023 09:15-0400 Body weight 76.66 kg Cordelia Agarwal Other [employer] Other 07-11-2023 09:15-0400 Diastolic blood pressure 76 mm[Hg] Cordelia Agarwal Other [employer] Other 07-11-2023 09:15-0400 Respiratory rate 20 /min Cordelia Agarwal Other [employer] Other 07-11-2023 09:15-0400 SaO2% (BldA) [Mass fraction] 96 % Cordelia Agarwal Other [employer] Other 07-11-2023 09:15-0400 Systolic blood pressure 132 mm[Hg] Cordelia Agarwal Other [employer] Other 05-09-2023 11:55-0400 Body height 172.72 cm Molina Pacheco Work Phone: [facility] [employer] 250 DO Work Phone: 05-09-2023 11:55-0400 Body mass index (BMI) [Ratio] 26.46 kg/m2 Molina Pacheco Work Phone: [facility] [employer] 250 DO Work Phone: 05-09-2023 11:55-0400 Body surface area Derived from formula 1.93 m2 Molina Pacheco Work Phone: [facility] [employer] 250 DO Work Phone: 05-09-2023 11:55-0400 Body weight 78.93 kg Molina Pacheco Work Phone: [facility] [employer] 250 DO Work Phone: 07-11-2023 11:55-0400 Diastolic blood pressure 70 mm[Hg] Molina Pacheco Work Phone: [facility] [employer] 250 DO Work Phone: 05-09-2023 11:55-0400 Heart rate 74 /min Molina Pacheco Work Phone: [facility] [employer] 250 DO Work Phone: 05-09-2023 11:55-0400 Systolic blood pressure 138 mm[Hg] Molina Pacheco Work Phone: [facility] [employer] 250 DO Work Phone: 04-25-2023 11:00-0400 Body height 170.18 cm Mihaela Palomo Other [employer] Other 04-25-2023 11:00-0400 Body mass index (BMI) [Ratio] 28.19 kg/m2 Mihaela Palomo Other [employer] Other 04-25-2023 11:00-0400 Body temperature 97.9 [degF] Mihaela Palomo Other [employer] Other 04-25-2023 11:00-0400 Body weight 81.65 kg Mihaela Palomo Other [employer] Other 04-25-2023 11:00-0400 Diastolic blood pressure 72 mm[Hg] Mihaela Palomo Other [employer] Other 04-25-2023 11:00-0400 SaO2% (BldA) [Mass fraction] 97 % Mihaela Palomo Other [employer] Other 04-25-2023 11:00-0400 Systolic blood pressure 144 mm[Hg] Mihaela Palomo Other [facility] [employer] Other 04-19-2023 10:26-0400 Body height 172.72 cm Molina Pacheco Work Phone: [facility] 250 DO Work Phone: 04-19-2023 10:26-0400 Body mass index (BMI) [Ratio] 26.3 kg/m2 Molina Pacheco Work Phone: [facility] 250 DO Work Phone: 04-19-2023 10:26-0400 Body surface area Derived from formula 1.92 m2 Molina Pacheco Work Phone: [facility] 250 DO Work Phone: 04-19-2023 10:26-0400 Body weight 78.47 kg Molina Pacheco Work Phone: [facility] 250 DO Work Phone: 04-19-2023 10:26-0400 Diastolic blood pressure 74 mm[Hg] Molina Pacheco Work Phone: [facility] 250 DO Work Phone: 04-19-2023 10:26-0400 Heart rate 72 /min Molina Pacheco Work Phone: [facility] 250 DO Work Phone: 04-19-2023 10:26-0400 Systolic blood pressure 130 mm[Hg] Molina Pacheco Work Phone: [facility] 250 DO Work Phone: 03-07-2023 11:34-0400 Diastolic blood pressure 72 mm[Hg] Molina Pacheco Work Phone: [facility] 250 DO Work Phone: 03-07-2023 11:34-0400 Systolic blood pressure 160 mm[Hg] Molina Pacheco Work Phone: [facility] 250 DO Work Phone: 03-07-2023 10:49-0400 Diastolic blood pressure 102 mm[Hg] Molina Pacheco Work Phone: [facility] 250 DO Work Phone: 03-07-2023 10:49-0400 Diastolic blood pressure 98 mm[Hg] Molina Pacheco Work Phone: [facility] 250 DO Work Phone: 03-07-2023 10:49-0400 Systolic blood pressure 178 mm[Hg] Molina Pacheco Work Phone: [facility] 250 DO Work Phone: 03-07-2023 10:46-0400 Body height 172.72 cm Molina Pacheco Work Phone: [facility] 250 DO Work Phone: 03-07-2023 10:46-0400 Body mass index (BMI) [Ratio] 26.15 kg/m2 Molina Pacheco Work Phone: [facility] 250 DO Work Phone: 03-07-2023 10:46-0400 Body surface area Derived from formula 1.92 m2 Molina Pacheco Work Phone: [facility] 250 DO Work Phone: 03-07-2023 10:46-0400 Body weight 78.02 kg Molina Pacheco Work Phone: [facility] 250 DO Work Phone: 03-07-2023 10:46-0400 Diastolic blood pressure 102 mm[Hg] Molina Pacheco Work Phone: [facility] 250 DO Work Phone: 03-07-2023 10:46-0400 Heart rate 78 /min Molina Pacheco Work Phone: [facility] 250 DO Work Phone: 03-07-2023 10:46-0400 Systolic blood pressure 178 mm[Hg] Molina Pacheco Work Phone: [facility] 250 DO Work Phone: 09-27-2022 11:41-0500 Body height 172.72 cm Molina Pacheco Work Phone: [facility] 250 DO Work Phone: 09-27-2022 11:41-0500 Body mass index (BMI) [Ratio] 26.61 kg/m2 Molina Ledbetterman Work Phone: [facility] 250 DO Work Phone: 09-27-2022 11:41-0500 Body surface area Derived from formula 1.93 m2 Molina Pacheco Work Phone: [facility] 250 DO Work Phone: 09-27-2022 11:41-0500 Body weight 79.38 kg Molina Pacheco Work Phone: [facility] 250 DO Work Phone: 09-27-2022 11:41-0500 Diastolic blood pressure 84 mm[Hg] Molina Pacheco Work Phone: [facility] 250 DO Work Phone: 09-27-2022 11:41-0500 Heart rate 72 /min Molina Pacheco Work Phone: [facility] 250 DO Work Phone: 09-27-2022 11:41-0500 Systolic blood pressure 138 mm[Hg] Molina Pacheco Work Phone: [facility] 250 DO Work Phone: 08-18-2022 09:02-0400 Diastolic blood pressure 76 mm[Hg] Molina Pacheco Work Phone: [facility] 250 DO Work Phone: 08-18-2022 09:02-0400 Systolic blood pressure 136 mm[Hg] Molina Pacheco Work Phone: [facility] 250 DO Work Phone: 08-18-2022 08:47-0400 Body height 172.72 cm Molina Pacheco Work Phone: [facility] 250 DO Work Phone: 08-18-2022 08:47-0400 Body mass index (BMI) [Ratio] 26.91 kg/m2 Molina Pacheco Work Phone: [facility] 250 DO Work Phone: 08-18-2022 08:47-0400 Body surface area Derived from formula 1.94 m2 Molina Pacheco Work Phone: [facility] 250 DO Work Phone: 08-18-2022 08:47-0400 Body weight 80.29 kg Molina Pacheco Work Phone: [facility] 250 DO Work Phone: 08-18-2022 08:47-0400 Diastolic blood pressure 88 mm[Hg] Molina Pacheco Work Phone: [facility] 250 DO Work Phone: 08-18-2022 08:47-0400 Heart rate 70 /min Molina Ledbetterman Work Phone: [facility] 250 DO Work Phone: 08-18-2022 08:47-0400 Systolic blood pressure 140 mm[Hg] Molina Ledbetterman Work Phone: [facility] 250 DO Work Phone: 08-10-2022 14:11-0400 Body height 172.72 cm Molina Ledbetterman Work Phone: [facility] 250 DO Work Phone: 08-10-2022 14:11-0400 Body mass index (BMI) [Ratio] 26.91 kg/m2 Molina Ledbetterman Work Phone: [facility] 250 DO Work Phone: 08-10-2022 14:11-0400 Body surface area Derived from formula 1.94 m2 Molina Ledbetterman Work Phone: [facility] 250 DO Work Phone: 08-10-2022 14:11-0400 Body weight 80.29 kg Molina Ledbetterman Work Phone: [facility] 250 DO Work Phone: 08-10-2022 14:11-0400 Diastolic blood pressure 74 mm[Hg] Molina Ledbetterman Work Phone: [facility] 250 DO Work Phone: 08-10-2022 14:11-0400 Heart rate 72 /min Molina Ledbetterman Work Phone: [facility] 250 DO Work Phone: 08-10-2022 14:11-0400 Systolic blood pressure 136 mm[Hg] Molina Ledbetterman Work Phone: [facility] 250 DO Work Phone: 07-14-2022 19:36-0400 Body temperature 98.2 [degF] DO Molina Pacheco Work Phone: [facility] 07-14-2022 19:36-0400 Diastolic blood pressure 76 mm[Hg] DO Molina Pacheco Work Phone: [facility] 07-14-2022 19:36-0400 Heart rate 63 /min DO Molina Pacheco Work Phone: [facility] 07-14-2022 19:36-0400 Respiratory rate 16 /min DO Molina Pacheco Work Phone: [facility] 07-14-2022 19:36-0400 SaO2% (BldA) [Mass fraction] 95 % DO Molina Pacheco Work Phone: [facility] 07-14-2022 19:36-0400 Systolic blood pressure 154 mm[Hg] DO Molina Pacheco Work Phone: [facility] 07-14-2022 11:20-0400 Body height 172.72 cm DO Molina Pacheco Work Phone: [facility] 07-14-2022 11:20-0400 Body weight 79.1 kg DO Molina Pacheco Work Phone: [facility] 07-12-2022 10:01-0400 Body height 172.72 cm Molina Pacheco Work Phone: [facility] 250 DO Work Phone: 07-12-2022 10:01-0400 Body mass index (BMI) [Ratio] 27.07 kg/m2 Molina Pacheco Work Phone: [facility] 250 DO Work Phone: 07-12-2022 10:01-0400 Body surface area Derived from formula 1.95 m2 Molina Pacheco Work Phone: [facility] [employer] 250 DO Work Phone: 07-12-2022 10:01-0400 Body weight 80.74 kg Molina Pacheco Work Phone: [facility] 250 DO Work Phone: 07-12-2022 10:01-0400 Diastolic blood pressure 82 mm[Hg] Molina Pacheco Work Phone: [facility] [employer] 250 DO Work Phone: 07-12-2022 10:01-0400 Heart rate 70 /min Molina Pacheco Work Phone: [facility] [employer] 250 DO Work Phone: 07-12-2022 10:01-0400 Systolic blood pressure 144 mm[Hg] Molina Pacheco Work Phone: [facility] [employer] 250 DO Work Phone: 05-19-2022 11:15-0400 Body height 170.18 cm Clif Dorado Other [facility] [employer] Other 05-19-2022 11:15-0400 Body mass index (BMI) [Ratio] 28.19 kg/m2 Clif Dorado Other [employer] Other 05-19-2022 11:15-0400 Body temperature 98 [degF] Clif Dorado Other [employer] Other 05-19-2022 11:15-0400 Body weight 81.65 kg Clif Dorado Other [employer] Other 05-19-2022 11:15-0400 Diastolic blood pressure 80 mm[Hg] Clif Dorado Other [employer] Other 05-19-2022 11:15-0400 Respiratory rate 20 /min Herberthaparna Funo Other [employer] Other 05-19-2022 11:15-0400 SaO2% (BldA) [Mass fraction] 96 % Herberthaparna Dorado Other [employer] Other 05-19-2022 11:15-0400 Systolic blood pressure 160 mm[Hg] Herberthaparna Funo Other [employer] Other 11-18-2021 12:30-0500 Body height 170.18 cm Cordelia Lundleola Other [employer] Other 11-18-2021 12:30-0500 Body mass index (BMI) [Ratio] 29.75 kg/m2 Cordelia Agarwal Other [employer] Other 11-18-2021 12:30-0500 Body temperature 96.8 [degF] Crodelia Agarwal Other [employer] Other 11-18-2021 12:30-0500 Body weight 86.18 kg Cordelia Lundban Other [employer] Other 11-18-2021 12:30-0500 Diastolic blood pressure 84 mm[Hg] Cordelia Lundban Other [employer] Other 11-18-2021 12:30-0500 Respiratory rate 20 /min Cordelia Lundban Other [employer] Other 11-18-2021 12:30-0500 SaO2% (BldA) [Mass fraction] 97 % Cordelia Agarwal Other [employer] Other 11-18-2021 12:30-0500 Systolic blood pressure 150 mm[Hg] Cordelia Agarwal Other [employer] Other 10-25-2021 13:00-0500 Body height 170.18 cm Mihaela Palomo Other [employer] Other 10-25-2021 13:00-0500 Body mass index (BMI) [Ratio] 29.44 kg/m2 Mihaela Palomo Other [employer] Other 10-25-2021 13:00-0500 Body temperature 98.3 [degF] Mihaela Palomo Other [employer] Other 10-25-2021 13:00-0500 Body weight 85.28 kg Mihaela Stacia Other [employer] Other 10-25-2021 13:00-0500 Diastolic blood pressure 84 mm[Hg] Mihaela Palomo Other [employer] Other 10-25-2021 13:00-0500 SaO2% (BldA) [Mass fraction] 93 % Mihaela Palomo Other [employer] Other 10-25-2021 13:00-0500 Systolic blood pressure 146 mm[Hg] Mihaela Palomo Other [employer] Other 09-28-2021 12:30-0500 Body height 170.18 cm Molina Palmer Other [employer] Other 09-28-2021 12:30-0500 Body mass index (BMI) [Ratio] 29.13 kg/m2 Molina Nealrer Other [employer] Other 09-28-2021 12:30-0500 Body temperature 97.5 [degF] Molina Guerinehrer Other [employer] Other 09-28-2021 12:30-0500 Body weight 84.37 kg Molina Nealrer Other [employer] Other 09-28-2021 12:30-0500 Diastolic blood pressure 80 mm[Hg] Molina Nealrer Other [employer] Other 09-28-2021 12:30-0500 SaO2% (BldA) [Mass fraction] 96 % Molina Nealrer Other [employer] Other 09-28-2021 12:30-0500 Systolic blood pressure 150 mm[Hg] Molina Buehrer Other [employer] Other 07-29-2021 12:15-0400 Body height 170.18 cm Cordelia Agarwal Other [employer] Other 07-29-2021 12:15-0400 Body mass index (BMI) [Ratio] 29.29 kg/m2 Cordelia Agarwal Other [employer] Other 07-29-2021 12:15-0400 Body temperature 98 [degF] Cordelia Agarwal Other [employer] Other 07-29-2021 12:15-0400 Body weight 84.82 kg Cordelia Agarwal Other [employer] Other 07-29-2021 12:15-0400 Diastolic blood pressure 82 mm[Hg] Cordelia Agarwal Other [employer] Other 07-29-2021 12:15-0400 Respiratory rate 20 /min Cordelia Agarwal Other [employer] Other 07-29-2021 12:15-0400 SaO2% (BldA) [Mass fraction] 96 % Cordelia Agarwal Other [employer] Other 07-29-2021 12:15-0400 Systolic blood pressure 140 mm[Hg] Cordelia Agarwal Other [employer] Other Encounters Encounter Date Encounter Type Care Provider Facility Start: 06-21-2024 Registered Recurring DO [facility]rit[facility] Work [facility]: Start: 06-21-2024 End: 06-21-2024 ambulatory DO Amrita Mendez Con Work Phone: [facility] Work Phone: Start: 06-21-2024 End: 06-21-2024 Patient encounter procedure DO Amrita Hancockcordell Work Phone: [facility] Work Phone: Start: 05-17-2024 End: 05-17-2024 ambulatory DO Amrita Hancockcordell Work Phone: [facility] Work Phone: Start: 05-17-2024 End: 05-17-2024 Patient encounter procedure DO Amrita Louis Work Phone: [facility] Work Phone: Start: 05-17-2024 Registered Recurring DO Amrita Louis Work Phone: [facility] Work Phone: Start: 05-17-2024 ambulatory Amrita Louis Facility :[facility] Start: 05-08-2024 End: 05-08-2024 ambulatory [facility] Start: 05-07-2024 End: 05-07-2024 ambulatory [facility] Start: 04-30-2024 End: 04-30-2024 ambulatory DO Amrita Louis Work Phone: [facility] Work Phone: Start: 04-30-2024 End: 04-30-2024 Patient encounter procedure DO Amrita Louis Work Phone: [facility] Work Phone: Start: 04-16-2024 End: 04-16-2024 ambulatory DO Amrita Louis Work Phone: [facility] Work Phone: Start: 04-16-2024 End: 04-16-2024 Patient encounter procedure DO Amrita Louis Work Phone: [facility] Work Phone: Start: 04-15-2024 Registered Recurring DO Amrita Louis [facility] Work Phone: Start: 04-15-2024 End: 04-15-2024 ambulatory DO Amrita Louis Work Phone: [facility] Work Phone: Start: 04-15-2024 End: 04-15-2024 Patient encounter procedure DO Amrita Louis Work Phone: [facility] Work Phone: Start: 04-15-2024 Registered Recurring DO Amrita Louis [facility] Work Phone: Start: 03-27-2024 End: 03-29-2024 ambulatory AMRITA LOUIS [facility] Start: 03-04-2024 End: 03-04-2024 ambulatory DO Amrita Louis Work Phone: [facility] Work Phone: Start: 03-04-2024 End: 03-04-2024 Patient encounter procedure DO [facility] Work [facility]: Start: 03-04-2024 Registered Recurring DO Amrita Louis Work Phone: [facility] Work Phone: Start: 02-19-2024 Registered Recurring DO Amrita Louis [facility] Work Phone: Start: 02-19-2024 End: 02-19-2024 ambulatory DO Amrita Louis Work Phone: [facility] Work Phone: Start: 02-19-2024 End: 02-19-2024 Patient encounter procedure DO Amrita Louis [facility] Work Phone: Start: 02-05-2024 Non-patient / Non-visit DO Spencer mason Con Work Phone: [facility] Work Phone: Start: 02-05-2024 End: 02-05-2024 Admission to same day surgery center DO Amrita Louis [facility] [place] Start: 02-05-2024 End: 02-05-2024 ambulatory DO Amrita Louis Work Phone: [facility] Work Phone: Start: 02-02-2024 End: 02-02-2024 Patient encounter procedure DO Amrita Louis Work Phone: [facility] Work Phone: Start: 02-02-2024 End: 02-02-2024 ambulatory DO Amrita Louis Work Phone: [facility] Work Phone: Start: 02-02-2024 Encounter for preprocedural laboratory examination Clif Dorado [facility] Start: 01-30-2024 End: 01-30-2024 ambulatory DO Amrita Louis Work Phone: [facility] Work Phone: Start: 01-30-2024 End: 01-30-2024 Patient encounter procedure DO Amrita Louis Work Phone: [facility] Work Phone: Start: 01-29-2024 End: 01-29-2024 Patient encounter procedure DO Amrita Louis Work Phone: [facility]Pet Scan Work Phone: Start: 01-29-2024 End: 01-29-2024 ambulatory DO Amrita Louis Work Phone: [facility] Work Phone: Start: 01-16-2024 End: 01-16-2024 Patient encounter procedure DO Amrita Louis Work Phone: [facility] [address] Work Phone: Start: 01-16-2024 End: 01-16-2024 ambulatory DO Amrita Andrea Colerocordell Work Phone: [facility] Work Phone: Start: 12-21-2023 End: 12-21-2023 ambulatory DO Amrita Louis Work Phone: [facility] Work Phone: Start: 12-21-2023 End: 12-21-2023 Patient encounter procedure DO Amrita Louis Work Phone: [facility]-Lab [place] Work Phone: Start: 10-09-2023 End: 10-09-2023 ambulatory MOLINA Dee PACHECO Not Available Start: 10-04-2023 End: 10-04-2023 ambulatory Kamluis Chaban Other [employer] Other Start: 10-04-2023 Office outpatient vi sit 15 minutes Kamal Chaban [facility] Start: 10-04-2023 End: 10-04-2023 Patient encounter procedure DO Amrita Louis Work Phone: [facility] Work Phone: Start: 09-06-2023 End: 09-06-2023 Office outpatient visit 15 minutes Doc Barrett DO Work Phone: [facility] Comment on above: 3-vessel CAD; History of coronary artery bypass graft; History of PTCA; Mixed hyperlipidemia; Essential hypertension; Stenosis of right carotid artery; Type 2 diabetes mellitus without complication, without long-term current use of insulin ([facility]); Acquired hypothyroidism; Chronic obstructive pulmonary disease, unspecified COPD type ([facility]); Current smoker on some days; Overweight (BMI 25.0-29.9); Angina, class II (CMS/HCC); Lightheadedness Start: 09-06-2023 End: 09-06-2023 ambulatory DOC BARRETT [facility] Start: 08-28-2023 End: 08-28-2023 ambulatory Kamal Chaban Other [employer] Other Start: 08-28-2023 Telephone encounter Kamluis Chaban [facility] Start: 08-25-2023 ambulatory Larisa MAGAÑA RN.TOOL REPAIR TECHNICIAN Work Phone: Pulmonary Medicine Comment on above: Nodule Start: 08-25-2023 Telephone encounter Larisa Sandoval i PATIENT PORTAL REPRESENTATIVE.TOOL REPAIR TECHNICIAN Work Phone: [facility] Comment on above: Patient Update ([facility] elled bronchoscopy ) Start: 08-15-2023 ambulatory Larisa MAGAÑA RN.TOOL REPAIR TECHNICIAN Work Phone: Pulmonary Medicine Comment on above: Bronchoscopy Schedul ing- CLEARED- Robot Candidate (Initial Bronch Request ) Start: 08-15-2023 Telephone encounter Franc Ewing Admitting Comment on above: Appointment; Care Co ordinator - Other Start: 08-11-2023 Telephone encounter Parvin Riddle RN Pulmonary Medicine Comment on above: CARDIAC CLEARANCE IN FO Start: 08-04-2023 End: 08-05-2023 ambulatory LARISA SANDOVALPetra Facility:[facility] Start: 08-03-2023 Telephone encounter Larisa Sandoval i, APRN.TOOL REPAIR TECHNICIAN Work Phone: Pulmonary Medicine Comment on above: Outside Lab Results Start: 08-03-2023 End: 08-03-2023 Patient encounter procedure DO Molina Pacheco Work Phone: [facility] [place] Work Phone: Start: 08-03-2023 End: 08-03-2023 ambulatory DO Molina Pacheco Work Phone: [facility] Work Phone: Start: 07-17-2023 End: 07-17-2023 ambulatory Cordelia Agarwal Other [employer] Other Start: 07-17-2023 Encounter by Symplified rey Agarwal [facility] Start: 07-16-2023 End: 07-16-2023 ambulatory Cordelia Agarwal Other [employer] Other Start: 07-16-2023 Encounter by Symplified rey Agarwal [facility] Start: 07-14-2023 End: 07-14-2023 ambulatory Cordelia Agarwal Other [facility] Other Start: 07-14-2023 Encounter by jesi le Cordelia Agarwal [facility] Start: 07-11-2023 End: 07-11-2023 ambulatory Cordelia Agarwal Other [employer] Other Start: 07-11-2023 Office outpatient vi sit 25 minutes Cordelia Agarwal [facility] Start: 06-27-2023 End: 06-27-2023 ambulatory DO Molina Sara Work Phone: [facility] Work Phone: Start: 06-27-2023 End: 06-27-2023 Patient encounter procedure DO Molina Pacheco Work Phone: [facility] [address] Work Phone: Start: 05-09-2023 Office outpatient vi sit 15 minutes Molina A Sraa Work Phone: [facility] 250 DO Work Phone: Start: 05-09-[address] Doc Barrett Facility: Start: 04-25-2023 End: 04-25-2023 ambulatory Mihaela Palomo Other [facility] Other Start: 04-25-2023 End: 04-25-2023 Patient encounter procedure Mihaela Palomo [facility] Start: 04-19-2023 Office outpatient vi sit 25 minutes Molina A Sara Work Phone: [facility] 250 DO Work Phone: Start: 04-19-2023 ambulatory Ms. Joanie Sparks Facility: Start: 03-15-2023 End: 03-15-[address] HENOK WILLIS . Facility: Start: 03-07-2023 Office outpatient vi sit 40 minutes Molina A Sara Work Phone: [facility] 250 DO Work Phone: Start: 03-07-[address] Doc Barrett Facility: Start: 11-01-2022 End: 11-01-2022 ambulatory Cordelia Agarwal Other [facility] Other Start: 11-01-2022 Encounter by jesi Agarwal [facility] Start: 09-27-2022 Office outpatient vi sit 25 minutes Molina Pacheco Work Phone: [facility] 250 DO Work Phone: Start: 09-27-[address] Doc Barrett Facility: Start: 08-29-2022 Chart Update Molina meehan Work Phone: [facility] 250 DO Work Phone: Start: 08-24-2022 End: 08-24-2022 ambulatory DO Molina Pacheco Work Phone: [facility] Work Phone: Start: 08-24-2022 End: 08-24-2022 Patient encounter procedure DO Molina Pacheco Work Phone: [facility] Mvw-Kbh-Bvnrziis Testing Start: 08-19-2022 End: 08-19-2022 ambulatory DO Molina Pacheco Work Phone: [facility] Work Phone: Start: 08-19-2022 End: 08-19-2022 Patient encounter procedure DO Molina Pacheco Work Phone: [facility] Ofe-Ryf-Surgclas Testing Start: 08-18-2022 Office outpatient vi sit 40 minutes Molina Pacheco Work Phone: [facility] 250 DO Work Phone: Start: 08-17-2022 End: 08-17-2022 ambulatory Cordelia Agarwal Other [employer] Other Start: 08-17-2022 Encounter by [employer] Cordelia Agarwal [facility] Start: 08-10-2022 Office outpatient vi sit 25 minutes Molina Pacheco Work Phone: [facility] 250 DO Work Phone: Start: 08-01-2022 Rx Renewal Molina meehan Work Phone: [facility] DO Work Phone: Start: 07-15-2022 End: 07-15-2022 ambulatory Cordelia Agarwal Other [employer] Other Start: 07-15-2022 Encounter by [employer] Cordelia Agarwal [facility] Doc [facility], Status: Pen, Time: 1:00 PM Molina Pacheco Work Phone: [facility] 250 DO Work Phone: Start: 07-14-2022 End: 07-14-2022 Admission to same day surgery center DO Molina Pacheco Work Phone: [facility]-[employer] Start: 07-13-2022 Chart Update Molina meehan Work Phone: [facility] 250 DO Work Phone: Start: 07-13-2022 End: 07-13-2022 Patient encounter procedure DO Molina Pcaheco Work Phone: [facility]-Pre-Surgical Testing Start: 07-12-2022 Office outpatient vi sit 40 minutes Molina Pacheco Work Phone: [facility] DO Work Phone: Start: 06-29-2022 End: 06-29-2022 Patient encounter procedure DO Molina Ledbetterman Work Phone: [facility] [place] Start: 06-23-2022 End: 06-23-2022 Patient encounter procedure DO Molina Pacheco Work Phone: [facility] Start: 05-19-2022 End: 05-19-2022 ambulatory Christaparna Funo Other [employer] Other Start: 05-19-2022 Office outpatient vi sit 25 minutes Christopher Estrada [facility] Start: 05-11-2022 End: 05-11-2022 Patient encounter procedure DO Molinafrancisco j Pacheco Work Phone: [facility]-CT Scan [place] Start: 02-06-2022 End: 02-06-2022 ambulatory Kamal Chaban Other [employer] Other Start: 02-06-2022 Encounter by [employer] r link Kamal Chaban [facility] Start: 01-18-2022 End: 01-18-2022 ambulatory Kamal Chaban Other [employer] Other Start: 01-18-2022 Encounter by [employer] r link Kamal Chaban [facility] Start: 12-21-2021 End: 12-22-2021 ambulatory Vito W RICE Facility:[facility] Start: 11-23-2021 End: 11-24-2021 ambulatory Vito W RICE Facility:[facility] Start: 11-18-2021 End: 11-18-2021 ambulatory Kamal Chaban Other [employer] Other Start: 11-18-2021 Office outpatient vi sit 25 minutes Kamal Chaban [facility] Start: 11-17-2021 ambulatory Vito RICE Facility:[facility] Start: 11-17-2021 End: 11-18-2021 ambulatory Vito W RICE Facility:[facility] Start: 10-25-2021 End: 10-25-2021 ambulatory Mihaela Palomo Other [facility] Other Start: 10-25-2021 Office outpatient vi sit 25 minutes Mihaela Palomo [facility] Vascular Surgery Start: 09-28-2021 End: 09-28-2021 ambulatory Molina Palmer Other [facility] Other Start: 09-28-2021 Office outpatient ne w 45 minutes Molina Palmer [facility] Vascular Surgery Start: 08-16-2021 Rx Renewal Molina Dee Lynsey an Work Phone: [facility] 250 DO Work Phone: Start: 08-04-2021 Encounter by jesi Agarwal [facility] Pulmonary Disease Start: 07-29-2021 Office outpatient vi sit 25 minutes Cordelia Ashelyleola [facility] Pulmonary Disease Procedures Date Procedure Procedure Detail Performing Clinician Start: 07-05-2024 Carcinoembryonic ant igen cea Rob Villanueva Comment on above: Result Comment: Seri al tumor marker results determined by assays using different manufacturers or methods may not be comparable. [facility] Laboratory betting agency counter clerk and method: CHUY UNICEL DXI, 2 SITE IMMUNOENZYMATIC ?SANDWICH? ASSAY. PERFORMED BY: [place] [id number] [place] [address] PATHOLOGIST MEAT PROCESS WORKER GEORGIA WHITFIELD M.D. Performed By: #### G LULS #### Point of Care testing , Start: 04-30-2024 Doppler ultrasonogra phy of bilateral carotid arteries DO Amrita Louis Work Phone: Start: 02-05-2024 Endoscopic ultrasono graphy of bronchus DO Amrita Louis Work Phone: Start: 01-29-2024 Positron emission tomography with computed tomography DO Amrita Louis Work Phone: Start: 01-16-2024 CT of chest without contrast DO Amrita Louis Work Phone: Start: 08-11-2023 History of coronary artery bypass grafting History of coronary artery bypass graft Doc Barrett DO Work Phone: Start: 08-11-2023 History of percutane ous transluminal coronary angioplasty History of PTCA Doc Barrett DO Work Phone: Start: 06-27-2023 CT of chest without contrast DO Molina Pacheco Work Phone: Start: 04-25-2023 Doppler ultrasonogra phy of bilateral carotid arteries DO Molina Ledbetterman Work Phone: Start: 07-14-[address] acement 0 DO Molina Pacheco Work Phone: Start: 07-14-2022 CL LHC & COR Angio w/grafts DO Molina Ledbetterman Work Phone: Start: 07-14-2022 CL Stent 1st Vessel RCA FAYE DO Molina Pacheco Work Phone: Start: 05-11-2022 CT of chest without contrast DO Molina Ledbetterman Work Phone: Amputation and disarticulation of finger Molina Pacheco Work Phone: Comment on above: of middle finger wit h neurectomy; Cardiac catheterization Jorge L francisco j Pacheco Work Phone: Comment on above: x2; Colonoscopy Molina guzman Work Phone: Coronary artery bypa ss graft Molina Pacheco Work Phone: History of coronary artery bypass grafting History of coronary artery bypass graft Molina Pacheco Work Phone: History of coronary artery bypass grafting History of coronary artery bypass graft Doc Barrett DO Work Phone: History of percutane ous transluminal coronary angioplasty History of PTCA Molina Pacheco Work Phone: History of percutane ous transluminal coronary angioplasty History of PTCA Doc Barrett DO Work Phone: Insertion of arterial stent Molina Pacheco Work Phone: Lumpectomy of breast Molina Pacheco Work Phone: Operation on bladder Molina Pacheco Work Phone: Operation on fracture Arslan Pacheco Work Phone: Percutaneous translu ebony coronary angioplasty Molina Pacheco Work Phone: Procedure on neck Molina Pacheco Work Phone: SARS Antigen (LFIA) DO Fletcher Pacheco Work Phone: SARS Antigen (LFIA) DO Fletcher Pacheco Work Phone: SARS Antigen (LFIA) DO Fletcher Pacheco Work Phone: Total thyroidectomy Molina Pacheco Work Phone: Plan of Treatment Date Care Activity Detail Author Start: 06-21-2024 [facility] Start: 06-20-2024 Adrenocorticotropic hormone measurement [facility] Start: 05-31-2024 [facility] Start: 05-31-2024 [facility] Start: 05-07-2024 End: 05-07-2024 Patient encounter procedure 05/07/2024 10:50 AM EDT Office Visit [facility] [address] [facility] [address] [place] [id number] Doc Barrett, DO [address] [facility] [address] [place] [address] [facility] Start: 04-26-2024 [facility] Start: 02-19-2024 Patient referral [facility] Work Phone: Start: 02-05-2024 [facility] Start: 02-05-2024 [facility] Start: 12-21-2023 Thyroxine measurement [facility] Start: 09-06-2023 FUV, Provider: Doc Barrett, Status: Pen, Time: 11:20 AM [facility], Provider: Doc Barrett, Status: Pen, Time: 11:20 AM [facility] 250 DO Work Phone: Start: 07-12-2023 FUV, Provider: Doc Barrett, Status: Pen, Time: 10:00 AM [facility]UV, Provider: Doc Barrett, Status: Pen, Time: 10:00 AM -[facility] DO Work Phone: Start: 06-30-2023 Covid-19 Vaccine () Covid-19 Vaccine () [facility] Start: 05-09-2023 FUV, Provider: Doc Barrett, Status: Pen, Time: 11:30 AM FUV, Provider: Doc Barrett, Status: Pen, Time: 11:30 AM -[facility] 250 DO Work Phone: Start: 04-19-2023 FUV, Provider: Joanie Johns, Status: Pen, Time: 10:30 AM FUV, Provider: Joanie Johns, Status: Pen, Time: 10:30 AM -[facility] DO Work Phone: Start: 03-07-2023 FUV, Provider: Doc Barrett, Status: Pen, Time: 10:30 AM FUV, Provider: Doc Barrett, Status: Pen, Time: 10:30 AM -[facility] 250 DO Work Phone: Start: 10-30-2022 Advance Directive Discussion Advance Directive Discussion [facility] Start: 10-30-2022 Depression Assessment Depression Assessment [facility] Start: 09-27-2022 FUV, Provider: Doc Barrett, Status: Pen, Time: 11:30 AM FUV, Provider: Doc Barrett, Status: Pen, Time: 11:30 AM -[facility] 250 DO Work Phone: Start: 08-26-2022 SURGNONUH, Provider: Doc Barrett, Status: Pen, Time: 3:00 PM SURGNON, Provider: Doc Barrett, Status: Pen, Time: 3:00 PM -[place] [facility] DO Work Phone: Start: 08-22-2022 SURGNONUH, Provider: Doc Barrett, Status: Pen, Time: 1:00 PM SURGNONUH, Provider: Doc Barrett, Status: Pen, Time: 1:00 PM -[facility] 250 DO Work Phone: Start: 08-18-2022 FUV, Provider: Doc Barrett, Status: Pen, Time: 8:50 AM FUV, Provider: Doc Barrett, Status: Pen, Time: 8:50 AM MP-[facility] 250 DO Work Phone: Start: 08-10-2022 FUV, Provider: Joanie Johns, Status: Pen, Time: 2:30 PM FUV, Provider: Joanie Johns, Status: Pen, Time: 2:30 PM -[facility] 250 DO Work Phone: Start: 07-14-2022 [facility] Start: 07-12-2022 FUV, Provider: Doc Barrett, Status: Pen, Time: 10:00 AM FUV, Provider: Doc Barrett, Status: Pen, Time: 10:00 AM -[facility] 250 DO Work Phone: Start: 06-29-2022 End: 06-29-2022 Patient encounter procedure Departed Clinical [facility] [place] Start: 10-07-2021 COVID-19 Vaccine (4 - Pfizer series) COVID-19 Vaccine (4 - Pfizer series) [facility] Start: 03-08-2019 Pneumococcal Vaccine: 65+ (2 - PCV) Pneumococcal Vaccine: 65+ (2 - PCV) [facility] Start: 2013 Abdominal aortic aneurysm screening Abdominal Aortic Aneurysm (AAA) Screening [facility] Start: 04-15-2013 Shingrix Vaccine (2 of 3) Shingrix Vaccine (2 of 3) [facility] Start: 04-15-2013 Zoster Vaccines (2 of 3) Zoster Vaccines (2 of 3) [facility] Start: 2008 Hepatitis B Vaccine (1 of 3 - Risk 3-dose series) Hepatitis B Vaccine (1 of 3 - Risk 3-dose series) [facility] Start: 2008 RSV Vaccine (1 - 1-dose 60+ series) RSV Vaccine (1 - 1-dose 60+ series) [facility] Start: 1998 Influenza vaccination Lung Cancer Screening [facility] Start: 1993 Cologuard (FIT-DNA) Cologuard (FIT-DNA) [facility] Start: 1993 Colonoscopy Colonoscopy [facility] Start: 1993 Colorectal Cancer Screening Colorectal Cancer Screening [facility] Start: [address] Colonography [facility] Start: 1993 Fecal Occult Blood Fecal Occult Blood [facility] Start: 1993 Sigmoidoscopy Sigmoidoscopy [facility] Start: 1978 Zoledronic acid therapy Alpha-1 Antitrypsin Deficiency Screening [facility] Start: 1970 DTaP/Tdap/Td Vaccines (1 - Tdap) DTaP/Tdap/Td Vaccines (1 - Tdap) [facility] Start: 1967 Urine microalbumin profile DTaP,Tdap,Td Vaccine (1 - Tdap) [facility] Start: 1967 Urine screening for protein Diabetes: Urine Protein Screening [facility] Start: 1966 Annual PCP Team Chronic Disease Visit Annual PCP Team Chronic Disease Visit [facility] Start: 1966 Hepatitis B surface antibody level LDL Cholesterol [facility] Start: 1966 Hepatitis C Screening Hepatitis C Screening [facility] Start: 1966 Hepatitis C screening Hepatitis C Screening [facility] Start: 1958 3 comp foot exam completed Diabetic Foot Exam [facility] Start: 1958 Diabetic foot examination Diabetes: Foot Exam [facility] Start: 1958 Glaucoma screening Diabetes: Retinopathy Screening [facility] Start: 1958 Hepatitis B screening Urine Albumin:Creatinine Ratio [facility] Start: 1958 Hepatitis C antibody, confirmatory test Dilated Retinal Exam [facility] Start: 1954 Pneumococcal Vaccine: 65+ (1 - PCV) Pneumococcal Vaccine: 65+ (1 - PCV) [facility] Start: 1954 Pneumococcal Vaccine: 65+ Years (1 - PCV) Pneumococcal Vaccine: 65+ Years (1 - PCV) [facility] Start: 1953 Hemoglobin A1c/Hemoglobin.total in Blood HbA1C [facility] Start: 1948 Abdominal Aortic Aneurysm Screening Abdominal Aortic Aneurysm Screening [facility] Start: 1948 Hemoglobin A1c measurement Diabetes: Hemoglobin A1C [facility] Start: 1948 Lipid panel Lipid Panel [facility] Start: 1948 Screening for malignant neoplasm of colon [facility] Start: 1948 Thyroglobulin Test Thyroglobulin Test [facility] Start: 1948 Thyroid stimulating hormone measurement TSH Level [facility] Start: 1948 Yearly Adult Physical Yearly Adult Physical [facility] Adrenocorticotropic hormone measurement [facility] Adrenocorticotropic hormone measurement [facility] Comprehensive metabo lic 1999 panel - Serum or Plasma [facility] Comprehensive metabo lic 1999 panel - Serum or Plasma [facility] Ct thorax w/o contra st material CT CHEST WO IVCON Radiology Routine Lung nodule Tobacco use current Abnormal finding on lung imaging Ordered: 08/15/2023 [facility] Work Phone: Comment on above: Ordered: 08/15/2023 Patient Education [facility] Work Phone: Patient referral [facility] Work Phone: Thyroglobulin Ab [Units/volume] in Serum or Plasma [facility] Immunizations Immunization Date Immunization Notes Care Provider Fa florencio 07-29-2023 influenza (HD-IIV4) vaccine, age 65+ yr, high dose, quadrivalent, PF (FLUZONE HIGH-DOSE) Parvin Riddle RN [facility] 09-19-2022 Fluad Quadrivalent 0.5 ML Intramuscular Prefilled Syringe Molina Pacheco Work Phone: [facility] 08-30-2022 influenza nasal, unspecified formulation Parvin Riddle RN [facility] 08-12-2021 COVID-19 Vaccine Pfizer - Documentation Purposes Only Clif Funo Other [facility] 07-07-2021 Fluzone High-Dose Quadrivalent 0.7 ML Intramuscular Suspension Prefilled Syringe Molina Pacheco Work Phone: [facility] 06-30-2021 influenza nasal, unspecified formulation Parvin Riddle RN [facility] 01-21-2021 COVID-19 Vaccine Pfizer - Documentation Purposes Only Kamluis Chaban Other [facility] 12-24-2020 COVID-19 Vaccine Pfizer - Documentation Purposes Only Kamal Chaban Other [facility] 08-07-2020 Fluad Quadrivalent 0.5 ML Intramuscular Prefilled Syringe Molina Pacheco Work Phone: [facility] 07-30-2020 influenza virus vaccine, unspecified formulation Molina Pacheco Work Phone: [facility] [email or web address] DO Work Phone: 07-30-2020 influenza, seasonal, injectable Molina Pacheco Work Phone: [facility] 08-22-2019 AS03 adjuvant Parvin Riddle RN [facility] 08-22-2019 Seasonal trivalent influenza vaccine, adjuvanted, preservative free Molina Pacheco Work Phone: [facility] 08-12-2019 AS03 adjuvant Parvin Riddle RN [facility] 08-12-2019 Seasonal trivalent influenza vaccine, adjuvanted, preservative free Molina A Sara Work Phone: [facility] 07-30-2019 influenza virus vaccine, unspecified formulation Molina Pacheco Work Phone: [facility] 07-30-2018 influenza virus vaccine, unspecified formulation Molina A Sara Work Phone: [facility] 250 DO Work Phone: 07-16-2018 influenza, high dose seasonal, preservative-free Kamal Chaban Other [facility] 07-16-2018 influenza virus vaccine, unspecified formulation DO Amrita Louis Work Phone: [facility] 03-08-2018 pneumococcal polysaccharide vaccine, 23 valent Patient Objection Kamal Chaban Other [employer] Other 09-07-2017 influenza virus vaccine, unspecified formulation DO Amrita Louis Work Phone: [facility] 09-07-2017 influenza, injectable, quadrivalent, preservative free Molina Pacheco Work Phone: [facility] 09-07-2017 influenza, high dose seasonal, preservative-free Kamal Chaban Other [facility] [employer] Other 06-30-2017 influenza virus vaccine, unspecified formulation Molina Pacheco Work Phone: [facility] [employer] 250 DO Work Phone: 09-06-2016 influenza virus vaccine, unspecified formulation DO Amrita Louis Work Phone: [facility] 09-06-2016 influenza, high dose seasonal, preservative-free Kamal Chaban Other [facility] 07-30-2016 influenza virus vaccine, unspecified formulation Molina Pacheco Work Phone: [facility] [employer] 250 DO Work Phone: 07-30-2015 influenza virus vaccine, unspecified formulation Molina Pacheco Work Phone: [facility] [employer] 250 DO Work Phone: 01-14-2015 Depo-Medrol 80 mg Kamal Chab an Other [employer] Other 07-30-2014 influenza virus vaccine, unspecified formulation Molina Pacheco Work Phone: [facility] [employer] DO Work Phone: 08-08-2013 influenza, seasonal, injectable Molina Pacheco Work Phone: [facility] 07-30-2013 influenza virus vaccine, unspecified formulation Molina Pacheco Work Phone: [facility] [employer] DO Work Phone: 02-18-2013 zoster vaccine, live Molina Pacheco Work Phone: [facility] 08-30-2011 influenza nasal, unspecified formulation Parvin Riddle RN [facility] influenza virus vaccine, unspecified formulation Molina Pacheco Work Phone: [facility] [employer] DO Work Phone: Comment on above: Jul 20122010 NEGATED: Highlighted row has not occurred! 8 pneumococcal polysaccharide vaccine, 23 valent Patient Objection Molina Palmer Other [employer] Other NEGATED: Highlighted row has not occurred! 4 FLUZONE High Dose Cordelia Agarwal Other [employer] Other Payers Date Payer Category Payer [employer] [id number] 2023 Unknown [id number] 2023 Self-pay [id number] 2022 Unknown 2013 Unknown [id number] 2013 Medicare [id number]. [id number] 2010 Unknown [id number] 1961 Medicare [id number] 2.16.840.1.180212.19 1959 Unknown [id number] 1948 Unknown [id number] 2.16.840.1.987962.3.579.2. 727 1948 Unknown [id number] 2.16.840.1.004036.3.579.2. 727 1948 Unknown [id number] 2.16.840.1.366508.3.579.2. 727 1948 Unknown [id number] 2.16.840.1.383375.3.579.2. 727 1948 Unknown [id number] 2.16.840.1.102145.3.579.2. 593 1948 Unknown [id number] 2.16.840.1.728378.3.579.2. 356 1948 Unknown [id number] 2.16.840.1.570503.3.579.2. 356 1948 Unknown [id number] 2.16.840.1.635846.3.579.2. 356 1948 Unknown [id number] 2.16.840.1.361510.3.579.2. 356 1948 Unknown [id number] 2.16.840.1.792077.3.579.2. 1259 1948 Unknown [id number] 2.16.840.1.581588.3.579.2. 182 1948 Unknown [id number] 2.16.840.1.052397.3.579.2. 1244 1948 Unknown [id number] 2.16.840.1.320136.3.579.2. 1244 1948 Unknown [id number] 2.16.840.1.800939.3.579.2. 1246 Unknown [facility] [id number] Unknown [id number] 2.16.840.1.588804.3.579.2. 531 Unknown [id number] 2.16.840.1.354102.3.579.2. 531 Unknown [id number] 2.16.840.1.443506.3.579.2. 531 Unknown [id number] 2.16.840.1.002767.3.579.2. 531 Unknown [id number] 2.16.840.1.196049.3.579.2. 531 Unknown [id number] 2.16.840.1.032598.3.579.2. 531 Unknown [id number] 2.16.840.1.189021.3.579.2. 531 Unknown [id number] 2.16.840.1.571988.3.579.2. 531 Social History Date Type Detail Facility Start: 08-04-2023 End: 09-06-2023 Sex Assigned At [employer] Other Start: 10-30-1967 End: 08-04-2023 Tobacco smoking status [facility] Current some day smoker [facility] Start: 1950 Sex Assigned At Male [facility] Start: 08-04-2023 End: 09-06-2023 Alcohol use Alcohol use -[facility] 250 DO Work Phone: Comment on above: 1/2 bottle wine ana y; 2 - 3 cups coffee da ana; Start: 07-13-2022 End: 02-05-2024 Tobacco smoking status MEIS Smoker (finding) [facility] Start: 10-30-1965 End: 10-30-1997 History of tobacco use Cigarette Smoker [facility] Start: 10-30-2012 History of tobacco use Cigar Smoker [facility] History of tobacco use Passive smoker [facility] Start: 08-04-2023 End: 09-06-2023 Tobacco use and exposure Smokeless tobacco non-user [facility] Start: 08-04-2023 End: 09-06-2023 Alcohol intake Current drinker of alcohol (finding) [facility] National Score (1-100), lower number is lower risk 86 [facility] Start: 1950 Sex Assigned At Not on file [facility] Tobacco smoking status MEIS Tobacco smoking consumption unknown [facility] Start: 09-06-2023 Tobacco smoking status NHIS Smokes tobacco daily [facility] Work Phone: Start: 08-27-2023 End: 09-06-2023 Exposure to SARS-CoV-2 (event) Not sure [facility] Medical Equipment Procedure Code Equipment Code Equipment Origin al Text Equipment Identifier Dates CL CLOSURE DEVIC E EXOSEAL 6F FDA Start: 05-14-2019 CL STENT JERONIMO 3. 0 X 12 FDA Start: 05-14-2019 CL STENT JERONIMO 4. 0 X 38 FDA Start: 05-14-2019 CL STENT DEANGELO 3.5 X 18 FDA Start: 05-14-2019 CL CLOSURE DEVIC E EXOSEAL 6F FDA Start: 05-14-2019 CL STENT JERONIMO 3. 0 X 12 FDA Start: 05-14-2019 CL STENT JERONIMO 4. 0 X 38 FDA Start: 05-14-2019 CL STENT DEANGELO 3.5 X 18 FDA Start: 05-14-2019 CL CLOSURE DEVIC E EXOSEAL 6F FDA Start: 05-14-2019 CL STENT JERONIMO 3. 0 X 12 FDA Start: 05-14-2019 CL STENT JERONIMO 4. 0 X 38 FDA Start: 05-14-2019 CL STENT DEANGELO 3.5 X 18 FDA Start: 05-14-2019 CL CLOSURE DEVIC E EXOSEAL 6F FDA Start: 05-14-2019 CL STENT JERONIMO 3. 0 X 12 FDA Start: 05-14-2019 CL STENT JERONIMO 4. 0 X 38 FDA Start: 05-14-2019 CL STENT DEANGELO 3.5 X 18 FDA Start: 05-14-2019 Drug-eluting coronary artery stent, [id number] lymer-coated [id number] FDA Start: 07-14-2022 Femoral artery closure plug/patch, synthetic polymer ()[id number] FDA Start: 07-14-2022 CL CLOSURE DEVIC E EXOSEAL 6F FDA Start: 05-14-2019 CL STENT JERONIMO 3. 0 X 12 FDA Start: 05-14-2019 CL STENT JERONIMO 4. 0 X 38 FDA Start: 05-14-2019 CL STENT DEANGELO 3.5 X 18 FDA Start: 05-14-2019 CL CLOSURE DEVIC E EXOSEAL 6F FDA Start: 05-14-2019 CL STENT JERONIMO 3. 0 X 12 FDA Start: 05-14-2019 CL STENT JERONIMO 4. 0 X 38 FDA Start: 05-14-2019 CL STENT DEANGELO 3.5 X 18 FDA Start: 05-14-2019 Drug-eluting coronary artery stent, irf-[id number] lymer-coated ([id number] FDA Start: 08-26-2022 CL CLOSURE DEVIC E EXOSEAL 6F FDA Start: 05-14-2019 CL STENT JERONIMO 3. 0 X 12 FDA Start: 05-14-2019 CL STENT JERONIMO 4. 0 X 38 FDA Start: 05-14-2019 CL STENT DEANGELO 3.5 X 18 FDA Start: 05-14-2019 CL CLOSURE DEVIC E EXOSEAL 6F FDA Start: 05-14-2019 CL STENT JERONIMO 3. 0 X 12 FDA Start: 05-14-2019 CL STENT JERONIMO 4. 0 X 38 FDA Start: 05-14-2019 CL STENT DEANGELO 3.5 X 18 FDA Start: 05-14-2019 CL CLOSURE DEVIC E EXOSEAL 6F FDA Start: 05-14-2019 CL STENT JERONIMO 3. 0 X 12 FDA Start: 05-14-2019 CL STENT JERONIMO 4. 0 X 38 FDA Start: 05-14-2019 CL STENT DEANGELO 3.5 X 18 FDA Start: 05-14-2019 CL CLOSURE DEVIC E EXOSEAL 6F FDA Start: 05-14-2019 CL STENT JERONIMO 3. 0 X 12 FDA Start: 05-14-2019 CL STENT JERONIMO 4. 0 X 38 FDA Start: 05-14-2019 CL STENT DEANGELO 3.5 X 18 FDA Start: 05-14-2019 CL CLOSURE DEVIC E EXOSEAL 6F FDA Start: 05-14-2019 CL STENT JERONIMO 3. 0 X 12 FDA Start: 05-14-2019 CL STENT JERONIMO 4. 0 X 38 FDA Start: 05-14-2019 CL STENT DEANGELO 3.5 X 18 FDA Start: 05-14-2019 CL CLOSURE DEVIC E EXOSEAL 6F FDA Start: 05-14-2019 CL STENT JERONIMO 3. 0 X 12 FDA Start: 05-14-2019 CL STENT JERONIMO 4. 0 X 38 FDA Start: 05-14-2019 CL STENT DEANGELO 3.5 X 18 FDA Start: 05-14-2019 CL CLOSURE DEVIC E EXOSEAL 6F FDA Start: 05-14-2019 CL STENT JERONIMO 3. 0 X 12 FDA Start: 05-14-2019 CL STENT JERONIMO 4. 0 X 38 FDA Start: 05-14-2019 CL STENT DEANGELO 3.5 X 18 FDA Start: 05-14-2019 CL CLOSURE DEVIC E EXOSEAL 6F FDA Start: 05-14-2019 CL STENT JERONIMO 3. 0 X 12 FDA Start: 05-14-2019 CL STENT JERONIMO 4. 0 X 38 FDA Start: 05-14-2019 CL STENT DEANGELO 3.5 X 18 FDA Start: 05-14-2019 CL CLOSURE DEVIC E EXOSEAL 6F FDA Start: 05-14-2019 CL STENT JERONIMO 3. 0 X 12 FDA Start: 05-14-2019 CL STENT JERONIMO 4. 0 X 38 FDA Start: 05-14-2019 CL STENT DEANGELO 3.5 X 18 FDA Start: 05-14-2019 CL CLOSURE DEVIC E EXOSEAL 6F FDA Start: 05-14-2019 CL STENT JERONIMO 3. 0 X 12 FDA Start: 05-14-2019 CL STENT JERONIMO 4. 0 X 38 FDA Start: 05-14-2019 CL STENT DEANGELO 3.5 X 18 FDA Start: 05-14-2019 CL CLOSURE DEVIC E EXOSEAL 6F FDA Start: 05-14-2019 CL STENT JERONIMO 3. 0 X 12 FDA Start: 05-14-2019 CL STENT JERONIMO 4. 0 X 38 FDA Start: 05-14-2019 CL STENT DEANGELO 3.5 X 18 FDA Start: 05-14-2019 CL CLOSURE DEVIC E EXOSEAL 6F FDA Start: 05-14-2019 CL STENT JERONIMO 3. 0 X 12 FDA Start: 05-14-2019 CL STENT JERONIMO 4. 0 X 38 FDA Start: 05-14-2019 CL STENT DEANGELO 3.5 X 18 FDA Start: 05-14-2019 CL CLOSURE DEVIC E EXOSEAL 6F FDA Start: 05-14-2019 CL STENT JERONIMO 3. 0 X 12 FDA Start: 05-14-2019 CL STENT JERONIMO 4. 0 X 38 FDA Start: 05-14-2019 CL STENT DEANGELO 3.5 X 18 FDA Start: 05-14-2019 CL CLOSURE DEVIC E EXOSEAL 6F FDA Start: 05-14-2019 CL STENT JERONIMO 3. 0 X 12 FDA Start: 05-14-2019 CL STENT JERONIMO 4. 0 X 38 FDA Start: 05-14-2019 CL STENT DEANGELO 3.5 X 18 FDA Start: 05-14-2019 CL CLOSURE DEVIC E EXOSEAL 6F FDA Start: 05-14-2019 CL STENT JERONIMO 3. 0 X 12 FDA Start: 05-14-2019 CL STENT JERONIMO 4. 0 X 38 FDA Start: 05-14-2019 CL STENT DEANGELO 3.5 X 18 FDA Start: 05-14-2019 Goals Date Patient Goal Desired Activity /State Functional Status Date Assessment Result Facility 07-14-2022 Functional status Patient at Baseline [facility] Work Phone: Mental Status Date Assessment Result Facility 07-14-2022 Cognitive function Cognitive Sta tus Patient at Baseline [facility] Work Phone: Clinical Notes 07-29-2021 to 02-05-2024 Note Date & Type Note Facility 02-05-2024 Procedure note [facility] 10-04-2023 Evaluation note Encounter Date Diagnosis Assessment Notes Sep, Lung nodule (ICD-10 - R91.1) Had a long discussion with the patient today about previous CT, PET scan, findings as well as the possibility of slow-growing malignancy, versus granulomatous lesion. He understands the risks and wishes to continue with conservative management and radiographic surveillance. We will schedule a follow-up CT 6 months after the last 1 follow-up after that Sep, Chronic obstructive pulmonary disease, unspecified COPD type (ICD-10 - J44.9) ADP Other 11-08-2023 History of Present illness Narrative* Doc Barrett, - 09/06/2023 11:20 AM EST Hemanth Sabillon is a 72 y.o. male Chief Complaint Follow-up 72-year-old gentleman follows up for 6-month visit he is doing well he has occasional episodic angina, does not take nitroglycerin; he was on Nitropatch but because of significant of low blood pressure and dizziness and lightheadedness he discontinued the Nitropatch. He still getting around doing ev erything he wants to do or needs to do at home from a working standpoint. His blood pressure is 140/60 today without any positional changes. He has known ASHD with remote CABG, recent interventions in June and July 2022 are reviewedincluding PCI of the PLV branch for in-stent restenosis and subsequent PCI of the ramus branch in July for in-stent restenosis with preserved left ventricular function. He has a known patent RODRIGUEZ to the LAD and occluded vein graft to the circumflex He continues smoking cigars, has a lung nodule that is undergoing investigation, we have counseled him on smoking cessation for 3 to 5 minutes. Details of last years catheterization revascularizations are reviewed; he has had no recent labs Recommendations, follow-up in 8 months we will need to acquire appropriate labs, smoking cessation counseling as mentioned above. Review of Systems Cardiovascular: Positive for chest pain. Respiratory: Positive for shortness of breath. Neurological: Positive for dizziness. Visit Vitals BP 140/60 (BP Location: Left arm, Patient Position: Sitting) Pulse 60 Ht 1.676 m (5' 6 ) Wt 77.1 kg (170 lb) BMI 27.44 kg/m Smoking Status Every Day BSA 1.89 m Objective Physical Exam Constitutional: Appearance: Normal appearance. He is normal weight. HENT: Nose: Nose normal. Neck: Vascular: No carotid bruit. Cardiovascular: Rate and Rhythm: Normal rate. Pulses: Normal pulses. Heart sounds: Normal heart sounds. Pulmonary: Effort: Pulmonary effort is normal. Abdominal: General: Bowel sounds are normal. Palpations: Abdomen is soft. Genitourinary: Rectum: Normal. Musculoskeletal: General: Normal range of motion. Cervical back: Normal range of motion. Right lower leg: No edema. Left lower leg: No edema. Skin: General: Skin is warm and dry. Neurological: General: No focal deficit present. Mental Status: He is alert. Psychiatric: Mood and Affect: Mood normal. Behavior: Behavior normal. Thought Content: Thought content normal. Judgment: Judgment normal. Current Medications Current Outpatient Medications: albuterol 90 mcg/actuation inhaler, Inhale 2 puffs every 4 hours if needed. Every 4-6 hours, Disp: , Rfl: ascorbic acid (Vitamin C) 500 mg tablet, Take 1 tablet (500 mg) by mouth once daily., Disp: , Rfl: aspirin 81 mg EC tablet, Take 1 tablet (81 mg) by mouth once daily., Disp: , Rfl: atorvastatin (Lipitor) 80 mg tablet, Take 1 tablet (80 mg) by mouth once daily at bedtime., Disp: ,Rfl: kmhekeskxmx-jeogkunbv-aojujiyv (TRELEGY-ELLIPTA) 100-62.5-25 mcg blister with device, Inhale 1 puffif needed. As needed directed, Disp: , Rfl: levothyroxine (Synthroid, Levoxyl) 150 mcg tablet, Take 1 tablet (150 mcg) by mouth once daily in the morning. Take before meals., Disp: , Rfl: lisinopril 20 mg tablet, Take 1 tablet (20 mg) by mouth once daily., Disp: , Rfl: metFORMIN (Glucophage) 500 mg tablet, Take 1 tablet (500 mg) by mouth once daily., Disp: , Rfl: metoprolol tartrate (Lopressor) 25 mg tablet, Take 0.5 tablets (12.5 mg) by mouth 2 times a day., Disp: , Rfl: multivitamin (Daily Multi-Vitamin) tablet, Take 1 tablet by mouth once daily., Disp: , Rfl: nitroglycerin (Nitrostat) 0.4 mg SL tablet, Place 1 tablet (0.4 mg) under the tongue if needed. As needed/directed, Disp: , Rfl: omeprazole (PriLOSEC) [address] capsule, Take 1 capsule (20 mg) by mouth once daily., Disp: , Rfl: pot bicarb/potassium cit/ca (POTASSIUM BICARBONATE ORAL), Take 1 tablet by mouth 2 times a day. 99 mg otc, Disp: , Rfl: tamsulosin (Flomax) 0.4 mg 24 hr capsule, Take 1 capsule (0.4 mg) by mouth once daily., Disp: , Rfl: Assessment/Plan 1. 3-vessel CAD 2. History of coronary artery bypass graft 3. History of PTCA 4. Mixed hyperlipidemia 5. Essential hypertension 6. Stenosis of right carotid artery 7. Type 2 diabetes mellitus without complication, without long-term current use of insulin ([facility]) 8. Acquired hypothyroidism 9. Chronic obstructive pulmonary disease, unspecified COPD type ([facility]) 10. Current smoker on some days 11. Overweight (BMI 25.0-29.9) 12. Angina, class II ([facility]) 13. Lightheadedness [facility] Phone: 1(247) 583-409111-08-2023 Instructions* Patient Instructions* Juliann Gonzalez LPN - 09/06/2023 11:20 AM EST Please bring all medicines, vitamins, and herbal supplements with you when you come to the office. Prescriptions will not be filled unless you are compliant with your follow up appointments or have a follow up appointment scheduled as per instruction of your physician. Refills should be requested at the time of your visit. Reinforced necessity of asa 81mg daily [facility] Work Phone: 1(130) 258-220910-27-2023 NoteHNO ID: [id number] Author: Larisa Gaxiola APRN.MANUEL Service: ? Author Type: Nurse Practitioner Type: Progress Notes Filed: 08/25/2023 2:50 PM Note Text: Incidental Lung Nodule Follow Up Enrolled in Lung Nodule program: Completed Lung Nodule Program Location: [place] I spoke with patient on the phone today. He cancelled bronchoscopy scheduled for 09/01/23 and would like to receive his care elsewhere. I will discharge from the dashboard. Larisa Gaxiola APRN.[facility]PS[facility]10-27-[facility] History of Present illness Narrative* Larisa Gaxiola APRN.CNP - 08/25/2023 2:49 PM EDT Incidental Lung Nodule Follow Up Enrolled in Lung Nodule program: Completed Lung Nodule Program Location: [place] I spoke with patient on the phone today. He cancelled bronchoscopy scheduled for 09/01/23 and would like to receive his care elsewhere. I will discharge from the dashboard. Larisa Gaxiola APRN.CNP documented in this encounterSum[facility]10-27-2023 Miscellaneous Notes* Telephone Encounter - Larisa Gaxiola APRN.CNP - 08/25/2023 2:33 PM EDT I called patient to follow up and see why he cancelled the bronchoscopy. He stated that he wants toreceive his care elsewhere. He states he was waiting to receive PFT orders in the mail but has not yet. He states this caused him to question what type of care he was going to receive. I advised him that I can fax the PFT order to any local facility. I advised him we can schedule out for a few weeks in the future it would not be an issue. He has had this nodule for years at this point and it has been slowly growing. If we need to wait a few more weeks for PFTs to be completed that would be fine. Patient states he just would like to follow up else where. I advised him that if he changes his mind, we are here to help and can reschedule the procedure/testing for him. We want to make sure he has the follow up he needs on this nodule. The patient was appreciative. I am going to fax a letter tothe referring children librarian with this information. I will also fax records and results from testingI ordered. For now we will discharge patient from lung nodule program. Larisa Gaxiola APRN.CNP documented in this encounterSumma Health10-17-2023 NoteHNO ID: [id number] Author: Larisa Gaxiola APRN.CNP Service: ? Author Type: Nurse Practitioner Type: Progress Notes Filed: 08/15/2023 2:54 PM Note Text: Bronchoscopy Request: Cleared for scheduling August 15, 2023 Please schedule patient for the following: Outpatient Visit: Established Clinic Visit with Staff: Patient Choice (Virtual or In-Person) Bronchoscopy Procedures: Navigation Bronchoscopy (Illumisite) Robotic Bronchoscopy Auris (NUVIA/SS/MM/FA) Robotic Bronchoscopy ION (TG/CG/LL/AM/MA/SL/SS/NUVIA/SG/BB/FA) +/- Staging EBUS Diagnosis/Reason for Bronchoscopy: Lung nodule(s)/Mass, needs staging and diagnosis Timing: Next available Time Allotment/Tier: If Robot AND Staging EBUS, TIER 3: 3 HOUR; Otherwise (Illumisite + Staging EBUS), TIER 2: 2 HOUR Physician Performing Bronchoscopy: If ION Robot, TG, FA, NUVIA, SS, CG, MA, SG, SL, or LL; If Robot ([place]), MM, FA, NUVIA, SS, CG, SL or LL; Otherwise, Bronch A, B or C Needs Labs: No Needs EKG: No Needs CT prior: Yes EMN Bronchoscopy Protocol Chest CT Does the pt need cardiac clearance?: , Already completed . Spoke with Dr. Doc Barrett's office on 08/14/23 ([facility]). Patient will discontinue Brilinta now as he has completed one year of anticoagulation post surgery. Information in CareEverywhere. Is he on anticoagulants/anti-plt therapy?: ; No, Plavix or medications alike patient will discontinue medication. Nursing Considerations: (ie: fci, TB, respiratory isolation, clinical trial, Specific protocol etc.) none Additional notes to the felt hat flanging operator: Patient with history of RLL spiculated nodule measuring 1.2 cm, previously measured 8 mm in 2020. Consultation request/referral by: Larisa Gaxiola APRN.TOOL REPAIR TECHNICIAN Reviewed by: Dr. Justice Gaxiola APRN.TOOL REPAIR TECHNICIAN August 15, 2023 11:52 AM Addendum: CBC with diff: WBC 8.08 08/04/2023 RBC 4.43 08/04/2023 Hemoglobin 14.7 08/04/2023 Hematocrit 42.5 08/04/2023 MCV 95.9 08/04/2023 MCH 33.2 08/04/2023 MCHC 34.6 08/04/2023 RDW-CV 12.3 08/04/2023 Platelet Count 270 08/04/2023 MPV 9.2 08/04/2023 Neutrophils % 75.4 08/04/2023 Lymphocytes % 16.3 08/04/2023 Monocytes % 6.4 08/04/2023 Basophils % 0.5 08/04/2023 Abs Neut 6.09 08/04/2023 Abs Mcpherson 0.52 08/04/2023 Abs Eosin 0.08 08/04/2023 Abs Baso 0.04 08/04/2023 Potassium Date Value Ref Range Status 08/04/2023 4.6 3.7 - 5.1 mmol/L Final Sodium Date Value Ref Range Status 08/04/2023 140 136 - 144 mmol/L Final BUN Date Value Ref Range Status 08/04/2023 17 9 - 24 mg/dL Final Creatinine Date Value Ref Range Status 08/04/2023 0.97 0.73 - 1.22 mg/dL [facility] History of Present illness Narrative* Larisa Gaxiola APRN.TOOL REPAIR TECHNICIAN - 08/15/2023 11:52 AM EDT Images from the original note were not included. Bronchoscopy Request: Cleared for scheduling August 15, 2023 Please schedule patient for the following: Outpatient Visit: Established Clinic Visit with Staff: Patient Choice (Virtual or In-Person) Bronchoscopy Procedures: Navigation Bronchoscopy (Illumisite) Robotic Bronchoscopy Auris (NUVIA/SS/MM/FA) Robotic Bronchoscopy ION (TG/CG/LL/AM/MA/SL/SS/NUVIA/SG/BB/FA) +/- Staging EBUS Diagnosis/Reason for Bronchoscopy: Lung nodule(s)/Mass, needs staging and diagnosis Timing: Next available Time Allotment/Tier: If Robot & Staging EBUS, TIER 3: 3 HOUR; Otherwise (Illumisite + Staging EBUS), TIER 2: 2 HOUR Physician Performing Bronchoscopy: If ION Robot, TG, FA, NUVIA, SS, CG, MA, SG, SL, or LL; If Robot ([place]), MM, FA, NUVIA, SS, CG, SL or LL; Otherwise, Bronch A, B or C Needs Labs: No Needs EKG: No Needs CT prior: Yes EMN Bronchoscopy Protocol Chest CT Does the pt need cardiac clearance?: , Already completed . Spoke with Dr. Doc Barrett's office on 08/14/23 ([facility]). Patient will discontinue Brilinta now as he has completed one year of anticoagulation post surgery. Information in CareEverywhere. Is he on anticoagulants/anti-plt therapy?: ; No, Plavix or medications alike patient will discontinue medication. Nursing Considerations: (ie: fci, TB, respiratory isolation, clinical trial, Specific protocol etc.) none Additional notes to the felt hat flanging operator: Patient with history of RLL spiculated nodule measuring 1.2 cm, previously measured 8 mm in 2020. Consultation request/referral by: Larisa Gaxiola APRN.TOOL REPAIR TECHNICIAN Reviewed by: Dr. Justice Gaxiola APRN.TOOL REPAIR TECHNICIAN August 15, 2023 11:52 AM Addendum: CBC with diff: WBC 8.08 08/04/2023 RBC 4.43 08/04/2023 Hemoglobin 14.7 08/04/2023 Hematocrit 42.5 08/04/2023 MCV 95.9 08/04/2023 MCH 33.2 08/04/2023 MCHC 34.6 08/04/2023 RDW-CV 12.3 08/04/2023 Platelet Count 270 08/04/2023 MPV 9.2 08/04/2023 Neutrophils % 75.4 08/04/2023 Lymphocytes % 16.3 08/04/2023 Monocytes % 6.4 08/04/2023 Basophils % 0.5 08/04/2023 Abs Neut 6.09 08/04/2023 Abs Mcpherson 0.52 08/04/2023 Abs Eosin 0.08 08/04/2023 Abs Baso 0.04 08/04/2023 Potassium Date Value Ref Range Status 08/04/2023 4.6 3.7 - 5.1 mmol/L Final Sodium Date Value Ref Range Status 08/04/2023 140 136 - 144 mmol/L Final BUN Date Value Ref Range Status 08/04/2023 17 9 - 24 mg/dL Final Creatinine Date Value Ref Range Status 08/04/2023 0.97 0.73 - 1.22 mg/dL Final documented in this encounterSumma Health10-13-2023 Miscellaneous Notes* Telephone Encounter - Parvin Riddle RN - 08/11/2023 12:45 PM EDT 08/11/23: Larisa Gaxiola resabrina'd call to Dr. Barrett's office asking for cardiac clearance for navigational bronchoscopy; patient taking Brillinta 90mg bid. LVM. Parvin Riddle, PHIL Respiratory [facility] Doc Barrett DO (Attending) [address] [facility] [address], [place] [id number] Interventional Cardiology documented in this encounterSumma Health10-11-2023 NoteHNO ID: [id number] Author: Larisa Gaxiola APRN.MANUEL Service: ? Author Type: Nurse Practitioner Type: Progress Notes Filed: 08/09/2023 3:26 PM Note Text: MULTI DISCIPLINARY LCS/LN TUMOR BOARD: August 09, 2023 Clinicians Present: Dr. Jf Duvall, Dr. Justice Brooks, Dr. Travis May, Larisa Gaxiola, Celia Garcia, Stevie Silverio, Cleo Guardado, Phyllis Kruse, Brigitte Barker Barak Sabillon [phone] Review: CT chest 06/27/23- growing RLL solid, irregular nodule Outcome: Barak Sabillon's case was reviewed by the physicians and advanced practice providers in attendance. Based on [facility] Pulmonary Nodule Carepath follow-up with [facility] is recommended. The collaborative recommendation is CONSISTENT with the carepath and plan is for navigational/robotic bronchoscopy and pulmonary function testing. These recommendations will be communicated by the presenting physicians. The recommendation of the tumor board is based upon the information and personnel available at the time of the tumor board presentation and discussion. This recommendation is not mandatory, as the treating physician and other specialists may be in possession of additional information or have alternative viewpoints that could lead to another treatment plan for a particular patient. Larisa Gaxiola APRN.CNP August 09, 2023 12:[address] [facility]10-06-2023 NoteHNO ID: [id number] Author: Lairsa Gaxiola APRN.CNP Service: ? Author Type: Nurse Practitioner Type: Progress Notes Filed: 08/14/2023 10:38 AM Note Text: [facility] INCIDENTAL LUNG NODULE PROGRAM Impression / Recommendations 1. Lung nodule - ICD9: 793.11, ICD10: R91.1 (primary diagnosis) - Patient has right lower lobe 12 mm spiculated solid nodule that has grown in size. We discussed although it has been stable in size and had low FDG avidity, the nodule appearance is concerning for malignancy. - I will plan to review his case at our upcoming Tumor Board Meeting to see if navigational bronchoscopy will be feasible. It looks like there is an airway leading to the nodule. - He will likely need cardiac clearance for bronchoscopy. I will reach out to Dr. Doc Barrett's office. - Patient should also update PFTs to determine if he would be surgical candidate if nodule is malignant lung primary. - CBC + DIFF - COMP METABOLIC PANEL - ECG COMPLETE - SPIROMETRY - BASELINE AND POST DILATOR - LUNG DIFFUSION CAPACITY (DLCO) - SIX MINUTE WALK - LCS/LN TUMOR BOARD 2. Anticoagulant long-term use - ICD9: V58.61, ICD10: Z79.01 - Lab work to be completed today given likely will undergo bronchoscopy - ACTIVATED PTT - PROTHROMBIN TIME/PT 3. Primary cancer of thyroid with metastasis to other site (HCC) - ICD9: 193, ICD10: C73 4. Malignant neoplasm of urinary bladder, unspecified site (HCC) - ICD9: 188.9, ICD10: C67.9 5. Tobacco use current - ICD9: 305.1, ICD10: Z72.0 - Cessation encouraged. - Physiologic and physical aspects of tobacco addiction as well as strategies for quitting were discussed. - Counseling was given focusing on the harmful effects of this addiction especially given the patient's medical condition(s) which will be worsened because of the chemicals in tobacco. Barak Jacobo expresses understanding and is in agreement with plan. Larisa Gaxiola APRN.MANUEL Incidental Lung Nodule Follow Up Concern for New Cancer Diagnosis: Yes Recommendation: Bronchoscopy Follow up Date: 08/25/2023 Lung Nodule Follow-Up Scheduled: No Enrolled in Lung Nodule program: Yes Lung Nodule Program Location: [place] Thank you for allowing me to participate in the care of Barak Jacobo. Please feel free to contact me with any questions or concerns. Consulting Physician Cordelia Agarwal MD [address] [address] Reason for the Consult Barak Jacobo presents today for consultation / opinion regarding lung nodule(s). My impression and final recommendations will be communicated back to the requesting physician by way of shared medical record or letter via US mail. History of Present Illness Barak Jacobo is a 72 year old male current cigar smoker (former cigarette smoker, 64 pyh, quit 1997) with a past medical history significant for metastatic papillary thyroid cancer, bladder cancer, COPD, HTN, HLD, CAD s/p PCI who is being seen as a new consultation for evaluation of a lung nodule(s). The patient was incidentally found to have a right lower lobe 8 mm spiculated nodule in February 2021. He had a follow up PET/CT scan which showed the nodule to have low FDG avidity. A six month follow up scan was completed 11/03/21 which showed increase in size of the nodule to 12 mm. At that time, patient's thyroid cancer had metastasized and he was undergoing surgery. CT chest was repeated on 05/11/22 which showed the nodule to be stable in size. A 1 year follow up scan was recommended. Most recent CT chest on 06/27/23 shows the nodule has remained stable in size. However, patient has been experiencing weight loss of about 30 lbs over the last year. He has a poor appetite. His local children librarian referred him for opinion on navigational bronchoscopy. Hx of bladder cancer 2018 s/p radiation - states urologist retired; in need of new urologist Hx of metastatic papillary thyroid cancer. Thyroid cancer first diagnosed around 2004 s/p thyroidectomy and radiation Took three lymph nodes out of the neck in November 2021-- 11/01 nodes was positive for metastatic thyroid cancer Follows locally with [facility] - Dr. Rob Sparks. He is s/p right neck dissection and thyroidectomy CT soft tissue neck w IV contrast 11/29/21 Nonspecific rounded cystic mass with septations located anterior to the right common carotid artery and right jugular vein, immediately proximal to the carotid bifurcation, and corresponding with the mass on the carotid ultrasound from 03/18/2021. Differential includes metastatic lymphadenopathy (especially given history of thyroid cancer), neurogenic tumors, chronic seroma (secondary to prior lymph node dissection), etc. 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 He remains asymptomatic of his carotid occlusive disease and on good medical therapy with use of aspirin and statin medications daily. We will continue to follow him along a routine basis and have him back again next year with repeat studies. He knows to call us in the meantime with questions or concerns whatsoever. [facility] Other 06-05-2023 Miscellaneous Notes* Telephone Encounter - Deborah, March - 08/03/2023 4:07 PM EDT Received fax from [facility] with referral information and records, [facility]* Encounter Date Diagnosis Assessment Notes Treatment Notes Treatment Clinical Notes Oct, Chronic obstructive pulmonary disease, unspecified COPD type (ICD-10 - J44.9) [facility] Other 10-19-2022 Evaluation note* Encounter Date Diagnosis Assessment Notes Treatment Notes Treatment Clinical Notes Jul, Chronic obstructive pulmonary disease, unspecified COPD type (ICD-10 - J44.9) [facility] Other 09-16-2022 Evaluation note* Encounter Date Diagnosis Assessment Notes Treatment Notes Treatment Clinical Notes Jun, Chronic obstructive pulmonary disease, unspecified COPD type (ICD-10 - J44.9) [facility] Other 07-21-2022 Evaluation note* Encounter Date Diagnosis Assessment Notes Treatment Notes Treatment Clinical Notes Apr, Lung nodule (ICD-10 - R91.1) Apr, Chronic obstructive pulmonary disease, unspecified COPD type (ICD-10 - J44.9) Apr, 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) [facility] Other 03-22-2022 Evaluation note* Encounter Date Diagnosis Assessment Notes Treatment Notes Treatment Clinical Notes Dec, Chronic obstructive pulmonary disease, unspecified COPD type (ICD-10 - J44.9) [facility] Other 01-24-2022 Note [id number]:[address] [place] [address] 11-18-2021 Evaluation note* Encounter Date Diagnosis Assessment Notes Treatment Notes Treatment Clinical Notes Oct, Chronic obstructive pulmonary disease, unspecified COPD type (ICD-10 - J44.9) Oct, 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) Oct, Solitary lung nodule (ICD-10 - R91.1) [facility] Other 12-27-2021 Evaluation note* Encounter Date Diagnosis Assessment Notes Treatment Notes Treatment Clinical Notes Sep, Asymptomatic bilateral carotid artery stenosis (ICD-10 - I65.23) We reviewed today's carotid duplex findings indicating 50 to 69% stenosis on the right and less than 50% stenosis on the left. He remains asymptomatic of his carotid occlusive disease at this time. We also discussed identified nodule on the right side measuring approximately 2.6 x 1.2 x 1.8 cm in size. I have no previous measurements for comparison. We will have Dr. Palmer review for comparison with outside imaging source. We will continue to monitor him with surveillance duplex studies and have him back in 6 months time. We reviewed signs and symptoms of carotid occlusive disease and when would be appropriate to return for further evaluation prior to next scheduled appointment. He is currently on good medical therapy with high intensity statin and aspirin medications daily. He verbalizes understanding of all discussion here today, agrees with plan of care, and denies any questions. [facility] Other 11-30-2021 Evaluation note* Encounter Date Diagnosis Assessment Notes Treatment Notes Treatment Clinical Notes Aug, Asymptomatic bilateral carotid artery stenosis (ICD-10 - I65.23) Aug, Other Carotid stenosis It has been 6 months since he had a previous carotid stenosis that suggested moderately severe carotid disease. He also had a nodule on the right side that has not been followed since. We will go ahead with repeat carotid duplex examination in the office so that we can see the images in real-time and reassess the cervical nodule. At this juncture he has no symptoms and is on aspirin and atorvastatin. I will see him back once his ultrasound is complete. [facility] Other 09-30-2021 Evaluation note* Encounter Date Diagnosis Assessment Notes Treatment Notes Treatment Clinical Notes Jun, Chronic obstructive pulmonary disease, unspecified COPD type (ICD-10 - J44.9) Jun, 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) Jun, Lung nodule (ICD-10 - R91.1) ADP Other Evaluation noteNo InformationN[employer] Other Evaluation noteNo assessment information available [facility] Work Phone: Evaluation note* Diagnosis Lung nodule- Primary Solitary pulmonary nodule Tobacco use current Abnormal finding on lung imaging Other nonspecific abnormal finding of lung field Bronchiolar disease Other diseases of trachea and bronchus [facility] Diagnosis Lung nodule- Primary Solitary pulmonary nodule documented in this encounter [facility] note* Diagnosis 3-vessel CAD History of coronary artery bypass graft Postsurgical aortocoronary bypass status History of PTCA Postsurgical percutaneous transluminal coronary angioplasty status Mixed hyperlipidemia Essential hypertension Unspecified essential hypertension Stenosis of right carotid artery Occlusion and stenosis of carotid artery without mention of cerebral infarction Type 2 diabetes mellitus without complication, without long-term current use of insulin ([facility]) Acquired hypothyroidism Unspecified hypothyroidism Chronic obstructive pulmonary disease, unspecified COPD type ([facility]) Current smoker on some days Overweight (BMI 25.0-29.9) Overweight Angina, class II ([facility]) Other and unspecified angina pectoris Lightheadedness Dizziness and giddiness documented in this encounter [facility] Work Phone: Evaluation note* Diagnosis Onset Date Resolution Status COPD (chronic obstructive pulmonary disease) acute Pulmonary nodule [facility] Work Phone: Evaluation note* Diagnosis Onset Date Resolution Status COPD (chronic obstructive pulmonary disease) acute Pulmonary nodule acute Pulmonary nodule acute Pulmonary nodule [facility] Work Phone: Evaluation note* Diagnosis Onset Date Resolution Status COPD (chronic obstructive pulmonary disease) acute Pulmonary nodule acute Pulmonary nodule acute Pulmonary nodule acute Pulmonary nodule [facility] Work Phone: Evaluation note* Diagnosis Onset Date Resolution Status Pulmonary nodule acute Pulmonary nodule acute Pulmonary nodule acute Bilateral carotid artery stenosis [facility] Work Phone: Evaluation note* Diagnosis Onset Date Resolution Status Pulmonary nodule acute Bilateral carotid artery stenosis [facility] Work Phone: History general Narrative - Reported* Type Description Date Medical History COPD Medical History thyroid cancer Medical History diabetes mallitus Medical History heart disease Medical History hypertensive heart disease Surgical History Procedure:thyroidectomy;Disease : 2006 Surgical History thyroidectomy Surgical History heart stent Surgical History Procedure:colonoscopy;Disease:i nternal Hemorrhoids 2013 Surgical History heart bypass surgery Surgical History Procedure:tonsillectomy;Disease : 1968 Surgical History CABG Surgical History Procedure:Stent;Disease: 2002 Surgical History Procedure:Double Heart Bypass;D isease: 2008 Surgical History tonsillectomy Surgical History Procedure:PTCA with stents.;Dis ease: Blockages 2009 Surgical History vasectomy Surgical History fingers amputation Surgical History Procedure:Partial Am putation;Disease:Crushed Fingers 1991 Surgical History back surgery Surgical History Procedure:Angioplasty with sten t;Disease: 2008 Surgical History Procedure:EGD;Disease: 2005 Surgical History Procedure:colonoscopy;Disease:D iverticulosis 2013 Surgical History Procedure:Stent placed,March;Dis ease: 2009 Surgical History Procedure:Angioplasty;Disease: 2007 Surgical History Procedure:2 Stents Placed;Disea se: 1996 Surgical History Neck surgery per Dr. Garcia. 82 015 Surgical History Neck surgery Dr. Garcia Surgical History [address] Barrett . 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 Medical History Bladder cancer Surgical History Procedure:thyroidectomy;Disease : 2005 Surgical History thyroidectomy Surgical History heart stent Surgical History Procedure:colonoscopy;Disease:i nternal Hemorrhoids 2013 Surgical History heart bypass surgery Surgical History Procedure:tonsillectomy;Disease : 1968 Surgical History CABG Surgical History Procedure:Stent;Disease: 2002 Surgical History Procedure:Double Heart Bypass;D isease: 2008 Surgical History tonsillectomy Surgical History Procedure:PTCA with stents.;Dis ease: Blockages 2009 Surgical History vasectomy Surgical History fingers amputation Surgical History Procedure:Partial Am putation;Disease:Crushed Fingers 1991 Surgical History back surgery Surgical History Procedure:Angioplasty with sten t;Disease: 2008 Surgical History Procedure:EGD;Disease: 2005 Surgical History Procedure:colonoscopy;Disease:D iverticulosis 2013 Surgical History Procedure:Stent placed,March;Dis ease: 2009 Surgical History Procedure:Angioplasty;Disease: 2007 Surgical History Procedure:2 Stents Placed;Disea se: 1996 Surgical History Neck surgery per Dr. Braun. Bell-2 015 Surgical History Neck surgery Dr. Garcia Surgical History [address] Barrett . 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 Medical History Bladder cancer Surgical History Procedure:thyroidectomy;Disease : 2005 Surgical History thyroidectomy Surgical History heart stent Surgical History Procedure:colonoscopy;Disease:i nternal Hemorrhoids 2013 Surgical History heart bypass surgery Surgical History Procedure:tonsillectomy;Disease : 1968 Surgical History CABG Surgical History Procedure:Stent;Disease: 2002 Surgical History Procedure:Double Heart Bypass;D isease: 2008 Surgical History tonsillectomy Surgical History Procedure:PTCA with stents.;Dis ease: Blockages 2009 Surgical History vasectomy Surgical History fingers amputation Surgical History Procedure:Partial Am putation;Disease:Crushed Fingers 1991 Surgical History back surgery Surgical History Procedure:Angioplasty with sten t;Disease: 2008 Surgical History Procedure:EGD;Disease: 2005 Surgical History Procedure:colonoscopy;Disease:D iverticulosis 2013 Surgical History Procedure:Stent placed,March;Dis ease: 2009 Surgical History Procedure:Angioplasty;Disease: 2007 Surgical History Procedure:2 Stents Placed;Disea se: 1996 Surgical History Neck surgery per Dr. Garcia. 8- 015 Surgical History Neck surgery Dr. Garcia Surgical History [address] Barrett . 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 Medical History Bladder cancer Surgical History Procedure:thyroidectomy;Disease : 2005 Surgical History thyroidectomy Surgical History heart stent Surgical History Procedure:colonoscopy;Disease:i nternal Hemorrhoids 2013 Surgical History heart bypass surgery Surgical History Procedure:tonsillectomy;Disease : 1968 Surgical History CABG Surgical History Procedure:Stent;Disease: 2002 Surgical History Procedure:Double Heart Bypass;D isease: 2008 Surgical History tonsillectomy Surgical History Procedure:PTCA with stents.;Dis ease: Blockages 2009 Surgical History vasectomy Surgical History fingers amputation Surgical History Procedure:Partial Am putation;Disease:Crushed Fingers 1991 Surgical History back surgery Surgical History Procedure:Angioplasty with sten t;Disease: 2008 Surgical History Procedure:EGD;Disease: 2005 Surgical History Procedure:colonoscopy;Disease:D iverticulosis 2013 Surgical History Procedure:Stent placed,March;Dis ease: 2009 Surgical History Procedure:Angioplasty;Disease: 2007 Surgical History Procedure:2 Stents Placed;Disea se: 1996 Surgical History Neck surgery per Dr. Garcia. 8- 015 Surgical History Neck surgery Dr. Garcia Surgical History [address] Barrett . Surgical History lymphnode righ neck with cancer 2021 Surgical History 2x heart stents-Dr. Barrett 06/2022 Hospitalization History see surgical history [facility] Other History of Present illness Narrative* The patient states he has been generally stable since the last visit. Comorbid Illnesses: diabetes mellitus, hypertension and hyperlipidemia. * Symptoms: improved chest pain at rest, improved exertional chest pain, stable dyspnea, stable fatigue, stable exercise intolerance, denies palpitations, denies edema, denies orthopnea, denies dizziness and stable orthostatic dizziness. * Associated symptoms: no syncope. * His symptoms limit his activities. * Disease Monitoring: The patient has had a stable weight. * Medications: the patient is adherent with his medication regimen. He denies medication side effects. [facility] [employer] DO Work Phone: History of Present illness Narrative* The patient states he has been generally stable since the last visit. Comorbid Illnesses: diabetes mellitus, hypertension and hyperlipidemia. * Symptoms: denies chest pain at rest, stable exertional chest pain, denies dyspnea, stable fatigue, denies exercise intolerance, denies palpitations, denies edema, denies orthopnea, denies dizziness and denies orthostatic dizziness. * Associated symptoms: no syncope. * Disease Monitoring: recent nitroglycerin use has been unchanged. * Medications: the patient complains of medication side effects. [facility] [employer] DO Work Phone: Hospital Discharge instructionsAmbulatory Orders* Oncology Histology Time Frame: 1 Day, Location: Determined By Patient [facility] Work Phone: Hospital Discharge instructionsAmbulatory Orders* Oncology Histology Time Frame: 1 Day, Location: Determined By Patient * Oncology Histology Time Frame: 1 Day, Location: Determined By Patient [facility] Work Phone: Progress note Author [facility] March 05, 2024 12:35pm Note Date/Time March 04, 2024 1:41pm [facility] [place] [address] Cancer Center Note Signed Patient: Barak Sabillon MR#: [id number] : 1950 Acct:[id number] Age/Sex: 73 / M Type: DEP AMB Date of Service: 03/04/24 Copies to: Amrita Louis, DO~ Assessment & Plan A/P (1) Pulmonary nodule: Plan Metastatic carcinoma. This will likely be stage IV disease with bony involvement. PET/CT shows very bright right lower lobe nodule 15 mm as well as bright obvioussubcarinal/hilar lymph node positive. Also 2 discrete lesions 1 in lumbar and 1and sacrum. EBUS positive for metastatic carcinoma on February 05, 2024. These were FNA samples. He did not have endobronchial lesion and therefore did not have core biopsy. not enough tissues for further classification. will refer for biopsy of primary or metastatic lesion in bone. He has a history of recurrent papillary thyroid carcinoma which is concerning. It is important to find his tissue type specifically before developing a treatment plan. History of papillary thyroid carcinoma status post thyroidectomy with a BRAF [id number] mutation in November 2021. RET was negative. 1 of 6 lymph nodes were positive in the cervical level 3. Additional 12 lymph nodes were negative. No extracapsular invasion. 1.5 cm tumor. CHEMO PLAN No Active Chemotherapy History of Present Illness HPI 73-year-old male primary patient of Dr. Louis from the [place] [facility]. Past medicalhistory includes COPD, history of thyroid cancer, renal stones, gastroesophagealreflux disease, hypothyroidism, type 2 diabetes, hypertension, hyperlipidemia, coronary artery disease. He had a two-vessel coronary artery bypass grafting [id number]. He had PCI in 2021. Outpatient medications include aspirin, atorvastatin, Synthroid, lisinopril, Breztri, metformin, metoprolol, Prilosec, tamsulosin, vitamin C. Comanaged by Dr. Dorado for enlarging right lower lobe pulmonary nodule. He had a bladder cancer 2019, he had a cystectomy, he never had chemo. He did have a radiotherapy afterwards here at [facility]. He was last seen by Dr. Jarrell in our cancer center with a history of bilateral thyroid resection followed by I-131 orally at [facility] about 2013. Recurrence of papillary thyroid cancer in 2021. A biopsy of a lymph node in the right neck by Dr. Villanueva in November 2021 noted positive for a [id number], negative for a ret mutation. He underwent a neck dissection with Dr. Villanueva and received postoperative I-131 in December 2021. His dose was 159.8 mCi. Metastatic/recurrent papillary thyroid carcinoma involving 1 of 6 lymph nodes. No definitive extracapsular invasion. 11 lymph nodes negative for metastatic disease in the right level 1B and 2A. 1 lymph node in mid level 5 biopsy was negative. PET/CT from January 29, 2024 shows subcarinal right hilar FDG avid lymph node with an SUV of 13.4. His 15 mm right lung nodule has an SUV of 6.2. He does have lumbar spine and sacral hypermetabolic activity suspicious for metastatic disease with SUVs up to 11.1. This was supposed to have been biopsied in September 2023 but was delayed. Bronchoscopy with EBUS performed by Dr. Dorado on February 05, 2024. Both bronchoscopy specimens were positive for metastatic carcinoma. Biopsy obtained of station 7 and station 11 R lymph node. He has a history of bladder cancer as well as thyroid cancer. He quit smoking 20 years ago. He had asbestos exposure in the [place]. He has agent orange exposure. Review of labs show normal CBC, creatinine 0.9, TSH of 0.06 in November 2023. 03/04/24 he still has chronic back pain mostly unchanged. breathing is good at rest. It is short of breath on exertion. this is unchanged. no schedule for biopsy at this point Intake Vitals/Pain Assessment 03/04/24 13:43 Weight 77.111 kg BP 162/79 H Blood Pressure Location Lt radial Position Sitting Temp 97.9 F Temp Source Temporal Pulse 72 Pulse Source NIBP Respiration 16 Pulse Oximetry (%) 94 L Oxygen Delivery Method room air Are you having pain? No Intake Visit Reasons: follow up visit Allergies codeine Allergy (Unknown, Verified 03/04/24 13:46) Nausea, stomach upset pneumococcal vaccine Allergy (Unknown, Verified 03/04/24 13:46) SOB erythromycin base Allergy (Verified 03/04/24 13:46) Nausea - Last Reconciled 03/04/24 by Carmen Boyd albuterol sulfate 90 mcg/actuation 2 puffs inhalation QID PRN ascorbic acid (vitamin C) ER (Vitamin C ER) 500 mg PO DAILY aspirin (Teresas Low Dose Aspirin) 81 mg PO QAM atorvastatin 1 tab PO QHS [id number] 160-9-4.8 mcg/actuation (Breztri Aerosphere) 2 inhalations inhalation BID levothyroxine 137 mcg PO QAM lisinopril 20 mg PO QAM metformin 500 mg PO QHS metoprolol tartrate 12.5 mg PO BID multivitamin (Multiple Vitamins tablet) 1 tab PO DAILY nitroglycerin 0.4 mg sublingual Q5-15M PRN omeprazole 20 mg PO QAM tamsulosin 0.4 mg PO QHS Gastrointestinal Is the patient taking opioids for pain control?: No Falls Fall Precaution Measures Taken: Patient in chair Nurse's Note: Patient is here for a two week follow up visit and go over tumor board [facility] Medical History Medical History (Updated 02/19/24 @ 14:48 by Jim Herrera) Pulmonary nodule Carotid artery disease watching-had carotid doppler 10/25/21 H/O agent [place] exposure BPH (benign prostatic hyperplasia) nocturia Hx of bladder cancer [id number]? Smoker cigars COPD (chronic obstructive pulmonary disease) Back pain History of thyroid cancer 2004?? spread to lymph node about 3 years ago (as of 02/19/2024) History of renal stone GERD (gastroesophageal reflux disease) Hypothyroidism Diabetes mellitus, type 2 Hypertension Hyperlipidemia Coronary artery disease Anginal pain Surgical History Surgical History Hx of lymph node excision rt [id number] w/radiation pills Hx of cystoscopy turbt History of vasectomy History of orthopedic surgery left hand middle finger tip amputated History of cervical spinal surgery posterior and anterior with hardware History of thyroidectomy History of tonsillectomy History of heart bypass surgery 2009-double History of cardiac catheterization stents x 11 Family History Family History Mother Dementia Stroke History of stroke Hypertension Father Diabetes CAD (coronary artery disease) Heart disease Hypertension Stroke Sister Diabetes Social History Social History Smoking status: Current every day smoker What tobacco products do you use: cigars Within the past year, how often did you have a drink containing alcohol: 4 or more times a week Within the past year, how many standard drinks containing alcohol did you have on a typical day: 1 or 2 Within the past year, how often did you have six or more drinks on one occasion: less than monthly AUDIT-C Alcohol total score: 5 AUDIT-C Alcohol score interpretation: A score of 4 or more indicates drinking is likely to affect patient's safety. 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 Neck: no JVD or thyromegaly. Lymph: no cervical, supraclavicular, axillary adenopathy. Heart: regular rate and rhythm no murmurs rubs or gallops. Abdomen: soft, nontender,, nondistended, no hepatosplenomegaly. Lungs: clear to auscultation bilaterally. No wheezes, rales, rhonchi. Extremities: no clubbing cyanosis Results - [facility] (Med [facility]c) LAB RESULTS No Data to Display Dictated By: Leon Blake II, DO DD/ 1339 Signed By: <Electronically signed by Leon Blake II, DO> 03/05/24 1235 [facility] Work Phone: Progress note Author Leon Blake [facility] May 17, 2024 2:07pm Note Date/Time May 17, 2024 1:31 pm [facility] [place] [address] Cancer Center Note Signed Patient: Barak Sabillon MR#: [id number] : 1950 Acct:[id number] Age/Sex: 73 / M Type: REG AMB Date of Service: 05/17/24 Copies to: Amrita Louis, ~ Assessment & Plan A/P Patient Instructions: cont cbc, cmp, cea on treatment days. plan carbo abrax pembro in 2 wks. CHEMO PLAN Treatment Plan Pembrolizumab, Pemetrexed, Carboplatin Q21D Clinical Indication No Indication Cycle Number Last Admin 1 of 1 Cycle Day Next Admin No Active Chemotherapy History of Present Illness HPI HISTORY OF PRESENT ILLNESS 73-year-old male primary patient of Dr. Louis from the [facility]. Past medicalhistory includes COPD, history of thyroid cancer, renal stones, gastroesophagealreflux disease, hypothyroidism, type 2 diabetes, hypertension, hyperlipidemia, coronary artery disease. He had a two-vessel coronary artery bypass grafting [id number]. He had PCI in 2021. Outpatient medications include aspirin, atorvastatin, Synthroid, lisinopril, Breztri, metformin, metoprolol, Prilosec, tamsulosin, vitamin C. Comanaged by Dr. Dorado for enlarging right lower lobe pulmonary nodule. He had a bladder cancer 2018, he had a cystectomy, he never had chemo. He did have a radiotherapy afterwards here at [facility]. He was last seen by Dr. Jarrell in our cancer center with a history of bilateral thyroid resection followed by I-131 orally at [facility] about 2013. Recurrence of papillary thyroid cancer in 2021. A biopsy of a lymph node in the right neck by Dr. Villanueva in November 2021 noted positive for a [id number], negative for a ret mutation. He underwent a neck dissection with Dr. Villanueva and received postoperative I-131 in December 2021. His dose was 159.8 mCi. Metastatic/recurrent papillary thyroid carcinoma involving 1 of 6 lymph nodes. No definitive extracapsular invasion. 11 lymph nodes negative for metastatic disease in the right level 1B and 2A. 1 lymph node in mid level 5 biopsy was negative. PET/CT from January 29, 2024 shows subcarinal right hilar FDG avid lymph node with an SUV of 13.4. His 15 mm right lung nodule has an SUV of 6.2. He does have lumbar spine and sacral hypermetabolic activity suspicious for metastatic disease with SUVs up to 11.1. This was supposed to have been biopsied in September 2023 but was delayed. Bronchoscopy with EBUS performed by Dr. Dorado on February 05, 2024. Both bronchoscopy specimens were positive for metastatic carcinoma. Biopsy obtained of station 7 and station 11 R lymph node. He has a history of bladder cancer as well as thyroid cancer. He quit smoking 20 years ago. He had asbestos exposure in the [place]. He has agent orange exposure. Review of labs show normal CBC, creatinine 0.9, TSH of 0.06 in November 2023. 03/04/24 he still has chronic back pain mostly unchanged. breathing is good at rest. It is short of breath on exertion. this is unchanged. no schedule for biopsy at this point 04/15/24 I was able to review his pathology report from left sacral bone biopsy from [facility] which notes metastatic carcinoma in the bone: Positive for pankeratin and TTF-1 and negative for PAX8. Suggestive of lung primary. He had [id number] test performed on his blood which noted negative EGFR, ALK, ROS1, BRAF, met, HER2, ret, NTRK, KRAS. He was microsatellite stable. ESR 1 was the only variant of uncertain significance noted. PHYSICAL EXAMINATION ECOG PS:0 General : patient is alert and oriented to person place and time, no acute distress. Neck: no JVD or thyromegaly. Lymph: no cervical, supraclavicular, axillary adenopathy. Heart: regular rate and rhythm no murmurs rubs or gallops. Abdomen: soft, nontender,, nondistended, no hepatosplenomegaly. Lungs: clear to auscultation bilaterally. No wheezes, rales, rhonchi. Extremities: no clubbing cyanosis ASSESSMENT/PLAN Metastatic lung adenocarcinoma. stage IV disease with sacral and lumbar limitedbony involvement. Sacral bone lesion biopsy was positive for pancytokeratin, TTF-1. Negative for PAX8. He had [id number] test performed on his blood which noted negative EGFR, ALK, ROS1, BRAF, met, HER2, ret, NTRK, KRAS. He was microsatellite stable. ESR 1 was the only variant of uncertain significance noted. His tumor did not have enough tumor for NGS. His PDL1 was 0% PET/CT shows very bright right lower lobe nodule 15 mm as well as bright obvioussubcarinal/hilar lymph node positive. Also 2 discrete lesions 1 in lumbar and 1and sacrum. EBUS positive for metastatic carcinoma on February 05, 2024. These were FNA samples. discussed consideration of carboplatin pemetrexed and pembrolizumab palliatively. c1d1 was 05/10/24 He had a brisk hives and throat swelling to his first pemetrexed. this was not rechallenged. for c2d1 will attempt carboplatin, pembrolizumab, abraxane. History of papillary thyroid carcinoma status post thyroidectomy with a BRAF V600E mutation in November 2021. RET was negative. 1 of 6 lymph nodes were positive in the cervical level 3. Additional 12 lymph nodes were negative. No extracapsular invasion. 1.5 cm tumor. Intake Vitals/Pain Assessment 05/17/24 13:34 Weight 76.204 kg BP 127/73 Blood Pressure Location Rt brachial Position Sitting Temp 98.5 F Temp Source Temporal Pulse 74 Pulse Source NIBP Respiration 18 Pulse Oximetry (%) 95 Oxygen Delivery Method room air Are you having pain? No Intake Visit Reasons: Toxicity Check Accompanied by: Spouse Allergies codeine Allergy (Unknown, Verified 04/30/24 10:40) Nausea, stomach upset pneumococcal vaccine Allergy (Unknown, Verified 04/30/24 10:40) SOB erythromycin base Allergy (Verified 04/30/24 10:40) Nausea pemetrexed Allergy (Uncoded 05/17/24 13:58) rash - Last Reconciled 05/17/24 by Jim Herrera albuterol sulfate 90 mcg/actuation 2 puffs inhalation QID PRN ascorbic acid (vitamin C) ER (Vitamin C ER) 500 mg PO DAILY aspirin (Teressa Low Dose Aspirin) 81 mg PO QAM atorvastatin 1 tab PO QHS xtazvgoxcm-hedenqxc-gwdbzkpkxv 160-9-4.8 mcg/actuation (Breztri Aerosphere) 2 inhalations inhalation BID folic acid 1 mg PO DAILY levothyroxine 137 mcg PO QAM metformin 500 mg PO QHS metoprolol tartrate 12.5 mg PO BID multivitamin (Multiple Vitamins tablet) 1 tab PO DAILY nitroglycerin 0.4 mg sublingual Q5-15M PRN omeprazole 20 mg PO QAM ondansetron 8 mg PO Q8HR tamsulosin 0.4 mg PO QHS Trelegy Ellipta 100-62.5-25 mcg (xiuybyhyszx-ojglkvqpm-ivnvzalc) 1 inh inhalation DAILY 90 days NS valsartan 160 mg PO DAILY Gastrointestinal Is the patient taking opioids for pain control?: No Bowel Protocol for Opioids Given: No Falls Fall Precaution Measures Taken: Patient in chair Nurse's Note: Patient is here for a tox check, reports alot of bloating and abdominal discomfort. He also reports some nausea, fatigue. [facility] Medical History Medical History Adenocarcinoma, lung Pulmonary nodule Carotid artery disease H/O agent [place] exposure BPH (benign prostatic hyperplasia) Hx of bladder cancer Smoker COPD (chronic obstructive pulmonary disease) Back pain History of thyroid cancer History of renal stone GERD (gastroesophageal reflux disease) Hypothyroidism Diabetes mellitus, type 2 Hypertension Hyperlipidemia Coronary artery disease Anginal pain Surgical History Surgical History Hx of lymph node excision Hx of cystoscopy History of vasectomy History of orthopedic surgery History of cervical spinal surgery History of thyroidectomy History of tonsillectomy History of heart bypass surgery History of cardiac catheterization Family History Family History Mother Dementia Stroke History of stroke Hypertension Father Diabetes CAD (coronary artery disease) Heart disease Hypertension Stroke Sister Diabetes Social History Social History Smoking status: Current every day smoker What tobacco products do you use: cigars Within the past year, how often did you have a drink containing alcohol: 4 or more times a week Within the past year, how many standard drinks containing alcohol did you have on a typical day: 1 or 2 Within the past year, how often did you have six or more drinks on one occasion: less than monthly AUDIT-C Alcohol total score: 5 AUDIT-C Alcohol score interpretation: A score of 4 or more indicates drinking is likely to affect patient's safety. 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, [employer] Results - [facility] (Med [facility]c) LAB RESULTS Corrected WBC 6.1 X10E3/uL (4.1-10.5) 05/07/24 09:14 Hgb 14.3 g/dL (13.0-17.0) 05/07/24 09:14 Hct 41.9 % (38.8-50.0) 05/07/24 09:14 MCV 97.1 fl (83.5-101) 05/07/24 09:14 RDW 13.4 % (12.0-14.8) 05/07/24 09:14 Plt Count 244 x10E3/uL (150-450) 05/07/24 09:14 Sodium 139 mmol/L (136-145) 05/07/24 09:14 Potassium 4.9 mmol/L (3.5-5.1) 05/07/24 09:14 BUN 19 mg/dL (7-25) 05/07/24 09:14 Creatinine 0.89 mg/dL (0.70-1.30) 05/07/24 09:14 Glucose 121 mg/dL (70-100) H 05/07/24 09:14 Est GFR (CKD-EPI) > 60.0 mL/Min 05/07/24 09:14 Calcium 9.0 mg/dL (8.6-10.3) 05/07/24 09:14 Total Bilirubin 0.4 mg/dl (0.3-1.0) 05/07/24 09:14 AST 14 U/L (13-39) 05/07/24 09:14 ALT 11 U/L (7-52) 05/07/24 09:14 Alkaline Phosphatase 84 U/L (34-104) 05/07/24 09:14 Total Protein 6.1 gm/dL (6.4-8.9) L 05/07/24 09:14 Albumin 4.1 gm/dL (3.5-5.7) 05/07/24 09:14 Dictated By: Leon Blake II, DO DD/ [id number] Signed By: <Electronically signed by Leon Blake II, DO> 05/17/24 8338 [facility] Work Phone: Reason for referral (narrative)* Reason Appt: PENDING Refe rral for interventional bronchoscopy department for lung nodule Diagnosis 1 Lung nodule (R91.1) Referral Organization [facility] Referring Provider First Name Jorgeluis Referring Provider Last Name Mary Referring Provider Specialty Pulmonary D iseases Referred Organization [facility] Referred Address [address] [place] [place],[address] Referred Provider Specialty Intervention al Radiology Referral Priority Routine General Notes Va Hennessy 09/2023 09:16:55 AM >called [facility] Referal Hotline at [phone] spoke helder Callahan. Provided all patient information. Stated they do not schedule for the interventional radiology dept at this phone number, provided phone number for [facility] Interventional Radiology [phone]. Va Hennessy 07/11/2023 09:44:58 AM >I was transferred to [facility] Interventional Radiology and spoke with Cely she requested we fax the referral to [phone] along with order, progress note, H&P. Va Hennessy 07/11/2023 01:14:30 PM >faxed referral, confirmation received ADP Other Reason for referral (narrative)* Consultation (Routine) - Authorized Specialty Diagnoses / Procedures Referred By Frieda barbosa Referred To Contact Cardiology Diagnoses 3-vessel CAD History of coronary artery bypass graft Mixed hyperlipidemia Essential hypertension Angina, class II (CMS/HCC) Lightheadedness Procedures Follow Up In Cardiology Doc Barrett DO [address] [facility], [address] [address] Doc Barrett DO [facility], [place] [address] [place] [id number] Referral ID Status Reason Start Date Expiration Date V isits Requested Visits Authorized [id number] Authorized 09/06/2023 09/05/2024 1 1 [facility] Work Phone: Summary Purpose Family History No Family History Records Found Relationship Condition Age at Onset Recorded Date/T chandrika Not Specified Dementia Unknown Cerebrovascular accident (CVA) Unknown father Cerebrovascular accident (CVA) Unknown Diabetes mellitus Unknown Coronary artery disease Unknown sister Diabetes mellitus Unknown Unknown Family Member Name Dates Details Family history of arterioscl erotic cardiovascular disease: Mother, Father(V17.49, Z82.49) Status:Active Unknown Family Member Name Dates Details Family history of arterioscl erotic cardiovascular disease: Mother, Father(V17.49, Z82.49) Status:Active Unknown Family Member Name Dates Details Family history of arterioscl erotic cardiovascular disease: Mother, Father(V17.49, Z82.49) Status:Active Unknown Family Member Name Dates Details Family history of arterioscl erotic cardiovascular disease: Mother, Father(V17.49, Z82.49) Status:Active Unknown Family Member Name Dates Details Family history of arterioscl erotic cardiovascular disease: Mother, Father(V17.49, Z82.49) Status:Active Unknown Family Member Name Dates Details Family history of arterioscl erotic cardiovascular disease: Mother, Father(V17.49, Z82.49) Status:Active Unknown Family Member Name Dates Details Family history of arterioscl erotic cardiovascular disease: Mother, Father(V17.49, Z82.49) Status:Active Unknown Family Member Name Dates Details Family history of arterioscl erotic cardiovascular disease: Mother, Father(V17.49, Z82.49) Status:Active Unknown Family Member Name Dates Details Family history of arterioscl erotic cardiovascular disease: Mother, Father(V17.49, Z82.49) Status:Active Unknown Family Member Name Dates Details Family history of arterioscl erotic cardiovascular disease: Mother, Father(V17.49, Z82.49) Status:Active Unknown Family Member Name Dates Details Family history of arterioscl erotic cardiovascular disease: Mother, Father(V17.49, Z82.49) Status:Active Relationship Condition Age at Onset Recorded Date/T chandrika Not Specified Dementia Unknown Cerebrovascular accident (CVA) Unknown father Cerebrovascular accident (CVA) Unknown Diabetes mellitus Unknown Coronary artery disease Unknown sister Diabetes mellitus Unknown father Heart disease Unknown Unknown History of stroke Unknown Hypertension Unknown father Hypertension Unknown Not Specified Hypertension Unknown Relationship Condition Age at Onset Recorded Date/T chandrika Not Specified Dementia Unknown Cerebrovascular accident (CVA) Unknown Unknown History of stroke Unknown Hypertension Unknown father Diabetes mellitus Unknown Coronary artery disease Unknown Heart disease Unknown sister Diabetes mellitus Unknown Relationship Condition Age at Onset Recorded Date/T chandrika mother Dementia Unknown Cerebrovascular accident (CVA) Unknown Unknown History of stroke Unknown Hypertension Unknown father Diabetes mellitus Unknown Coronary artery disease Unknown Heart disease Unknown sister Diabetes mellitus Unknown Advance Directives No Advanced Directives Records Found Advance Directive Response Recorded Date/ Time Advance Directives No June 11:09am Advance Directive Response Recorded Date/ Time Advance Directives No June 10:09am Advance Directive Response Recorded Date/ Time Advance Directives Yes January 29 2:41pm Chief Complaint and Reason for Visit Chief Complaint r91.1 E89.0 e89.0 Chief Complaint r91.1 E89.0 e89.0 3 Vessel CAD, Angina Chief Complaint E89.0 e89.0 3 Vessel CAD, Angina 3 Vessel CAD, Angina 3 Vessel CAD, Angina Class 3, Hx of Coronary [place] Chief Complaint E89.0 e89.0 3 Vessel CAD, Angina 3 Vessel CAD, Angina 3 Vessel CAD, Angina Class 3, Hx of Coronary [place]pas 3 Vessel CAD, Angina Class 3, Hx of Coronary [place]pas Chief Complaint I65.23 r91.1 Chief Complaint r91.1 C73 Chief Complaint 3 Mo F/U Lung Nodule , Copd, Granulomatou C73 Chief Complaint C73 hx of lung nodules Chief Complaint C73 hx of lung nodules right lung nodule lower lobe Chief Complaint C73 hx of lung nodules right lung nodule lower lobe 4 Month f/u-Lung Nodule and COPD Reason for Visit COPD (chronic obstru ctive pulmonary disease) Pulmonary nodule Chief Complaint C73 hx of lung nodules right lung nodule lower lobe 4 Month f/u-Lung Nodule and COPD pulmonary nodule Reason for Visit COPD (chronic obstru ctive pulmonary disease) Pulmonary nodule Chief Complaint C73 hx of lung nodules right lung nodule lower lobe 4 Month f/u-Lung Nodule and COPD pulmonary nodule pulmonary nodule pulmonary nodule Reason for Visit COPD (chronic obstru ctive pulmonary disease) Pulmonary nodule Chief Complaint C73 hx of lung nodules right lung nodule lower lobe 4 Month f/u-Lung Nodule and COPD pulmonary nodule pulmonary nodule pulmonary nodule NEW Metastatic lung cancer metastatic lung cancer Reason for Visit COPD (chronic obstru ctive pulmonary disease) Pulmonary nodule Chief Complaint C73 hx of lung nodules right lung nodule lower lobe 4 Month f/u-Lung Nodule and COPD pulmonary nodule pulmonary nodule pulmonary nodule NEW Metastatic lung cancer metastatic lung cancer Reason for Visit COPD (chronic obstru ctive pulmonary disease) Pulmonary nodule Pulmonary nodule Pulmonary nodule Chief Complaint hx of lung nodules right lung nodule lower lobe 4 Month f/u-Lung Nodule and COPD pulmonary nodule pulmonary nodule pulmonary nodule NEW Metastatic lung cancer metastatic lung cancer Follow Up Reason for Visit COPD (chronic obstru ctive pulmonary disease) Pulmonary nodule Pulmonary nodule Pulmonary nodule Pulmonary nodule Chief Complaint right lung nodule lo wer lobe 4 Month f/u-Lung Nodule and COPD pulmonary nodule pulmonary nodule pulmonary nodule NEW Metastatic lung cancer Follow Up metastatic lung cancer Follow Up Reason for Visit COPD (chronic obstru ctive pulmonary disease) Pulmonary nodule Pulmonary nodule Pulmonary nodule Pulmonary nodule Chief Complaint pulmonary nodule pulmonary nodule pulmonary nodule NEW Metastatic lung cancer Follow Up metastatic lung cancer Follow Up 1 YR F/U; CAROTID DUPLEX 10A I65.23 Reason for Visit Pulmonary nodule Pulmonary nodule Pulmonary nodule Bilateral carotid artery stenosis Chief Complaint NEW Metastatic lung cancer Follow Up Follow Up 1 YR F/U; CAROTID DUPLEX 10A I65.23 metastatic lung cancer Toxicity Check Reason for Visit Pulmonary nodule Pulmonary nodule Pulmonary nodule Bilateral carotid artery stenosis Chief Complaint Follow Up Follow Up 1 YR F/U; CAROTID DUPLEX 10A I65.23 Toxicity Check Follow Up metastatic lung cancer Reason for Visit Pulmonary nodule Bilateral carotid artery stenosis Chief Complaint * BARAK SABILLON is being seen for an annual follow-up of. * 71-year-old gentleman returns for follow-up with exertional angina. He describes new onset chest discomfort with dizziness, diaphoresis and shortness of breath, grading his angina score of approximately 3-4 with any type of exertion and is relieved with rest after approximately 15 minutes. He does not take nitroglycerin for this as he does not believe it severe enough to warrant nitroglycerin. * He has underlying ASHD, remote CABG, remote acute coronary syndrome with PCI of the mid/distal RCA and PLV branch with 3 drug-eluting stents in April 2019. * He also has a new diagnosis of recurrent thyroid cancer with a right anterior carotid thyroid nodule that was resected. And his levothyroxine has been increased, this may portend increased angina as a possibility * He also has underlying diabetes, hyperlipidemia, hypertension. * Patient also has a history of bladder cancer that is stable with no recurrence * We have reviewed his anatomy, his class 3+ symptomatology clinically. Risk benefits alternatives and informed decision-making process performed with the patient today and have offered him either stress perfusion imaging or proceed to left heart catheterization with possible revascularization given the above. * Patient chooses to proceed with heart cath this Monday. * Started having chest pain again * BARAK SABILLON is being seen for cardiovascular procedure. * Patient is ambulatory with steady gait. * Last evaluated in clinic Dr. Barrett June 2022. At that time he presented with class III anginal symptoms. * July 14, 2022 uneventful elective cardiac cath with subsequent PCI due to ISR mid PLV. * He was initiated on Brilinta at that time (as tolerated in the past without dyspnea). * Right groin cath site is healed without adverse sequela. * He reports that immediately following intervention he traveled to [place]. He was able to walk upand down stairs, [place] and walked 5 miles without concerns. The prior complaintsof chest heaviness and dyspnea on exertion for the most part abated. He reports after being home for 1 week he has noted a reoccurrence of dyspnea on exertion, palpitations and chest pain. He resortsthe symptoms are my angina but not as bad . * Symptoms include: * 1. Progressive worsening dyspnea on exertion, is comfortable at rest. He was able to tolerate Brilinta in the past. He does have COPD and have encouraged him to try his rescue inhaler. * 2. Chest heaviness across the anterior chest wall that is worsened with exertion, resolves with rest. He reports a little angina walking in from the parking lot rating at a 2.5. He is not using nitroglycerin due to headache. He then reports that this discomfort never goes away -is maintained on PPI, no worsening with palpation or movement. It is not pleuritic in nature. * EKG in office today without acute ischemic changes. * Recent cath report reviewed and does not reveal any additional areas of concern. * July 14, 2022 cardiac cath: * mPLV PCI/[place] 3x18mm d/t ISR * RODRIGUEZ-LAD patent * SVG-OM occluded * mRamus patent stent * RCA patent stent * It is difficult to discern if this is recurrence of anginal symptoms versus possible element of COPD. * I will initiate long-acting nitrates, encouraged him to utilize rescue inhaler. Unlikely PE as symptoms nonpleuritic, lungs diminished with perhaps faint wheeze. * Schedule follow-up with Dr. Barrett in 1 week to evaluate. * He has been instructed to utilize nitroglycerin, limit physical activity and seek emergent medical attention for concerning signs and symptoms. * BARAK SABILLON is being seen for a 1 week follow-up of. * 71-year-old gentleman who returns at a early time point following recent repeat revascularization of the PLV branch with a 3 mm drug-eluting stent and overall excellent angiographic result and clinical improvement in his symptoms initially. He traveled to [place] thereafterwards and was ambulating without difficulties back to his normal lifestyle and activity level however after coming home, and he had recurrence of dyspnea and angina. He still has class 3+ angina and dyspnea at this juncturewhich is concerning. * He has a history of CABG, prior PCI's most recent intervention as described above now with concernsof either stent related problem or progressive disease elsewhere. I will review his most recent cath film. * He still has angina above and beyond the Nitropatch that was recently started by nurse practitioner * Risk benefits alternatives and informed decision-making process performed with the patient this morning in regards to continued observational and medical therapies versus reassessment with invasive angiography. He would like to proceed with invasive management at this time. * BARAK SABILLON is being seen for a 1 week follow-up of. * 71-year-old gentleman who returns at a early time point following recent repeat revascularization of the PLV branch with a 3 mm drug-eluting stent and overall excellent angiographic result and clinical improvement in his symptoms initially. He traveled to [place] thereafterwards and was ambulating without difficulties back to his normal lifestyle and activity level however after coming home, and he had recurrence of dyspnea and angina. He still has class 3+ angina and dyspnea at this juncturewhich is concerning. * He has a history of CABG, prior PCI's most recent intervention as described above now with concernsof either stent related problem or progressive disease elsewhere. I will review his most recent cath film. * He still has angina above and beyond the Nitropatch that was recently started by nurse practitioner * Risk benefits alternatives and informed decision-making process performed with the patient this morning in regards to continued observational and medical therapies versus reassessment with invasive angiography. He would like to proceed with invasive management at this time. * cath results. * Patient is a 71-year-old gentleman returns following recent revascularizations involving the PLV branch and the ramus branch. 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 * He has a history of remote CABG, the above-mentioned PCI's, thyroid cancer, COPD, hyperlipidemia, essential hypertension. * Recent lipid panel is reviewed LDL is 77, potassium 4.6, creatinine 0.85. * He is stable without any angina, recurrent hospitalizations, heart failure, right radial access site is intact with no hematoma and excellent pulse. * Recommendations: Continue current therapies follow-up again in 6 months, maintain healthy lifestyle, diet, activity and smoking cessation * BARAK SABILLON is being seen for a 6 month follow-up of. * 72-year-old gentleman returns for follow-up with daily angina, class III. He has not taken any nitroglycerin. At one point he was changing out his propane tank under the grill and had severe discomfort that lasted for 20 minutes that resolved with rest. * He has a history of CABG, multivessel PCI's most recent of which were in July and August involving the PLV branch of the RCA and the ramus branch both for in-stent restenosis. Details of which are reviewed. * He has underlying hypertension, hyperlipidemia, continued cigar use. We have counseled him for 3 minutes today on smoking cessation. * He was on a nitroglycerin patch but this has been discontinued given the fact he is been completelyrevascularized. He remains compliant with DAPT and high- dose statin as with his other medications. * We have counseled him on appropriate nitroglycerin use, we did discuss the potential to go back to the [facility] for relook at his anatomy. We will initiate Nitropatch 0.2 mg daily see if this makes any impact, follow-up with nurse practitioner next 4 to 6 weeks and myself in 4 months if in fact he has persistent daily angina he will require heart repeat catheterization, and possible PCI * BARAK SABILLON is being seen for a 6 month follow-up of. * 72-year-old gentleman returns for follow-up with daily angina, class III. He has not taken any nitroglycerin. At one point he was changing out his propane tank under the grill and had severe discomfort that lasted for 20 minutes that resolved with rest. * He has a history of CABG, multivessel PCI's most recent of which were in July and August involving the PLV branch of the RCA and the ramus branch both for in-stent restenosis. Details of which are reviewed. * He has underlying hypertension, hyperlipidemia, continued cigar use. We have counseled him for 3 minutes today on smoking cessation. * He was on a nitroglycerin patch but this has been discontinued given the fact he is been completelyrevascularized. He remains compliant with DAPT and high- dose statin as with his other medications. * We have counseled him on appropriate nitroglycerin use, we did discuss the potential to go back to the [employer] for relook at his anatomy. We will initiate Nitropatch 0.2 mg daily see if this makes any impact, follow-up with nurse practitioner next 4 to 6 weeks and myself in 4 months if in fact he has persistent daily angina he will require heart repeat catheterization, and possible PCI * Routine f/u: 'I could not tolerate the nitropatch' * BARAK SABILLON is being seen for a 6 week follow-up of chest pain. * Patient presents to the office ambulatory with steady gait, is accompanied by his . Last evaluated in clinic by Dr. Barrett February 2023. At that time due to stable angina system Nitropatch was addedto medical regimen. Patient was initially compliant with addition of treatment and verbalizes resolution of angina symptoms, unfortunately had symptomatic hypotension and has stopped Nitropatch. Off of Nitropatch he continues to report his usual angina symptoms that occur with lifting or carrying items, occasionally going up and down the stairs. He states his symptoms are no worse and are the same . Denies any rest symptoms. He is not utilizing nitroglycerin. * At this time, we will reduce lisinopril to 20 mg at bedtime rather than twice daily to allow blood pressure to reinitiate treatment with Nitropatch. He will follow back up in 2 weeks for reassessment. * Aug 26, 2022 Ramus PCI/Jeronimo d/t ISR * Jun 2022 RCA & PLV PCI/Jeronimo * Remains with stable functional class IIb angina symptoms off long acting nitrates. * BARAK SABILLON is being seen for a 2 week follow-up of. * 72-year-old gentleman returns for early follow-up and is doing much better, tolerating low-dose Nitropatch to and reduce lisinopril with no further episodes of hypotension, near syncope and greatly reduced anginal complaints. He is back to normal activities he has rare angina. * He has known ASHD with remote CABG, recent interventions in June and July 2022 are reviewedincluding PCI of the PLV branch for in-stent restenosis and subsequent PCI of the ramus branch in July for in-stent restenosis with preserved left ventricular function. He has a known patent RODRIGUEZ to the LAD and occluded vein graft to the circumflex * He remains hemodynamically stable on lisinopril 20 mg daily as opposed to twice daily. Notably, he is lost over 50 pounds in the past 7 years since his halfway. * Recommendations: Continue current therapies there is no need for repeat angiographic assessment, will follow-up in 6 months * BARAK SABILLON is being seen for a 2 week follow-up of. * 72-year-old gentleman returns for early follow-up and is doing much better, tolerating low-dose Nitropatch to and reduce lisinopril with no further episodes of hypotension, near syncope and greatly reduced anginal complaints. He is back to normal activities he has rare angina. * He has known ASHD with remote CABG, recent interventions in June and July 2022 are reviewedincluding PCI of the PLV branch for in-stent restenosis and subsequent PCI of the ramus branch in July for in-stent restenosis with preserved left ventricular function. He has a known patent RODRIGUEZ to the LAD and occluded vein graft to the circumflex * He remains hemodynamically stable on lisinopril 20 mg daily as opposed to twice daily. Notably, he is lost over 50 pounds in the past 7 years since his halfway. * Recommendations: Continue current therapies there is no need for repeat angiographic assessment, will follow-up in 6 months Reason for Referral Specialty Diagnoses / Procedures Referred By Frieda barbosa Referred To Contact CT IMAGING Diagnoses Lung nodule Tobacco use current Abnormal finding on lung imaging Procedures CT CHEST WO IVCON DIAGNOSTIC COMPUTED TOMOGRAPHY THORAX W/O CNTRST Larisa Gaxiola, PATIENT PORTAL REPRESENTATIVE.TOOL REPAIR TECHNICIAN [address] [place] [address] [place] [id number] Referral ID Status Reason Start Date Expiration Date Visits Requested Visits Authorized [id number] Authorized Auto-Generat ed Referral 3 09/13/2024 1 1 Additional Source Comments (unrecognized sect ion and content) No Status Records FoundNo Status Records FoundNo Status Records FoundNo Status Records FoundNo Status Records FoundNo Status Records FoundNo Status Records FoundNo Status Records FoundNo Status Records FoundNo Status Records FoundNo Status Records FoundNo Status Records Found INFORMATION SOURCE (unrecogn ized section and content) DATE CREATED AUTHOR 05/12/2019 [facility] DATE CREATED AUTHOR AUTHOR'S ORGANIZ ATION 03/31/2022 [facility] dical Specialist DATE CREATED AUTHOR AUTHOR'S ORGANIZ ATION 10/27/2022 [facility] DATE CREATED AUTHOR AUTHOR'S ORGANIZ ATION 03/16/2023 [facility] DATE CREATED AUTHOR AUTHOR'S ORGANIZ ATION 05/10/2023 [facility] DATE CREATED AUTHOR AUTHOR'S ORGANIZ ATION 08/27/2023 [facility] DATE CREATED AUTHOR AUTHOR'S ORGANIZ ATION 09/07/2023 [facility] DATE CREATED AUTHOR AUTHOR'S ORGANIZ ATION 10/10/2023 [facility] dical Specialists EPIC DATE CREATED AUTHOR AUTHOR'S ORGANIZ ATION 04/06/2024 [facility] DATE CREATED AUTHOR AUTHOR'S ORGANIZ ATION 05/30/2024 [facility] DATE CREATED AUTHOR AUTHOR'S ORGANIZ ATION 06/23/2024 [facility] DATE CREATED AUTHOR AUTHOR'S ORGANIZ ATION 07/07/2024 [facility] REASON FOR VISIT (unrecogniz ed section and content) Reason Comments CARDIAC CLEARANCE INFO Reason Onset Date Comments Bronchoscopy Scheduling- CLEARED- Robot Candidat e 08/15/2023 Initial Bronch Request Reason Comments 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 Credit And Collections Analyst - Other Reason Comments Outside Lab Results Reason Comments Patient Update Cancelled bronchosco py Reason Comments Nodule Reason Comments Follow-up 4 months Care Teams (unrecognized sec tion and content) Team Status: Inactive Member Role Status Dates Molina Pacheco , Primary Care Provider Active Rob Villanueva DO Attending Provider Active Team Status: Inactive Member Role Status Dates Molina Pacheco , Primary Care Provider Active Cordelia Agarwal MD Attending Provider Active Team Status: Active Member Role Status Dates Molina Pacheco , Primary Care Provider Active Team Status: Inactive Member Role Status Dates Molina Pacheco , DO Primary Care Provider Active Helder Barrett , Attending Provider Active Team Status: Inactive Member Role Status Dates Molina Pacheco , Primary Care Provider Active Mihaela Palomo , DIAMOND SAW OPERATOR-C Attending Provider Active Pizza Chef Relationship Specialty Start Date End Date Cordelia Agarwal MD [address] [address] Referring Pulmonary and Critical Care Medicine 08/02/23 Pizza Chef Relationship Specialty Start Date End Date Cordelia Agarwal MD [address] [place] [id number] Referring Pulmonary and Critical Care Medicine 08/02/23 Pizza Chef Relationship Specialty Start Date End Date Cordelia Agarwal MD [address] [place] [id number] Referring Pulmonary and Critical Care Medicine 08/02/23 Pizza Chef Relationship Specialty Start Date End Date Cordelia Agarwal MD [address] [place] [id number] Referring Pulmonary and Critical Care Medicine 08/02/23 Pizza Chef Relationship Specialty Start Date End Date Cordelia Agarwal MD [address] [place] [id number] Referring Pulmonary and Critical Care Medicine 08/02/23 Pizza Chef Relationship Specialty Start Date End Date Cordelia Agarwal MD [address] [address] Referring Pulmonary and Critical Care Medicine 08/02/23 Pizza Chef Relationship Specialty Start Date End Date Molina Pacheco DO [address] [place] [address] PCP - General 05/01/19 Team Status: Active Member Role Status Dates Amrita Luois DO Primary Care Provider Active Team Status: Inactive Member Role Status Dates Cordelia Agarwal MD Attending Provider Active Star t: October 04, 2023 End: October 04, 2023 Team Status: Inactive Member Role Status Dates Amrita Louis DO Primary Care Provider Active Start: December 21, 2023 End: December 21, 2023 Rob Villanueva DO Attending Provider Active S tart: December 21, 2023 End: December 21, 2023 Team Status: Inactive Member Role Status Dates Amrita Louis DO Primary Care Provide r, Attending Provider Active Start: January 16, 2024 End: January 16, 2024 Team Status: Inactive Member Role Status Dates Amrita Louis DO Primary Care Provide r, Attending Provider Active Start: January 29, 2024 End: January 29, 2024 Team Status: Inactive Member Role Status Jonny Louis DO Primary Care Provider Active Start: January 30, 2024 End: January 30, 2024 Clif Dorado MD Attending Provider Active Start: January 30, 2024 End: January 30, 2024 Team Status: Inactive Member Role Status Dates Amrita Louis DO Primary Care Provider Active Start: February 02, 2024 End: February 02, 2024 Clif Dorado MD Attending Provider Active Start: February 02, 2024 End: February 02, 2024 Team Status: Inactive Member Role Status Dates Amrita Louis DO Primary Care Provider Active Start: February 05, 2024 End: February 05, 2024 Clif Dorado MD Attending Provider Active Start: February 05, 2024 End: February 05, 2024 Team Status: Active Member Role Status Dates Amrita Louis DO Primary Care Provider Active Start: February 05, 2024 Clif Dorado MD Attending Pr ovider, Other Provider Active Start: February 05, 2024 Team Status: Inactive Member Role Status Jonny Louis DO Primary Care Provide r, Referring Provider Active Start: February 19, 2024 End: February 19, 2024 Leon Blake II, Attending Provider Active Start: February 19, 2024 End: February 19, 2024 Team Status: Active Member Role Status Dates Amrita Louis DO Primary Care Provide r, Referring Provider Active Start: February 19, 2024 Leon Blake II, DO Attending Provider Active Start: February 19, 2024 Team Status: Active Member Role Status Dates Amrita Louis DO Primary Care Provide r, Referring Provider Active Start: March 04, 2024 Leon Blake II, DO Attending Provider Active Start: March 04, 2024 Team Status: Inactive Member Role Status Dates Amrita Louis DO Primary Care Provider Active Start: March 04, 2024 End: March 04, 2024 Leon Blake II, DO Attending Provider Active Start: March 04, 2024 End: March 04, 2024 Team Status: Active Member Role Status Dates Amrita Louis DO Primary Care Provide r, Referring Provider Active Start: April 15, 2024 Leon Blake II, DO Attending Provider Active Start: April 15, 2024 Team Status: Inactive Member Role Status Dates Amrita Louis DO Primary Care Provider Active Start: April 15, 2024 End: April 15, 2024 Leon Blake II, DO Attending Provider Active Start: April 15, 2024 End: April 15, 2024 Team Status: Inactive Member Role Status Dates Amrita Louis DO Primary Care Provider Active Start: April 16, 2024 End: April 16, 2024 Leon Blake II, DO Attending Provider Active Start: April 16, 2024 End: April 16, 2024 Team Status: Inactive Member Role Status Dates Molina Palmer MD Attending Provider Active S tart: April 30, 2024 End: April 30, 2024 Amrita Louis DO Primary Care Provider Active Start: April 30, 2024 End: April 30, 2024 Team Status: Active Member Role Status Dates MARY Burger Attending Provider Active Start: April 30, 2024 Amrita Louis DO Primary Care Provider Active Start: April 30, 2024 Team Status: Inactive Member Role Status Dates MARY Burger Attending Provider Active Start: April 30, 2024 End: April 30, 2024 Amrita Louis DO Primary Care Provider Active Start: April 30, 2024 End: April 30, 2024 Team Status: Active Member Role Status Dates Amrita Louis , DO Primary Care Provide r, Referring Provider Active Start: May 17, 2024 Leon Blake II, DO Attending Provider Active Start: May 17, 2024 Team Status: Inactive Member Role Status Dates Amrita Louis , DO Primary Care Provider Active Start: May 17, 2024 End: May 17, 2024 Leon Blake II, DO Attending Provider Active Start: May 17, 2024 End: May 17, 2024 Team Status: Inactive Member Role Status Dates Amrita Louis , DO Primary Care Provider Active Start: June 21, 2024 End: June 21, 2024 Leon Blake II, DO Attending Provider Active Start: June 21, 2024 End: June 21, 2024 Team Status: Active Member Role Status Dates Amrita Louis , DO Primary Care Provide r, Referring Provider Active Start: June 21, 2024 Leon Blake II, DO Attending Provider Active Start: June 21, 2024 Goals (unrecognized section and content) Goals may be documented in a n alternate section Source Comments (unrecognize d section and content) In the event this informatio n is protected by the Federal Confidentiality of Alcohol and Drug Abuse Patient Records regulations: The Federal rules restrict any use of the information to criminally investigate or prosecute any alcohol or drug abuse patient.[facility] HealthIn the event this information is protected by the Federal Confidentiality of Alcohol and Drug Abuse Patient Records regulations: The Federal rules restrict any use of the information to criminally investigate or prosecute any alcohol or drug abuse patient.[facility] HealthIn the event this information is protected by the Federal Confidentiality of Alcohol and Drug Abuse Patient Records regulations: The Federal rules restrict any use of the information to criminally investigate or prosecute any alcohol or drug abuse patient.[facility] HealthIn the event this information is protected by the Federal Confidentiality of Alcohol and Drug Abuse Patient Records regulations: The Federal rules restrict any use of the information to criminally investigate or prosecute any alcohol or drug abuse patient.[facility] HealthIn the event this information is protected by the Federal Confidentiality of Alcohol and Drug Abuse Patient Records regulations: The Federal rules restrict any use of the information to criminally investigate or prosecute any alcohol or drug abuse patient.[facility] HealthIn the event this information is protected by the Federal Confidentiality of Alcohol and Drug Abuse Patient Records regulations: The Federal rules restrict any use of the information to criminally investigate or prosecute any alcohol or drug abuse patient.[facility] FOR RECORDS PERTAINING TO PATIENTS WHO ARE OR HAVE BEEN ENROLLED IN A CHEMICAL DEPENDENCY/SUBSTANCEABUSE PROGRAM, SOME INFORMATION MAY BE OMITTED. This clinical summary was aggregated from multiple sources. Caution should be exercised in using it in the provision of clinical care. This summary normalizes information from multiple sources, and as a consequence, information in this document may materially change the coding, format and clinical context of patient data. In addition, data may be omitted in some cases. CLINICAL DECISIONS SHOULD BE BASED ON THE PRIMARY CLINICAL RECORDS. [facility]. provides no warranty or guarantee of the accuracy or completeness of information in this document.
--- NOTE | 2024-07-08 13:50 | CM.DCFOLLOWU ---
Person spoke with:patient How are you feeling? not too well, blood sugars are running high How is your pain? none Did you understand your discharge instructions? yes Do you have any questions about your discharge instructions? no Were you given any prescriptions at discharge? yes Were you able to get your prescriptions filled? yes Do you understand how to take your medications as ordered? yes Do you have any questions about your follow up appointment and do you plan to keep your follow up appointment? no questions, [facility], monitoring blood sugars,. Advised to come back to ED if blood sugars are not controlled Is there anything else that you would like to discuss? no Questions/Comments/Concerns/Other: none
== END 2024-07-06 12:55 | disposition home or self-care (01) | DRG 641 ==
LOC: ER 14:46 → MS 07-06 07:31
PROVIDERS: Family Medicine; Admitting Provider Internal Medicine; Emergency Provider Emergency Medicine Emergency Medical Services; PCP Internal Medicine; Visit Provider Internal Medicine
DX: E86.0 Dehydration (principal); C34.81 Malignant neoplasm of overlapping sites of right bronchus and lung; N17.9 Acute kidney failure, unspecified; C34.90 Malignant neoplasm of unspecified part of unspecified bronchus or lung; E11.65 Type 2 diabetes mellitus with hyperglycemia; E87.1 Hypo-osmolality and hyponatremia; Z79.84 Long term (current) use of oral hypoglycemic drugs; Z95.1 Presence of aortocoronary bypass graft; J44.9 Chronic obstructive pulmonary disease, unspecified; Z95.5 Presence of coronary angioplasty implant and graft; I10 Essential (primary) hypertension; I25.10 Atherosclerotic heart disease of native coronary artery without angina pectoris; E78.00 Pure hypercholesterolemia, unspecified; Z85.850 Personal history of malignant neoplasm of thyroid; M50.90 Cervical disc disorder, unspecified, unspecified cervical region; E89.0 Postprocedural hypothyroidism; Z79.60 Long term (current) use of unspecified immunomodulators and immunosuppressants; Z79.899 Other long term (current) drug therapy; E11.649 Type 2 diabetes mellitus with hypoglycemia without coma
CPT/HCPCS: 36415; 80048; 80053; 80076; 81001; 82009; 82800; 82948; 83036; 83605; 83735; 84300; 85025; 87086; 94640; 94761; 96360; 96361; 99285; 99406; J1817